=== PATIENT | male | born 1945 | race Caucasian/White ===

== ENCOUNTER → 2016-09-16 | Outpatient (CLI) | payer BC, MEDICARE ==
[2016-09-16 10:37] LABS: Blood Urea Nitrogen 29 mg/dL (9-20); Non-African American GFR(MDRD) >60 (>60 ml/min/1.73 sqM)
--- NOTE | 2016-09-16 11:47 | CT ---
EXAMINATION TYPE: CT abdomen pelvis w con DATE OF EXAM: 09/16/2016 11:22 AM COMPARISON: 03/19/2016 HISTORY: Patient complains of right flank pain bruising and pain. Patient also complains of right gr oin numbness x3 years. CT DLP: 402.7 mGycm CONTRAST: CT scan of the abdomen and pelvis is performed with Oral Contrast and with IV Contrast, patient injec suleiman with 100 mL of Omnipaque 300. FINDINGS: LUNG BASES-: No visible nodule. No infiltrate. LIVER/GB: No calcified gallstones. No space occupying hepatic lesion. Biliary tree is of normal ca liber. PANCREAS: No inflammation. No distinct mass. SPLEEN: No splenic enlargement. No lesion seen. ADRENALS: No nodule. No thickening. KIDNEYS/BLADDER: No hydronephrosis. 5.5 mm nonobstructing left renal calculus mid pole. No additiona l calculi seen. No disctinct renal mass. Urinary bladder grossly unremarkable. BOWEL: Normal appendix. Normal bowel caliber. No inflammation. Small moderate fixed hiatal hernia. GENITAL ORGANS: No gross abnormality. LYMPH NODES: No greater than 1cm abdominal or pelvic lymph nodes are appreciated. AORTA: No significant abnormality. OSSEOUS STRUCTURES: Degenerative changes lumbar spine. Compression fractures have been described prev iously. OTHER: Fat-containing bilateral inguinal hernias. IMPRESSION: 1. Fixed hiatal hernia. 2. Nonobstructing left renal calculus. 3. Fat-containing bilateral inguinal hernias.
== END | disposition home or self-care (01) ==
LOC: RADCTMAIN 10:02
PROVIDERS: ATTEND Surgery
DX: K44.9 Diaphragmatic hernia without obstruction or gangrene (principal); K40.90 Unilateral inguinal hernia, without obstruction or gangrene, not specified as recurrent; N20.0 Calculus of kidney
CPT/HCPCS: 82565; 84520; 74177; 36415; Q9967

== ENCOUNTER 2016-09-30 08:29 | Day surgery (SDC) | payer BC, MEDICARE ==
[2016-09-27 10:32] VITALS: BMI 22.9
[~2016-09-30 08:29] MED LIST: LACTATED RINGERS 1,000 ML IV SCH
[2016-09-30 08:54] VITALS: TEMP 97.9
[2016-09-30] MEDS ORDERED: LIDOCAINE 1% 20 ML VIAL (10MG/ML) FOR IV START INTRADERMA ONE (08:59)
[2016-09-30] MEDS ORDERED: LIDOCAINE 1% INJ 10MG/ML (20 ML MDV) ONE (09:15)
[2016-09-30] MEDS ORDERED: PROPOFOL 10 MG/ML 20 ML VIAL IV ONE (09:15)
[2016-09-30] MEDS ORDERED: GLYCOPYRROLATE 0.2 MG/ML 2 ML VIAL ONE (09:15)
--- NOTE | 2016-09-30 09:26 | P.GSHP ---
History of Present Illness H&P Date: 09/30/16 Chief Complaint: GERD This is a 71-year-old male referred from Dr. britt. Patient's complaints of GERD. He presents today for EGD. - Constitutional Constitutional: Reports as per HPI Past Medical History Past Medical History: Asthma, Cancer, GERD/Reflux, GI Bleed, Hearing Disorder / Deafness, Pneumonia Additional Past Medical History / Comment(s): ARRYTHMIA, MVP, MURMUR. HAS "BLEEDING ULCER," HAS F/U EGD IN FEW WKS. HX ORAL CA. PNEUMONIA, H1N1 IN 06/2013 ; HX KIDNEY STONE. History of Any Multi-Drug Resistant Organisms: None Reported Past Surgical History: Orthopedic Surgery Additional Past Surgical History / Comment(s): ORAL SURG FOR CA. EGD. SHOULDER SX Past Anesthesia/Blood Transfusion Reactions: No Reported Reaction Past Psychological History: No Psychological Hx Reported Smoking Status: Never smoker Past Alcohol Use History: None Reported Past Drug Use History: None Reported Medications and Allergies Home Medications Medication Instructions Recorded Confirmed Type No Known Home Medications [No 09/27/16 09/30/16 History Known Home Medications] Allergies Allergy/AdvReac Type Severity Reaction Status Date / Time No Known Allergies Allergy Verified 09/30/16 08:43 Surgical - Exam Vital Signs Temp Pulse Resp BP Pulse Ox 97.9 F 47 L 16 100/51 95 09/30/16 08:48 09/30/16 08:48 09/30/16 08:48 09/30/16 08:48 09/30/16 08:48 - General well developed, no distress - Eyes PERRL - ENT normal pinna - Neck no masses - Respiratory normal expansion - Cardiovascular Rhythm: regular - Abdomen Abdomen: soft, non tender Assessment and Plan Plan: GERD. We'll perform EGD.
--- NOTE | 2016-09-30 09:36 | P.OP ---
Date of Procedure: 09/30/16 Preoperative Diagnosis: GERD Postoperative Diagnosis: Antral gastritis Moderate size hiatal hernia Esophagitis with ulceration Procedure(s) Performed: EGD Anesthesia: MAC Surgeon: Du Schultz Pathology: other Condition: stable Disposition: PACU Description of Procedure: Patient was placed in the endoscopy table lateral position. He received IV sedation. The gastroscope placed oropharynx passed into the esophagus and into the stomach. The scope was then placed through the pylorus. The first and second portion of the duodenum appeared normal. Scope was then brought back the antrum and this appeared mildly inflamed. A biopsies was performed. Scope was then retroflexed and then the moderate size hiatal hernia was visualized. The GE junction was at 38 7 is. The distal esophagus was acutely inflamed with evidence of linear ulceration due to reflux. This area is biopsied. The proximal esophagus appeared normal. Scope was withdrawn for patient.
[2016-09-30 09:42] VITALS: PULSE 59
[2016-09-30 10:13] VITALS: BP 141/94; RESP 18
== END 2016-09-30 10:25 | disposition home or self-care (01) ==
LOC: ORWHC2ENDO 08:29
PROVIDERS: ATTEND Surgery
DX: K21.0 Gastro-esophageal reflux disease with esophagitis (principal); K29.50 Unspecified chronic gastritis without bleeding; K44.9 Diaphragmatic hernia without obstruction or gangrene; K22.10 Ulcer of esophagus without bleeding; I49.9 Cardiac arrhythmia, unspecified; J45.909 Unspecified asthma, uncomplicated; Z85.819 Personal history of malignant neoplasm of unspecified site of lip, oral cavity, and pharynx
CPT/HCPCS: 88305; 88312; 88342; 43239; J2001; J2704

== ENCOUNTER → 2016-10-25 | Outpatient (CLI) | payer BC, MEDICARE ==
[2016-10-25 17:36] LABS: EKG EKG PERFORMED
[2016-10-25 17:45] LABS: Basophils # (A) 0.1 k/uL (0-0.2); Basophils % (A) 1 %; CH 33.7; CHCM 33.8; Eosinophils # (A) 0.1 k/uL (0-0.7); Eosinophils % (A) 2 %; HCT 42.3 % (39.0-53.0); Luc # (Auto) 0.23; Luc % (Auto) 4; Lymphocytes # (A) 1.2 k/uL (1.0-4.8); Lymphocytes % (A) 23 %; MCH 33.1 pg (25.0-35.0); MCV 100.2 fL (80.0-100.0); Mean Platelet Volume 6.7; Monocytes # (A) 0.4 k/uL (0-1.0); Monocytes % (A) 8 %; Neutrophils # (A) 3.3 k/uL (1.3-7.7); Neutrophils % (A) 62 %; RBC 4.22 m/uL (4.30-5.90); RDW 13.2 % (11.5-15.5); WBC 5.4 k/uL (3.8-10.6); WBC (Perox) 5.71
[2016-10-25 17:54] LABS: Anion Gap 9 mmol/L; Carbon Dioxide 29 mmol/L (22-30); Chloride 104 mmol/L (98-107); Potassium 4.8 mmol/L (3.5-5.1); Sodium 142 mmol/L (137-145)
== END | disposition home or self-care (01) ==
LOC: LABPAT 17:14
PROVIDERS: ATTEND Anesthesiology
DX: Z01.810 Encounter for preprocedural cardiovascular examination (principal); Z01.812 Encounter for preprocedural laboratory examination
CPT/HCPCS: 80051; 85025; 93005

== ENCOUNTER 2016-10-29 06:22 | Observation (INO) | payer BC, MEDICARE ==
[2016-10-25 16:02] VITALS: BMI 25.2
[~2016-10-29 06:22] MED LIST changes: +DEXAMETHASONE SOD PHOSPHATE 10 MG/ML 1 ML VIAL IV ONE; +HEPARIN SODIUM,PORCINE 5,000 UNIT/ML 1 ML VIAL SQ ONE; +HYDROmorphone 1 MG/ML 1 ML SYRINGE IVP PRN; -LACTATED RINGERS 1,000 ML IV SCH; +MIDAZOLAM 2 MG/2 ML VIAL IV PRN; +ONDANSETRON 4 MG/2 ML VIAL IVP ONE; +ceFAZolin 2 GM in SODIUM CHLORIDE 0.9% 100 ML IVPB ONE
[2016-10-29] MEDS: LACTATED RINGERS 1,000 ML IV SCH (07:04)
--- NOTE | 2016-10-29 08:17 | P.GSHP ---
History of Present Illness H&P Date: 10/29/16 Chief Complaint: GERD This a 71-year-old male referred from Dr. Rizvi. NThe patient has had long-standing problems with reflux esophagitis. The patient underwent recent EGD is found have evidence of esophagitis. Patient has been well informed on the procedure of laparoscopic Abiodun fundoplication. The patient is aware the risk of the conversion to the open procedure, risk of injury to the stomach, liver and spleen. The patient is also a risk of recurrent GERD and dysphagia symptoms. The patient understands there is a postoperative diet of full liquids for 2 weeks after surgery. - Constitutional Constitutional: Reports as per HPI Past Medical History Past Medical History: Asthma, Cancer, GERD/Reflux, GI Bleed, Hearing Disorder / Deafness, Pneumonia Additional Past Medical History / Comment(s): ARRYTHMIA, MVP WITH HEART MURMUR. , STATES BLEEDING ULCER, HX ORAL CA. PNEUMONIA, H1N1 IN 2013; ,KIDNEY STONE., STATES ASTHMA BUT TOOK HIMSELF OFF OF INHALERS. , FX VERTEBRAE, FREQUENT STOOLS ., STATES HE WALKS HUNCHED OVER., STATES HE IS A [employer] AND HAS A SLOW RESTING HEART RATE -SOMETIMES AROUND 30. , H.O. H. History of Any Multi-Drug Resistant Organisms: None Reported Past Surgical History: Orthopedic Surgery Additional Past Surgical History / Comment(s): ORAL SURG FOR CA. , EGD., SHOULDER SX., LITHOTRIPSY. Past Anesthesia/Blood Transfusion Reactions: No Reported Reaction Past Psychological History: No Psychological Hx Reported Smoking Status: Never smoker Past Alcohol Use History: None Reported Past Drug Use History: None Reported - Past Family History Mother Family Medical History: No Reported History Medications and Allergies Home Medications Medication Instructions Recorded Confirmed Type Allergy Shots 1 dose PO Q14D 10/25/16 10/29/16 History Multivitamins, Thera [Multivitamin 1 tab PO DAILY 10/25/16 10/29/16 History (formulary)] Allergies Allergy/AdvReac Type Severity Reaction Status Date / Time No Known Allergies Allergy Verified 10/29/16 06:46 Surgical - Exam Vital Signs Temp Pulse Resp BP Pulse Ox 97.2 F L 56 L 16 143/82 99 10/29/16 06:43 10/29/16 06:43 10/29/16 06:43 10/29/16 06:43 10/29/16 06:43 - General well developed, no distress - Eyes PERRL - ENT normal pinna - Neck no masses - Respiratory normal expansion - Cardiovascular Rhythm: regular - Abdomen Abdomen: soft, non tender Assessment and Plan Plan: GERD. We'll perform laparoscopic Abiodun fundal plication.
[2016-10-29] MEDS ORDERED: SUCCINYLCHOLINE CHLORIDE 100 MG/5 ML SYR IV ONE (08:22)
[2016-10-29] MEDS ORDERED: MIDAZOLAM 2 MG/2 ML VIAL ONE (08:22)
[2016-10-29] MEDS ORDERED: LIDOCAINE 1% INJ 10MG/ML (20 ML MDV) ONE (08:22)
[2016-10-29] MEDS ORDERED: ROCURONIUM BROMIDE 10 MG/ML 10 ML VIAL IV ONE (08:22)
[2016-10-29] MEDS ORDERED: fentaNYL (PF) 50 MCG/ML 2 ML AMP ONE (08:22)
[2016-10-29] MEDS ORDERED: PROPOFOL 10 MG/ML 20 ML VIAL IV ONE (08:22)
[2016-10-29] MEDS ORDERED: BUPIVACAIN-EPI 0.25%-1:200,000 30 ML VIAL SQ ONE (08:52)
[2016-10-29] MEDS ORDERED: LACTATED RINGERS 1,000 ML IV ONE (09:05)
[2016-10-29] MEDS: METHYLENE BLUE 15 MG in DEXTROSE 5% IN WATER 500 ML IRRIGATION ONE ×4 (09:13→11:45)
[2016-10-29] MEDS ORDERED: HYDROmorphone 1 MG/ML 1 ML SYRINGE IVP PRN (09:20)
[2016-10-29] MEDS ORDERED: ONDANSETRON 4 MG/2 ML VIAL IVP PRN (09:20)
--- NOTE | 2016-10-29 09:20 | P.OP ---
Date of Procedure: 10/29/16 Preoperative Diagnosis: GERD Postoperative Diagnosis: GERD Procedure(s) Performed: Laparoscopic Abiodun fundoplication Anesthesia: SOL Surgeon: Du Schultz Estimated Blood Loss (ml): 5 Pathology: none sent Condition: stable Disposition: PACU Description of Procedure: The patient was placed on the operating table in the supine position. The patient received general anesthesia. And was placed in dorsal lithotomy position. The patient was prepped and draped in the usual sterile fashion. The skin incision sites were anesthetized with 1% local Xylocaine. The skin was incised in the left periumbilical area and then using a blade less 5 mm trocar under direct visualization panel cavity was entered. After adequate insufflation the laparoscope was then placed into the peritoneal cavity. Next a 5 mm trochars placed in the right epigastric position. Another 5 millimeter trocar the right lateral position. Another 5 millimeter trocar in the left lateral position a 5 mm trocar is placed in the left epigastric position. And then the initial 5 mm trocar was exchanged for a 10 mm trocar. The left lateral lobe liver was retracted. The hernia was seen. The crural defect was then dissected using the Harmonic scissors device. A 360 crural dissection was performed the esophagus stomach was reduced back into the peritoneal Cavity. The crural defect was then closed using 2-0 Ethibond suture. Next the fundus of the stomach was mobilized using the Eckerman scissors device. and then a 58-Czech bougie dilator was placed oropharynx passed into the esophagus and stomach the fundal plication wrap was then performed by grasping the fundus posteriorly and bringing it around the esophagus and stomach fundoplication was then performed using 2-0 Ethibond suture. Care was taken that the fundal location rested over top of the intra-abdominal esophagus. There was no injury seen to the stomach or esophagus. The dilator was then withdrawn. The abdomen was irrigated there is no bleeding seen. The trochars were then withdrawn and then skin incision sites were closed using 3-0 Monocryl suture Steri-Strips are applied. Patient thought procedure well and sent to recovery room in stable condition.
[2016-10-29] MEDS: D5-0.45% NACL WITH KCL 20MEQ/L 1,000 ML IV SCH ×2 (12:25→21:12)
[2016-10-29] MEDS: METOCLOPRAMIDE 5 MG/ML 2 ML VIAL IVP SCH ×3 (12:25→23:41)
--- NOTE | 2016-10-29 14:19 | FL ---
EXAMINATION TYPE: FL esophagus cervic/pharynx DATE OF EXAM ORDERED: 10/29/2016 2:07 PM HISTORY: Status post Arabella fundoplication. COMPARISON: None. FINDINGS: The patient swallowed contrast with ease. There was mild holdup of egress of barium from e sophagus into the stomach at the level of the gastroesophageal junction. There is no evidence of extr avasation. There is moderate free air. IMPRESSION: STATUS POST ARABELLA FUNDOPLICATION.
[2016-10-29] MEDS: FAMOTIDINE 20 MG/2 ML VIAL IV SCH (21:12)
[2016-10-30] MEDS: D5-0.45% NACL WITH KCL 20MEQ/L 1,000 ML IV SCH ×3 (00:08→17:40)
[2016-10-30] MEDS: METOCLOPRAMIDE 5 MG/ML 2 ML VIAL IVP SCH ×3 (05:56→17:32)
[2016-10-30] MEDS: LACTATED RINGERS 1,000 ML IV SCH (06:07)
[2016-10-30] MEDS: ENOXAPARIN 40 MG/0.4 ML SYRINGE SQ SCH (08:34)
[2016-10-30] MEDS: FAMOTIDINE 20 MG/2 ML VIAL IV SCH ×2 (08:34→20:34)
--- NOTE | 2016-10-30 11:38 | P.PN ---
Progress Note - Text Patient underwent Abiodun fundoplication by Dr. Schultz yesterday. Postop swallow study was unremarkable. Patient however the feels quite bloated gas. Was not able to tolerate liquids today. Some nausea. On examination he is awake alert in no acute distress. Temperature is normal. Vitals are stable. Abdomen is soft not particularly distended. Trocar sites are fine. No guarding or rebound or evidence of any significant intra- abdominal complication. Impression course. Some nausea. Recommendation we'll continue to monitor him especially his oral intake and discharge of hopefully in the day or 2 ago when he feels better.
[2016-10-30 14:36] VITALS: RESP 16
[2016-10-31] MEDS ORDERED: METOCLOPRAMIDE 5 MG/ML 2 ML VIAL ONE (00:51)
[2016-10-31] MEDS: METOCLOPRAMIDE 5 MG/ML 2 ML VIAL IVP SCH ×3 (02:19→11:11)
[2016-10-31] MEDS: D5-0.45% NACL WITH KCL 20MEQ/L 1,000 ML IV SCH ×2 (05:41→11:17)
[2016-10-31] MEDS: LACTATED RINGERS 1,000 ML IV SCH (05:59)
[2016-10-31] MEDS: FAMOTIDINE 20 MG/2 ML VIAL IV SCH (08:34)
[2016-10-31] MEDS: ENOXAPARIN 40 MG/0.4 ML SYRINGE SQ SCH (08:34)
[2016-10-31 09:13] VITALS: BP 168/86; PULSE 45; TEMP 98.3
--- NOTE | 2016-10-31 11:02 | P.DS ---
Providers Date of admission: 10/30/16 07:47 Attending physician: Du Schultz Consults: 10/29/16 09:20 Consult Physician Routine Consulting Provider: Ron Rizvi Consult Reason/Comments: Management Do you want consulting provider notified?: Yes Primary care physician: Ron Rizvi Plan - Discharge Summary New Discharge Prescriptions: Docusate [Colace] 100 mg PO BID #20 capsule HYDROcodone/APAP 7.5-325MG [Esopus 7.5] 1 each PO Q4H PRN #60 tab PRN Reason: Pain Discharge Medication List Allergy Shots 1 dose SQ Q14D 10/25/16 [History] Multivitamins, Thera [Multivitamin (formulary)] 1 tab PO DAILY 10/25/16 [History ] Docusate [Colace] 100 mg PO BID #20 capsule 10/29/16 [Rx] HYDROcodone/APAP 7.5-325MG [Esopus 7.5] 1 each PO Q4H PRN #60 tab 10/29/16 [Rx] Follow up Appointment(s)/Referral(s): Du Schultz MD [STAFF PHYSICIAN] - 2 Weeks (Office closed. Patient to call and schedule follow up appointment.) Discharge Disposition: HOME SELF-CARE
--- NOTE | 2016-10-31 11:04 | P.PN ---
Progress Note - Text The patient is doing better today. He was able to tolerate some liquids this morning. Eyes any nausea or vomiting. Did have 2 bowel movements. Minimal abdominal discomfort. He is day 2 post lap Abiodun fundoplication. On examination he is afebrile in no distress vitals are good abdomen is soft with mild tenderness to trocar sites are healing nicely with no evidence of complication. Her graft pressure satisfactory postoperative course. Recommendation patient can be discharged today routine Abiodun fundoplication postop orders and follow-up with Dr. Coates in 2 weeks. No heavy lifting for a week.
--- NOTE | 2016-10-31 12:29 | CONS ---
DATE OF CONSULTATION: CHIEF COMPLAINT: GERD. HISTORY OF PRESENT ILLNESS: This gentleman is in for an elective Abiodun fundoplasty. He has been doing fairly well. He has other problems including arthritis affecting particularly his LS-spine, hypertension and other aches and pains largely due to arthritis. He has had some intermittent problems with elevation of his blood pressure, but is generally good and he takes no treatment. REVIEW OF SYSTEMS: He has had no neurologic problems, change in vision or hearing, headache, chest pain, shortness of breath, cough, hemoptysis, murmurs, rheumatic fever, heart disease, palpitations, orthopnea, PND, abdominal pain, melena, hematochezia, jaundice, hepatitis, cirrhosis, hematuria, frequency, urgency, arthralgias, diabetes, etc. Past medical history, family history and personal and social history are unremarkable and noncontributory otherwise and can be found in his admitting summary. He is currently not allergic to any medicine nor taking any. PHYSICAL EXAMINATION: VITAL SIGNS: Blood pressure 124/84 with pulse 64, respirations of 16, and temperature 96.3. GENERAL: Appeared to be well-developed, well-nourished and in no acute distress. Skin color is normal. Skin is warm and dry. Lymph nodes are not enlarged. Head, ears, eyes, nose, mouth, and throat were normal. Neck veins are not distended. Thyroid is not enlarged. Chest is clear. Cardiac exam is normal. Abdomen is soft and nontender. Incisions are dry. Extremities are normal. Neurologically, he is intact. IMPRESSION: 1. Gastroesophageal reflux disease. 2. Lumbosacral spine arthritis. RECOMMENDATIONS: None.
--- NOTE | 2016-10-31 12:57 | PN ---
DATE OF SERVICE: 10/30/2016 CHIEF COMPLAINT: Status post Abiodun fundoplasty. HISTORY OF PRESENT ILLNESS: The gentleman is doing well, but he has no trouble with dysphagia and but he otherwise has had no problems. He has had no pain, fever, chills, cough, etc. PHYSICAL EXAMINATION: Chest is clear. The cardiac exam is normal. Incisions are dry. IMPRESSION: Status post Abiodun fundoplasty. RECOMMENDATION: No change in program. He is doing well.
== END 2016-10-31 12:30 | disposition home or self-care (01) ==
LOC: ORWHC2ENDO 06:22 → EDSTATUS 07:45 → 3SUR 09:33 → ORWHC2ENDO 10-30 07:46 → 3SUR 10-30 07:47
PROVIDERS: ADMIT Surgery; ATTEND Surgery
DX: K21.0 Gastro-esophageal reflux disease with esophagitis (principal); M46.97 Unspecified inflammatory spondylopathy, lumbosacral region; H91.90 Unspecified hearing loss, unspecified ear; Z85.819 Personal history of malignant neoplasm of unspecified site of lip, oral cavity, and pharynx; I34.1 Nonrheumatic mitral (valve) prolapse; K44.9 Diaphragmatic hernia without obstruction or gangrene
CPT/HCPCS: 43280; 96372 ×2; 74210; G0378 ×2; J2250; J1644; J1100; J2765 ×3; Q9967; J0690; J2405; J2001; J1650 ×2; J3010; J1170; J0330; J2704

== ENCOUNTER → 2016-12-02 | Outpatient (CLI) | payer BC ==
--- NOTE | 2016-12-02 09:08 | NM ---
EXAMINATION TYPE: NM hepatobiliary w EF DATE OF EXAM: 12/02/2016 COMPARISON: CT abdomen and pelvis November 17, 2016. HISTORY: Chronic cholecystitis per order. Epigastric pain with diminished appetite nausea vomiting he artburn and reflux-like symptoms per patient. TECHNIQUE: After the intravenous administration of 5.5 mCi Tc 99m Mebrofenin hepatobiliary scintigrap hy is performed. Immediate images post injection. FINDINGS: There is satisfactory initial accumulation of tracer by the liver. The gallbladder is visualized wit hin 10 minutes. The small bowel activity is noted within 30 minutes. At one hour 8 ounces of oral e nsure plus is given to mimic CCK and gallbladder ejection fraction is calculated at 58 %, in the norm al range. Therefore there is no scintigraphic evidence of cystic or common bile duct obstruction to suggest acute cholecystitis or gallbladder dyskinesia. IMPRESSION: Exam is within normal limits.
== END | disposition home or self-care (01) ==
LOC: RADNMMAIN 06:31
PROVIDERS: ATTEND Surgery
DX: K81.1 Chronic cholecystitis (principal)
CPT/HCPCS: 78226; A9537

== ENCOUNTER → 2016-12-24 | Outpatient (CLI) | payer BC ==
[2016-12-24 13:52] LABS: Non-African American GFR(MDRD) >60 (>60 ml/min/1.73 sqM)
== END | disposition home or self-care (01) ==
LOC: LABWHC1 13:20
PROVIDERS: ATTEND Surgery
DX: S22.089A Unspecified fracture of T11-T12 vertebra, initial encounter for closed fracture (principal)
CPT/HCPCS: 36415; 82565

== ENCOUNTER → 2016-12-27 | Outpatient (CLI) | payer BC, MEDICARE ==
--- NOTE | 2016-12-27 09:28 | MR ---
EXAMINATION TYPE: MR marty/stoney wo/w con DATE OF EXAM: 12/27/2016 COMPARISON: CT abdomen pelvis 09/16/2016 HISTORY: T12 fracture, Back pain TECHNIQUE: Multiplanar, multisequence images of the lumbar spine and thoracic spine is performed without and wit h IV contrast, utilizing 12 mL intravenous MultiHance FINDINGS: Compression deformity again noted at T12, minimal retropulsion of the superior endplate is again seen. No significant spinal stenosis. Thoracic cord signal is maintained. At T3-4 there is a le ft paracentral posterior disc herniation contacting the anterior resident cord. There is a scoliosis present. Thoracic vertebral bodies show multilevel spondylosis. Disc spaces are maintained. Minimal endplate d iscogenic marrow signal changes are present. Loss of disc height and signal is greatest at the intervertebral levels in the lumbar spine, there is endplate discogenic marrow signal change, multilevel spondylosis. Minimal superior endplate depressi on also present at L2 centrally. Scoliosis contributes to cause some foraminal encroachment at L4-5, L5-S1, L3-4, L2-3 and L1-2 with circumferential extension of endplate disc complex. L5-S1: Facet arthropathy changes are present. Circumferential posterior disc bulge causes minimal ant erior mass effect on the thecal sac. L4-5: Small posterior disc bulge causes minimal anterior mass effect on the thecal sac. Facet arthrop athy encroaches on the lateral recesses. No significant central stenosis. L3-4: Hypertrophic change of the ligamentum flavum encroaches on the lateral recesses, there is a lillie foil appearance of the thecal sac, only mild central stenosis. L2-3: Small posterior disc bulge causes slight anterior mass effect on the thecal sac. There is some facet arthropathy. L1-2: Small posterior disc bulge causes minimal anterior mass effect on the thecal sac. There is some mild facet arthropathy. T12-L1: Within normal limits. Common iliac artery on the right appears ectatic measuring 2.2 cm. Abdominal aorta are also ectatic a t the level of the aortic hiatus. Prominent extrarenal pelvis on the left. Proximal descending aorta measures approximately 3.2 cm. No abnormal enhancement following contrast a dministration. IMPRESSION: Compression fractures a stable finding at T12. Aortic ectasia, common iliac artery ectasi a. Scoliosis. Multilevel foraminal encroachment. She
== END | disposition home or self-care (01) ==
LOC: RADMRIMAIN 06:33
PROVIDERS: ATTEND Surgery
DX: S22.089A Unspecified fracture of T11-T12 vertebra, initial encounter for closed fracture (principal); M41.9 Scoliosis, unspecified; M54.5 Low back pain
CPT/HCPCS: 72157; 72158; A9577

== ENCOUNTER 2017-01-18 06:11 | Day surgery (SDC) | payer BC ==
[2017-01-11 08:22] VITALS: BMI 19.8
[~2017-01-18 06:11] MED LIST changes: -HYDROmorphone 1 MG/ML 1 ML SYRINGE IVP PRN
[2017-01-18] MEDS: LACTATED RINGERS 1,000 ML IV SCH ×2 (06:47→06:48)
[2017-01-18] MEDS ORDERED: LIDOCAINE 1% 20 ML VIAL (10MG/ML) FOR IV START INTRADERMA ONE ×2 (06:48→06:49)
--- NOTE | 2017-01-18 07:50 | P.GSHP ---
History of Present Illness H&P Date: 01/18/17 Chief Complaint: Right lower quadrant pain, bilateral hernias This is a 71-year-old male presents today for laparoscopic robotic system repair of bilateral inguinal hernias. Patient also had chronic right lower quadrant pain. He will undergo incidental appendectomy. Past Medical History Past Medical History: Asthma, Cancer, GI Bleed, Hearing Disorder / Deafness, Pneumonia Additional Past Medical History / Comment(s): ARRYTHMIA, MVP WITH HEART MURMUR. , HX ORAL CA. H1N1 IN 2014; ,KIDNEY STONE., STATES ASTHMA BUT TOOK HIMSELF OFF OF INHALERS. ,STATES HE WALKS HUNCHED OVER., STATES HE IS A [employer] AND HAS A SLOW RESTING HEART RATE -SOMETIMES AROUND 30. History of Any Multi-Drug Resistant Organisms: None Reported Past Surgical History: Orthopedic Surgery Additional Past Surgical History / Comment(s): ORAL SURG FOR CA. , EGD., RT SHOULDER SX., LITHOTRIPSY. asha fundolipation Past Anesthesia/Blood Transfusion Reactions: No Reported Reaction Smoking Status: Never smoker - Past Family History Mother Family Medical History: No Reported History Medications and Allergies Home Medications Medication Instructions Recorded Confirmed Type Multivitamins, Thera [Multivitamin 1 tab PO DAILY 10/25/16 01/11/17 History (formulary)] Allergies Allergy/AdvReac Type Severity Reaction Status Date / Time No Known Allergies Allergy Verified 01/11/17 08:14 Surgical - Exam Vital Signs Temp Pulse Resp BP Pulse Ox 96.8 F L 69 16 130/77 98 01/18/17 06:33 01/18/17 06:33 01/18/17 06:33 01/18/17 06:33 01/18/17 06:33 - General well developed, no distress - Eyes PERRL - ENT normal pinna - Neck no masses - Respiratory normal expansion - Cardiovascular Rhythm: regular - Abdomen Right lower quadrant pain Abdomen: soft Hernia: inguinal (Bilateral reducible inguinal hernias) Assessment and Plan Plan: Right lower quadrant pain. We'll perform laparoscopic appendectomy. Bilateral inguinal hernias. We'll perform robotic-assisted repair of bilateral inguinal hernias.
[2017-01-18] MEDS ORDERED: LIDOCAINE 1% INJ 10MG/ML (20 ML MDV) ONE (07:54)
[2017-01-18] MEDS ORDERED: ROCURONIUM BROMIDE 10 MG/ML 10 ML VIAL IV ONE (07:54)
[2017-01-18] MEDS ORDERED: MIDAZOLAM 2 MG/2 ML VIAL ONE (07:54)
[2017-01-18] MEDS ORDERED: GLYCOPYRROLATE 0.2 MG/ML 2 ML VIAL ONE (07:54)
[2017-01-18] MEDS ORDERED: SUCCINYLCHOLINE CHLORIDE 100 MG/5 ML SYR IV ONE (07:54)
[2017-01-18] MEDS ORDERED: PROPOFOL 10 MG/ML 20 ML VIAL IV ONE (07:54)
[2017-01-18] MEDS ORDERED: NEOSTIGMINE 1 MG/ML 10 ML VIAL ONE (07:54)
[2017-01-18] MEDS ORDERED: fentaNYL (PF) 50 MCG/ML 2 ML AMP ONE (07:54)
[2017-01-18] MEDS ORDERED: BUPIVACAINE (PF) 0.25% 30 ML VIAL SQ ONE (08:24)
[2017-01-18] MEDS ORDERED: LIDOCAINE 2%-EPI 1:100,000 20 ML VIAL SQ ONE (08:24)
--- NOTE | 2017-01-18 09:33 | P.OP ---
Date of Procedure: 01/18/17 Preoperative Diagnosis: Bilateral inguinal hernia Chronic appendicitis Postoperative Diagnosis: Bilateral inguinal hernia Chronic appendicitis Procedure(s) Performed: Laparoscopic robotic--assisted repair of bilateral inguinal hernia Laparoscopic appendectomy Implants: Anesthesia: SOL Surgeon: Du Schultz Estimated Blood Loss (ml): 5 Pathology: other (Appendix) Condition: stable Disposition: PACU Indications for Procedure: Operative Findings: Description of Procedure: he patient's placed on the operating table in the supine position. The patient received general anesthesia. The patient's abdomen was prepped and draped in usual sterile fashion. The skin was anesthetized 1% local Xylocaine at the incision sites. Using an 11 blade a skin incision was made at the umbilicus. The fascia was grasped with a Hooper and then the peritoneal cavity was entered with the Veress needle. Position of the Veress needle was confirmed with a positive drop test. After adequate insufflation a 5 mm trocar was placed into the peritoneal cavity. The Laparoscope was placed the peritoneal cavity. And a robotic 8 mm trocar was placed in the right lateral position and then another 8 mm robotic trochars placed in the left lateral position. The original 5 mm trocar was exchanged for a 12 mm trocar. The patient was placed in reverse Trendelenburg and then the patient was docked to the robot. Next the peritoneum over top of the hernia was incised and then using blunt and sharp dissection and electrocautery the hernia sac was dissected free from the floor of the inguinal canal. The hernia sac was completely reduced into the peritoneal cavity. And then using the [employer] operations specialist mesh the hernia was repaired. The peritoneum was then sutured with 20V lock suture. Next, the left inguinal hernia was repaired medical fashion. The patient was then undocked the robot. The needle was withdrawn from the peritoneal cavity. The appendix was then visualized. Using the Harmonic scissors the mesoappendix was divided. And then a Endoloop PDS was placed around the base the appendix is secured. The appendix was then divided using Harmonic scissors. The pelvis and brought up through the 12 mm trocar site. Trochars were withdrawn. The umbilical trocar site was closed with 0 Ethibond suture. The skin was closed interrupted 3-0 Monocryl suture. Dermabond dressing was applied. Patient was sent to recovery in stable condition.
[2017-01-18 09:46] VITALS: TEMP 97.4
[2017-01-18] MEDS: HYDROmorphone 1 MG/ML 1 ML SYRINGE IVP PRN ×2 (10:00→10:12)
[2017-01-18 10:44] VITALS: RESP 18
[2017-01-18 12:48] VITALS: BP 115/71; PULSE 61
== END 2017-01-18 18:01 | disposition home or self-care (01) ==
LOC: OR 06:11
PROVIDERS: ATTEND Surgery
DX: K40.20 Bilateral inguinal hernia, without obstruction or gangrene, not specified as recurrent (principal); K36 Other appendicitis; J45.909 Unspecified asthma, uncomplicated
CPT/HCPCS: 49650; S2900; 88304

== ENCOUNTER → 2018-06-26 | Outpatient (CLI) | payer MEDICARE, BC ==
--- NOTE | 2018-06-26 15:19 | FL ---
EXAMINATION TYPE: FL UGI air w small bowel DATE OF EXAM: 06/26/2018 COMPARISON: NONE HISTORY: CT of the abdomen and pelvis dated 03/19/2016. The patient notes changes and caliber of stool and focal pain of the cecum during the examination. History of hiatal hernia repair and gastroesopha geal reflux. TECHNIQUE: A single contrast UGI study is performed with small bowel follow through. FINDINGS: Government Relations Manager image of the abdomen shows no gross abnormality. The esophagus shows normal motility and emptying into the stomach during the upright portion of the e xamination with delayed emptying into tertiary contractions on the gravity independent portion of the exam. There is a recurrent hiatal hernia with evidence of Abiodun fundoplication. There is also a sma ll pleural effusion diverticulum of the left lateral gastric fundus. There is suspicion for a small g astric fundal ulcer. Gastric rugal folds are very slightly thickened. No evidence of hiatal hernia or stricture noted. The stomach shows normal distensibility, peristalsis, and mucosal folds. Moderate intraesophageal and mild gastroesophageal reflux was seen during real time performance of this study. The duodenal bulb and sweep are unremarkable. The small bowel study shows normal transit to the colon in less than 3 hours and 40 minutes. There i s normal mucosal fold pattern throughout the small bowel. There is no evidence of any stricture or f illing defect noted. The terminal ileum is unremarkable. There are moderate to severe degenerative changes of the lumbar spine with a levoscoliotic curvature and compression deformities of T12 and L2 noted to be chronic. IMPRESSION: 1. Small recurrent hiatal hernia resulting in moderate degree intraesophageal and mild gastroesophage al reflux to the midthoracic esophagus. 2. Findings suspicious for a small gastric fundal ulcer. 3. Minimally thickened gastric rugal folds most commonly related to underlying gastritis. 4. The patient notes tenderness focally at the cecum with no pathology was noted on the cecum on toda y's exam although the patient is scheduled for a barium enema later this month. If no etiology is fou nd on that examination colonoscopy could be considered.
== END | disposition home or self-care (01) ==
LOC: RADFLMAIN 07:49
PROVIDERS: ATTEND Family Medicine
DX: K44.9 Diaphragmatic hernia without obstruction or gangrene (principal); K21.9 Gastro-esophageal reflux disease without esophagitis
CPT/HCPCS: 74249

== ENCOUNTER → 2018-07-10 | Outpatient (CLI) | payer BC | END | disposition home or self-care (01) | LOC: RADFLMAIN 09:44 | PROVIDERS: ATTEND Family Medicine | DX: Z53.9 Procedure and treatment not carried out, unspecified reason (principal) ==

== ENCOUNTER → 2018-07-18 | Outpatient (CLI) | payer BC ==
--- NOTE | 2018-07-19 12:28 | ECHOS ---
STRESS ECHOCARDIOGRAM INDICATIONS: Shortness of breath. MEDICATIONS: None. BASELINE HEART RATE: 57 BASELINE BLOOD PRESSURE: 122/65 MAXIMUM HEART RATE: 137 MAXIMUM BLOOD PRESSURE: 143/71 85% MPHR: 127 100% MPHR: 144 METS: 10.1 MAXIMUM STAGE REACHED: III TOTAL EXERCISE TIME: 10:59 CLINICAL INFORMATION: Baseline heart rate 57 beats per minute. Baseline blood pressure 122/65 mmHg. Baseline 12-lead ECG shows sinus rhythm with PACs, normal ST segments. Patient exercised on a Frederic protocol for 10 minutes 59 seconds achieving a peak heart rate of 137 beats per minute. There was a [address] depression at peak exercise. Very frequent PVCs were noted with exercise. Occasional ventricular couplets. He also had a short nonsustained run of SVT during exercise. The baseline 2D echo images showed normal LV size and systolic function without any segmental wall motion abnormalities. At peak exercise, there was overall excellent augmentation of overall LV contractility, although the extent of wall thickening in the mid to basal septum was diminished as compared to the baseline images as well as recovery images. At recovery, regional global LV systolic function remained normal. IMPRESSION: 1. Abnormal ECG with an ischemic response. 2. Possible mild hypokinesis in the basal septum in the four-chamber view on peak images. 3. Very frequent premature ventricular contractions. 4. One short run of nonsustained supraventricular tachycardia. MMODL / IJN: [id number] /
== END | disposition home or self-care (01) ==
LOC: RADNMMAIN 08:32
PROVIDERS: ATTEND Family Medicine
DX: I49.3 Ventricular premature depolarization (principal); I47.1 Supraventricular tachycardia
CPT/HCPCS: 93351

== ENCOUNTER → 2018-08-04 | Outpatient (CLI) | payer BC ==
[2018-08-04 12:30] LABS: HCT 44.9 % (39.0-53.0); HGB 14.6 gm/dL (13.0-17.5); MCHC 32.6 g/dL (31.0-37.0); MCV 98.3 fL (80.0-100.0); Mean Platelet Volume 6.2; Platelet Count 216 k/uL (150-450); RBC 4.57 m/uL (4.30-5.90); RDW 13.2 % (11.5-15.5); WBC 5.5 k/uL (3.8-10.6)
[2018-08-04 12:48] LABS: Anion Gap 9 mmol/L; Blood Urea Nitrogen 31 mg/dL (9-20); Carbon Dioxide 25 mmol/L (22-30); Chloride 107 mmol/L (98-107); Potassium 4.9 mmol/L (3.5-5.1); Sodium 141 mmol/L (137-145)
== END | disposition home or self-care (01) ==
LOC: LABPAT 11:51
PROVIDERS: ATTEND Internal Medicine Cardiovascular Disease
DX: Z01.812 Encounter for preprocedural laboratory examination (principal); I25.10 Atherosclerotic heart disease of native coronary artery without angina pectoris; I47.1 Supraventricular tachycardia; R07.9 Chest pain, unspecified
CPT/HCPCS: 36415; 80051; 82565; 84520; 85027

== ENCOUNTER 2018-08-07 09:43 | Day surgery (SDC) | payer BC ==
[2018-08-02 15:33] VITALS: BMI 21.4
[~2018-08-07 09:43] MED LIST changes: -DEXAMETHASONE SOD PHOSPHATE 10 MG/ML 1 ML VIAL IV ONE; -HEPARIN SODIUM,PORCINE 5,000 UNIT/ML 1 ML VIAL SQ ONE; +LACTATED RINGERS 1,000 ML IV SCH; +LIDOCAINE 1% 20 ML VIAL (10MG/ML) FOR IV START INTRADERMA PRN; +MIDAZOLAM (PF) 2 MG/2 ML VIAL IV PRN; -MIDAZOLAM 2 MG/2 ML VIAL IV PRN; -ONDANSETRON 4 MG/2 ML VIAL IVP ONE; -ceFAZolin 2 GM in SODIUM CHLORIDE 0.9% 100 ML IVPB ONE
[2018-08-07 10:02] VITALS: TEMP 97.9
[2018-08-07] MEDS ORDERED: GLYCOPYRROLATE 0.2 MG/ML 2 ML VIAL ONE (10:22)
[2018-08-07] MEDS ORDERED: PROPOFOL 10 MG/ML 20 ML VIAL IV ONE (10:22)
[2018-08-07] MEDS ORDERED: LIDOCAINE 1% INJ 10MG/ML (20 ML MDV) ONE (10:22)
--- NOTE | 2018-08-07 10:51 | P.PCN ---
Date of Procedure: 08/07/18 Procedure(s) Performed: Procedure: Esophagogastroduodenoscopy and biopsy. Preoperative diagnosis: Right-sided abdominal pain. Postoperative diagnosis: 1. Sliding hiatal hernia with no obvious esophagitis or complaints reflux disease. 2. Mild antral gastritis. 3. Prior Abiodun fundoplication with apparent loosening of the wrap. 4. Multiple biopsies obtained from the duodenum, antrum and esophagus. Preparation sedation: Was provided by anesthesia. Brief clinical history: The patient is a 73-year-old male who I have evaluated in the office last month regarding the right-sided abdominal pain and acid reflux that has not been responding to therapy with omeprazole. The patient had prior Abiodun fundoplication for hiatal hernia and he said that he had an EGD in September 2016 that showed recurrent ulcer and gastritis. His right-sided abdominal pain is not new and apparently he had it for 6 years but is getting more troublesome lately. His last colonoscopy was around 2-3 years ago with removal of polyps. Procedure: With the patient on his left lateral decubitus position and after informed consent and adequate sedation, I passed the Olympus-GIF 01/18/1990 video upper endoscope through the cricopharyngeus down the esophagus. GE junction was around 38 cm from the incisors and there was a sliding hiatal hernia the endoscope was then passed into the stomach which was insufflated with air and inspected in detail including the retroflex view in the cardia. There was some mottling and erythema in the antrum consistent with mild antral gastritis but no ulcers or erosions. The previous Abioudn fundoplication showed that loosening of the wrap. Pyloric channel did not show any ulcers. Duodenal bulb, post bulbar area and descending duodenum appeared within normal limits. I obtained biopsies from the duodenum, antrum and esophagus then the endoscope was withdrawn. The patient tolerated the procedure well. Plan: The patient was reassured. Will await biopsy results and make further recommendations based on his course and biopsy results. I will keep you updated on his progress.
[2018-08-07 11:07] VITALS: PULSE 59
[2018-08-07 11:28] VITALS: BP 115/71; RESP 18
== END 2018-08-07 11:35 | disposition home or self-care (01) ==
LOC: ORWHC2ENDO 09:43
DX: K29.50 Unspecified chronic gastritis without bleeding (principal); K44.9 Diaphragmatic hernia without obstruction or gangrene; K21.9 Gastro-esophageal reflux disease without esophagitis; J45.909 Unspecified asthma, uncomplicated; H91.90 Unspecified hearing loss, unspecified ear; I47.1 Supraventricular tachycardia; I49.3 Ventricular premature depolarization; Z79.899 Other long term (current) drug therapy
CPT/HCPCS: 88305; 43239; J2001; J2704

== ENCOUNTER 2018-08-10 08:41 | Day surgery (SDC) | payer BC ==
[2018-08-07 15:19] VITALS: BMI 22.1
[~2018-08-10 08:41] MED LIST changes: +ALPRAZolam 0.25 MG TAB PO PRN; +ALPRAZolam 0.5 MG TAB PO PRN; +ASPIRIN 325 MG TAB PO ONE; +ATORVASTATIN 80 MG TAB PO ONE; -LACTATED RINGERS 1,000 ML IV SCH; -LIDOCAINE 1% 20 ML VIAL (10MG/ML) FOR IV START INTRADERMA PRN; -MIDAZOLAM (PF) 2 MG/2 ML VIAL IV PRN; +NITROGLYCERIN SL TABS 0.4 MG TAB SUBLINGUAL PRN; +SODIUM CHLORIDE 0.9% 1,000 ML in EMPTY BAG 1 BAG IV ONE
[2018-08-10 09:18] VITALS: RESP 16; TEMP 97.9
[2018-08-10] MEDS ORDERED: LIDOCAINE 1% INJ 10MG/ML (20 ML MDV) ONE (10:32)
[2018-08-10] MEDS ORDERED: fentaNYL (PF) 50 MCG/ML 2 ML AMP ONE (10:33)
[2018-08-10] MEDS ORDERED: fentaNYL (PF) 50 MCG/ML 2 ML AMP IVP ONE (10:43)
[2018-08-10] MEDS ORDERED: MIDAZOLAM 2 MG/2 ML VIAL IVP ONE (10:44)
[2018-08-10] MEDS ORDERED: LIDOCAINE 1% INJ 10MG/ML (20 ML MDV) SQ ONE (10:47)
[2018-08-10] MEDS ORDERED: IOPAMIDOL-370 150ML BTL INJ ONE (11:13)
[2018-08-10] MEDS ORDERED: RX INFO: IV CONTRAST WAS GIVEN 1 EACH MISC MISCELLANE PRN (11:26)
[2018-08-10] MEDS ORDERED: SODIUM CHLORIDE 0.9% 1,000 ML IV SCH (11:30)
--- NOTE | 2018-08-10 11:38 | P.CARDCATH ---
Date of Procedure: 08/10/18 Preoperative Diagnosis: Atypical chest pain and questionable positive stress test Postoperative Diagnosis: Coronary artery disease with noncritical lesion involving the ostium of the right. Tortuous aorta Procedure(s) Performed: Left heart catheterization without left ventriculography, aortic root injection Description of Procedure: HISTORY: This is a 73-year-old gentleman with a strong family history of ischemic heart disease and vague exertional chest pain and shortness of breath was evaluated by stress echocardiogram recently. Patient walked about 10 minutes on the treadmill and developed mild nonspecific ST-T abnormalities and was stable hypokinesis of the septum on the echocardiogram. Patient is advised to have a cardiac catheterization for definite diagnosis CONSENT:I have discussed the risks, benefits and alternative therapies for the above-mentioned procedure and for both sedation/analgesia as well as necessary blood product administration, if indicated, as they pertain to this patient. The patient has indicated understanding and acceptance of the risks and procedures discussed. PROCEDURE: Patient was brought to the lab in a fasting state. Patient was given some IV sedation. The right groin is infiltrated with lidocaine and right femoral artery was entered using Seldinger technique. Patient was found to have extremely tortuous aorta and iliac arteries. The introducer sheath was then exchanged to a long sheath. A 6-Jordanian catheter was left in place and selective coronary arteriography and aortic root injection was performed. Patient tolerated the procedure well. Femoral angiogram was performed and Angio -Seal was applied for hemostasis. No immediate complications were noted and patient was transferred to [facility] in a stable condition Conscious Sedation: Versed 1mg Fentanyl 25 g Duration 29minutes HEMODYNAMICS: The aortic pressure is about 120/70. Left ankle end-diastolic pressure is about 8-10. There was no gradient across the aortic valve SELECTIVE CORONARY ARTERIOGRAPHY: LEFT MAIN: Normal length and patent. There is mild calcification of the left main and proximal left coronary system THE LEFT ANTERIOR DESCENDING CORONARY ARTERY: This is a fair caliber vessel giving rise to good-sized diagonal branch. The LAD and branches are free of occlusive disease THE LEFT CIRCUMFLEX AND IS CORONARY ARTERY:. This is a moderate caliber vessel and free of any occlusive disease THE RIGHT CORONARY ARTERY:. This is a dominant vessel with a diffuse plaque in the proximal and ostial lesion. There appears to be about 40-50% lesion of the ostium LEFT VENTRICULOGRAPHY: Not performed. AORTIC ROOT INJECTION: This was performed in the 30 left anterior oblique projection. This revealed very tortuous aorta and also iliac arteries FINAL IMPRESSION:. Noncritical lesion involving the RCA with about 40-50% ostial stenosis. Mild diffuse disease in the proximal RCA and calcification. Calcination also noted in the left main and left coronary system. There doesn' t seem to be any critical stenosis. At this time PLAN:. maximum medical therapy and this factor modification PROGNOSIS: Fair
[2018-08-10 16:23] VITALS: BP 136/57; PULSE 52
== END 2018-08-10 17:00 | disposition home or self-care (01) ==
LOC: CATHCVL 08:41
PROVIDERS: ATTEND Internal Medicine Cardiovascular Disease
DX: I25.10 Atherosclerotic heart disease of native coronary artery without angina pectoris (principal); Q25.46 Tortuous aortic arch; I77.89 Other specified disorders of arteries and arterioles; R94.39 Abnormal result of other cardiovascular function study; I73.9 Peripheral vascular disease, unspecified; Z82.49 Family history of ischemic heart disease and other diseases of the circulatory system; Z79.899 Other long term (current) drug therapy
CPT/HCPCS: 93458; C1760; C1769 ×4; C1894 ×2; J2250; J2001; J3010; Q9967

== ENCOUNTER → 2018-09-07 | Outpatient (CLI) | payer BC ==
[2018-09-07 17:39] LABS: HCT 44.7 % (39.0-53.0); HGB 14.5 gm/dL (13.0-17.5); MCH 31.9 pg (25.0-35.0); MCHC 32.4 g/dL (31.0-37.0); MCV 98.4 fL (80.0-100.0); Mean Platelet Volume 6.2; Platelet Count 198 k/uL (150-450); RBC 4.54 m/uL (4.30-5.90); RDW 13.7 % (11.5-15.5); WBC 5.1 k/uL (3.8-10.6)
[2018-09-07 17:50] LABS: Anion Gap 7 mmol/L; Blood Urea Nitrogen 22 mg/dL (9-20); Carbon Dioxide 29 mmol/L (22-30); Chloride 104 mmol/L (98-107); Sodium 140 mmol/L (137-145)
== END | disposition home or self-care (01) ==
LOC: LABPAT 17:14
PROVIDERS: ATTEND Internal Medicine Cardiovascular Disease
DX: Z01.812 Encounter for preprocedural laboratory examination (principal); I34.1 Nonrheumatic mitral (valve) prolapse; I25.10 Atherosclerotic heart disease of native coronary artery without angina pectoris
CPT/HCPCS: 36415; 80051; 82565; 84520; 85027

== ENCOUNTER 2018-09-15 10:12 | Day surgery (SDC) | payer BC ==
[2018-09-11 10:17] VITALS: BMI 22.9
[~2018-09-15 10:12] MED LIST changes: -ALPRAZolam 0.25 MG TAB PO PRN; -ALPRAZolam 0.5 MG TAB PO PRN; -ASPIRIN 325 MG TAB PO ONE; -ATORVASTATIN 80 MG TAB PO ONE; -NITROGLYCERIN SL TABS 0.4 MG TAB SUBLINGUAL PRN; +SODIUM CHLORIDE 0.9% 1,000 ML IV SCH; -SODIUM CHLORIDE 0.9% 1,000 ML in EMPTY BAG 1 BAG IV ONE; +ceFAZolin 1,000 MG in SODIUM CHLORIDE 0.9% IRRIGATIO 250 ML IRRIGATION ONE; +ceFAZolin IN SWFI 2 GM/20 ML SYRINGE IVP ONE
[2018-09-15] MEDS ORDERED: IOPAMIDOL-250 50ML BTL IV ONE (12:29)
[2018-09-15] MEDS ORDERED: LIDOCAINE 1% INJ 10MG/ML (20 ML MDV) ONE (12:37)
[2018-09-15] MEDS ORDERED: fentaNYL (PF) 50 MCG/ML 2 ML AMP ONE (12:39)
[2018-09-15] MEDS ORDERED: MIDAZOLAM 2 MG/2 ML VIAL IV ONE (12:48)
[2018-09-15] MEDS ORDERED: fentaNYL (PF) 50 MCG/ML 2 ML AMP IV ONE (12:48)
[2018-09-15] MEDS ORDERED: IV FLUID CONTINUATION 700 ML IV ONE (12:49)
[2018-09-15] MEDS ORDERED: SODIUM CHLORIDE 0.9% 1,000 ML IV ONE (12:49)
[2018-09-15] MEDS ORDERED: LIDOCAINE 1% INJ 10MG/ML (20 ML MDV) SQ ONE (12:53)
[2018-09-15] MEDS ORDERED: HYDROcodone/APAP 5-325MG 1 EACH TAB PO PRN (14:05)
[2018-09-15] MEDS ORDERED: NITROGLYCERIN SL TABS 0.4 MG TAB SUBLINGUAL PRN (14:06)
--- NOTE | 2018-09-15 14:12 | P.PCN ---
Date of Procedure: 09/15/18 Preoperative Diagnosis: Sick sinus syndrome with a severe bradycardia and pauses. 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 Postoperative Diagnosis: The same Procedure(s) Performed: Dual-chamber permanent pacemaker implantation Description of Procedure: HISTORY: This is a 73-year-old gentleman with history of dizziness and episodes of bradycardia with pauses up to 3 seconds. 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 Patient is advised to have permanent pacemaker implantation. CONSENT:I have discussed the risks, benefits and alternative therapies for the above-mentioned procedure and for both sedation/analgesia as well as necessary blood product administration, if indicated, as they pertain to this patient. The patient has indicated understanding and acceptance of the risks and procedures discussed. PROCEDURE: Patient was brought to the lab in a fasting state. Patient was prepped and draped in the usual fashion. Patient was given IV sedation with fentanyl and Versed. The skin below the left clavicle was infiltrated with lidocaine. An incision was made parallel to deltopectoral groove was deepened until the pectoral fascia was exposed. A pocket was created by blunt dissection and cautery. Axillary venography was performed to delineate the course of the axillary vein. 2 sticks were performed into subclavian vein and 2 sheaths were advanced over the guidewires and left in subclavian vein. Conscious Sedation: Versed 1mg Fentanyl 50 g Duration 61minutes LEADS: ATRIAL: This is manufactured by a [employer]. Model number is 5076-52. Serial number is [id number]. VENTRICULAR: This is manufactured by [employer]. Model number is 5076-58. The serial number is [id number] The ventricular lead is maneuvered l with help of a straight and curved stylets into the left ventricle apical region. Satisfactory position was obtained and threshold measurements were made. The atrial lead was then maneuvered into the right atrial appendage. And thresholds were obtained. THRESHOLDS: ATRIUM: The minimal patient threshold is 0.6 at a pulse width of 0.5 with impedance of 6 and 70 ohms. P-wave: 4.2 VENTRICLE:. The minimal patient threshold is 1 at pulse width of 0.5 with impedance of 926. R-wave: In 14.6 The leads and pulse generator remained in the pocket after it was washed with antibiotics. Pocket was closed in the usual fashion. The fascia was closed with 2-0 Prolene ,the subcutaneous tissue was closed with 3-0 Prolene and the skin was closed with 4-0 Prolene. PROGRAMMING: MODE: AAIR with mode switch to DDDR. RATE: 60-130 OUTPUT: Atrium : 3.5 Ventricle: 3.5 V FINAL IMPRESSION: #1 axillary venography #2. Insertion of a dual-chamber permanent pacemaker COMPLICATIONS:. None PLAN:. Continue prophylactic antibiotics. Monitored on the telemetry unit. If these aren't position and thresholds are stable without any complications, patient will be discharged home tomorrow.
[2018-09-15] MEDS: SODIUM CHLORIDE 0.9% 1,000 ML IV SCH (15:07)
[2018-09-15] MEDS: ACETAMINOPHEN TAB 325 MG TAB PO PRN (16:45)
[2018-09-15] MEDS: ceFAZolin IN SWFI 2 GM/20 ML SYRINGE IVP SCH (20:02)
[2018-09-15] MEDS: METOPROLOL TARTRATE 25 MG TAB PO SCH (20:32)
[2018-09-16] MEDS: ceFAZolin IN SWFI 2 GM/20 ML SYRINGE IVP SCH ×3 (01:01→11:46)
[2018-09-16] MEDS: SODIUM CHLORIDE 0.9% 1,000 ML IV SCH (01:27)
[2018-09-16] MEDS: ACETAMINOPHEN TAB 325 MG TAB PO PRN (02:29)
[2018-09-16 08:06] VITALS: BP 137/83; PULSE 62; RESP 16; TEMP 98
[2018-09-16] MEDS: METOPROLOL TARTRATE 25 MG TAB PO SCH (08:24)
--- NOTE | 2018-09-16 08:47 | P.PN ---
Subjective Progress Note Date: 09/16/18 IMPRESSION / ASSESSMENT: Sick sinus syndrome with severe bradycardia and pauses status post permanent pac emaker Hyperlipidemia Gastroesophageal reflux disease Short run of atrial fibrillation, paroxysmal, most likely secondary to procedure. To be evaluate as an outpatient PLAN: Chest x-ray to evaluate for postoperative complications Discharge home today Continue Lipitor 10 mg daily, metoprolol tartrate 25 mg twice daily Follow up with Dr. Argueta in one week HPI This is a 73-year-old male patient of Dr. Argueta with past medical history of ischemic heart disease and exertional chest pain shortness of breath. He underwent a stress echocardiogram recently. He walked 10 minutes on the treadmill and developed mild nonspecific ST-T abnormalities and was stable hypokinesis of the septum on the echocardiogram. Patient was advised to undergo heart catheterization at that time of which was done 08/10/2018 finding noncritical lesion involving the RCA with 40-50% ostial stenosis. Mild diffuse disease in the proximal RCA and calcification. Renetta also noted in the left main and left coronary system and recommendations were for maximum medical therapy. Most recently, patient was having symptoms of dizziness and found to have episodes of bradycardia with pauses up to 3 seconds and he came in yesterday underwent permanent pacemaker implantation. Pacemaker has been functioning through the night with atrial pacing. Interrogation is completed this morning. Patient denies any new symptoms and no dizziness. Patient did have episode of atrial fibrillation which was a short run found on interrogation during pacemaker implantation. ROS: No fever chills or rigors, no cough, phlegm or expectoration, no nausea, vomiting or diarrhea, no hematuria, dysuria, no musculoskeletal complaints, no strokes or seizures, no skin lesions. EXAMINATION: Gen: This is a thin 73-year-old male. He is resting in bed appears to be comfortable and in no acute distress. No respiratory distress noted. HEENT: Head is atraumatic, normocephalic. Pupils equal, round. Sclerae is anicteric. NECK: Supple. No JVD. No lymphadenopathy. No thyromegaly. LUNGS: Clear to auscultation. No wheezes or rhonchi. No intercostal retractions. HEART: Regular rate and rhythm. Systolic ejection murmur. ABDOMEN: Soft. Bowel sounds are present. No masses. No tenderness. EXTREMITIES: No pedal edema. No calf tenderness. NEUROLOGICAL: Patient is awake, alert and oriented x3. Cranial nerves 2 through 12 are grossly intact. REVIEW OF LABS, ECG & MEDICAL DATA Chest x-ray: No post procedure complications Nurse practitioner note has been reviewed, I agree with documented findings and plan of care. Patient was seen and examined. Objective - Vital Signs Vital signs: Vital Signs Temp 98.0 F 09/16/18 08:00 Pulse 62 09/16/18 08:00 Resp 16 09/16/18 08:00 BP 137/83 09/16/18 08:00 Pulse Ox 97 09/16/18 08:00 Intake & Output 09/15/18 09/16/18 09/16/18 18:59 06:59 18:59 Intake Total 940 Output Total 300 Balance 640 Intake: IV 100 Oral 240 Other 600 Output: Urine 300 Other: Voiding Method Urinal Toilet # Voids 2
[2018-09-16] MEDS ORDERED: ATORVASTATIN 10 MG TAB PO SCH (09:00)
--- NOTE | 2018-09-16 09:12 | XR ---
EXAMINATION TYPE: XR chest 2V DATE OF EXAM: 09/16/2018 HISTORY: post pacemaker. REFERENCE: Previous study dated 06/23/2013. FINDINGS: There is a bipolar pacemaker in place via a left subclavian approach. Approximately overlie s the right atrium and distally overlies the right ventricle.. Lung volumes are prominent. The heart is not enlarged. Lungs are clear. There is a moderate dextrosco liosis present. IMPRESSION: 1. COPD. 2. STATUS POST BIPOLAR PACEMAKER INSERTION.
--- NOTE | 2018-09-16 13:18 | PN ---
PROGRESS NOTE DATE OF SERVICE: 09/16/2018 CHIEF COMPLAINT: Status post pacemaker implantation. HISTORY OF PRESENT ILLNESS: This gentleman is doing well. Little discomfort during the night, but no other problems. He is going home this morning. PHYSICAL EXAM: Vital signs normal. Color is good. Chest is clear. Cardiac exam demonstrates bradycardia. Abdomen is soft, nontender. IMPRESSION: Sick sinus syndrome with tachy-stan syndrome. PLAN: Probably home today. MMODL / IJN: [id number] /
--- NOTE | 2018-09-16 13:39 | CONS ---
CONSULTATION CHIEF COMPLAINT: Tachy-stan syndrome. HISTORY OF PRESENT ILLNESS: This is another admission for this 73-year-old white male who has a strong family history of heart disease and recently was referred for further workup. He underwent a cardiac cath which did reveal some generalize moderate atherosclerosis without any critical stenoses. He was found to have episodes of bradycardia and underwent evaluation and it was determined that he would benefit from a pacemaker and he is brought in for an elective implantation. REVIEW OF SYSTEMS: He has had no syncope, focal neurologic deficits, CVAs, TIAs, change in vision or hearing, amaurosis fugax, cough, hemoptysis, lung disease, chest pain, hypertension, murmurs, fever, orthopnea, PND, etc. He is having no abdominal pain, nausea, vomiting, hematemesis, melena, hematochezia, jaundice, hepatitis, cirrhosis, etc. He does have some problems with gastritis and GERD. He has had no renal failure, dysuria, frequency, urgency, nocturia, etc. PAST MEDICAL HISTORY: Past medical history, family history, personal and social history are all otherwise unremarkable and noncontributory. He has had some minor surgeries in the past. He has never smoked. He does not drink. 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 PHYSICAL EXAMINATION: Blood pressure 130/72 with a pulse of 60 and regular, respirations 14. He is afebrile. GENERAL: He appeared to be well developed, well nourished, and well preserved and fit for his age. Skin color is normal. Skin is warm, dry. Lymph nodes not enlarged. Head, ears, eyes, nose, mouth, and throat were normal. Neck veins are not distended. Carotids normal. Chest is clear. Cardiac exam demonstrated what sounded like sinus rhythm and bradycardia. He had no murmurs or extra sounds. Abdomen is soft and nontender without visceromegaly or masses. Bowel sounds present. Extremities are normal. Neurological intact. IMPRESSION: 1. Sick sinus syndrome with tachy-stan syndrome. 2. Osteoarthritis of the lumbosacral spine. RECOMMENDATIONS: None. Thank you for the consultation. MMODL / SABINEN: [id number] /
[2018-09-16] MEDS ORDERED: PANTOPRAZOLE 40 MG TABLET PO SCH (17:30)
== END 2018-09-16 12:20 | disposition home or self-care (01) ==
LOC: CATHEP 10:12 → 1SOBS 13:56 → CATHEP 09-16 12:20
PROVIDERS: ATTEND Internal Medicine Cardiovascular Disease
DX: I49.5 Sick sinus syndrome (principal); R94.39 Abnormal result of other cardiovascular function study; I34.1 Nonrheumatic mitral (valve) prolapse; Z82.49 Family history of ischemic heart disease and other diseases of the circulatory system; I73.9 Peripheral vascular disease, unspecified; Z79.83 Long term (current) use of bisphosphonates; Z79.899 Other long term (current) drug therapy; K21.9 Gastro-esophageal reflux disease without esophagitis; E78.5 Hyperlipidemia, unspecified; M47.817 Spondylosis without myelopathy or radiculopathy, lumbosacral region
CPT/HCPCS: 33208; 71046; C1769 ×2; C1892; C1898; C1785; J2250; J2001; J3010; J0690 ×2; Q9966

== ENCOUNTER → 2018-11-30 | Outpatient (CLI) | payer BC, MEDICARE ==
--- NOTE | 2018-11-30 14:10 | NM ---
EXAMINATION TYPE: NM hepatobiliary w EF DATE OF EXAM: 11/30/2018 COMPARISON: HIDA scan December 02, 2016. HISTORY: Persistent right upper quadrant pain and epigastric pain with heartburn and reflux-like symp toms per patient. TECHNIQUE: After the intravenous administration of 5.11 mCi Tc 99m Mebrofenin hepatobiliary scintigra phy is performed. Immediate images post injection. FINDINGS: There is satisfactory initial accumulation of tracer by the liver. The gallbladder is visualized wit hin 10 minutes. The small bowel activity is noted within 40 minutes. At one hour 8 ounces of oral e nsure plus is given to mimic CCK and gallbladder ejection fraction is calculated at 74 %, in the norm al range. Therefore there is no scintigraphic evidence of cystic or common bile duct obstruction to suggest acute cholecystitis or gallbladder dyskinesia. IMPRESSION: Exam is within normal limits.
== END | disposition home or self-care (01) ==
LOC: RADNMMAIN 11:42
PROVIDERS: ATTEND Family Medicine
DX: R10.11 Right upper quadrant pain (principal)
CPT/HCPCS: 78226; A9537

== ENCOUNTER 2019-02-19 17:33 | Emergency (ER) | payer MEDICARE, BC ==
[2019-02-19 17:42] VITALS: TEMP 98.4
[2019-02-19 18:58] VITALS: RESP 16
--- NOTE | 2019-02-19 20:12 | CT ---
EXAMINATION TYPE: CT brain mell ford DATE OF EXAM: 02/19/2019 COMPARISON: None HISTORY: Patient ran into tree branch when driving out of [place] on his tractor. Bruising and lacerati on to left orbital region. CT DLP: 970.8 (total between br, fb, csp) mGycm Automated exposure control for dose reduction was used. TECHNIQUE: CT scan of the head and cervical spine are performed without contrast. FINDINGS: Ventricles and sulci appear normal. There is no mass effect nor midline shift. There is n o sign of intracranial hemorrhage. Calvarium is intact. Cervical vertebra have normal alignment. There is mild narrowing of disc spaces from C3 to C6. Rabbit Breeder ior elements are intact. The skull base appears intact. I see no focal bone destruction. IMPRESSION: Negative CT scan of the brain. Spondylotic changes in the cervical spine. No fracture seen.
--- NOTE | 2019-02-19 20:22 | CT ---
EXAMINATION TYPE: CT facial bones wo con DATE OF EXAM: 02/19/2019 COMPARISON: None HISTORY: Patient ran into tree branch when driving [place] of [place] on his tractor. Bruising and lacerati on to left orbital region. CT DLP: 970.8 (total of br, csp, fb) mGycm Automated exposure control for dose reduction was used. TECHNIQUE: Multiple axial sections were obtained from the bottom of the mandible to the top of the fr ontal sinuses without contrast.. FINDINGS: The mandibular ring is intact. Temporomandibular joints are intact. Zygomatic arches appear normal. Nasal bone appears deviated slightly to the left side. I see no definite acute nasal bone fr acture. The orbital margins are intact. There is no evidence of blowout fracture. The maxilla is intact. Ther e is no evidence of orbital mass. Temporal bones appear intact. IMPRESSION: Negative CT scan of the facial bones. No evidence of acute traumatic injury. Mild nasal b one deviation probably due to old trauma.
--- NOTE | 2019-02-19 20:30 | ED ---
General Adult HPI - General Chief complaint: Wound/Laceration Stated complaint: lt eye injury Time Seen by Provider: 02/19/19 17:50 Source: patient Mode of arrival: wheelchair Limitations: no limitations - History of Present Illness Initial comments: Patient is 73-year-old male presenting to emergency Department with chief complaint of cut on his face. Patient reports he got hit in the face on the lateral aspect of the left orbit. Patient reports a small laceration at the site of injury patient denies loss of consciousness. Patient reports incident occurred approximately 3 hours ago. Patient also reports he was bitten by bees multiple times. Patient denies any lightheadedness or dizziness. Patient denies any blurry vision or pain with extraocular movements. Patient only reports localized pain at the site of injury. Patient is not on blood thinners. Patient denies taking medication Yosvany symptoms. Patient denies any alleviating or aggravating factors. - Related Data Home Medications Medication Instructions Recorded Confirmed Omeprazole [PriLOSEC] 20 mg PO AC-BID 08/02/18 09/11/18 Previous Rx's Medication Instructions Recorded Atorvastatin Calcium [Lipitor] 10 mg PO DAILY #30 tab 08/10/18 Metoprolol Tartrate 25 mg PO BID #60 tab 08/10/18 Nitroglycerin 0.4 mg SL DIRECTED PRN #25 08/10/18 tab.subl Allergies Allergy/AdvReac Type Severity Reaction Status Date / Time No Known Allergies Allergy Verified 02/19/19 17:41 Review of Systems ROS Statement: Those systems with pertinent positive or pertinent negative responses have been documented in the HPI. ROS Other: All systems not noted in ROS Statement are negative. Past Medical History Past Medical History: Asthma, Cancer, GI Bleed, Hearing Disorder / Deafness Additional Past Medical History / Comment(s): ARRYTHMIA, MVP WITH HEART MURMUR. , HX ORAL CA. H1N1 IN 2014; ,KIDNEY STONE., STATES ASTHMA BUT TOOK HIMSELF OFF OF INHALERS. ,STATES HE WALKS HUNCHED OVER., STATES HE IS A [employer] AND HAS A SLOW RESTING HEART RATE -SOMETIMES AROUND 30. History of Any Multi-Drug Resistant Organisms: None Reported Past Surgical History: Appendectomy, Cholecystectomy, Hernia Repair, Orthopedic Surgery Additional Past Surgical History / Comment(s): ORAL SURG FOR CA. , EGD., RT SHOULDER SX., LITHOTRIPSY. asha fundolipation. HEART CATH 08/10/18, EGD Past Anesthesia/Blood Transfusion Reactions: No Reported Reaction Past Psychological History: No Psychological Hx Reported Smoking Status: Never smoker Past Alcohol Use History: None Reported Past Drug Use History: None Reported - Past Family History Mother Family Medical History: No Reported History General Exam Limitations: no limitations General appearance: alert, in no apparent distress Head exam: Present: atraumatic, normocephalic, normal inspection. Absent: other (Negative raccoon eyes, negative Bean sign, negative hemotympanum.) Eye exam: Present: normal appearance, PERRL, EOMI, other (Tenderness and edema on the lateral aspect of the left eye. 1 cm laceration in the region.). Absent: conjunctival injection Pupils: Present: normal accommodation. Absent: other (No pain with extraocular movements. No entrapment.) ENT exam: Present: normal exam, normal oropharynx, mucous membranes moist, TM's normal bilaterally, normal external ear exam Neck exam: Present: normal inspection, full ROM Respiratory exam: Present: normal lung sounds bilaterally Cardiovascular Exam: Present: regular rate, normal rhythm, normal heart sounds Extremities exam: Present: normal inspection, full ROM Back exam: Present: normal inspection, full ROM Neurological exam: Present: alert, oriented X3 Psychiatric exam: Present: normal affect, normal mood Skin exam: Present: warm, intact, normal color Course Vital Signs 02/19/19 02/19/19 02/19/19 17:39 18:57 20:39 Temperature 98.4 F Pulse Rate 68 69 Respiratory 18 16 16 Rate Blood Pressure 134/77 143/85 O2 Sat by Pulse 98 97 Oximetry Procedures - Laceration Laceration #1 Consent Obtained: verbal consent Indication: laceration Site: face Size (cm): 1 Depth: simple, single layer Sedation/Analgesia: none Amount (mls): 1 (Tissue adhesive) Pre-repair: irrigated extensively Type of Sutures: other (Tissue adhesive) Size of Sutures: other (Tissue adhesive) Technique: other (Tissue adhesive) Patient Tolerated Procedure: well Medical Decision Making - Medical Decision Making Patient is 73-year-old male presenting to emergency Department with a chief complaint of a branch hitting the face. Patient appears to have a laceration on his face after he was hit with the treatment branch. Patient also reports he was stung by multiple bees but I could not detect any areas of edema. Patient does not have any pain with extraocular movements or any signs of physical injury to the eye. There is small amount of edema on the lateral aspect of the left orbit underlying the laceration. Patient denies any blurry vision from the left eye. Laceration site was repaired with tissue adhesive. Patient tolerated the procedure well. CT of the brain and C-spine is unremarkable. Patient states that he feels good and is ready to go home. Strict return parameters were thoroughly discussed the patient was understanding and agreeable. Case discussed physician. Disposition Clinical Impression: Laceration, Blunt trauma of face Disposition: HOME SELF-CARE Condition: Stable Instructions (If sedation given, give patient instructions): Laceration (DC), Skin Adhesive Care (ED) Additional Instructions: His follow proper wound care instructions. Please return to emergency department if symptoms worsen. Is patient prescribed a controlled substance at d/c from ED?: No Referrals: Ron Rizvi MD [Primary Care Provider] - 1-2 days Time of Disposition: 20:38
[2019-02-19] MEDS ORDERED: TOPICAL SKIN ADHESIVE 1 EACH AMP TOPICAL STA (20:36)
[2019-02-19 20:42] VITALS: BP 143/85; PULSE 69
== END 2019-02-19 20:50 | disposition home or self-care (01) ==
LOC: EC 17:33
DX: S01.81XA Laceration without foreign body of other part of head, initial encounter (principal); T63.441A Toxic effect of venom of bees, accidental (unintentional), initial encounter; Z79.899 Other long term (current) drug therapy; Z85.818 Personal history of malignant neoplasm of other sites of lip, oral cavity, and pharynx; W22.8XXA Striking against or struck by other objects, initial encounter
CPT/HCPCS: 12011; 70450; 70486; 72125; 99283

== ENCOUNTER 2019-03-20 12:47 | Inpatient (IN) | payer MEDICARE, BC ==
[2019-03-20] MEDS ORDERED: KETOROLAC 60 MG/2 ML VIAL IVP STA (13:12)
[2019-03-20] MEDS ORDERED: HYDROmorphone 1 MG/ML 1 ML SYRINGE IVP STA (13:13)
[2019-03-20] MEDS ORDERED: ONDANSETRON 4 MG/2 ML VIAL IVP STA (13:13)
--- NOTE | 2019-03-20 13:22 | ED ---
General Adult HPI - General Chief complaint: Back Pain/Injury Stated complaint: Back injury Time Seen by Provider: 03/20/19 12:50 Source: patient, RN notes reviewed Mode of arrival: wheelchair Limitations: physical limitation - History of Present Illness Initial comments: This is a 73-year-old male who presents emergency Department complaining of mid severe back pain. Patient states she was in the reed cutting down trees when a tree that he cut down and fell hit another tree broke off a branch that was about 4 inches and it fell about 50 feet and hit him in the right shoulder and caused excruciating back pain. Patient states she was unable to stand up and get out of the reed. Crawl out of the was and come to the emergency department. Patient denies any decreased movement of any of his extremities per patient denies any any headache patient denies being hit the head per patient denies any neck pain. Patient denies any numbness. Patient states his right shoulder is hurting him quite a bit and his mid back as well as really brought him to the emergency department. Patient denies any other injuries. Patient denies any chest or thoracic pain. Patient denies any abdominal pain. - Related Data Home Medications Medication Instructions Recorded Confirmed Omeprazole [PriLOSEC] 20 mg PO AC-BID 08/02/18 03/20/19 Rivaroxaban [Xarelto] 20 mg PO HS 03/20/19 03/20/19 Allergies Allergy/AdvReac Type Severity Reaction Status Date / Time No Known Allergies Allergy Verified 03/20/19 13:15 Review of Systems ROS Statement: Those systems with pertinent positive or pertinent negative responses have been documented in the HPI. ROS Other: All systems not noted in ROS Statement are negative. Past Medical History Past Medical History: Asthma, Cancer, GI Bleed, Hearing Disorder / Deafness Additional Past Medical History / Comment(s): ARRYTHMIA, MVP WITH HEART MURMUR. , HX ORAL CA. H1N1 IN 2014; ,KIDNEY STONE., STATES ASTHMA BUT TOOK HIMSELF OFF OF INHALERS. ,STATES HE WALKS HUNCHED OVER., STATES HE IS A [employer] AND HAS A SLOW RESTING HEART RATE -SOMETIMES AROUND 30. History of Any Multi-Drug Resistant Organisms: None Reported Past Surgical History: Appendectomy, Cholecystectomy, Hernia Repair, Orthopedic Surgery Additional Past Surgical History / Comment(s): ORAL SURG FOR CA. , EGD., RT SHOULDER SX., LITHOTRIPSY. asha fundolipation. HEART CATH 08/10/18, EGD Past Anesthesia/Blood Transfusion Reactions: No Reported Reaction Past Psychological History: No Psychological Hx Reported Smoking Status: Never smoker Past Alcohol Use History: None Reported Past Drug Use History: None Reported - Past Family History Mother Family Medical History: No Reported History General Exam - General Exam Comments Initial Comments: GENERAL: Patient is well-developed and well-nourished. Patient is nontoxic and well- hydrated and is in moderate distress. ENT: Neck is soft and supple. Neck has full range of motion without eliciting any pain. EYES: The sclera were anicteric and conjunctiva were pink and moist. Extraocular movements were intact and pupils were equal round and reactive to light. Eyelids were unremarkable. PULMONARY: Unlabored respirations. Good breath sounds bilaterally. No audible rales rhonchi or wheezing was noted. CARDIOVASCULAR: There is a regular rate and rhythm without any murmurs gallops or rubs. ABDOMEN: Soft and nontender with normal bowel sounds. SKIN: Skin is clear with no lesions or rashes and otherwise unremarkable. NEUROLOGIC: Patient is alert and oriented x3. Cranial nerves II through XII are grossly intact. Motor and sensory are also intact. Normal speech, volume and content. Symmetrical smile. MUSCULOSKELETAL: Normal extremities with adequate strength and full range of motion. No lower extremity swelling or edema. No calf tenderness. Patient has paraspinal tenderness in the mid thoracic region of the back. Patient also has tenderness in the area of the right trapezius muscle which looks a little ecchymotic and swollen. PSYCHIATRIC: Normal psychiatric evaluation. Limitations: physical limitation Course Vital Signs 03/20/19 03/20/19 03/20/19 12:52 14:49 16:02 Temperature 97.7 F Pulse Rate 109 H 60 61 Respiratory 18 18 18 Rate Blood Pressure 134/72 99/59 143/87 O2 Sat by Pulse 100 99 99 Oximetry Medical Decision Making - Medical Decision Making X-ray of the thoracic spine showed a T8 and T12 fracture. X-ray of the lumbar spine showed a probable old lumbar compression fracture Computed tomography scan of the chest and lumbar spine showed that T8 and T12 were acute fractures of the lumbar spine compression fracture was old and there was no retropulsion of these fractures. Patient was unable to get out of bed so I spoke with Dr. Dodge and he agreed to admit the patient I admitted the patient I consult orthopedics. Disposition Clinical Impression: Compression fx, thoracic spine Disposition: ADMITTED IP TO THIS [facility] Referrals: Ron Rizvi MD [Primary Care Provider] - 1-2 days Time of Disposition: 16:23
--- NOTE | 2019-03-20 14:04 | XR ---
EXAMINATION TYPE: XR lumbar spine 2 or 3V DATE OF EXAM: 03/20/2019 CLINICAL HISTORY: pain TECHNIQUE: Three views of the lumbar spine are submitted. COMPARISON: None. FINDINGS: Loss of vertebral body height involving T12 of uncertain age and/or etiology. Mild loss of height sup erior endplate of L2 also of uncertain age and/or etiology likely related to thoracic curvature. Danna re degenerative disc disease and spondylosis. Severe facet joint arthropathy. Curvature noted convex to the left. IMPRESSION: Loss of vertebral body height involving T12 and L2 of uncertain age and/or etiology.
--- NOTE | 2019-03-20 14:06 | XR ---
EXAMINATION TYPE: XR thoracic spine complete DATE OF EXAM: 03/20/2019 CLINICAL HISTORY: pain TECHNIQUE: Frontal, lateral, and swimmer's view of thoracic spine are obtained. COMPARISON: None. FINDINGS: Scattered degenerative changes noted. Loss of vertebral body height involving T12 of uncert ain age and/or etiology. Remaining thoracic segments are of normal height. IMPRESSION: Loss of height involving T12 of uncertain age and/or etiology.
[2019-03-20] MEDS ORDERED: DIAZEPAM 5 MG/ML 2 ML INJ IVP STA (14:35)
--- NOTE | 2019-03-20 15:41 | CT ---
EXAMINATION TYPE: CT chest wo con DATE OF EXAM: 03/20/2019 COMPARISON: 06/24/2013 HISTORY: Severe mid to low back pain CT DLP: [address] of the chest was performed with lung and mediastinal window settings submitted. The la ck of contrast limits evaluation of the vascular, mediastinal and parenchymal structures including th e upper abdomen. LUNGS: No evidence for pneumothorax or pulmonary contusion. Small right-sided pleural effusion. Right upper lobe pleural thickening with associated calcification may reflect chronic inflammatory change. MEDIASTINUM/REJI: Thoracic aorta is of normal caliber with limited evaluation given lack of contrast . The heart is not enlarged. No evidence for mediastinal mass. No lymph nodes greater than 1cm. UPPER ABDOMEN: Moderate fixed hiatal hernia. OTHER: Mild compression fracture involving T8 with small paraspinal hematoma. No evidence for bony re tropulsion or involvement of the posterior column. Superior endplate compression fracture of T12 with loss of height at 50%. No significant bony retropulsion or involvement of the posterior column. Loss of height of T12 appears to be chronic in nature. IMPRESSION: 1. Acute compression fractures of T8 and T12 as discussed above without bony retropulsion or evidenc e for instability at this time. 2. Right-sided pleural effusion. No evidence for pneumothorax or pulmonary contusion.
--- NOTE | 2019-03-20 15:44 | CT ---
EXAMINATION TYPE: CT lumbar spine wo con DATE OF EXAM: 03/20/2019 COMPARISON: None HISTORY: Severe mid to low back pain CT DLP: 725.[address] of the lumbar spine was performed. Bone and soft tissue window settings are submitted as well as coronal and sagittal reconstructions. L1-L2: Severe Degenerative disc disease. Mild loss of height superior endplate of L2 appears chronic in nature. Spondylosis. Posterior disc bulge without evidence for central stenosis or herniation. L2-L3: Severe Degenerative disc disease. Mild loss of height superior endplate of L2 appears chronic in nature. Spondylosis. Posterior disc bulge without evidence for central stenosis or herniation. L3-L4: Severe Degenerative disc disease. No compression fractures seen. Posterior disc bulge with mil d central stenosis and foraminal encroachment. L4-L5: Severe Degenerative disc disease. No compression fractures seen. Posterior disc bulge with mi ld central stenosis and foraminal encroachment. L5-S1: Degenerative disc disease. Mild loss of height superior endplate of L2 appears chronic in natu re. Spondylosis. Posterior disc bulge without evidence for central stenosis or herniation. No paraspinal masses are identified. IMPRESSION: 1. Nonacute compression deformity of L2 without bony retropulsion. No acute lumbar spine fracture see n. Degenerative changes and central stenosis as discussed
[2019-03-20] MEDS ORDERED: SODIUM CHLORIDE 0.9% 1,000 ML IV ONE (16:24)
[2019-03-20] MEDS: KETOROLAC 30 MG/ML 1 ML VIAL IVP SCH (18:17)
[2019-03-20] MEDS: DIAZEPAM 5 MG/ML 2 ML INJ IVP PRN (22:25)
[2019-03-21] MEDS: KETOROLAC 30 MG/ML 1 ML VIAL IVP SCH ×5 (00:56→23:29)
--- NOTE | 2019-03-21 17:44 | HP ---
HISTORY AND PHYSICAL CHIEF COMPLAINT: Back injury. HISTORY OF PRESENT ILLNESS: This is another admission for this 73-year-old white male who is otherwise very fit. He was apparently chopping down a tree when a large limb fell from high above and struck him in the back. It knocked him down. He had severe back pain and had to crawl out of the reed. He did not have any lower extremity dysesthesias, hyperesthesias, numbness or weakness. He came to the emergency room, where he was found to have compression fractures of T8 and T12 without any neurologic deficit. He is having some difficulty breathing due to pain, but he is not short of breath. REVIEW OF SYSTEMS: He has had no other neurologic problems, headaches, difficulty with vision or hearing, cough, hemoptysis, chest pain, heart disease, abdominal pain, vomiting, hematemesis, diarrhea, melena, renal failure, dysuria, hematuria, etc. Past medical history, family history, and personal and social histories reveal that he is NOT ALLERGIC TO ANY MEDICATION. He is only on Xarelto 10 mg once a day and omeprazole. He has never smoked or drunk alcohol. PHYSICAL EXAMINATION: Blood pressure 124/76, pulse of 80 and regular, respirations of 16. He is afebrile. In general he appears to be well developed, well nourished, in no acute distress. Skin color is normal. Skin is warm and dry. Lymph nodes are not enlarged. Head, ears, eyes, nose, mouth and throat are normal. Neck veins are not distended. Thyroid is not enlarged. Chest is clear and breath sounds are heard on both sides. Cardiac exam is normal sinus rhythm. The abdomen is soft, nontender. Extremities are normal except that his right shoulder is irritable and he is tender on the posterior aspect of the shoulder. Neurologically he is intact. IMPRESSION: 1. Compression fractures of T8 and T12. 2. Right shoulder contusion. 3. Gastroesophageal reflux disease. PLAN: 1. Bed rest. 2. Analgesics. 3. Orthopedic consult regarding compression fractures in the dorsal spine and right shoulder injury. MMODL / IJN: [id number] /
--- NOTE | 2019-03-21 18:29 | P.GSCN ---
History of Present Illness Consult date: 03/21/19 Reason for Consult: Trauma History of present illness: This is a 73-year-old male who was admitted through the emergency room last night. The patient was admitted with severe mid back pain. The patient was cutting down a tree when a limb fell on him. He states the limb hit his right shoulder and back. His CAT scan shows evidence of acute compression fractures of T8 and T12. There is a right pleural effusion there is no evidence of any pneumothorax or pulmonary contusion. Past Medical History Past Medical History: Asthma, Cancer, GI Bleed, Hearing Disorder / Deafness Additional Past Medical History / Comment(s): ARRYTHMIA, MVP WITH HEART MURMUR. , HX ORAL CA. H1N1 IN 2014; ,KIDNEY STONE., STATES ASTHMA BUT TOOK HIMSELF OFF OF INHALERS. ,STATES HE WALKS HUNCHED OVER., STATES HE IS A [employer] AND HAS A SLOW RESTING HEART RATE -SOMETIMES AROUND 30. History of Any Multi-Drug Resistant Organisms: None Reported Past Surgical History: Appendectomy, Cholecystectomy, Hernia Repair, Orthopedic Surgery Additional Past Surgical History / Comment(s): ORAL SURG FOR CA. , EGD., RT SHOULDER SX., LITHOTRIPSY. asha fundolipation. HEART CATH 08/10/18, EGD Past Anesthesia/Blood Transfusion Reactions: No Reported Reaction Past Psychological History: No Psychological Hx Reported Smoking Status: Never smoker Past Alcohol Use History: None Reported Past Drug Use History: None Reported - Past Family History Mother Family Medical History: No Reported History Medications and Allergies Home Medications Medication Instructions Recorded Confirmed Type Omeprazole [PriLOSEC] 20 mg PO AC-BID 08/02/18 03/20/19 History Metoprolol Succinate [Toprol XL] 12.5 mg PO BID 03/20/19 03/20/19 History Rivaroxaban [Xarelto] 20 mg PO HS 03/20/19 03/20/19 History Allergies Allergy/AdvReac Type Severity Reaction Status Date / Time No Known Allergies Allergy Verified 03/20/19 13:15 Surgical - Exam Vital Signs Temp Pulse Resp BP Pulse Ox 97.7 F 109 H 18 134/72 100 03/20/19 12:52 03/20/19 12:52 03/20/19 12:52 03/20/19 12:52 03/20/19 12:52 - General well developed, no distress, moderate pain - Eyes PERRL - ENT normal pinna - Neck no masses - Respiratory normal expansion - Cardiovascular Rhythm: regular - Abdomen Abdomen: soft, non tender - Neurologic normal coordination, normal sensation - Musculoskeletal Pain along her spine. Assessment and Plan Assessment: Acute T8, T12 compression fracture. Patient will be evaluated or orthopedic surgery. Patient received analgesia and supportive care.
--- NOTE | 2019-03-21 18:45 | PN ---
PROGRESS NOTE CHIEF COMPLAINT: Compression fractures of the dorsal spine and sprain or contusion of the right shoulder. HISTORY OF PRESENT ILLNESS: This gentleman is stable in terms of vital signs and neurologic status. He is not having any chest pain. Shoulder is aggravated with movement. He has had no abdominal pain or nausea. He has had no neurologic complaints in the lower extremities. PHYSICAL EXAMINATION: Chest is clear. Cardiac exam is normal. Posterior scapular area is tender. Extremities are normal. Neurologically he is intact. IMPRESSION: 1. Compression fractures of T8 and T12. 2. Contusion or sprain in the right shoulder. PLAN: Continue bedrest and await orthopedic evaluation. MMODL / IJN: [id number] /
[2019-03-21] MEDS: METOPROLOL SUCCINATE (ER) 25 MG TAB.ER.24H PO SCH (21:42)
[2019-03-21] MEDS: DIAZEPAM 5 MG/ML 2 ML INJ IVP PRN (22:25)
[2019-03-22] MEDS ORDERED: ONDANSETRON 4 MG/2 ML VIAL IVP PRN (01:36)
[2019-03-22] MEDS: HYDROmorphone 0.5 MG/0.5 ML SYRINGE IVP PRN (01:38)
[2019-03-22] MEDS: KETOROLAC 30 MG/ML 1 ML VIAL IVP SCH ×4 (06:23→23:48)
[2019-03-22] MEDS: METOPROLOL SUCCINATE (ER) 25 MG TAB.ER.24H PO SCH ×2 (08:05→22:41)
[2019-03-22] MEDS: PANTOPRAZOLE 40 MG TABLET PO SCH (08:06)
[2019-03-22] MEDS: DIAZEPAM 5 MG/ML 2 ML INJ IVP PRN ×2 (11:03→23:53)
--- NOTE | 2019-03-22 12:06 | P.CNOR ---
History of Present Illness - HPI Consult date: 03/22/19 Consult reason: back pain History of present illness: Patient's pleasant 73-year-old male who is known to our service. He had an acute injury 2 days ago when he was cutting wood. A limbal fell off of a tree he says Shana 60 feet came down and landed on his shoulder and had a glancing blow to his back. It knocked him over to get across out of the reed and drive to the hospital. He's been having severe pain at his back since that time. He denies loss of consciousness. He denies new changes in his lower extremities. Denies any weakness or numbness tingling in his lower extremity is. He says he has pain over his right shoulder. He is still able to move his shoulder but is limited. He says he has pain over his mid lower back spasms up severely whenever he tries to move. He says he is unable to walk around due to his pain. He also complains of pain in his right upper quadrant abdominal area which has been worked up in the past with Dr. goodwin. Review of Systems As stated per HPI. Denies any changes in bowel bladder function. Denies intravenous his lower extremity is. He denies specific pain in his upper extremities but is hard to move his right arm due to pain shoulder. Denies any neck pain. Denies any changes in vision. He says he is unable to ambulate due to the pain and spasms in his back. Past Medical History Past Medical History: Asthma, Cancer, GI Bleed, Hearing Disorder / Deafness Additional Past Medical History / Comment(s): ARRYTHMIA, MVP WITH HEART MURMUR. , HX ORAL CA. H1N1 IN 2013; ,KIDNEY STONE., STATES ASTHMA BUT TOOK HIMSELF OFF OF INHALERS. ,STATES HE WALKS HUNCHED OVER., STATES HE IS A [employer] AND HAS A SLOW RESTING HEART RATE -SOMETIMES AROUND 30. History of Any Multi-Drug Resistant Organisms: None Reported Past Surgical History: Appendectomy, Cholecystectomy, Hernia Repair, Orthopedic Surgery Additional Past Surgical History / Comment(s): ORAL SURG FOR CA. , EGD., RT SHOULDER SX., LITHOTRIPSY. asha fundolipation. HEART CATH 08/10/18, EGD Past Anesthesia/Blood Transfusion Reactions: No Reported Reaction Past Psychological History: No Psychological Hx Reported Smoking Status: Never smoker Past Alcohol Use History: None Reported Past Drug Use History: None Reported - Past Family History Mother Family Medical History: No Reported History Medications and Allergies Home Medications Medication Instructions Recorded Confirmed Type Omeprazole [PriLOSEC] 20 mg PO AC-BID 08/02/18 03/20/19 History Metoprolol Succinate [Toprol XL] 12.5 mg PO BID 03/20/19 03/20/19 History Rivaroxaban [Xarelto] 20 mg PO HS 03/20/19 03/20/19 History Allergies Allergy/AdvReac Type Severity Reaction Status Date / Time No Known Allergies Allergy Verified 03/20/19 13:15 Physical Examination Osteopathic Statement: *. No significant issues noted on an osteopathic structural exam other than those noted in the History and Physical/Consult. - Shoulder right Appearance: ecchymosis (His right shoulder he is able to lift his arm up but he has pain over shoulder level. He has good strength his biceps triceps wrist hand and fingers. There is some oozing over the top of her shoulder. There is no crepitus.) - L Spine: dermatomal strength & reflexes bilateral Strength: hip flexion: 5/5 (At his back he is nontender to palpation of the midline. There is no open wounds lacerations or abrasions. There is no ecchymosis. No crepitus. There is no point tenderness. His significant paravertebral spasm and his thoracic and lumbar spine. His lower extremity 5 out of 5 muscle strength. His upper extremity 5-5 muscle strength other than pain in the shoulder.) Results - Diagnostic results CT Scan - lumbar: report reviewed, image reviewed (There is CT scans of his thoracic and lumbar spine. I compared this to an old MRI of his thoracic spine from 2017 as well. There is compression deformity at T12 with about 50% height loss on the new computed tomography scan this was also present on the MRI scan from 2017. There is compression deformity at L2 which appears to be chronic. There is some bony change at T8 with some potential height loss approximately 10% at T8. He is to call to further determine the nature of the bone and think further imaging is necessary. There is no bony retropulsion.) Assessment and Plan Assessment: Acute blunt trauma pain at shoulder and thoracic and lumbar spine Inability to ambulate due to pain Paravertebral spasm thoracic and lumbar spine Shoulder pain due to trauma Right upper quadrant pain chronic Plan: Acute blunt trauma pain at shoulder and thoracic and lumbar spine Inability to ambulate due to pain Paravertebral spasm thoracic and lumbar spine Shoulder pain due to trauma Right upper quadrant pain chronic The patient has significant pain due to his blunt trauma. He is unable to get an MRI with his pacemaker and I think in bone scan would be helpful to determine if there is new fracture at his thoracic spine given his old fracture T12 and L2 and possible new fracture at T8. This would also tell us if he is having any injuries at his ribs as he does seem to have pain over his ribs well. His right shoulder is having pain though he does have good strength at the right shoulder. I think we should obtain an x-ray of his right shoulder for better evaluation. He may have some benefit with TLSO bracing when he is out of bed and we will order a brace for him. He may have some benefit muscle relaxers and neck L thumbs well. I think it is okay for him to try to mobilize with physical therapy and we will order therapy as well. We'll continue to follow him along with you. His right upper quadrant pain is chronic for him and Dr. Schultz is following.
[2019-03-22] MEDS: CYCLOBENZAPRINE 10 MG TAB PO PRN ×2 (12:55→22:41)
--- NOTE | 2019-03-22 15:42 | XR ---
EXAMINATION TYPE: XR shoulder complete RT DATE OF EXAM: 03/22/2019 COMPARISON: 05/14/2014 HISTORY: 73 year-old male right shoulder pain after traumatic injury TECHNIQUE: 3 views FINDINGS: Moderate degenerative spurring at the AC joint. Some bony sclerosis at the greater tuberosity. Subtle nondisplaced fracture of the distal clavicular shaft. No tendinous or bursal calcifications. IMPRESSION: 1. Nondisplaced fracture distal right clavicle. 2. Underlying moderate degenerative spurring at the glenohumeral joint. 3. Some sclerosis at the greater tuberosity can be seen with chronic rotator cuff tendinopathy. If garnett spicion for underlying rotator cuff tear, MRI can be performed.
[2019-03-23] MEDS: KETOROLAC 30 MG/ML 1 ML VIAL IVP SCH ×4 (06:04→23:08)
[2019-03-23] MEDS: METOPROLOL SUCCINATE (ER) 25 MG TAB.ER.24H PO SCH ×2 (07:56→20:42)
[2019-03-23] MEDS: PANTOPRAZOLE 40 MG TABLET PO SCH (07:56)
[2019-03-23] MEDS: CYCLOBENZAPRINE 10 MG TAB PO PRN (08:02)
[2019-03-23 10:51] LABS: Basophils # (A) 0.1 k/uL (0-0.2); Basophils % (A) 1 %; Eosinophils # (A) 0.1 k/uL (0-0.7); Eosinophils % (A) 2 %; HCT 40.3 % (39.0-53.0); HGB 13.6 gm/dL (13.0-17.5); Lymphocytes % (A) 12 %; MCH 33.8 pg (25.0-35.0); MCHC 33.7 g/dL (31.0-37.0); MCV 100.4 fL (80.0-100.0); Monocytes # (A) 0.7 k/uL (0-1.0); Monocytes % (A) 10 %; Neutrophils # (A) 5.6 k/uL (1.3-7.7); Neutrophils % (A) 72 %; Platelet Count 167 k/uL (150-450); RBC 4.02 m/uL (4.30-5.90); RDW 12.8 % (11.5-15.5); WBC 7.8 k/uL (3.8-10.6)
[2019-03-23 11:05] LABS: ALT 32 U/L (21-72); AST 47 U/L (17-59); African American GFR (CKD) >90 (>60 ml/min/1.73 sqM); Albumin 3.4 g/dL (3.5-5.0); Alkaline Phosphatase 55 U/L (38-126); Anion Gap 11 mmol/L; Blood Urea Nitrogen 23 mg/dL (9-20); Calcium 8.8 mg/dL (8.4-10.2); Carbon Dioxide 22 mmol/L (22-30); Chloride 103 mmol/L (98-107); Glucose 103 mg/dL (74-99); Sodium 136 mmol/L (137-145); Total Bilirubin 2.2 mg/dL (0.2-1.3); Total Protein 6.2 g/dL (6.3-8.2)
[2019-03-23 11:10] LABS: Potassium 4.5 mmol/L (3.5-5.1)
--- NOTE | 2019-03-23 13:12 | P.PN ---
Progress Note - Text Progress Note Date: 03/23/19 Patient is a pleasant 73-year-old male well known to our service was he examined the bedside for follow-up evaluation in regards to his right shoulder and thoracic spine. He has been experiencing acute traumatic pain after a tree limb fell on his right shoulder and spine from approximately 60 feet. Since being seen and examined yesterday he continues to have pain in his thoracic spine and right shoulder. X-rays of the right shoulder did show evidence of a distal clavicle fracture. Patient is currently scheduled to undergo a nuclear medicine bone scan following reviewing of CT imaging yesterday which showed possibility of acute T8 compression fracture deformity. He does have chronic compression fracture deformities at T12 and L2. He denies any lower extremity weakness bilaterally. Today he continues to complain of some right upper quadrant pain which has been chronic over the past 7 years. He states he presented with surgical intervention with Dr. Schultz approximately 4-5 years ago. His symptoms have not been improving. He is been examined by Dr. Schultz during this presentation to the hospital as well. He would like to be further evaluated by different general surgery surgeon. He states his right upper quadrant pain is exacerbated with any ambulation. Physical exam: Patient is awake, alert, and oriented 3 Vital signs stable Good chest excursion with deep inspiration and expiration Abdomen soft; some pain with palpation of the right upper quadrant Examination of the thoracic and spine reveals skin is intact with no abrasions, lacerations, or bruises; no erythema, purulence or signs of infection Pain with palpation along the mid to lower thoracic spine Dorsiflexion, plantarflexion, and extensor hallucis longus positive sustained bilaterally Lower extremity strength 5/5 bilaterally No signs or symptoms of DVT; no calf pain No pain with internal and external rotation of the hips bilaterally Neurovascularly intact Evidence of significant bruising over the right shoulder, clavicle, and right trapezius Pain with palpation over the right distal clavicle Pertinent studies: X-rays of the right shoulder taken on 03/22/2019: Evidence of subtle nondisplaced fracture at the distal right clavicle; underlying moderate degenerative spurring at the glenohumeral joint; some sclerosis at the greater tuberosity Assessment: Right shoulder pain due to trauma Right distal clavicle fracture Acute blunt trauma pain to the right shoulder, thoracic spine, lumbar spine Inability and radiated pain Compression fracture deformities at T12 and L2 which appear chronic Possible acute T8 compression fracture deformity Thoracic back pain Chronic right upper quadrant pain Plan: 1. Reviewing the imaging does show evidence of a subtle nondisplaced right d istal clavicle fracture. A prescription is written, signed, and provided to case management for a right upper extremity sling. Patient should use a sling at all times during ambulation and activities for support of his right shoulder. He does not have to sleep or bathe with this sling intact. He is encouraged to remove the elbow from the sling to work on range of motion of the right elbow. He should avoid any heavy lifting or significant active range of motion of the right shoulder. In regards to his known compression fracture deformity at T12 and L2 and possibly acute at T8, we are currently waiting for his nuclear medicine bone scan to be completed. We will determine an appropriate plan of care following the completion and reviewing of this imaging. We did discuss patient may need discharge to a rehabilitation facility at the time of discharge as he does live alone and is unsure he would currently be safe to return home with his current symptoms and diagnoses. 2. Consultation will be placed with Dr. Roth in general surgery for further evaluation to discuss possible treatment in regards to his chronic right upper quadrant pain slightly. 3. Patient will continue to be seen and examined by medicine for his other medical diagnoses
[2019-03-23] MEDS: HYDROmorphone 0.5 MG/0.5 ML SYRINGE IVP PRN (13:47)
--- NOTE | 2019-03-23 15:09 | US ---
EXAMINATION TYPE: US gallbladder DATE OF EXAM: 03/23/2019 COMPARISON: CT 2017 CLINICAL HISTORY: Right upper quadrant pain. RUQ pain and nausea, exam done portable. EXAM MEASUREMENTS: Liver Length: 13.1 cm Gallbladder Wall: 0.2 cm CBD: 0.4 cm Right Kidney: 10.4 x 5.4 x 4.4 cm Pancreas: obscured by overlying midline bowel gas Liver: wnl Gallbladder: borderline hydropic, low level echoes seen within dependant portion Evidence for sonographic Leonard's sign: yes CBD: visualized portions wnl, limited by overlying Right Kidney: wnl IMPRESSION: 1. Normal right upper quadrant ultrasound. 2. Some mild degree within the gallbladder is not entirely excluded
--- NOTE | 2019-03-23 16:23 | PN ---
PROGRESS NOTE CHIEF COMPLAINT: Compression fractures of the spine. HISTORY OF PRESENT ILLNESS: This gentleman is still having quite a bit of difficulty with pain both in his dorsal spine as well as shoulder. He is being seen by Orthopedics. He is otherwise doing well. He has had no difficulty with managing sphincter control, but it is thought that a brace is going to be fitted. PHYSICAL EXAMINATION: Chest is clear. Cardiac exam is normal. Abdomen is soft, nontender. IMPRESSION: 1. Compression fractures of the spine. 2. Contusion of the right shoulder with possible rotator cuff tear. PLAN: 1. Physical therapy. 2. Wait for Orthopedics to outline further treatment management before he is discharged. MMODL / IJN: [id number] /
--- NOTE | 2019-03-23 16:43 | NM ---
EXAMINATION TYPE: NM bone scan whole body DATE OF EXAM: 03/23/2019 COMPARISON: NONE HISTORY: Thoracic and shoulder pain post injury Delayed whole-body scanning was performed following the injection of 22.8 mCi Tc 99m MDP. Images wer e acquired 3 hours post injection. FINDINGS: There is some increased uptake in the region of T12. This is identified on spot images through the ab domen region. This is only faintly visualized on whole body imaging. Radiotracer distribution is otherwise unremarkable. IMPRESSION: 1. There is some mild uptake which may be in the pedicles at T12. 2. Radiotracer distribution otherwise appears unremarkable.
--- NOTE | 2019-03-23 18:52 | P.GSCN ---
History of Present Illness Consult date: 03/23/19 History of present illness: CHIEF COMPLAINT: Right upper quadrant abdominal pain HISTORY OF PRESENT ILLNESS: The patient is a 73 year old male who was admitted to the hospital 3 days ago on 03/20/2019 after falling over 50 feet from a tree. He came in with lower back pain including right shoulder pain. He is currently being evaluated by orthopedic providers for compression fracture T12. Separately gives a history of prior surgery within the last 3-5 years including Asha fundoplasty and inguinal hernia repairs. He reports over the past 7 years having chronic right upper quadrant abdominal pain moderate to severe that radiates to the right flank and right back. No left-sided abdominal pain. His right upper quadrant abdominal pain has been evaluated by other providers who states "it's normal.". He states the pain is excruciating. Reports chronic diarrhea 10 times daily liquid consistency. He barely sleeps 2-3 hours a day. Secondary to the severity of his right upper quadrant abdominal pain, Gen. surgery is consulted for further assessment. PAST MEDICAL HISTORY: See list. PAST SURGICAL HISTORY: CORRECTION: Previous surgical history included cholecystectomy. Gallbladder still present. Record now corrected. MEDICATIONS: See list. ALLERGIES: See list. SOCIAL HISTORY: See list. FAMILY HISTORY: See list. REVIEW OF ORGAN SYSTEMS: CONSTITUTIONAL: No fevers or chills. No recent weight loss. EYES: Denies any trouble with vision. No glasses. HEENT: No difficulties with hearing. No nosebleeds. Has difficulty swallowing. RESPIRATORY: Denies pneumonia. Denies any troubles with breathing or dyspnea on exertion. CARDIOVASCULAR: History of bradycardia arrhythmia. Has pacemaker in place for August 2018. GASTROINTESTINAL: Has fatty food intolerance. Has change in bowel habits with chronic diarrhea. As gallbladder. GENITOURINARY: Denies any blood in urine or increased urinary frequency. NEUROLOGICAL: Denies any numbness or tingling along the distal extremities. No seizure disorders or headaches. MUSCULOSKELETAL: Has back pain, stiffness or joint arthritis. SKIN: No current skin cancer. No rash. PSYCHIATRIC: Denies current depression or suicidal thoughts. ENDOCRINE: Denies current thyroid disorders. Denies any blood sugar glucose intolerance. HEME/LYMPHATIC: Denies any lumps and bumps around the neck. On blood thinners. ALLERGY/IMMUNOLOGY: No immunoglobulin therapy. No immune deficiencies. BREAST: Denies current breast lumps, pain or nipple discharge. PHYSICAL EXAM: VITALS: Reviewed CONSTITUTIONAL: Well developed and in no acute distress lying in bed on left side. EYES: Conjuctivae without sclera icterus. Pupils are equally round and reactive to light. Extraocular movements grossly intact. HEAD, EARS, NOSE, THROAT: Moist buccal mucosa. Head is atraumatic, normocephalic . Hears conversational speech. No nasal drainage. NECK: Supple. No JV distention. No thyroidomegaly. RESPIRATORY: Non-labored respirations and equal bilateral excursions. No gross wheezes. CARDIOVASCULAR: Regular rate and rhythm. Extremities without moderate edema. Palpable 2+ radial pulses. ABDOMEN: Soft. Tender lower right upper quadrant. No peritonitis. LYMPH: No neck lymphadenopathy. No axillary lymphadenopathy. MUSCULOSKELETAL: Nail and fingers with good capillary refill. SKIN: Warm and well perfused with good skin turgor. NEUROLOGIC: Cranial nerves I through XII grossly intact. Sensation upper and extremities intact. No focal or lateralizing signs. PSYCH: Appropriate affect. Alert and oriented to person, place and time. Displays appropriate insight. CLINCAL LABS: Reviewed. White blood cell count normal. LFTs normal RADIOLOGY: Report reviewed. CT chest and lumbar spine demonstrates T12 compression 50%. Right-sided pleural effusion evident. Ultrasound report confi marcelo positive Leonard signs. Right shoulder film confirms nondisplaced clavicular fracture, right side Bone scan confirms chronic T12 compression fracture. IMAGING: Independently reviewed. CT chest independently reviewed with gallbladder present. Recurrent diaphragmatic hiatal hernia identified i ntrathoracic component. Ultrasound of gallbladder independently reviewed demonstrating possible sludge within the gallbladder. Gallbladder wall at 15 mm thickness RECORDS: previous old records reviewed CT scans in 2017 confirmed fixed hiatal hernia including bilateral inguinal hernias and appendix at that time have been unremarkable. Nuclear scan from November 2018 of gallbladder with ejection fraction of over 70%. Recent dual lumen pacemaker August 2018 operative report reviewed. EGD from July 2018 confirms recurrent hiatal hernia status post prior fundoplasty including gastritis with biopsies unremarkable for H. pylori. Appendix removed from January 2017. ASSESSMENT: 1. Chronic right upper quadrant abdominal pain 2. Status post fall over 50 feet 3. Thoracic compression fracture 4. Chronic anticoagulant use 5. 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 Gastroesophageal reflux disease PLAN: 1. He is currently off blood thinners and would recommend cardiac risk assessment with baseline history of pacemaker placed since August 2018 for any future surgical intervention 2. Otherwise, outpatient workup of right upper quadrant abdominal pain also offered for likely chronic cholecystitis. Patient desires to have inpatient cholecystectomy scheduled for Tuesday, March 26, 2019. 3. Will need to be off blood thinners at least 2-3 days prior to cholecys tectomy 4. Low-fat diet in the interim Thank you for this kind consultation. Past Medical History Past Medical History: Asthma, Cancer, GI Bleed, Hearing Disorder / Deafness Additional Past Medical History / Comment(s): ARRYTHMIA, MVP WITH HEART MURMUR. , HX ORAL CA. H1N1 IN 2013; ,KIDNEY STONE., STATES ASTHMA BUT TOOK HIMSELF OFF OF INHALERS. ,STATES HE WALKS HUNCHED OVER., STATES HE IS A [employer] AND HAS A SLOW RESTING HEART RATE -SOMETIMES AROUND 30. History of Any Multi-Drug Resistant Organisms: None Reported Past Surgical History: Appendectomy, Hernia Repair, Orthopedic Surgery Additional Past Surgical History / Comment(s): ORAL SURG FOR CA. , EGD., RT SHOULDER SX., LITHOTRIPSY. asha fundolipation. HEART CATH 08/10/18, EGD Past Anesthesia/Blood Transfusion Reactions: No Reported Reaction Past Psychological History: No Psychological Hx Reported Smoking Status: Never smoker Past Alcohol Use History: None Reported Past Drug Use History: None Reported - Past Family History Mother Family Medical History: No Reported History Medications and Allergies Home Medications Medication Instructions Recorded Confirmed Type Omeprazole [PriLOSEC] 20 mg PO AC-BID 08/02/18 03/20/19 History Metoprolol Succinate [Toprol XL] 12.5 mg PO BID 03/20/19 03/20/19 History Rivaroxaban [Xarelto] 20 mg PO HS 03/20/19 03/20/19 History Allergies Allergy/AdvReac Type Severity Reaction Status Date / Time No Known Allergies Allergy Verified 03/20/19 13:15 Surgical - Exam Vital Signs Temp Pulse Resp BP Pulse Ox 97.7 F 109 H 18 134/72 100 03/20/19 12:52 03/20/19 12:52 03/20/19 12:52 03/20/19 12:52 03/20/19 12:52 Results - Labs 03/23/19 10:32 03/23/19 10:32 Abnormal Lab Results - Last 24 Hours (Table) 03/23/19 03/23/19 Range/Units 10:32 10:32 RBC 4.02 L (4.30-5.90) m/uL MCV 100.4 H (80.0-100.0) fL Sodium 136 L (137-145) mmol/L BUN 23 H (9-20) mg/dL Glucose 103 H (74-99) mg/dL Total Bilirubin 2.2 H (0.2-1.3) mg/dL Total Protein 6.2 L (6.3-8.2) g/dL Albumin 3.4 L (3.5-5.0) g/dL Diabetes panel 03/23/19 Range/Units 10:32 Sodium 136 L (137-145) mmol/L Potassium 4.5 (3.5-5.1) mmol/L Chloride 103 (98-107) mmol/L Carbon Dioxide 22 (22-30) mmol/L BUN 23 H (9-20) mg/dL Creatinine 0.76 (0.66-1.25) mg/dL Glucose 103 H (74-99) mg/dL Calcium 8.8 (8.4-10.2) mg/dL AST 47 (17-59) U/L ALT 32 (21-72) U/L Alkaline Phosphatase 55 (38-126) U/L Total Protein 6.2 L (6.3-8.2) g/dL Albumin 3.4 L (3.5-5.0) g/dL Calcium panel 03/23/19 Range/Units 10:32 Calcium 8.8 (8.4-10.2) mg/dL Albumin 3.4 L (3.5-5.0) g/dL Pituitary panel 03/23/19 Range/Units 10:32 Sodium 136 L (137-145) mmol/L Potassium 4.5 (3.5-5.1) mmol/L Chloride 103 (98-107) mmol/L Carbon Dioxide 22 (22-30) mmol/L BUN 23 H (9-20) mg/dL Creatinine 0.76 (0.66-1.25) mg/dL Glucose 103 H (74-99) mg/dL Calcium 8.8 (8.4-10.2) mg/dL Adrenal panel 03/23/19 Range/Units 10:32 Sodium 136 L (137-145) mmol/L Potassium 4.5 (3.5-5.1) mmol/L Chloride 103 (98-107) mmol/L Carbon Dioxide 22 (22-30) mmol/L BUN 23 H (9-20) mg/dL Creatinine 0.76 (0.66-1.25) mg/dL Glucose 103 H (74-99) mg/dL Calcium 8.8 (8.4-10.2) mg/dL Total Bilirubin 2.2 H (0.2-1.3) mg/dL AST 47 (17-59) U/L ALT 32 (21-72) U/L Alkaline Phosphatase 55 (38-126) U/L Total Protein 6.2 L (6.3-8.2) g/dL Albumin 3.4 L (3.5-5.0) g/dL Assessment and Plan (1) Fall from tree Current Visit: Yes Status: Acute Code(s): W14.XXXA - FALL FROM TREE, INITIAL ENCOUNTER SNOMED Code(s): 52585528 (2) Right upper quadrant abdominal pain Current Visit: Yes Status: Acute Code(s): R10.11 - RIGHT UPPER QUADRANT PAIN SNOMED Code(s): 824523642 (3) Chronic cholecystitis Current Visit: Yes Status: Acute Code(s): K81.1 - CHRONIC CHOLECYSTITIS SNOMED Code(s): 83933631 (4) Sick sinus syndrome Current Visit: Yes Status: Acute Code(s): I49.5 - SICK SINUS SYNDROME SNOMED Code(s): 11723901 (5) Pacemaker Current Visit: Yes Status: Acute Code(s): Z95.0 - PRESENCE OF CARDIAC PACEMAKER SNOMED Code(s): 434475397 (6) Chronic anticoagulation Current Visit: Yes Status: Acute Code(s): Z79.01 - SITE ACQUISITION SPECIALIST (CURRENT) USE OF ANTICOAGULANTS SNOMED Code(s): 928297472 (7) T12 compression fracture Current Visit: Yes Status: Acute Code(s): S22.080A - WEDGE COMPRESSION FRACTURE OF T11-T12 VERTEBRA, INIT SNOMED Code(s): 587693104 (8) Closed right clavicular fracture Current Visit: Yes Status: Acute Code(s): S42.001A - FRACTURE OF UNSP PART OF RIGHT CLAVICLE, INIT FOR CLOS FX SNOMED Code(s): 74347872 (9) Hiatal hernia with gastroesophageal reflux Current Visit: Yes Status: Acute Code(s): K21.9 - GASTRO-ESOPHAGEAL REFLUX DISEASE WITHOUT ESOPHAGITIS; K44.9 - DIAPHRAGMATIC HERNIA WITHOUT OBSTRUCTION OR GANGRENE SNOMED Code(s): 485515038 (10) Compression fx, thoracic spine Current Visit: Yes Status: Acute Code(s): S22.000A - WEDGE COMPRESSION FRACTURE OF UNSP THORACIC VERTEBRA, INIT SNOMED Code(s): 642101412 (11) Chronic diarrhea Current Visit: Yes Status: Acute Code(s): K52.9 - NONINFECTIVE GASTROENTERITIS AND COLITIS, UNSPECIFIED SNOMED Code(s): 054247988
--- NOTE | 2019-03-23 19:50 | PN ---
PROGRESS NOTE CHIEF COMPLAINT: One or two spinal vertebral body fractures and contusion and possible sprain or rotator cuff injury to the right shoulder. HISTORY OF PRESENT ILLNESS: This gentleman is having quite a bit of discomfort. Back brace has been delivered, but he says it makes him uncomfortable. He has had no shortness of breath, cough, etc. His shoulder is still bothering him quite a bit. He lives alone and he feels it will be difficult for him to go home in this condition. PHYSICAL EXAMINATION: His chest is clear. Cardiac exam is normal. The shoulder is stable, but irritable. IMPRESSION: 1. Compression fractures of the spine. 2. Contusion or rotator cuff injury to the right shoulder. PLAN: Await further recommendations from Physical Therapy, Orthopedics, Discharge Planning, etc. MMODL / IJN: [id number] /
[2019-03-24] MEDS: HYDROmorphone 0.5 MG/0.5 ML SYRINGE IVP PRN ×4 (00:48→22:26)
[2019-03-24] MEDS: KETOROLAC 30 MG/ML 1 ML VIAL IVP SCH ×2 (05:15→12:39)
[2019-03-24] MEDS: PANTOPRAZOLE 40 MG TABLET PO SCH (07:55)
[2019-03-24] MEDS: METOPROLOL SUCCINATE (ER) 25 MG TAB.ER.24H PO SCH ×2 (07:55→20:46)
[2019-03-24 08:33] LABS: Appearance,Urine Clear (Clear); Bilirubin,Urine Negative (Negative); Blood,Urine Negative (Negative); Color,Urine Yellow; Glucose,Urine (UA) Negative (Negative); Ketones,Urine Trace (Negative); Leukocyte Esterase,Urine Negative (Negative); Nitrite,Urine Negative (Negative); PH, Urine 5.5 (5.0-8.0); Protein,Urine Trace (Negative); Specific Gravity,Urine 1.031 (1.001-1.035); Urobilinogen,Urine <2.0 mg/dL (<2.0)
--- NOTE | 2019-03-24 10:52 | P.PN ---
Progress Note - Text Progress Note Date: 03/24/19 Patient is seen and examined at bedside. He was able stand up the brace company to fit for his TLSO brace. While he is in that he does not wear his brace or his right upper extremity sling. He says he still having significant spasms that they may have decreased subtly. He says pain with lifting his right shoulder up but his neurologic status is intact. He continues to have pain at his right upper quadrant he requested to see a different general surgeons and has been evaluated by Dr. Rahman who is planning for possible cholecystectomy on Tuesday. Afebrile stable vital signs And his right upper extremity he has good motion in his wrist and an elbow. He has soreness with elevating his shoulder beyond shoulder level. He has tenderness over the distal clavicle. There is no open wounds. He is paravertebral spasm in his lower back. His lower extremities have sustained dorsal flexion plantarflexion and EHL intact. There is no point tenderness at his thoracic or lumbar spine. The bone scan is reviewed. There is some subtle uptake at T12. He had a prior compression fracture T12 with approximately 50% height loss on an MRI from May 2017. There is no evidence of new fracture at his mid or upper thoracic spine. Assessment and plan Acute right clavicle fracture due to an injury from branch falling on him Thoracic lumbar strain due to acute blunt injury Bony contusion at T12 with chronic impression fracture, acute on chronic fracture T12 Right upper quadrant pain In terms of the patient's fractures it is okay for him to mobilize with his TLSO brace intact. He is not having neurologic deficit and we do not plan any surgical intervention at this point. We will have therapy see him to try to help immobilize. He should try to use his right upper extremity sling when he is up and about as well to protect his right clavicle fracture. His clavicle should heal with expectant management and we do not have surgical plans for his clavicle. He will likely need some physical therapy for his shoulder in approximately 2-3 weeks to start mobilization to prevent over stiffening at his right shoulder with his injury. We would like therapy to work with him for his mobilization and ambulation here in Hospital. From a orthopedic standpoint it is okay for the patient to continue to mobilize and to be discharged when he is stable from medicine and surgery service as long as he is safe with his mobilization and ambulation. He is being followed closely with general surgery had is obtaining clearance for possible surgery for cholecystectomy on Tuesday.
--- NOTE | 2019-03-24 12:19 | P.CRDCN ---
History of Present Illness History of present illness: This is a pleasant 73-year-old male past medical history significant for paroxysmal atrial fibrillation/flutter on long-term anticoagulation, sick sinus syndrome status post permanent pacemaker implantation and moderate nonobstructive coronary artery disease. He follows in the office with Dr. Argueta. We have been asked to see him in consultation for preoperative evaluation. The patient is scheduled to undergo cholecystectomy on Tuesday with Dr. Rahman. He is seen and examined resting comfortably in bed in no acute distress. He denies symptoms of chest discomfort, shortness of breath, dizziness or palpitations. Current cardiac medications include Toprol 12.5 mg twice a day and Xarelto 20 mg daily. EKG reveals sinus mechanism with left anterior fascicular block. Laboratory data reviewed, WBC 7.8, hemoglobin 13.6, platelets 167, sodium 136, potassium 4.5, creatinine 0.76. Most recent echocardiogram obtained in the office July 2018 reveals preserved LV systolic function with ejection fraction 50-55%, normal diastolic function, mild mitral regurgitation, mildly calcified aortic valve with no regurgitation. Most recent stress was performed in the office November 2018 revealed good exercise tolerance, no symptoms of angina, PVCs noted with short bursts of paroxysmal A. fib towards the peak exercise with normal EKG response to exercise with no evidence of stress-induced ischemia. Most recent cardiac catheterization performed July 2018 reveals a no ncritical lesion involving the RCA, 40-50% at the ostium, mild diffuse disease in the proximal RCA and calcification noted in the left main and the left coronary system with no critical stenosis. At the time of my exam: CONSTITUTIONAL: Denies fever. Denies chills. EYES: Denies blurred vision. Denies vision changes. Denies eye pain. EARS, NOSE, MOUTH & THROAT: Denies headache. Denies sore throat. Denies ear pain. CARDIOVASCULAR: Denies chest pain. Denies shortness of breath. Denies orthopnea. Denies PND. Denies palpitations. RESPIRATORY: Denies cough. GASTROINTESTINAL: Complains of abdominal pain. Denies diarrhea. Denies constipation. Denies nausea. Denies vomiting. MUSCULOSKELETAL: Denies myalgias. INTEGUMENTARY: Denies pruitis. Denies rash. NEUROLOGIC: Denies numbness. Denies tingling. Denies weakness. PSYCHIATRIC: Denies anxiety. Denies depression. ENDOCRINE: Denies fatigue. Denies weight change. Denies polydipsia. Denies polyurina. GENITOURINARY: Denies burning, hematuria or urgency with micturation. HEMATOLOGIC: Denies history of anemia. Denies bleeding. Blood pressure 149/85 heart rate 68 afebrile maintaining oxygen saturation on room air GENERAL: This is a 73-year-old male in no apparent distress at the time of my examination. HEENT: Head is atraumatic, normocephalic. Pupils are equal, round. Sclerae anicteric. Conjunctivae are clear. Mucous membranes of the mouth are moist. Neck is supple. There is no jugular venous distention. No carotid bruit is heard. LUNGS: Clear to auscultation no wheezes, rales or rhonchi. No chest wall tenderness is noted on palpation or with deep breathing. HEART: Regular rate and rhythm without murmurs, rubs or gallops. S1 and S2 heard. ABDOMEN: Soft, nontender. Bowel sounds are heard. No organomegaly noted. EXTREMITIES: No evidence of peripheral edema and no calf tenderness noted. VASCULAR: Radial and dorsalis pedis pulses palpated, no evidence of clubbing. NEUROLOGIC: Patient is awake, alert and oriented x3. ASSESSMENT Preoperative evaluation Acute cholecystitis Compression fracture History of nonobstructive coronary artery disease Paroxysmal atrial fibrillation on long-term anticoagulation currently maintaini ng sinus mechanism History of sick sinus syndrome status post permanent pacemaker implantation PLAN The patient is a moderate risk for surgical intervention secondary to underlying coronary artery disease. There is no absolute contraindications. He has no symptoms suggestive of angina and is clinically euvolemic. Recommend holding Xarelto. Resume Xarelto as soon as possible postoperatively. Continue beta blockers perioperatively and recommend cautious fluid administration. Thank you kindly for this consultation. Nurse Practitioner note has been reviewed, I agree with a documented findings and plan of care. Patient was seen and examined. Past Medical History Past Medical History: Asthma, Cancer, GI Bleed, Hearing Disorder / Deafness Additional Past Medical History / Comment(s): ARRYTHMIA, MVP WITH HEART MURMUR. , HX ORAL CA. H1N1 IN 2014; ,KIDNEY STONE., STATES ASTHMA BUT TOOK HIMSELF OFF OF INHALERS. ,STATES HE WALKS HUNCHED OVER., STATES HE IS A [employer] AND HAS A SLOW RESTING HEART RATE -SOMETIMES AROUND 30. History of Any Multi-Drug Resistant Organisms: None Reported Past Surgical History: Appendectomy, Hernia Repair, Orthopedic Surgery Additional Past Surgical History / Comment(s): ORAL SURG FOR CA. , EGD., RT SHOULDER SX., LITHOTRIPSY. asha fundolipation. HEART CATH 08/10/18, EGD Past Anesthesia/Blood Transfusion Reactions: No Reported Reaction Past Psychological History: No Psychological Hx Reported Smoking Status: Never smoker Past Alcohol Use History: None Reported Past Drug Use History: None Reported - Past Family History Mother Family Medical History: No Reported History Medications and Allergies Home Medications Medication Instructions Recorded Confirmed Type Omeprazole [PriLOSEC] 20 mg PO AC-BID 08/02/18 03/20/19 History Metoprolol Succinate [Toprol XL] 12.5 mg PO BID 03/20/19 03/20/19 History Rivaroxaban [Xarelto] 20 mg PO HS 03/20/19 03/20/19 History Allergies Allergy/AdvReac Type Severity Reaction Status Date / Time No Known Allergies Allergy Verified 03/20/19 13:15 Physical Exam Vitals: Vital Signs Temp Pulse Resp BP Pulse Ox 03/24/19 08:13 18 03/24/19 05:00 97.4 F L 60 18 149/85 93 L 03/23/19 21:00 97.4 F L 61 18 122/66 93 L 03/23/19 14:40 98.5 F 67 16 127/69 93 L Intake and Output 03/23/19 03/24/19 03/24/19 22:59 06:59 14:59 Intake Total 840 200 300 Balance 840 200 300 Intake: Oral 840 200 300 Other: Voiding Method Urinal Urinal # Voids 2 1 Results 03/23/19 10:32 03/23/19 10:32 Current Medications Generic Name Dose Route Start Last Admin Trade Name Freq PRN Reason Stop Dose Admin Cyclobenzaprine HCl 10 mg 03/22/19 12:06 03/23/19 08:02 Flexeril PO 10 mg TID PRN Administration Muscle Spasm Diazepam 5 mg 03/20/19 16:26 03/22/19 23:53 Valium IVP 5 mg Q12H PRN Administration Muscle Spasm Hydromorphone HCl 0.5 mg 03/20/19 16:26 03/24/19 04:08 Dilaudid IVP 0.5 mg Q4HR PRN Administration Pain Cefazolin Sodium 2 gm/ Sodium 50 mls @ 100 mls/hr 03/26/19 14:00 Chloride IVPB 03/26/19 14:29 ONCE ONE Ketorolac Tromethamine 15 mg 03/20/19 18:00 03/24/19 05:15 Toradol IVP 03/24/19 16:26 15 mg Q6HR AVELINA Administration Metoprolol Succinate 12.5 mg 03/21/19 21:30 03/24/19 07:55 Toprol Xl PO 12.5 mg BID AVELINA Administration Ondansetron HCl 4 mg 03/22/19 01:36 03/22/19 01:49 Zofran IVP 4 mg Q6HR PRN Administration Nausea And Vomiting Pantoprazole Sodium 40 mg 03/22/19 07:30 03/24/19 07:55 Protonix PO 40 mg AC-BRKFST AVELINA Administration Intake and Output 03/23/19 03/24/19 03/24/19 22:59 06:59 14:59 Intake Total 840 200 300 Balance 840 200 300 Intake: Oral 840 200 300 Other: Voiding Method Urinal Urinal # Voids 2 1 03/23/19 10:32 03/23/19 10:32
--- NOTE | 2019-03-24 15:21 | PN ---
PROGRESS NOTE DATE OF SERVICE: 03/24/2019 CHIEF COMPLAINT: Spinal fracture. HISTORY OF PRESENT ILLNESS: This gentleman is still having a lot of difficulty with pain and cannot ambulate. He has also been found to have gallbladder disease when his gallbladder had been taken out by his own history. He is going for surgery Tuesday. PHYSICAL EXAMINATION: Chest is clear. Cardiac exam is normal. Abdomen is soft, nontender. IMPRESSIONS: 1. Spinal fracture. 2. Contusion or sprain to the right shoulder. 3. Gallbladder disease?.. PLAN: Cholecystectomy on Tuesday. In the meantime continue with physical therapy. He may have to go to rehab. MMODL / IJN: [id number] /
[2019-03-24] MEDS ORDERED: KETOROLAC 30 MG/ML 1 ML VIAL IVP PRN (16:34)
--- NOTE | 2019-03-24 17:53 | ECHOF ---
Referral Reason:pre op MEASUREMENTS -------- HEIGHT: 180.3 cm WEIGHT: 72.6 kg BP: RVIDd: 2.8 cm (< 3.3) IVSd: 1.2 cm (0.6 - 1.1) LVIDd: 4.1 cm (3.9 - 5.3) LVPWd: 1.2 cm (0.6 - 1.1) IVSs: 2.0 cm LVIDs: 2.1 cm LVPWs: 1.8 cm LAESV Index (A-L): 37.22 ml/m Ao Diam: 2.8 cm (2.0 - 3.7) AV Cusp: 1.7 cm (1.5 - 2.6) LA Diam: 3.3 cm (2.7 - 3.8) MV EXCURSION: 16.312 mm (> 18.000) MV EF SLOPE: 28 mm/s (70 - 150) EPSS: 0.7 cm MV E Jaxon: 0.62 m/s MV DecT: 282 ms MV A Jaxon: 1.00 m/s MV E/A Ratio: 0.63 RAP: 5.00 mmHg RVSP: 31.53 mmHg FINDINGS -------- Pacerwire seen in RV and RA. This was a technically adequate study. The left ventricular size is normal. There is mild concentric left ventricular hypertrophy. Overa ll left ventricular systolic function is normal with, an EF between 55 - 60 %. The right ventricle is normal in size. LA is moderately dilated 34-39 ml/m2 The right atrial size is normal. Aortic valve is trileaflet and is mildly thickened. The mitral valve is normal. Mild mitral regurgitation is present. There is mild mitral valve prol apse. The tricuspid valve appears structurally normal. Mild tricuspid regurgitation present. Right vent ricular systolic pressure is normal at < 35 mmHg. There is no pulmonic regurgitation present. The aortic root size is normal. Normal inferior vena cava with normal inspiratory collapse consistent with estimated right atrial pre ssure of 5 mmHg. There is no pericardial effusion. CONCLUSIONS -------- 1. Pacerwire seen in RV and RA. 2. This was a technically adequate study. 3. The left ventricular size is normal. 4. There is mild concentric left ventricular hypertrophy. 5. Overall left ventricular systolic function is normal with, an EF between 55 - 60 %. 6. The right ventricle is normal in size. 7. LA is moderately dilated 34-39 ml/m2 8. The right atrial size is normal. 9. Aortic valve is trileaflet and is mildly thickened. 10. The mitral valve is normal. 11. Mild mitral regurgitation is present. 12. There is mild mitral valve prolapse. 13. The tricuspid valve appears structurally normal. 14. Mild tricuspid regurgitation present. 15. Right ventricular systolic pressure is normal at < 35 mmHg. 16. There is no pulmonic regurgitation present. 17. The aortic root size is normal. 18. Normal inferior vena cava with normal inspiratory collapse consistent with estimated right atrial pressure of 5 mmHg. 19. There is no pericardial effusion. SENIOR INFORMATICA DEVELOPER: Abbie Winter RDCS
[2019-03-25] MEDS: CYCLOBENZAPRINE 10 MG TAB PO PRN (07:41)
[2019-03-25] MEDS: PANTOPRAZOLE 40 MG TABLET PO SCH (07:41)
[2019-03-25] MEDS: METOPROLOL SUCCINATE (ER) 25 MG TAB.ER.24H PO SCH ×2 (07:41→20:47)
[2019-03-25] MEDS: DIAZEPAM 5 MG/ML 2 ML INJ IVP PRN ×2 (08:15→22:25)
[2019-03-25] MEDS ORDERED: DOCUSATE 100 MG CAP PO PRN (13:16)
[2019-03-25] MEDS: HYDROmorphone 0.5 MG/0.5 ML SYRINGE IVP PRN (13:44)
--- NOTE | 2019-03-25 19:34 | PN ---
PROGRESS NOTE CHIEF COMPLAINT: Spinal fractures. HISTORY OF PRESENT ILLNESS: This gentleman is doing fairly well, although he is still quite uncomfortable. He is going for cholecystectomy tomorrow. PHYSICAL EXAMINATION: He is slightly tender over the right rib margin. Chest is clear. Cardiac exam is normal. Abdomen is soft, nontender. IMPRESSION: 1. Compression fractures of the spine. 2. Possible gallbladder disease. PLAN: 1. Continue with analgesics and physical therapy. 2. Apparently he is going for cholecystectomy tomorrow. MMODL / IJN: [id number] /
[2019-03-26] MEDS: HYDROmorphone 0.5 MG/0.5 ML SYRINGE IVP PRN ×2 (00:44→07:54)
[2019-03-26] MEDS: DOCUSATE 100 MG CAP PO SCH ×2 (07:53→20:26)
[2019-03-26] MEDS: PANTOPRAZOLE 40 MG TABLET PO SCH (07:53)
[2019-03-26] MEDS: METOPROLOL SUCCINATE (ER) 25 MG TAB.ER.24H PO SCH ×2 (07:54→20:26)
[2019-03-26] MEDS: DIAZEPAM 5 MG/ML 2 ML INJ IVP PRN (07:54)
[2019-03-26] MEDS ORDERED: INDOCYANINE GREEN 25 MG VIAL IV STA (12:41)
[2019-03-26 13:27] LABS: ALT 26 U/L (21-72); AST 26 U/L (17-59); African American GFR (CKD) >90 (>60 ml/min/1.73 sqM); Albumin 3.2 g/dL (3.5-5.0); Alkaline Phosphatase 66 U/L (38-126); Anion Gap 6 mmol/L; Blood Urea Nitrogen 19 mg/dL (9-20); Calcium 8.6 mg/dL (8.4-10.2); Carbon Dioxide 28 mmol/L (22-30); Chloride 103 mmol/L (98-107); Glucose 95 mg/dL (74-99); Potassium 4.5 mmol/L (3.5-5.1); Sodium 137 mmol/L (137-145); Total Bilirubin 1.9 mg/dL (0.2-1.3); Total Protein 5.8 g/dL (6.3-8.2)
[2019-03-26 13:53] LABS: Basophils % (A) 1 %; Eosinophils # (A) 0.2 k/uL (0-0.7); Eosinophils % (A) 3 %; HCT 37.7 % (39.0-53.0); HGB 12.7 gm/dL (13.0-17.5); Lymphocytes # (A) 1.1 k/uL (1.0-4.8); Lymphocytes % (A) 19 %; MCH 33.5 pg (25.0-35.0); MCHC 33.7 g/dL (31.0-37.0); MCV 99.3 fL (80.0-100.0); Mean Platelet Volume 5.7; Monocytes # (A) 0.6 k/uL (0-1.0); Monocytes % (A) 10 %; Neutrophils # (A) 3.7 k/uL (1.3-7.7); Neutrophils % (A) 64 %; Platelet Count 188 k/uL (150-450); RDW 12.9 % (11.5-15.5); WBC 5.8 k/uL (3.8-10.6)
[2019-03-26] MEDS ORDERED: LACTATED RINGERS 1,000 ML IV ONE (16:58)
[2019-03-26] MEDS ORDERED: ONDANSETRON 4 MG/2 ML VIAL IVP ONE (16:59)
[2019-03-26] MEDS ORDERED: HEPARIN SODIUM,PORCINE 5,000 UNIT/ML 1 ML VIAL SQ ONE (17:03)
--- NOTE | 2019-03-26 17:17 | P.HPADDEND ---
H&P Addendum H&P Addendum Date: 03/26/19 Patient's labs reviewed. Still elevated total bilirubin. Patient reports bilateral upper abdominal pain right greater than left. Robotic cholecystectomy described. Patient wished to proceed with procedure.
[2019-03-26] MEDS ORDERED: PROPOFOL 10 MG/ML 20 ML VIAL IV ONE (17:39)
[2019-03-26] MEDS ORDERED: LIDOCAINE 1% INJ 10MG/ML (20 ML MDV) ONE (17:39)
[2019-03-26] MEDS ORDERED: NEOSTIGMINE 1 MG/ML 10 ML VIAL ONE (17:39)
[2019-03-26] MEDS ORDERED: fentaNYL (PF) 50 MCG/ML 2 ML AMP ONE (17:39)
[2019-03-26] MEDS ORDERED: PHENYLEPHRINE-0.9% NACL SYG 1 MG/10 ML SYRINGE ONE (17:39)
[2019-03-26] MEDS ORDERED: MIDAZOLAM 2 MG/2 ML VIAL ONE (17:39)
[2019-03-26] MEDS ORDERED: ROCURONIUM BROMIDE 10 MG/ML 10 ML VIAL IV ONE (17:39)
[2019-03-26] MEDS ORDERED: SUCCINYLCHOLINE CHLORIDE 100 MG/5 ML SYR IV ONE (17:39)
[2019-03-26] MEDS ORDERED: GLYCOPYRROLATE 0.2 MG/ML 2 ML VIAL ONE (17:39)
[2019-03-26] MEDS ORDERED: INDOCYANINE GREEN 25 MG VIAL IV ONE (17:39)
[2019-03-26] MEDS ORDERED: LIDOCAINE 1%-EPI 1:100,000 30 ML VIAL SQ ONE (18:10)
[2019-03-26] MEDS ORDERED: NALOXONE 0.4 MG/ML 1 ML VIAL IV PRN (18:39)
--- NOTE | 2019-03-26 18:39 | P.OP ---
Date of Procedure: 03/26/19 Description of Procedure: SURGEON: JIN NUNN MD PREOPERATIVE DIAGNOSES: 1. Right upper quadrant abdominal pain 2. Hyperbilirubinemia 3. Acute on chronic cholecystitis 4. Sick sinus syndrome status post pacemaker placement 5. T12 compression fracture 6. Right clavicular fracture 7. Chronic anticoagulant use 8. History of atrial fibrillation 9. Gastroesophageal reflux disease POSTOPERATIVE DIAGNOSES: 1. Right upper quadrant abdominal pain 2. Hyperbilirubinemia 3. Acute on chronic cholecystitis 4. Sick sinus syndrome status post pacemaker placement 5. T12 compression fracture 6. Right clavicular fracture 7. Chronic anticoagulant use 8. History of atrial fibrillation 9. Gastroesophageal reflux disease OPERATION: Robotic-assisted da Elizabeth Xi laparoscopic cholecystectomy, multiport with FIREFLY ESTIMATED BLOOD LOSS: 5 mL. SPECIMENS REMOVED: Gallbladder. COMPLICATIONS: None. OPERATIVE FINDINGS: 1. Moderate adhesions of the gallbladder infundibulum and body consistent with cholecystitis 2. Console time 9 minutes INDICATIONS: The patient is a 73-year-old male who presents with acute on chronic cholelcystitis. Surgical intervention with a laparoscopic cholecystectomy was described at length including injury to the biliary tree, bleeding, infection, need for further surgery. Informed consent was obtained. Robotic assisted laparoscopic approach was described. Benefits and risks of the procedure including but not limited to bleeding, infection, injury to the biliary tree was described. Informed consent was obtained. DESCRIPTION OF PROCEDURE: Patient was brought to the operating room, placed in supine position. After general induction, the abdomen had been prepped and draped in standard sterile fashion. The robotic da Elizabeth XI system was primed. After a timeout protocol was performed, the patient had been prepped and draped in standard sterile fashion. The patient was injected with indocyanine green. A 5 mm 0 degrees laparoscopic trocar entry was performed along the left upper quadrant. The abdomen insufflated to 15 mmHg pressure which was tolerated well. Diagnostic laparoscopy demonstrated no injury to bowel viscera or mesentery. The liver surface was unremarkable. Next, two 8 mm robotic ports were placed al tristian the right upper abdomen. The camera 8-mm port was maintained along the epigastrium. Another 8 mm port was placed along the left upper abdominal wall after exchanging the 5 mm port. Please note that the ports were placed at least 10 to 15 cm away from the target anatomy of the gallbladder. The robot was docked along the left lateral abdomen. The patient was repositioned in reverse Trendelenburg position. Using a grasper for arm 3, a grasper for arm 4, including hook cautery for arm 1, the robotic system was docked and primed as described. Instruments were interchanged by the certified teacher assistant including hook cautery, Bovie cautery and clip appliers. I had sat at the console. The gallbladder fundus was retracted over the dome of the liver. Initial attention was brought to the infundibulum which was gently retracted in the inferior lateral approach. Using a grasper, the cystic duct including the cystic artery was carefully skeletonized. FIREFLY was used to identify the cystic artery and cystic structures. A critical view of safety was obtained. Large PLASTIC clips were used throughout the entire case. Using a clip supervisor acoustical tile carpenters 2 clips were placed proximally, and 1 clip was placed between the infundibulum and cystic duct and divided using cautery. Next, the cystic artery was similarly clipped and cauterized. Electro-Bovie cautery was used to remove the gallbladder from the hepatic fossa. Hemostasis was checked and found to be adequate. The robot was undocked. I re-scrubbed into the case. Using a 10 mm Endo Catch bag via the left upper quadrant incision, the specimen was removed from the abdominal cavity. All pneumoperitoneum instruments were evacuated from the abdominal cavity. The incisions were reapproximated using 4-0 Monocryl in an interrupted subcuticular fashion. Fascial defects were less than 8 mm in size. Please note along the trocar sites, local anesthetic was placed as a field block prior to insertion of all instruments. Liquid glue was applied to the skin. At the end of the procedure needle, sponge, and instrument count had been verified correct by the molding technician. The patient was transferred to postanesthesia care unit in stable condition. Intraoperative films were shared with the patient's family who were very pleased with the level of care.
--- NOTE | 2019-03-26 19:46 | PN ---
PROGRESS NOTE CHIEF COMPLAINT: Fractures of the spine. HISTORY OF PRESENT ILLNESS: This gentleman's pain is slowly receding. He is going today for cholecystectomy. He is still complaining of a lot of discomfort in the right shoulder. He is worried about his discharge plan. PHYSICAL EXAMINATION: His chest is clear. Cardiac exam is normal. Abdomen is soft and nontender. Extremities are normal. IMPRESSION: 1. Contusion of the right shoulder and probable rotator cuff tear. 2. Compression fractures of the spine. 3. Gallbladder disease. PLAN: Surgery today and then start to work on his discharge plan. MMODL / IJN: [id number] /
[2019-03-26] MEDS: MAGNESIUM HYDROXIDE 2,400 MG/10 ML CUP PO SCH (20:26)
[2019-03-27 06:13] VITALS: BP 132/77; PULSE 68; RESP 20; TEMP 98
[2019-03-27] MEDS: METOPROLOL SUCCINATE (ER) 25 MG TAB.ER.24H PO SCH (08:05)
[2019-03-27] MEDS: PANTOPRAZOLE 40 MG TABLET PO SCH (08:05)
[2019-03-27] MEDS: HYDROcodone/APAP 5-325MG 1 EACH TAB PO PRN ×2 (08:06→13:53)
[2019-03-27] MEDS: DOCUSATE 100 MG CAP PO SCH (08:06)
[2019-03-27] MEDS: MAGNESIUM HYDROXIDE 2,400 MG/10 ML CUP PO SCH (08:06)
[2019-03-27] MEDS: CYCLOBENZAPRINE 10 MG TAB PO PRN ×2 (08:06→16:44)
[2019-03-27] MEDS ORDERED: ENOXAPARIN 30 MG/0.3 ML SYRINGE SQ SCH (09:00)
[2019-03-27] MEDS ORDERED: POLYETHYLENE GLYCOL 3350 17 GM POWD.PACK PO SCH (09:00)
[2019-03-27 09:44] LABS: ALT 34 U/L (21-72); AST 36 U/L (17-59); African American GFR (CKD) >90 (>60 ml/min/1.73 sqM); Albumin 3.4 g/dL (3.5-5.0); Alkaline Phosphatase 76 U/L (38-126); Anion Gap 7 mmol/L; Blood Urea Nitrogen 19 mg/dL (9-20); Calcium 8.7 mg/dL (8.4-10.2); Carbon Dioxide 29 mmol/L (22-30); Chloride 100 mmol/L (98-107); Glucose 99 mg/dL (74-99); Potassium 4.5 mmol/L (3.5-5.1); Sodium 136 mmol/L (137-145); Total Bilirubin 2.1 mg/dL (0.2-1.3); Total Protein 6.1 g/dL (6.3-8.2)
[2019-03-27] MEDS ORDERED: ACETAMINOPHEN TAB 325 MG TAB PO PRN (12:49)
--- NOTE | 2019-03-27 12:52 | P.PN ---
Subjective Progress Note Date: 03/27/19 CHIEF COMPLAINT: Abdominal pain HISTORY OF PRESENT ILLNESS: Patient is status post robotic-assisted laparoscopic cholecystectomy with Dr. Roth. POD #1. Patient examined at the bedside. He reports his pain is tolerable this morning. Tolerating diet. Denies nausea or vomiting. Bilirubin 2.1. AST 36. ALT 34. Vital signs stable. Afebrile. PHYSICAL EXAM: VITAL SIGNS: Reviewed GENERAL: Well-developed in no acute distress. HEENT: No sclera icterus. Extraocular movements grossly intact. Moist buccal mucosa. Head is atraumatic, normocephalic. Hears conversational speech. No nasal drainage. NECK: Supple without lymphadenopathy. CHEST: Non-labored respirations and equal bilateral excursions. CARDIOVASCULAR: Regular rate with regular rhythm. Palpable 2+ radial pulses. ABDOMEN: Soft. Nondistended. Appropriate surgical tenderness. Surgical sites clean dry intact. Positive bowel sounds. MUSCULOSKELETAL: No clubbing, cyanosis or edema. NEUROLOGIC: No focal or lateralizing signs. Cranial nerves II through XII grossly intact. PSYCH: Appropriate affect. Alert and oriented to person, place and time. SKIN: Well perfused. Good skin turgor. ASSESSMENT: 1. Right upper quadrant abdominal pain 2. Hyperbilirubinemia 3. Acute on chronic cholecystitis 4. Sick sinus syndrome status post pacemaker placement 5. T12 compression fracture 6. Right clavicular fracture 7. Chronic anticoagulant use 8. History of atrial fibrillation 9. Gastroesophageal reflux disease PLAN: 1. Diet as tolerated 2. Tylenol PRN for pain 3. Activity as tolerated 4. Incentive spirometer 5. May resume Xarelto on 6. Stable for discharge from a surgical standpoint when cleared by admitting physician Nurse practitioner note has been reviewed by physician. Signing provider agrees with the documented findings, assessment, and plan of care. Objective - Vital Signs Vital signs: Vital Signs Temp 98.0 F 03/27/19 05:00 Pulse 68 03/27/19 05:00 Resp 20 03/27/19 08:00 BP 132/77 03/27/19 05:00 Pulse Ox 94 L 03/27/19 05:00 Intake & Output 03/26/19 03/27/19 03/27/19 18:59 06:59 18:59 Intake Total 850 175 Output Total 405 400 Balance 445 175 -400 Intake: IV 850 175 Output: Urine 400 400 Estimated Blood Loss 5 Other: Voiding Method Urinal Urinal Urinal # Voids 2 4 1 - Labs CBC & Chem 7: 03/26/19 13:01 03/27/19 08:25 Labs: Abnormal Lab Results - Last 24 Hours (Table) 03/26/19 03/26/19 03/27/19 Range/Units 13:01 13:01 08:25 RBC 3.80 L (4.30-5.90) m/uL Hgb 12.7 L (13.0-17.5) gm/dL Hct 37.7 L (39.0-53.0) % Sodium 136 L (137-145) mmol/L Total Bilirubin 1.9 H 2.1 H (0.2-1.3) mg/dL Total Protein 5.8 L 6.1 L (6.3-8.2) g/dL Albumin 3.2 L 3.4 L (3.5-5.0) g/dL Assessment and Plan (1) Chronic anticoagulation Current Visit: Yes Status: Acute Code(s): Z79.01 - REFRIGERATION INSTALLER (CURRENT) USE OF ANTICOAGULANTS SNOMED Code(s): 625845879 (2) Chronic cholecystitis Current Visit: Yes Status: Acute Code(s): K81.1 - CHRONIC CHOLECYSTITIS SNOMED Code(s): 27841592 (3) Closed right clavicular fracture Current Visit: Yes Status: Acute Code(s): S42.001A - FRACTURE OF UNSP PART OF RIGHT CLAVICLE, INIT FOR CLOS FX SNOMED Code(s): 32748816 (4) Compression fx, thoracic spine Current Visit: Yes Status: Acute Code(s): S22.000A - WEDGE COMPRESSION FRACTURE OF UNSP THORACIC VERTEBRA, INIT SNOMED Code(s): 078963073 (5) Fall from tree Current Visit: Yes Status: Acute Code(s): W14.XXXA - FALL FROM TREE, INITIAL ENCOUNTER SNOMED Code(s): 30066916
--- NOTE | 2019-03-27 13:54 | DS ---
DISCHARGE SUMMARY CHIEF COMPLAINT: Back pain after fall. HISTORY OF PRESENT ILLNESS AND PHYSICAL EXAM: Details of this man's history and physical can be found in the initial workup. LABORATORY STUDIES: While he was in the hospital he had laboratory studies, details of which can be found in the laboratory section of his chart. COURSE IN HOSPITAL: After admission was placed on bedrest, started on intravenous fluids and was seen by Orthopedics for 2 compression fractures of the spine. While he was in the hospital, he was fitted with a back brace, but had significant pain and was unable to ambulate unsupported. He lives alone. He was also found to have gallbladder disease and seen by Surgery and he had a cholecystectomy. He was doing well. It was felt that he could go to rehab on the and he will go to [facility] on the . FINAL DIAGNOSES: 1. Compression fractures of the spine. 2. Chronic cholecystitis. OPERATIONS: Cholecystectomy. CONSULTATIONS: General Surgery and Orthopedics. He is improved. MMODL / IJN: [id number] /
[2019-03-29] MEDS ORDERED: RIVAROXABAN 20 MG TAB PO SCH (17:30)
== END 2019-03-27 17:12 | DRG 988 ==
LOC: EC 12:47 → 4MS4W 16:24 → OBSVTOIN 03-22 12:53
PROVIDERS: ADMIT Family Medicine; ATTEND Family Medicine
PROC: 8E0W4CZ Robotic Assisted Procedure of Trunk Region, Percutaneous Endoscopic Approach (ICD-10-PCS; principal; 2019-03-26 07:30)
PROC: 0FT44ZZ Resection of Gallbladder, Percutaneous Endoscopic Approach (ICD-10-PCS; principal; 2019-03-26 07:30)
DX: S42.034A Nondisplaced fracture of lateral end of right clavicle, initial encounter for closed fracture (principal); S22.069A Unspecified fracture of T7-T8 vertebra, initial encounter for closed fracture; S22.089A Unspecified fracture of T11-T12 vertebra, initial encounter for closed fracture; K81.1 Chronic cholecystitis; W20.8XXA Other cause of strike by thrown, projected or falling object, initial encounter; G89.29 Other chronic pain; H91.90 Unspecified hearing loss, unspecified ear; I25.10 Atherosclerotic heart disease of native coronary artery without angina pectoris; I35.8 Other nonrheumatic aortic valve disorders; I44.4 Left anterior fascicular block; I48.0 Paroxysmal atrial fibrillation; K21.9 Gastro-esophageal reflux disease without esophagitis; K44.9 Diaphragmatic hernia without obstruction or gangrene; R19.7 Diarrhea, unspecified; S46.011A Strain of muscle(s) and tendon(s) of the rotator cuff of right shoulder, initial encounter; S40.011A Contusion of right shoulder, initial encounter; Z85.819 Personal history of malignant neoplasm of unspecified site of lip, oral cavity, and pharynx; Z87.442 Personal history of urinary calculi; Z95.0 Presence of cardiac pacemaker; Z60.2 Problems related to living alone; Z79.01 Long term (current) use of anticoagulants; Z79.899 Other long term (current) drug therapy
CPT/HCPCS: 71250; 72072; 72100; 72131; 76705; 78306; 80053; 81003; 85025; 88304; 93005; 93306; 96374; 96375; 99284

== ENCOUNTER 2019-05-10 10:25 | Day surgery (SDC) | payer MEDICARE, BC ==
[2019-05-08 15:37] VITALS: BMI 21.8
[~2019-05-10 10:25] MED LIST changes: +DEXAMETHASONE SOD PHOSPHATE 10 MG/ML 1 ML VIAL IV ONE; +LACTATED RINGERS 1,000 ML IV SCH; +LIDOCAINE 1% 20 ML VIAL (10MG/ML) FOR IV START INTRADERMA PRN; -SODIUM CHLORIDE 0.9% 1,000 ML IV SCH; -ceFAZolin 1,000 MG in SODIUM CHLORIDE 0.9% IRRIGATIO 250 ML IRRIGATION ONE; -ceFAZolin IN SWFI 2 GM/20 ML SYRINGE IVP ONE
[2019-05-10 10:50] VITALS: RESP 18; TEMP 97.8
[2019-05-10] MEDS ORDERED: LACTATED RINGERS 1,000 ML IV ONE (10:51)
[2019-05-10] MEDS ORDERED: LIDOCAINE 1% 20 ML VIAL (10MG/ML) FOR IV START INTRADERMA ONE (11:00)
[2019-05-10] MEDS ORDERED: LIDOCAINE 1% INJ 10MG/ML (20 ML MDV) ONE (12:02)
[2019-05-10] MEDS ORDERED: PROPOFOL 10 MG/ML 20 ML VIAL IV ONE (12:02)
--- NOTE | 2019-05-10 12:04 | P.GSHP ---
History of Present Illness H&P Date: 05/10/19 CHIEF COMPLAINT: GERD HISTORY OF PRESENT ILLNESS: The patient is a 73-year-old male who presents reports gastroesophageal reflux disease. Upper endoscopy was offered for further evaluation and management. PAST MEDICAL HISTORY: Please see list. PAST SURGICAL HISTORY: Please see list. MEDICATIONS: Please see list. ALLERGIES: Please see list. SOCIAL HISTORY: No illicit drug use FAMILY HISTORY: No reports of Crohn disease or ulcerative colitis. REVIEW OF ORGAN SYSTEMS: CONSTITUTIONAL: No reports of fevers or chills. GI: Denies any blood in stools or constipation. PHYSICAL EXAM: VITAL SIGNS: Stable GENERAL: Well-developed and pleasant in no acute distress. HEENT: No scleral icterus. Extraocular movements grossly intact. Moist buccal mucosa. NECK: Supple without lymphadenopathy. CHEST: Unlabored respirations. Equal bilateral excursions. CARDIOVASCULAR: Regular rate and rhythm. Distal 2+ pulses. ABDOMEN: Soft, nondistended. MUSCULOSKELETAL: No clubbing, cyanosis, or edema. ASSESSMENT: 1. Gastroesophageal reflux disease PLAN: 1. Recommend proceeding with an upper endoscopy Past Medical History Past Medical History: Asthma, Cancer, GERD/Reflux, GI Bleed, Hearing Disorder / Deafness, Mitral Valve Prolapse (MVP) Additional Past Medical History / Comment(s): ARRYTHMIA, MVP WITH HEART MURMUR. , HX ORAL CA. H1N1 IN 2013; ,KIDNEY STONE., STATES ASTHMA BUT TOOK HIMSELF OFF OF INHALERS. ,STATES HE WALKS HUNCHED OVER.hx broken back and rt shoulder 04/07 History of Any Multi-Drug Resistant Organisms: None Reported Past Surgical History: Appendectomy, Cholecystectomy, Heart Catheterization, Hernia Repair, Orthopedic Surgery, Pacemaker Additional Past Surgical History / Comment(s): ORAL SURG FOR CA. , EGD., RT SHOULDER SX., LITHOTRIPSY. asha fundoplication. HEART CATH 08/10/18, EGD Past Anesthesia/Blood Transfusion Reactions: No Reported Reaction Type of Cardiac Device: Permanent Pacemaker Device Placement Date:: 2017 Smoking Status: Never smoker - Past Family History Mother Family Medical History: No Reported History Medications and Allergies Home Medications Medication Instructions Recorded Confirmed Type Metoprolol Succinate [Toprol XL] 12.5 mg PO BID 03/20/19 05/08/19 History Rivaroxaban [Xarelto] 20 mg PO HS 03/20/19 05/08/19 History Allergies Allergy/AdvReac Type Severity Reaction Status Date / Time No Known Allergies Allergy Verified 03/20/19 13:15 Surgical - Exam Vital Signs Temp Pulse Resp BP Pulse Ox 97.8 F 78 18 127/78 99 05/10/19 10:49 05/10/19 10:49 05/10/19 10:49 05/10/19 10:49 05/10/19 10:49
--- NOTE | 2019-05-10 12:24 | P.PCN ---
Date of Procedure: 05/10/19 Description of Procedure: PREOPERATIVE DIAGNOSIS: Gastroesophageal reflux disease. Epigastric abdominal pain History of Abiodun fundoplasty POSTOPERATIVE DIAGNOSIS: Gastroesophageal reflux disease. Epigastric abdominal pain History of Abiodun fundoplasty Recurrent diaphragmatic hiatal hernia OPERATION: Esophagogastroduodenoscopy with biopsies along antrum. SURGEON: Rebeca Roth MD ANESTHESIA: MAC. INDICATIONS: The patient is a 73-year-old male who presents with a history of reflux disease. Benefits and risks of the procedure were described. Informed consent was obtained. DESCRIPTION: The patient was brought into the endoscopy suite and laid in the left lateral decubitus position. An Olympus gastroscope was passed along the posterior oropharynx down to the distal esophagus where the squamocolumnar junction was encountered at 34 cm from the incisors. The stomach was entered and no bile reflux was found. Additional findings are listed below. Biopsies with cold forceps were obtained of the antrum. The first through third portion of the duodenum was examined and unremarkable. Retroflexion of the scope confirmed Hill grade 3 lower esophageal valve. The squamocolumnar junction demonstrated no LA grade A erosive esophagitis. The stomach was desufflated. The patient tolerated the procedure well. FINDINGS: Squamocolumnar junction 34 cm from the incisors. Diaphragmatic hiatus at 40 cm. Hiatal hernia, 6 cm, recurrent with slipped Abiodun fundoplasty Hill grade 3 lower esophageal valve. No LA grade A erosive esophagitis. No active duodenitis. Chronic gastritis RECOMMENDATIONS: 1. Recommend repair of recurrent diaphragmatic hiatal hernia secondary to chronic epigastric abdominal pain Plan - Discharge Summary Discharge Rx Participant: No New Discharge Prescriptions: No Action Rivaroxaban [Xarelto] 20 mg PO HS Metoprolol Succinate [Toprol XL] 12.5 mg PO BID Discharge Medication List Metoprolol Succinate [Toprol XL] 12.5 mg PO BID 03/20/19 [History] Rivaroxaban [Xarelto] 20 mg PO HS 03/20/19 [History] Follow up Appointment(s)/Referral(s): Rebeca Roth MD [STAFF PHYSICIAN] - 05/22/19 Patient Instructions/Handouts: Hiatal Hernia (DC), Gastroesophageal Reflux Disease (DC) Discharge Disposition: HOME SELF-CARE
[2019-05-10 12:47] VITALS: BP 137/87; PULSE 66
== END 2019-05-10 13:25 | disposition home or self-care (01) ==
LOC: ORWHC2ENDO 10:25
PROVIDERS: ATTEND Surgery Plastic and Reconstructive Surgery
DX: T85.528A Displacement of other gastrointestinal prosthetic devices, implants and grafts, initial encounter (principal); K29.50 Unspecified chronic gastritis without bleeding; K44.9 Diaphragmatic hernia without obstruction or gangrene; J45.909 Unspecified asthma, uncomplicated; K21.9 Gastro-esophageal reflux disease without esophagitis; I10 Essential (primary) hypertension; H91.90 Unspecified hearing loss, unspecified ear; I34.1 Nonrheumatic mitral (valve) prolapse; Z85.819 Personal history of malignant neoplasm of unspecified site of lip, oral cavity, and pharynx; Z87.442 Personal history of urinary calculi; I49.9 Cardiac arrhythmia, unspecified; Z87.19 Personal history of other diseases of the digestive system; Z95.0 Presence of cardiac pacemaker; Z79.01 Long term (current) use of anticoagulants; Z79.899 Other long term (current) drug therapy
CPT/HCPCS: 88305; 43239; J2001; J2704

== ENCOUNTER → 2019-06-15 | Outpatient (CLI) | payer MEDICARE, BC ==
--- NOTE | 2019-06-15 11:56 | FL ---
EXAMINATION TYPE: FL barium swallow DATE OF EXAM: 06/15/2019 LIMITED UGI-ESOPHAGRAM: CLINICAL HISTORY: History of Mariano fundoplication surgery 2017 with persistent epigastric pain refl ux-like symptoms despite continuing medication. TECHNIQUE: Limited esophagram is performed utilizing 20 oz of thin liquid barium. A total of 31 seco nds of fluoroscopic time was utilized during procedure. 82 spot images are saved to PACS. FINDINGS: The patient swallowed contrast without difficulty or delay. Esophageal peristalsis and mo tility are satisfactory. Tortuous course to the proximal to mid esophagus is noted. There is recurren t moderate-size hiatal hernia with then some delayed flow at level of diaphragmatic hiatus into the s tomach below the diaphragm. Patient shows no increased symptoms overlying pacemaker is present. Calci fied nodular granuloma right upper lobe noted during real-time scanning. Underlying scoliosis is also seen. IMPRESSION: Recurrent moderate-sized hiatal hernia with some mild to moderate obstruction at the leve l of diaphragmatic hiatus below hernia.
== END | disposition home or self-care (01) ==
LOC: RADUSWWP 10:28
PROVIDERS: ATTEND Surgery Plastic and Reconstructive Surgery
DX: K44.0 Diaphragmatic hernia with obstruction, without gangrene (principal); R10.13 Epigastric pain; K21.9 Gastro-esophageal reflux disease without esophagitis
CPT/HCPCS: 74220

== ENCOUNTER 2019-07-09 10:07 | Inpatient (IN) | payer MEDICARE, BC ==
--- NOTE | 2019-07-08 21:04 | P.GSHP ---
History of Present Illness H&P Date: 07/09/19 CHIEF COMPLAINT: Paraesophageal hiatal hernia with gastroesophageal reflux disease. HISTORY OF PRESENT ILLNESS: The patient is a 74-year-old male who presents with paraesophageal hiatal hernia. He has completed an esophageal manometry including upper endoscopy workup. Now he presents for surgical intervention. PAST MEDICAL HISTORY: Please see list. PAST SURGICAL HISTORY: Please see list. MEDICATIONS: Please see list. ALLERGIES: Please see list. SOCIAL HISTORY: No illicit drug use FAMILY HISTORY: No reports of Crohn disease or ulcerative colitis. REVIEW OF ORGAN SYSTEMS: CONSTITUTIONAL: No reports of fevers or chills. GI: Denies any blood in stools or constipation. PHYSICAL EXAM: VITAL SIGNS: Stable GENERAL: Well-developed pleasant and in no acute distress. HEENT: No scleral icterus. Extraocular movements grossly intact. Moist buccal mucosa. NECK: Supple without lymphadenopathy. CHEST: Unlabored respirations. Equal bilateral excursions. CARDIOVASCULAR: Regular rate and rhythm. Distal 2+ pulses. ABDOMEN: Soft, nondistended. No peritoneal signs. MUSCULOSKELETAL: No clubbing, cyanosis, or edema. SKIN: Well-perfused. Good skin turgor. ASSESSMENT: 1. Diaphragmatic paraesophageal hiatal hernia with severe gastroesophageal reflux disease. PLAN: 1. Recommend proceeding with a robotic paraesophageal hiatal hernia with possible mesh. 2. Benefits and risks of surgical intervention was discussed including possibility of open technique. 3. Inpatient hospitalization recommended of 2 nights 4. DVT prophylaxis. 5. Antibiotic prophylaxis. Past Medical History Past Medical History: Atrial Fibrillation, Cancer, GERD/Reflux, Hearing Disorder / Deafness, Hypertension, Mitral Valve Prolapse (MVP) Additional Past Medical History / Comment(s): PACEMAKER., MVP WITH HEART MURMUR. , HX ORAL CA. H1N1 IN 2013; ,KIDNEY STONE. ,hx broken back and rt clavicle . History of Any Multi-Drug Resistant Organisms: None Reported Past Surgical History: Appendectomy, Cholecystectomy, Heart Catheterization, Hernia Repair, Orthopedic Surgery, Pacemaker Additional Past Surgical History / Comment(s): ORAL SURG FOR CA. , EGD., RT SHOULDER SX., LITHOTRIPSY. asha fundoplication. HEART CATH 08/10/18,. PACEMAKER [employer] 2017 Past Anesthesia/Blood Transfusion Reactions: No Reported Reaction Type of Cardiac Device: Permanent Pacemaker Device Placement Date:: 2017 Past Psychological History: No Psychological Hx Reported Smoking Status: Never smoker Past Alcohol Use History: None Reported Past Drug Use History: None Reported - Past Family History Mother Family Medical History: No Reported History Medications and Allergies Home Medications Medication Instructions Recorded Confirmed Type Metoprolol Succinate [Toprol XL] 12.5 mg PO BID 03/20/19 07/05/19 History Rivaroxaban [Xarelto] 20 mg PO HS 03/20/19 07/05/19 History Multivitamins, Thera [Multivitamin 1 tab PO DAILY 07/05/19 07/05/19 History (formulary)] Omeprazole [PriLOSEC] 20 mg PO AC-BID 07/05/19 07/05/19 History Allergies Allergy/AdvReac Type Severity Reaction Status Date / Time No Known Allergies Allergy Verified 07/05/19 11:28
[~2019-07-09 10:07] MED LIST changes: +ACETAMINOPHEN TAB 500 MG TAB PO STA; +GABAPENTIN 300 MG CAP PO STA; +HEPARIN SODIUM,PORCINE 5,000 UNIT/ML 1 ML VIAL SQ ONE; +HYDROmorphone 0.5 MG/0.5 ML SYRINGE IVP PRN; -LACTATED RINGERS 1,000 ML IV SCH; +ONDANSETRON 4 MG/2 ML VIAL IVP ONE; +TAMSULOSIN 0.4 MG CAP.ER.24H PO STA
[2019-07-09 11:27] LABS: Basophils % (A) 1 %; Eosinophils # (A) 0.1 k/uL (0-0.7); Eosinophils % (A) 1 %; HCT 40.9 % (39.0-53.0); HGB 13.8 gm/dL (13.0-17.5); Lymphocytes # (A) 0.8 k/uL (1.0-4.8); Lymphocytes % (A) 19 %; MCH 31.9 pg (25.0-35.0); MCHC 33.7 g/dL (31.0-37.0); MCV 94.8 fL (80.0-100.0); Mean Platelet Volume 7.1; Monocytes # (A) 0.5 k/uL (0-1.0); Monocytes % (A) 10 %; Neutrophils # (A) 2.9 k/uL (1.3-7.7); Neutrophils % (A) 66 %; Platelet Count 175 k/uL (150-450); RBC 4.31 m/uL (4.30-5.90); RDW 12.9 % (11.5-15.5); WBC 4.4 k/uL (3.8-10.6)
[2019-07-09] MEDS: PANTOPRAZOLE 40 MG/10 ML VIAL IVP SCH (11:30)
[2019-07-09 11:36] LABS: ALT 53 U/L (4-49); AST 85 U/L (17-59); African American GFR (CKD) >90 (>60 ml/min/1.73 sqM); Albumin 4.1 g/dL (3.5-5.0); Alkaline Phosphatase 90 U/L (38-126); Anion Gap 10 mmol/L; Blood Urea Nitrogen 31 mg/dL (9-20); Calcium 9.2 mg/dL (8.4-10.2); Carbon Dioxide 22 mmol/L (22-30); Chloride 105 mmol/L (98-107); Glucose 83 mg/dL (74-99); Non-African American GFR(CKD) 86 (>60 ml/min/1.73 sqM); Potassium 4.2 mmol/L (3.5-5.1); Sodium 137 mmol/L (137-145); Total Bilirubin 1.6 mg/dL (0.2-1.3); Total Protein 6.7 g/dL (6.3-8.2)
[2019-07-09] MEDS: LACTATED RINGERS 1,000 ML IV SCH (11:41)
[2019-07-09] MEDS ORDERED: MIDAZOLAM 2 MG/2 ML VIAL ONE (13:50)
[2019-07-09] MEDS ORDERED: HYDROmorphone (PF) 1 MG/ML ONE (13:50)
[2019-07-09] MEDS ORDERED: SUCCINYLCHOLINE CHLORIDE 100 MG/5 ML SYR IV ONE (13:50)
[2019-07-09] MEDS ORDERED: METOPROLOL TARTRATE 5 MG/5 ML VIAL IVP ONE (13:50)
[2019-07-09] MEDS ORDERED: PROPOFOL 10 MG/ML 20 ML VIAL IV ONE (13:50)
[2019-07-09] MEDS ORDERED: NEOSTIGMINE 1 MG/ML 10 ML VIAL ONE (13:50)
[2019-07-09] MEDS ORDERED: ePHEDrine SULFATE/0.9% NACL/PF 50 MG/5 ML SYRINGE IV ONE (13:50)
[2019-07-09] MEDS ORDERED: LIDOCAINE 1% INJ 10MG/ML (20 ML MDV) ONE (13:50)
[2019-07-09] MEDS ORDERED: GLYCOPYRROLATE 0.2 MG/ML 2 ML VIAL ONE (13:50)
[2019-07-09] MEDS ORDERED: ROCURONIUM BROMIDE 10 MG/ML 10 ML VIAL IV ONE (13:50)
[2019-07-09] MEDS ORDERED: PHENYLEPHRINE-0.9% NACL SYG 1 MG/10 ML SYRINGE ONE (13:50)
[2019-07-09] MEDS ORDERED: fentaNYL (PF) 50 MCG/ML 2 ML AMP ONE (13:50)
[2019-07-09] MEDS ORDERED: LIDOCAINE 1%-EPI 1:100,000 20 ML VIAL SQ ONE (14:25)
--- NOTE | 2019-07-09 16:46 | P.OP ---
Date of Procedure: 07/09/19 Description of Procedure: SURGEON: JIN NUNN MD PREOPERATIVE DIAGNOSES: 1. Paraesophageal hiatal hernia, midline, recurrent 2. Gastroesophageal reflux disease. 3. History of previous Abiodun fundoplasty 4. Epigastric abdominal pain 5. Sick sinus syndrome status post pacemaker placement 6. T12 compression fracture 7. History of right clavicular fracture 8. Chronic anticoagulant use 9. History of atrial fibrillation 10. Dysphagia 11. Ineffective esophageal motility POSTOPERATIVE DIAGNOSES: 1. Paraesophageal hiatal hernia, midline, recurrent, incarcerated 5 x 7 cm with obstruction 2. Gastroesophageal reflux disease. 3. History of previous Abiodun fundoplasty 4. Epigastric abdominal pain 5. Sick sinus syndrome status post pacemaker placement 6. T12 compression fracture 7. History of right clavicular fracture 8. Chronic anticoagulant use 9. History of atrial fibrillation 10. Dysphagia 11. Ineffective esophageal motility OPERATION: 1. Robotic-assisted da Elizabeth Xi laparoscopic takedown of Abiodun fundoplasty 2. Robotic-assisted da Elizabeth Xi laparoscopic extensive lysis of adhesions over 1 hour for perigastric adhesions 3. Robotic-assisted da Elizabeth Xi laparoscopic reduction and repair of recurrent incarcerated paraesophageal hiatal hernia, 5 x 6 cm, with [place] Biopatch A 8 x 8 cm. 4. Intraoperative esophagogastroduodenoscopy 5. Placement of 56-Indian bougie for pre-existing esophageal dysmotility Implants: [place] Biopatch A 8 x 8 cm Anesthesia: GETA, local Estimated Blood Loss (ml): 5 Pathology: none sent Condition: stable Disposition: floor Operative Findings: 1. Recurrent incarcerated paraesophageal hiatal hernia, 5 x 6 cm 2. Severe peritoneal adhesions perigastric with incarcerated hiatal hernia with obstruction with previous Abiodun fundoplasty requiring over 1 hours 3. Intrathoracic hernia sac causing incarceration of stomach 4. Division and take down of fundoplasty using vessel sealer 5. More than 30% of stomach incarcerated into chest reduced into abdominal cavity 6. Placement of 56 Fr bougie to address pre-existing esophageal dysmotility with esophageal stricture 7. Hill grade 1 lower esophageal sphincter 8. Esophageal length intra-abdominal for 2 cm 9. Diaphragmatic hiatus at 40 cm INDICATIONS: The patient is a 74-year-old male who presents with Hutchinson's esophagus, gastroesophageal reflux and a symptomatic diaphragmatic hiatal hernia. Preoperative workup including upper endoscopy demonstrated recurrent hiatal hernia and slipped Abiodun fundoplasty. Given the severity of his symptoms, particularly of his symptomatic diaphragmatic hiatal hernia, surgical intervention was offered. Benefits and risks including bleeding, infection, recurrence, dysphagia, injury to the esophagus, and stomach injury to the lung, need for further surgery was described at length. Informed consent was obtained. DESCRIPTION: The patient was brought into the operating room and placed in supine position. Preoperatively he had received heparin subcutaneously for DVT prophylaxis. After general induction, the abdomen was prepped and draped in standard sterile fashion. Stewart catheter was placed. Ioban draping was placed along the abdomen. A timeout protocol was confirmed with the surgical team, for which the patient's name, procedure to be performed including DVT prophylaxis with bilateral SCDs, and preoperative antibiotics were also confirmed. Robotic [place] Xi system was prepped and primed. At 12 cm from the xiphoid to just below the umbilicus, proposed port sites were marked with indelible marker along the left axillary line, left mid-clavicular line with each ports were marked 10 cm from each other. A 5 mm 0 degrees laparoscopic trocar entry was performed along the left upper quadrant. The abdomen was insufflated to 15 mmHg pressure he tolerated well. Diagnostic laparoscopy demonstrated no injury to bowel, viscera, or mesentery. No injury had occurred to the small bowel or viscera. Along the hiatus, moderate perigastric adhesions were found from the previous fundoplasty. Next, one 8 mm robotic port was placed along the right upper abdomen. An 8-mm port was were placed along the left lateral abdominal wall. The camera 8-mm port was maintained along the epigastrium. A 12 mm port was placed along the left upper abdominal wall after exchanging the 5 mm port. Please note that the ports were placed at least 20 cm away from the target anatomy. Care was taken to check that each robotic arm were safely away from collision with the bed or the patient. At the epigastrium, a medium sized Marc liver retractor was placed under direct visualization with the Iron Quality Reviewer placed under the right shoulder of the patient. The additional third robotic arm was used. The patient was repositioned in reverse Trendelenburg position at 21-degrees after lowering the bed. The robot was docked above the left side of the patient. Using a grasper for arm 3, a grasper for arm 1, including vessel sealer for arm 4, the robotic system was docked and primed as described. Instruments were interchanged by the dyer assistant. I had sat at the console. The phrenoesophageal ligament had moderate scarring where the distal esophagus was mobilized circumferentially. Care was taken to avoid any injury to the stomach and esophagus. The hiatal hernia sac was incarcerated into the mediastinum and divided to allow complete mobilization and freeing of the distal esophagus into the abdominal cavity. Care was taken to avoid any gastrotomy to the incarcerated upper pole of the stomach including takedown of the Abiodun fundoplasty. Extensive lysis of adhesions went more than 1 hour was used for extended dissection of the adherent stomach high into the mediastinum. The hernia sac was divided to release mobility of the esophagus. Dissection went to the mid esophagus. The measured defect was consistent with 6 cm axial length and 5 cm in width. To prevent any injury to the stomach or esophagus, intraoperative EGD was used to monitor the slipped Abiodun. Once the hiatus and crura was dissected, nonabsorbable2-0 VLOC suture was placed as a running suture to re-approximate the diaphragmatic hiatus posteriorly. To buttress the repair, a [place] Biopatch A was prepared along the back table and cut to reinforce the repair as an underlay. The mesh was placed along the crural repair posteriorly then cut in half and tagged using horizontal mattress sutures using 2-0 VLOC. I went to the head of the bed to perform intraoperative esophagogastroduodenoscopy. An Olympus gastroscope was passed through posterior oropharynx, where the GE junction was found just proximal to the diaphragmatic hiatus. Complete takedown of the Abiodun was confirmed as a tortuous winding stomach was unraveled. The stomach was entered. Chronic gastritis was found. Retroflexion of the scope confirmed Hill grade 1 lower esophageal sphincter. Repeat upper endoscopy confirmed easy movement of the scope. Hill grade 1 lower esophageal sphincter was confirmed. A 56-Indian bougie was placed to address pre-existing esophageal dysmotility including hypertensive upper esophageal sphincter for 1 minute. The stomach had been desufflated. This concluded the endoscopic portion of the case. The robot was undocked from the patient. I re-scrubbed into the case. All instruments and pneumoperitoneum were evacuated from the abdominal cavity. Incisions were reapproximated using 4-0 Monocryl in an interrupted subcuticular fashion. All incisions were cleaned using dilute hydrogen peroxide. Fascial incisions were less than 8 mm in size. Liquid glue was applied to the skin. Local anesthetic was infiltrated in all wounds for postop analgesia. Multiple intra-abdominal films were obtained. At the end of the procedure, needle, sponge, and instrument count was verified correct by the surgical rn. The patient had tolerated the procedure well and was taken to the postanesthesia unit in stable condition. Console time 78 minutes COMPLEXITY: Increased complexity of the case includes recurrent obstructing paraesophageal midline diaphragmatic hiatal hernia with extensive lysis of adhesions performed as well as moderate dissection into the chest requiring over 1 hours to release peritoneal adhesions
[2019-07-09] MEDS ORDERED: HYDROmorphone 1 MG/ML 1 ML SYRINGE IVP PRN (17:15)
[2019-07-09 17:23] VITALS: RESP 16
[2019-07-09] MEDS: ONDANSETRON 4 MG/2 ML VIAL IVP SCH ×2 (17:54→23:44)
[2019-07-09] MEDS: D5-0.45% NACL WITH KCL 20MEQ/L 1,000 ML IV SCH (18:22)
[2019-07-09 19:13] LABS: Basophils % (A) 0 %; Eosinophils # (A) 0.1 k/uL (0-0.7); Eosinophils % (A) 1 %; HCT 37.3 % (39.0-53.0); HGB 12.7 gm/dL (13.0-17.5); Lymphocytes # (A) 0.3 k/uL (1.0-4.8); Lymphocytes % (A) 5 %; MCH 32.7 pg (25.0-35.0); MCHC 34.1 g/dL (31.0-37.0); Mean Platelet Volume 6.9; Monocytes # (A) 0.2 k/uL (0-1.0); Monocytes % (A) 2 %; Neutrophils # (A) 6.1 k/uL (1.3-7.7); Neutrophils % (A) 91 %; Platelet Count 159 k/uL (150-450); RBC 3.88 m/uL (4.30-5.90); RDW 12.9 % (11.5-15.5); WBC 6.7 k/uL (3.8-10.6)
[2019-07-09 19:33] LABS: African American GFR (CKD) >90 (>60 ml/min/1.73 sqM); Anion Gap 11 mmol/L; Blood Urea Nitrogen 29 mg/dL (9-20); Calcium 8.4 mg/dL (8.4-10.2); Carbon Dioxide 21 mmol/L (22-30); Chloride 104 mmol/L (98-107); Glucose 131 mg/dL (74-99); Non-African American GFR(CKD) 86 (>60 ml/min/1.73 sqM); Potassium 4.5 mmol/L (3.5-5.1); Sodium 136 mmol/L (137-145)
[2019-07-09] MEDS ORDERED: TAMSULOSIN 0.4 MG CAP.ER.24H PO ONE (20:00)
[2019-07-09] MEDS: METOPROLOL SUCCINATE (ER) 25 MG TAB.ER.24H PO SCH (20:26)
[2019-07-09] MEDS: SIMETHICONE 40 MG/0.6 ML DROPS 2,000 MG/30 ML BOTTLE PO SCH ×2 (20:28→20:31)
[2019-07-09] MEDS: HYOSCYAMINE ORAL DROPS 1.875 MG/15 ML BOTTLE PO SCH ×2 (20:28→23:44)
[2019-07-10] MEDS: D5-0.45% NACL WITH KCL 20MEQ/L 1,000 ML IV SCH ×2 (02:55→14:30)
[2019-07-10] MEDS: HYOSCYAMINE ORAL DROPS 1.875 MG/15 ML BOTTLE PO SCH ×3 (04:59→15:10)
[2019-07-10] MEDS: LACTATED RINGERS 1,000 ML IV SCH (05:01)
[2019-07-10] MEDS: ONDANSETRON 4 MG/2 ML VIAL IVP SCH ×2 (05:01→15:10)
[2019-07-10] MEDS ORDERED: TAMSULOSIN 0.4 MG CAP.ER.24H PO SCH (08:30)
[2019-07-10] MEDS ORDERED: ENOXAPARIN 40 MG/0.4 ML SYRINGE SQ SCH (09:00)
[2019-07-10 09:13] VITALS: BP 97/58; PULSE 71; TEMP 97.8
[2019-07-10] MEDS: SIMETHICONE 40 MG/0.6 ML DROPS 2,000 MG/30 ML BOTTLE PO SCH ×2 (09:20→15:10)
[2019-07-10] MEDS: METOPROLOL SUCCINATE (ER) 25 MG TAB.ER.24H PO SCH (09:21)
[2019-07-10] MEDS: PANTOPRAZOLE 40 MG/10 ML VIAL IVP SCH (09:21)
--- NOTE | 2019-07-10 10:34 | FL ---
EXAMINATION TYPE: FL esophagus cervic/pharynx DATE OF EXAM: 07/10/2019 LIMITED UGI-ESOPHAGRAM: CLINICAL HISTORY: History of persistent pain after prior Mariano fundoplication surgery with recurren t hernia and repeat surgery yesterday. TECHNIQUE: Limited esophagram is performed utilizing 20 oz of Isovue-370. A total of 85 seconds of f luoroscopic time was utilized during procedure. 40 spot images are saved to PACS. Comparison: Prior esophagram June 15, 2019 FINDINGS: The patient swallowed contrast without difficulty or delay. Motility is satisfactory with tortuous course redemonstrated due to prominent aortic knob similar to prior. There is moderate delay in flow of contrast along the diaphragmatic hiatus into the stomach, there is no evidence of contras t extravasation to suggest leak. No persistent hiatal hernia is seen after surgery yesterday. Patient remains asymptomatic. Overlying dual-lead pacemaker redemonstrated. IMPRESSION: No evidence of leak status post Mariano fundoplication surgery yesterday. Moderate obstruc tion at diaphragmatic hiatus but patient remains asymptomatic and says symptoms significantly improve d after surgery.
[2019-07-10] MEDS ORDERED: SODIUM CHLORIDE 0.9% 2,000 ML IV ONE (10:55)
--- NOTE | 2019-07-10 13:16 | P.DS ---
Providers Date of admission: 07/09/19 16:35 Expected date of discharge: 07/10/19 Attending physician: Rebeca Roth Primary care physician: Ron Rizvi - Discharge Diagnosis(es) (1) Paraesophageal hernia with obstruction but no gangrene Current Visit: Yes Status: Acute (2) Chronic anticoagulation Current Visit: No Status: Acute (3) Hiatal hernia with gastroesophageal reflux Current Visit: No Status: Acute (4) Pacemaker Current Visit: No Status: Acute (5) Sick sinus syndrome Current Visit: No Status: Acute Hospital Course: POSTOPERATIVE DIAGNOSES: 1. Paraesophageal hiatal hernia, midline, recurrent, incarcerated 5 x 7 cm with obstruction 2. Gastroesophageal reflux disease. 3. History of previous Abiodun fundoplasty 4. Epigastric abdominal pain 5. Sick sinus syndrome status post pacemaker placement 6. T12 compression fracture 7. History of right clavicular fracture 8. Chronic anticoagulant use 9. History of atrial fibrillation 10. Dysphagia 11. Ineffective esophageal motility COURSE: The patient is a 74-year-old male who presents with Hutchinson's esophagus, gastroesophageal reflux and a symptomatic recurrent diaphragmatic hiatal hernia with obstruction from slipped Abiodun fundoplasty. He had a hiatal hernia repair. His prior dysphagia had resolved following surgery and repair of his hiatal hernia with takedown of Abiodun fundoplasty. Esophagram showed no leak He was tolerating diet without symptoms of dysphagia. Discharge instructions were reviewed. He was stable for discharge. Procedures: OPERATION: 1. Robotic-assisted da Elizabeth Xi laparoscopic takedown of Abiodun fundoplasty 2. Robotic-assisted da Elizabeth Xi laparoscopic extensive lysis of adhesions over 1 hour for perigastric adhesions 3. Robotic-assisted da Elizabeth Xi laparoscopic reduction and repair of recurrent incarcerated paraesophageal hiatal hernia, 5 x 6 cm, with [place] Biopatch A 8 x 8 cm. 4. Intraoperative esophagogastroduodenoscopy 5. Placement of 56-Sami bougie for pre-existing esophageal dysmotility Implants: [place] Biopatch A 8 x 8 cm Anesthesia: GETA, local Estimated Blood Loss (ml): 5 Pathology: none sent Condition: stable Disposition: floor Operative Findings: 1. Recurrent incarcerated paraesophageal hiatal hernia, 5 x 6 cm 2. Severe peritoneal adhesions perigastric with incarcerated hiatal hernia with obstruction with previous Abiodun fundoplasty requiring over 1 hours 3. Intrathoracic hernia sac causing incarceration of stomach 4. Division and take down of fundoplasty using vessel sealer 5. More than 30% of stomach incarcerated into chest reduced into abdominal cavity 6. Placement of 56 Fr bougie to address pre-existing esophageal dysmotility with esophageal stricture 7. Hill grade 1 lower esophageal sphincter 8. Esophageal length intra-abdominal for 2 cm 9. Diaphragmatic hiatus at 40 cm Patient Condition at Discharge: Stable Plan - Discharge Summary Discharge Rx Participant: Yes New Discharge Prescriptions: New Bisacodyl [Dulcolax] 5 mg PO DAILY PRN #10 tablet. PRN Reason: Constipation Simethicone 40 mg/0.6 ml Drops [Mylicon Drops] 40 mg PO PCHS PRN #30 ml PRN Reason: Gas Omeprazole 40 mg PO DAILY #30 capsule. Ondansetron Odt [Zofran Odt] 4 mg PO Q8HR PRN #9 tab PRN Reason: Nausea Continue Metoprolol Succinate [Toprol XL] 12.5 mg PO BID Discontinued Omeprazole [PriLOSEC] 20 mg PO AC-BID Multivitamins, Thera [Multivitamin (formulary)] 1 tab PO DAILY No Action Rivaroxaban [Xarelto] 20 mg PO HS Discharge Medication List Metoprolol Succinate [Toprol XL] 12.5 mg PO BID 03/20/19 [History] Rivaroxaban [Xarelto] 20 mg PO HS 03/20/19 [History] Bisacodyl [Dulcolax] 5 mg PO DAILY PRN #10 tablet. 07/10/19 [Rx] Omeprazole 40 mg PO DAILY #30 capsule. 07/10/19 [Rx] Ondansetron Odt [Zofran Odt] 4 mg PO Q8HR PRN #9 tab 07/10/19 [Rx] Simethicone 40 mg/0.6 ml Drops [Mylicon Drops] 40 mg PO PCHS PRN #30 ml 07/10/19 [Rx] Follow up Appointment(s)/Referral(s): Rebeca Roth MD [STAFF PHYSICIAN] - 07/17/19 Patient Instructions/Handouts: Laparoscopic Hiatal Hernia Repair (DC) Activity/Diet/Wound Care/Special Instructions: START XARELTO TuesdayJUL 16 No lifting over 4 pounds for 4 weeks until Aug 09. October shower. NO bathtub soaks for 2 weeks until Jul 23. NO CARBONATED BEVERAGES OR STRAWS. Full liquid diet as per discussed with your surgeon Discharge Disposition: HOME SELF-CARE
[2019-07-10 14:50] VITALS: BMI 21.4
--- NOTE | 2019-07-10 22:53 | PN ---
PROGRESS NOTE CHIEF COMPLAINT: Status post procedure for hiatal hernia. HISTORY OF PRESENT ILLNESS: This gentleman is comfortable and he has had no fever, chills, chest pain, abdominal pain, etc. PHYSICAL EXAMINATION: Vital signs are normal. His chest is clear. Cardiac exam is unremarkable. Extremities are normal. IMPRESSION: Status post fundoplasty for hiatal hernia. PLAN: Probably home today. MMODL / IJN: [id number] /
--- NOTE | 2019-07-11 05:22 | CONS ---
CONSULTATION CHIEF COMPLAINT: Hiatal hernia, GERD. HISTORY OF PRESENT ILLNESS: This is another admission for this 74-year-old white male who is brought in for an elective procedure for hiatal hernia and reflux. He is doing well. He is having no problems. REVIEW OF SYSTEMS: He has had no headaches, chest pain, shortness of breath, hematemesis, melena, hematochezia, jaundice, etc. Past medical history, family history and personal and social histories can all be found in his admitting summary in prior records. He does have atrial fibrillation. PHYSICAL EXAMINATION: Blood pressure 141/82 with a pulse of 78 and irregularly, irregular, respirations were 30. He is afebrile. In general, he appeared to be well developed, well nourished, in no acute distress. Skin color is normal. Skin is warm, dry. Lymph nodes are not enlarged. Head, ears, eyes, nose, mouth and throat were normal. Chest is clear to auscultation and percussion. Cardiac exam demonstrates atrial fibrillation. Abdomen is soft, nontender without any masses or visceromegaly. Bowel sounds are present. Extremities were normal. Neurologically, he is intact. IMPRESSION: 1. Hiatal hernia with reflux and esophagitis. 2. Recent cholecystectomy. 3. Atrial fibrillation. 4. History of coronary artery disease. RECOMMENDATION: None. He is doing well and I will monitor for any medical issues should they arise. MMODL / IJN: [id number] /
== END 2019-07-10 15:13 | disposition home or self-care (01) | DRG 327 ==
LOC: OR 10:07 → 4SSUR 16:35
PROVIDERS: ADMIT Surgery Plastic and Reconstructive Surgery; ATTEND Surgery Plastic and Reconstructive Surgery
PROC: 0BUT4JZ Supplement Diaphragm with Synthetic Substitute, Percutaneous Endoscopic Approach (ICD-10-PCS; principal; 2019-07-09 11:55)
PROC: 0DJ08ZZ Inspection of Upper Intestinal Tract, Via Natural or Artificial Opening Endoscopic (ICD-10-PCS; principal; 2019-07-09 11:55)
PROC: 0DQ44ZZ Repair Esophagogastric Junction, Percutaneous Endoscopic Approach (ICD-10-PCS; principal; 2019-07-09 11:55)
PROC: 0DN64ZZ Release Stomach, Percutaneous Endoscopic Approach (ICD-10-PCS; principal; 2019-07-09 11:55)
PROC: 8E0W4CZ Robotic Assisted Procedure of Trunk Region, Percutaneous Endoscopic Approach (ICD-10-PCS; principal; 2019-07-09 11:55)
DX: K91.89 Other postprocedural complications and disorders of digestive system (principal); K44.0 Diaphragmatic hernia with obstruction, without gangrene; I48.92 Unspecified atrial flutter; I49.5 Sick sinus syndrome; K21.0 Gastro-esophageal reflux disease with esophagitis; K22.2 Esophageal obstruction; K66.0 Peritoneal adhesions (postprocedural) (postinfection); I48.0 Paroxysmal atrial fibrillation; I34.1 Nonrheumatic mitral (valve) prolapse; I25.10 Atherosclerotic heart disease of native coronary artery without angina pectoris; E78.5 Hyperlipidemia, unspecified; I10 Essential (primary) hypertension; H91.90 Unspecified hearing loss, unspecified ear; K22.4 Dyskinesia of esophagus; K22.70 Barrett's esophagus without dysplasia; K29.50 Unspecified chronic gastritis without bleeding; M48.54XD Collapsed vertebra, not elsewhere classified, thoracic region, subsequent encounter for fracture with routine healing; I73.9 Peripheral vascular disease, unspecified; Z79.01 Long term (current) use of anticoagulants; Z79.899 Other long term (current) drug therapy; Z95.0 Presence of cardiac pacemaker; Z87.442 Personal history of urinary calculi; Z85.819 Personal history of malignant neoplasm of unspecified site of lip, oral cavity, and pharynx; Z87.81 Personal history of (healed) traumatic fracture; Z90.49 Acquired absence of other specified parts of digestive tract; Z82.49 Family history of ischemic heart disease and other diseases of the circulatory system; Y83.8 Other surgical procedures as the cause of abnormal reaction of the patient, or of later complication, without mention of misadventure at the time of the procedure
CPT/HCPCS: 74210; 80048; 80053; 85025

== ENCOUNTER → 2019-08-28 | Outpatient (CLI) | payer MEDICARE, BC ==
--- NOTE | 2019-08-28 14:27 | US ---
EXAMINATION TYPE: US venous doppler duplex LE BI DATE OF EXAM: 08/28/2019 2:01 PM COMPARISON: Prior bilateral venous ultrasound of 05/09/2016 CLINICAL HISTORY: Swelling rt left lower R22.42 R22.41. SIDE PERFORMED: Bilateral TECHNIQUE: The lower extremity deep venous system is examined utilizing real time linear array sonog errol with graded compression, doppler sonography and color-flow sonography. VESSELS IMAGED: Common Femoral Vein Deep Femoral Vein Greater Saphenous Vein * Femoral Vein Popliteal Vein Small Saphenous Vein * Proximal Calf Veins (* superficial vessels) Right Leg: Negative for DVT Left Leg: Negative for DVT Bilateral ankle edema channels are seen. Grayscale, color doppler, spectral doppler imaging performed of the deep veins of the bilateral lower extremities. There is normal flow, compressibility, vascular waveforms. IMPRESSION: No ultrasound evidence for acute DVT in either lower extremity. Moderate symmetric bilat eral subcutaneous edema noted distally near level of proximal ankle joints.
[2019-08-28 15:02] LABS: African American GFR (CKD) >90 (>60 ml/min/1.73 sqM); Anion Gap 5 mmol/L; Blood Urea Nitrogen 29 mg/dL (9-20); Calcium 9.1 mg/dL (8.4-10.2); Carbon Dioxide 29 mmol/L (22-30); Chloride 104 mmol/L (98-107); Glucose 90 mg/dL (74-99); Non-African American GFR(CKD) 80 (>60 ml/min/1.73 sqM); Potassium 4.1 mmol/L (3.5-5.1); Sodium 138 mmol/L (137-145)
== END | disposition home or self-care (01) ==
LOC: RADUSWWP 13:21
PROVIDERS: ATTEND Surgery Plastic and Reconstructive Surgery
DX: R60.0 Localized edema (principal)
CPT/HCPCS: 80048; 93970

== ENCOUNTER 2019-12-06 06:08 | Day surgery (SDC) | payer MEDICARE, BC ==
[2019-12-05 08:52] VITALS: BMI 21.5
[~2019-12-06 06:08] MED LIST changes: -ACETAMINOPHEN TAB 500 MG TAB PO STA; -GABAPENTIN 300 MG CAP PO STA; -HEPARIN SODIUM,PORCINE 5,000 UNIT/ML 1 ML VIAL SQ ONE; +LACTATED RINGERS 1,000 ML IV SCH; +LIDOCAINE 1% (10MG/ML) FOR IV START INTRADERMA PRN; -LIDOCAINE 1% 20 ML VIAL (10MG/ML) FOR IV START INTRADERMA PRN; +Pre Op ABX Message 1 EACH MISC MISCELLANE ONE; -TAMSULOSIN 0.4 MG CAP.ER.24H PO STA
--- NOTE | 2019-12-06 06:09 | P.GSHP ---
History of Present Illness H&P Date: 12/06/19 CHIEF COMPLAINT: Painful chronic lesions along left lower leg HISTORY OF PRESENT ILLNESS: The patient is a 74 year-old male with history of chronic recurring lesions along the left anterior leg over one year duration with ulceration and bleeding and non-healing. He presents today for surgical excision. He reports unilateral swelling along the left lower extremity. PAST MEDICAL HISTORY: Please see list. PAST SURGICAL HISTORY: Please see list. MEDICATIONS: Please see list. ALLERGIES: Please see list. SOCIAL HISTORY: No illicit drug use FAMILY HISTORY: No reports of Crohn disease or ulcerative colitis. REVIEW OF ORGAN SYSTEMS: CONSTITUTIONAL: No reports of fevers or chills. GI: Denies any blood in stools or constipation. PHYSICAL EXAM: VITAL SIGNS: Stable Musculoskeletal: No clubbing cyanosis. Intermittent swelling along the left lower leg. SKIN: Lesion identified along left lower leg, anterior 3 cm non-healing ulcer GENERAL: Well developed and in no acute distress. Pleasant. HEENT: No sclera icterus. Extraocular movements grossly intact. Moist buccal mucosa. Head is atraumatic, normocephalic. Hears conversational speech. No nasal drainage. NECK: Supple without lymphadenopathy. No JV distention. CHEST: Non-labored respirations and equal bilateral excursions. CARDIOVASCULAR: Irregular rate regular rhythm. Palpable 2+ radial pulses. ABDOMEN: Soft. Non-tender. Nondistended. NEUROLOGIC: No focal or lateralizing signs. PSYCH: Appropriate affect. Alert and oriented to person, place and time. ASSESSMENT: 1. Nonhealing left lower leg ulceration PLAN: 1. Will proceed of excision of left lower leg lesion with application of wound VAC 2. DVT prophylaxis. 3. Antibiotic prophylaxis. 4. Will need CBC, basic metabolic panel, PT/INR for history of anticoagulant and hypertension Past Medical History Past Medical History: Atrial Fibrillation, Cancer, GERD/Reflux, Hearing Disorder / Deafness, Hypertension, Mitral Valve Prolapse (MVP) Additional Past Medical History / Comment(s): PACEMAKER., MVP WITH HEART MURMUR. , HX ORAL CA. H1N1 IN 2013; ,KIDNEY STONE. ,hx broken back and rt clavicle . History of Any Multi-Drug Resistant Organisms: None Reported Past Surgical History: Appendectomy, Cholecystectomy, Heart Catheterization, Hernia Repair, Orthopedic Surgery, Pacemaker Additional Past Surgical History / Comment(s): ORAL SURG FOR CA. , EGD., RT SHOULDER SX., LITHOTRIPSY. asha fundoplication. HEART CATH 08/10/18,. PACEMAKER [facility] 2017 Past Anesthesia/Blood Transfusion Reactions: No Reported Reaction Type of Cardiac Device: Permanent Pacemaker Device Placement Date:: 2017 Smoking Status: Never smoker - Past Family History Mother Family Medical History: No Reported History Medications and Allergies Home Medications Medication Instructions Recorded Confirmed Type Metoprolol Succinate [Toprol XL] 12.5 mg PO HS 03/20/19 12/05/19 History Rivaroxaban [Xarelto] 20 mg PO HS 03/20/19 12/05/19 History Atorvastatin [Lipitor] 10 mg PO HS 12/05/19 12/05/19 History Multivitamins, Thera [Multivitamin 1 tab PO DAILY 12/05/19 12/05/19 History (formulary)] Allergies Allergy/AdvReac Type Severity Reaction Status Date / Time No Known Allergies Allergy Verified 12/05/19 08:45
[2019-12-06 06:41] VITALS: TEMP 97.1
[2019-12-06 06:45] LABS: Basophils % (A) 0 %; Eosinophils # (A) 0.2 k/uL (0-0.7); Eosinophils % (A) 3 %; HCT 40.6 % (39.0-53.0); HGB 13.9 gm/dL (13.0-17.5); Lymphocytes # (A) 1.3 k/uL (1.0-4.8); Lymphocytes % (A) 18 %; MCH 33.6 pg (25.0-35.0); MCHC 34.2 g/dL (31.0-37.0); MCV 98.2 fL (80.0-100.0); Mean Platelet Volume 7.6; Monocytes # (A) 0.6 k/uL (0-1.0); Monocytes % (A) 8 %; Neutrophils # (A) 4.7 k/uL (1.3-7.7); Neutrophils % (A) 67 %; Platelet Count 201 k/uL (150-450); RBC 4.14 m/uL (4.30-5.90); RDW 12.9 % (11.5-15.5)
[2019-12-06 06:52] LABS: African American GFR (CKD) >90 (>60 ml/min/1.73 sqM); Anion Gap 7 mmol/L; Blood Urea Nitrogen 30 mg/dL (9-20); Calcium 9.2 mg/dL (8.4-10.2); Carbon Dioxide 25 mmol/L (22-30); Chloride 105 mmol/L (98-107); Glucose 98 mg/dL (74-99); Non-African American GFR(CKD) 86 (>60 ml/min/1.73 sqM); Potassium 4.2 mmol/L (3.5-5.1); Prothrombin Time 10.6 sec (9.0-12.0); Sodium 137 mmol/L (137-145)
[2019-12-06] MEDS ORDERED: PROPOFOL 10 MG/ML 20 ML VIAL IV ONE (07:00)
[2019-12-06] MEDS ORDERED: MIDAZOLAM 2 MG/2 ML VIAL ONE (07:00)
[2019-12-06] MEDS ORDERED: METOPROLOL TARTRATE 5 MG/5 ML VIAL IVP ONE (07:00)
[2019-12-06] MEDS ORDERED: fentaNYL (PF) 50 MCG/ML 2 ML AMP ONE (07:00)
[2019-12-06] MEDS ORDERED: BUPIVACAIN-EPI 0.25%-1:200,000 30 ML VIAL SQ ONE (07:32)
--- NOTE | 2019-12-06 08:20 | P.OP ---
Date of Procedure: 12/06/19 Description of Procedure: SURGEON: REBECA ROTH MD THIRD RAIL INSTALLER: NONE. PREOPERATIVE DIAGNOSES: 1. Chronic non-healing left lower leg wound 2. Personal history of skin cancer 3. 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 Sick sinus syndrome status post pacemaker placement 6. T12 compression fracture POSTOPERATIVE DIAGNOSES: 1. Left lower leg skin cancer 2. Personal history of skin cancer 3. 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 Sick sinus syndrome status post pacemaker placement 6. T12 compression fracture OPERATION: Procedure(s) Performed: 1. Excision of skin cancer, anterior left lower leg 8 cm x 5.5 cm to fascia 2. Application of PREVENA wound vac 13-cm ANESTHESIA: MAC with local ESTIMATED BLOOD LOSS: 30 mL. Pathology: other (left lower leg skin cancer--medial short suture, long suture superior) Condition: stable Disposition: same day COMPLICATIONS: None. Operative Findings: 1. Lesion with borders 0.5 cm excision 8 x 5.5 cm with central ulceration 2. Scab unroofed with features of malignancy 3. Excision to the fascia at central lesion 4. Wound vac placed, 13-cm PREVENA INDICATIONS: The patient is a 74-year-old male who presents with chronic left lower leg nonhealing wound over one year duration. Has history of multiple skin cancers. Surgical options, including excision was discussed. Benefits and risks were described including bleeding but not limited to recurrence, need for further surgery, extensive resection, nonhealing, cosmetic deformity. Informed consent was obtained. DESCRIPTION OF PROCEDURE: Patient was brought into the operating room, laid in supine position. After adequate IV sedation, the left lower leg was prepped and draped in standard sterile fashion using ChloraPrep. A timeout protocol was confirmed with the surgical team regarding patient's name including procedures to be performed. Preoperative medications was administered. Next, a local field block was administered. The left lower leg wound was measured using a ruler with borders marked with indelible marker. An elliptical incision of 8 x 5.5 cm was cut into the dermis followed by circumferential dissection using electro-Bovie cautery into the fascia tissue. The nonhealing ulcer revealed features of malignancy as the patient has history of multiple skin cancers with recurrence. Hemostasis was checked with electrocautery cautery. With the size of the wound including previous infection, the wound was left open to heal by secondary intention. The wound was cleansed with dilute hydrogen peroxide and normal saline. A portable wound VAC system PREVENA 13-cm was placed over the left lower extremity excision and placed to negative suction without leaks. Coban dressing 4 inches was placed around the left lower leg incision to minimize redundancy of tubing. At the end of the procedure, needle, sponge, and instrument count had been verified correct by the surgical technology instructor. The patient was taken to the postanesthesia care unit in stable condition. Plan - Discharge Summary Discharge Rx Participant: No New Discharge Prescriptions: New Acetaminophen Tab [Tylenol Tab] 500 mg PO Q6H PRN #30 tablet PRN Reason: Pain Continue Rivaroxaban [Xarelto] 20 mg PO HS Metoprolol Succinate [Toprol XL] 12.5 mg PO HS Atorvastatin [Lipitor] 10 mg PO HS Multivitamins, Thera [Multivitamin (formulary)] 1 tab PO DAILY Discharge Medication List Metoprolol Succinate [Toprol XL] 12.5 mg PO HS 03/20/19 [History] Rivaroxaban [Xarelto] 20 mg PO HS 03/20/19 [History] Atorvastatin [Lipitor] 10 mg PO HS 12/05/19 [History] Multivitamins, Thera [Multivitamin (formulary)] 1 tab PO DAILY 12/05/19 [History] Acetaminophen Tab [Tylenol Tab] 500 mg PO Q6H PRN #30 tablet 12/06/19 [Rx] Follow up Appointment(s)/Referral(s): Rebeca Roth MD [STAFF PHYSICIAN] - 12/11/19 5:15 pm Patient Instructions/Handouts: *Surgery [facility] - (Anesthesia) Discharge Instructions Outpatient Surgery, Negative Pressure Wound Therapy (DC), Skin Cancer Prevention (DC) Activity/Diet/Wound Care/Special Instructions: START XARELTO 12/10/19. DO NOT REMOVE DRESSING! Will be changed in the office. BRING ALL DRESSINGS FROM THE HOSPITAL WITH YOU FOR YOUR DR APPT....DO NOT LEAVE IT AT HOME!!! Keep left leg elevated at all times. Keep dressing dry including wound vac. Discharge Disposition: HOME SELF-CARE
[2019-12-06 09:28] VITALS: BP 133/74; PULSE 60; RESP 18
--- NOTE | 2019-12-10 09:39 | CDI ---
Date: 12.10.19 CDS/Job Lithographer Name: Leydi Betancourt Phone: If any questions, call Gabby Levy Loom Fixer Helper at [phone] Patient Name: Roland Martino Admit Date: 12.06.19 Discharge Date: 12.06.19 ATTENTION: The [facility] Coding Staff appreciate your assistance in clarifying documentation. Please respond to the clarification below the line at the bottom and electronically sign. The [facility] Coding staff will review the response and follow-up if needed. Please note: Queries are made part of the Legal Health Record. If you have any questions, please contact the Loom Fixer Helper. Dear Dr. Roth The description of the procedure has not been documented, please document. Thank you for your kind consideration. Please see complete documentation for operative report KM 12/13/19 @ 0553 MTDD
== END 2019-12-06 09:47 | disposition home or self-care (01) ==
LOC: OR 06:08
PROVIDERS: ATTEND Surgery Plastic and Reconstructive Surgery
DX: L97.929 Non-pressure chronic ulcer of unspecified part of left lower leg with unspecified severity (principal); L08.9 Local infection of the skin and subcutaneous tissue, unspecified; L57.8 Other skin changes due to chronic exposure to nonionizing radiation; C44.709 Unspecified malignant neoplasm of skin of left lower limb, including hip; R22.42 Localized swelling, mass and lump, left lower limb; Z85.819 Personal history of malignant neoplasm of unspecified site of lip, oral cavity, and pharynx; I48.0 Paroxysmal atrial fibrillation; I49.5 Sick sinus syndrome; K21.9 Gastro-esophageal reflux disease without esophagitis; H91.90 Unspecified hearing loss, unspecified ear; I10 Essential (primary) hypertension; I34.1 Nonrheumatic mitral (valve) prolapse; E78.5 Hyperlipidemia, unspecified; E11.9 Type 2 diabetes mellitus without complications; M48.54XA Collapsed vertebra, not elsewhere classified, thoracic region, initial encounter for fracture; Z95.0 Presence of cardiac pacemaker; Z86.19 Personal history of other infectious and parasitic diseases; Z87.442 Personal history of urinary calculi; Z87.81 Personal history of (healed) traumatic fracture; Z90.49 Acquired absence of other specified parts of digestive tract; Z98.890 Other specified postprocedural states; Z79.899 Other long term (current) drug therapy; Z79.01 Long term (current) use of anticoagulants
CPT/HCPCS: 11406; 97605; 88305; 80048; 85025; 85610; J2250; J1100; J0690; J2405; J3010; J2704

== ENCOUNTER 2019-12-08 00:02 | Emergency (ER) | payer MEDICARE, BC ==
[2019-12-08 00:13] VITALS: BP 154/90; PULSE 64; RESP 20; TEMP 98.1
--- NOTE | 2019-12-08 00:48 | ED ---
Recheck HPI - General Chief Complaint: Recheck/Abnormal Lab/Rx Stated Complaint: Recheck drain Time Seen by Provider: 12/08/19 00:21 Source: patient Mode of arrival: ambulatory Limitations: no limitations - History of Present Illness Initial Comments: This patient is 74-year-old man who presents to have evaluation because his wound VAC is giving an alarm. The patient states that he had a left leg skin lesion removed on the by Dr. Roth. There was a wound VAC placed the patient states that within the past couple of hours it has started alarming that the reservoir is full. The patient is not having any fever or chills or any other symptoms and is feeling well. MD Complaint: wound re-check Onset/Timin -: days(s) Initial Visit For: other Returns Today for: wound recheck Symptoms Since Prior Visit: no new symptoms Associated Symptoms: none - Related Data Home Medications Medication Instructions Recorded Confirmed Metoprolol Succinate [Toprol XL] 12.5 mg PO HS 03/20/19 12/05/19 Rivaroxaban [Xarelto] 20 mg PO HS 03/20/19 12/05/19 Atorvastatin [Lipitor] 10 mg PO HS 12/05/19 12/05/19 Multivitamins, Thera [Multivitamin 1 tab PO DAILY 12/05/19 12/05/19 (formulary)] Previous Rx's Medication Instructions Recorded Acetaminophen Tab [Tylenol Tab] 500 mg PO Q6H PRN #30 tablet 12/06/19 Allergies Allergy/AdvReac Type Severity Reaction Status Date / Time No Known Allergies Allergy Verified 12/08/19 00:12 Review of Systems ROS Statement: Those systems with pertinent positive or pertinent negative responses have been documented in the HPI. ROS Other: All systems not noted in ROS Statement are negative. Constitutional: Denies: fever, chills Respiratory: Denies: dyspnea Cardiovascular: Denies: chest pain Skin: Reports: as per HPI, lesions. Denies: change in color Past Medical History Past Medical History: Atrial Fibrillation, Cancer, GERD/Reflux, Hearing Disorder / Deafness, Hypertension, Mitral Valve Prolapse (MVP) Additional Past Medical History / Comment(s): PACEMAKER., MVP WITH HEART MURMUR. , HX ORAL CA. 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 ,hx broken back and rt clavicle . History of Any Multi-Drug Resistant Organisms: None Reported Past Surgical History: Appendectomy, Cholecystectomy, Heart Catheterization, Hernia Repair, Orthopedic Surgery, Pacemaker Additional Past Surgical History / Comment(s): ORAL SURG FOR CA. , EGD., RT SHOULDER SX., LITHOTRIPSY. asha fundoplication. HEART CATH 08/10/18,. PACEMAKER [facility] 2017 Past Anesthesia/Blood Transfusion Reactions: No Reported Reaction Type of Cardiac Device: Permanent Pacemaker Device Placement Date:: 2017 Past Psychological History: No Psychological Hx Reported Smoking Status: Never smoker Past Alcohol Use History: None Reported Past Drug Use History: None Reported - Past Family History Mother Family Medical History: No Reported History General Exam Limitations: no limitations Extremities exam: Present: normal inspection, normal capillary refill, other (Patient has a wound VAC in place to the left pretibial area. There is no palpable warmth. There does not appear to be any evidence of infection. Drainage appears to be mainly serous with a tinge of blood.). Absent: tenderness Course Vital Signs 12/08/19 00:09 Temperature 98.1 F Pulse Rate 64 Respiratory 20 Rate Blood Pressure 154/90 O2 Sat by Pulse 99 Oximetry Medical Decision Making - Medical Decision Making The issue is discussed with boarding house manager and they are not able to locate any replacement reservoir for this pump patient will follow in the clinic calling Dr. Roth for earliest appointment Disposition Clinical Impression: Breakage of medical territory manager Disposition: HOME SELF-CARE Condition: Good Instructions (If sedation given, give patient instructions): Excision of Skin Lesion (DC) Is patient prescribed a controlled substance at d/c from ED?: No Referrals: Ron Rizvi MD [Primary Care Provider] - 1-2 days Rebeca Roth MD [STAFF PHYSICIAN] - 1-2 days
== END 2019-12-08 01:43 | disposition home or self-care (01) ==
LOC: EC 00:02
DX: T85.698A Other mechanical complication of other specified internal prosthetic devices, implants and grafts, initial encounter (principal); I48.91 Unspecified atrial fibrillation; I10 Essential (primary) hypertension; Z79.01 Long term (current) use of anticoagulants; Z79.899 Other long term (current) drug therapy; Z95.0 Presence of cardiac pacemaker
CPT/HCPCS: 99282

== ENCOUNTER → 2020-03-25 | Outpatient (CLI) | payer MEDICARE, BC ==
--- NOTE | 2020-03-25 11:19 | CT ---
EXAMINATION TYPE: CT thoracic spine wo con DATE OF EXAM: 03/25/2020 COMPARISON: 03/20/2019 HISTORY: Compression fracture of body of thoracic vertebrae CT DLP: 482.4 mGycm Automated exposure control for dose reduction was used. TECHNIQUE: Axial images 2 mm thick sections. Reconstructed images in the coronal and sagittal plane. FINDINGS: There is a severe compression deformity in the region of T8. Superior endplate compression deformity at T12 is present with approximately 40% loss of anterior vertebral body height. Degenerative loss of disc height is present throughout the thoracic spine. Scoliosis is present with convexity to the rig ht. No suspicious focal disc herniations are evident. Note is made of a dense calcified posterior right u pper pleural margin. Series 13 image 38. The ascending thoracic aorta at the level of main pulmonary artery is 3.8 cm. The main pulmonary artery the bifurcation is 2.2 cm. Enlarged mediastinal adenopath y is not evident. A few small shotty lymph nodes are present. T8: There is a severe compression deformity with some mild posterior wall displacement estimated 0.3 cm is present greater along the inferior aspect. No AP spinal canal stenosis is present. Cord contact is not identified. This has collapsed from the prior exam of 2019. Some posterior wall displacement of the superior T12 level may be present. No cord contact is evident . This appears greater in the axial plane than on the sagittal plane due to plane of section. This ap pears stable from the exam of 2019. Vacuum disc phenomenon is present T12-L1 and L1-2. IMPRESSION: 1. NEW COMPRESSION DEFORMITY AT T8 WITH POSTERIOR WALL DISPLACEMENT. SPINAL CANAL STENOSIS OR CORD CO NTACT IS NOT IDENTIFIED. 2. COMPRESSION DEFORMITY SUPERIOR ENDPLATE T12 REGION WITH MILDER POSTERIOR WALL DISPLACEMENT.
== END | disposition home or self-care (01) ==
LOC: RADCTMAIN 08:41
DX: M43.8X4 Other specified deforming dorsopathies, thoracic region (principal)
CPT/HCPCS: 72128

== ENCOUNTER 2020-08-07 08:53 | Emergency (ER) | payer MEDICARE, BC ==
[2020-08-07] MEDS ORDERED: LIDOCAINE 1% INJ 10MG/ML (20 ML MDV) SQ ONE (09:39)
--- NOTE | 2020-08-07 10:00 | CT ---
EXAMINATION TYPE: CT brain mell mccann con DATE OF EXAM: 08/07/2020 COMPARISON: 02/19/2019 HISTORY: Fall CT DLP: 1492.[address] of the brain was performed. The ventricles, basal cisterns and sulci overlying the cerebral convexities demonstrate mild enlargem ent. There is no evidence for intracranial hemorrhage or sulcal effacement. There is decreased attenuatio n about the periventricular white matter and deep white matter of both cerebral hemispheres, compatib le with chronic small vessel ischemia. No mass effects are seen. If symptoms persist consider MRI. Osseous calvarium is intact. IMPRESSION: 1. Age related atrophic and chronic small vessel ischemic change without acute intracranial process seen at this time. CT Cervical Spine: Unenhanced CT of the cervical spine was performed with bone and soft tissue window settings submitted . Coronal and sagittal reconstruction is obtained. There is normal alignment and prevertebral soft tissues. No evidence for acute cervical fracture . Scattered degenerative disc disease and spondylosis. Biapical scarring. IMPRESSION: 1. No evidence for acute fracture or subluxation of the cervical spine.
--- NOTE | 2020-08-07 10:15 | ED ---
General Adult HPI - General Chief complaint: Fall Stated complaint: Fall, head & arm injury, on blood thinners Time Seen by Provider: 08/07/20 09:04 Source: patient Mode of arrival: wheelchair Limitations: no limitations - History of Present Illness Initial comments: 75-year-old male with a past medical history of GERD, hyperlipidemia, hypertension, atrial fibrillation on Xarelto presented to the emergency room for a chief complaint of fall. Patient reports that he fell while walking up the stairs forward and hit his head on a wooden stair. Patient did not fall down any stairs. Patient states he has a laceration to his forehead. No loss of consciousness. Patient is up-to-date on tetanus.Patient has no other complaints at this time including shortness of breath, chest pain, abdominal pain, nausea or vomiting, headache, or visual changes. - Related Data Home Medications Medication Instructions Recorded Confirmed Rivaroxaban [Xarelto] 20 mg PO HS 03/20/19 08/07/20 Atorvastatin [Lipitor] 10 mg PO HS 12/05/19 08/07/20 Multivitamins, Thera [Multivitamin 1 tab PO DAILY 12/05/19 08/07/20 (formulary)] Econazole 1% Cream [Spectazole] 1 applic TOPICAL BID 08/07/20 08/07/20 Levothyroxine Sodium [Synthroid] 25 mcg PO DAILY 08/07/20 08/07/20 Metoprolol Tartrate [Lopressor] 25 mg PO DAILY 08/07/20 08/07/20 Triamcinolone 0.1% Ointment 1 applic TOPICAL BID PRN 08/07/20 08/07/20 [Kenalog] Previous Rx's Medication Instructions Recorded Acetaminophen Tab [Tylenol Tab] 500 mg PO Q6H PRN #30 tablet 12/06/19 Allergies Allergy/AdvReac Type Severity Reaction Status Date / Time No Known Allergies Allergy Verified 08/07/20 10:28 Review of Systems ROS Statement: Those systems with pertinent positive or pertinent negative responses have been documented in the HPI. ROS Other: All systems not noted in ROS Statement are negative. Past Medical History Past Medical History: Atrial Fibrillation, Cancer, GERD/Reflux, Hearing Disorder / Deafness, Hypertension, Mitral Valve Prolapse (MVP) Additional Past Medical History / Comment(s): PACEMAKER., MVP WITH HEART MURMUR. , HX ORAL CA. H1N1 IN 2013; ,KIDNEY STONE. ,hx broken back and rt clavicle . History of Any Multi-Drug Resistant Organisms: None Reported Past Surgical History: Appendectomy, Cholecystectomy, Heart Catheterization, Hernia Repair, Orthopedic Surgery, Pacemaker Additional Past Surgical History / Comment(s): ORAL SURG FOR CA. , EGD., RT SHOULDER SX., LITHOTRIPSY. asha fundoplication. HEART CATH 08/10/18,. PACEMAKER [facility] 2017 Past Anesthesia/Blood Transfusion Reactions: No Reported Reaction Type of Cardiac Device: Permanent Pacemaker Device Placement Date:: 2017 Past Psychological History: No Psychological Hx Reported Smoking Status: Never smoker Past Alcohol Use History: None Reported Past Drug Use History: None Reported - Past Family History Mother Family Medical History: No Reported History General Exam - General Exam Comments Initial Comments: Full range of motion without tenderness of bilateral upper extremities. Patient does have an abrasion noted between the dorsal first and second MCP joints. No laceration. Limitations: no limitations General appearance: alert, in no apparent distress Head exam: Present: other (Patient has a 3 cm laceration noted to the left eyebrow.) Eye exam: Present: normal appearance, PERRL, EOMI. Absent: scleral icterus, conjunctival injection ENT exam: Present: normal exam, normal oropharynx, mucous membranes moist Neck exam: Present: other (C-collar in place). Absent: tenderness Respiratory exam: Present: normal lung sounds bilaterally. Absent: respiratory distress, wheezes Cardiovascular Exam: Present: regular rate, normal rhythm, normal heart sounds GI/Abdominal exam: Present: soft, normal bowel sounds. Absent: distended, tenderness, other (No ecchymosis of the chest or abdomen.) Back exam: Absent: CVA tenderness (R), CVA tenderness (L), vertebral tenderness (No thoracic or lumbar spine tenderness) Course Vital Signs 08/07/20 08:58 Temperature 97.9 F Pulse Rate 69 Respiratory 16 Rate Blood Pressure 153/89 O2 Sat by Pulse 100 Oximetry Procedures - Laceration Laceration #1 Consent Obtained: verbal consent Indication: laceration Site: face Size (cm): 3 Description: linear Depth: simple, single layer Anesthetic Used: lidocaine 1%, with epi Anesthesia Technique: local infiltration Amount (mls): 5 Pre-repair: wound explored, irrigated extensively Type of Sutures: nylon Size of Sutures: 5-0 Number of Sutures: 8 Technique: simple, interrupted Patient Tolerated Procedure: well, no complications Medical Decision Making - Medical Decision Making 75-year-old male presents for fall. HPI and physical exam as documented. He does have a laceration to the left eyebrow. CT brain shows age-related atrophic and chronic small vessel ischemic changes without acute intercranial process seen. C-Spine shows no evidence for acute fracture. c-collar was cleared. No neck pain. Laceration was repaired with sutures. Patient will follow-up with his doctor. He'll return for any worsening symptoms. Disposition Clinical Impression: Head injury, Laceration Disposition: HOME SELF-CARE Condition: Good Instructions (If sedation given, give patient instructions): Laceration (ED), Care For Your Stitches (ED) Additional Instructions: Please keep area clean. Monitor for signs of infection such as spreading or streaking redness, drainage, or fever and return if these occur. Otherwise return in 5-7 days for suture removal. Is patient prescribed a controlled substance at d/c from ED?: No Referrals: Ron Rizvi MD [Primary Care Provider] - 1-2 days Time of Disposition: 11:10
[2020-08-07] MEDS ORDERED: LIDOCAINE 1%-EPI 1:100,000 20 ML VIAL SQ STA (10:42)
[2020-08-07 11:50] VITALS: BP 136/86; PULSE 65; RESP 18; TEMP 97.7
== END 2020-08-07 11:50 | disposition home or self-care (01) ==
LOC: EC 08:53
DX: S01.112A Laceration without foreign body of left eyelid and periocular area, initial encounter (principal); G31.1 Senile degeneration of brain, not elsewhere classified; I48.91 Unspecified atrial fibrillation; I10 Essential (primary) hypertension; H91.90 Unspecified hearing loss, unspecified ear; Z79.01 Long term (current) use of anticoagulants; Z79.899 Other long term (current) drug therapy; Z79.890 Hormone replacement therapy; Z85.819 Personal history of malignant neoplasm of unspecified site of lip, oral cavity, and pharynx; W10.9XXA Fall (on) (from) unspecified stairs and steps, initial encounter; Y93.01 Activity, walking, marching and hiking; Y92.89 Other specified places as the place of occurrence of the external cause
CPT/HCPCS: 72125; 70450; 99283; 12013; J2001

== ENCOUNTER 2021-08-06 04:37 | Inpatient (IN) | payer MEDICARE, BC ==
--- NOTE | 2021-08-06 05:01 | ED ---
Psych HPI - General Stated Complaint: Mental health Time Seen by Provider: 08/06/21 04:47 Source: EMS Mode of arrival: EMS Limitations: altered mental status - History of Present Illness Initial Comments: This patient is a 76-year-old man brought to have evaluation for suspected delusional thought content. Patient had reportedly called law enforcement agency [employer] and described seeing a number of people. When they responded they found the patient who tried to display pictures pictures apparently not identifying anyone. MD Complaint: other -: unknown Associated Psychiatric Symptoms: delusions Quality: constant Improves With: none Worsens With: none - Related Data Home Medications Medication Instructions Recorded Confirmed Rivaroxaban [Xarelto] 20 mg PO HS 03/20/19 08/07/20 Atorvastatin [Lipitor] 10 mg PO HS 12/05/19 08/07/20 Multivitamins, Thera [Multivitamin 1 tab PO DAILY 12/05/19 08/07/20 (formulary)] Econazole 1% Cream [Spectazole] 1 applic TOPICAL BID 08/07/20 08/07/20 Levothyroxine Sodium [Synthroid] 25 mcg PO DAILY 08/07/20 08/07/20 Metoprolol Tartrate [Lopressor] 25 mg PO DAILY 08/07/20 08/07/20 Triamcinolone 0.1% Ointment 1 applic TOPICAL BID PRN 08/07/20 08/07/20 [Kenalog 0.1% Ointment] Previous Rx's Medication Instructions Recorded Acetaminophen Tab [Tylenol Tab] 500 mg PO Q6H PRN #30 tablet 12/06/19 Allergies Allergy/AdvReac Type Severity Reaction Status Date / Time No Known Allergies Allergy Verified 08/06/21 04:40 Review of Systems ROS Statement: Those systems with pertinent positive or pertinent negative responses have been documented in the HPI. ROS Other: All systems not noted in ROS Statement are negative. Limitations: ROS unobtainable due to patients medical condition Respiratory: Denies: dyspnea Cardiovascular: Denies: chest pain Gastrointestinal: Denies: abdominal pain, vomiting Musculoskeletal: Denies: back pain Neurological: Denies: headache Psychiatric: Reports: as per HPI, auditory hallucinations, visual hallucinations Past Medical History Past Medical History: Atrial Fibrillation, Cancer, GERD/Reflux, Hearing Disorder / Deafness, Hypertension, Mitral Valve Prolapse (MVP) Additional Past Medical History / Comment(s): PACEMAKER., MVP WITH HEART MURMUR. , HX ORAL CA. 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 ,hx broken back and rt clavicle . History of Any Multi-Drug Resistant Organisms: None Reported Past Surgical History: Appendectomy, Cholecystectomy, Heart Catheterization, Hernia Repair, Orthopedic Surgery, Pacemaker Additional Past Surgical History / Comment(s): ORAL SURG FOR CA. , EGD., RT SHOULDER SX., LITHOTRIPSY. asha fundoplication. HEART CATH 08/10/18,. PACEMAKER [facility] 2017 Past Anesthesia/Blood Transfusion Reactions: No Reported Reaction Type of Cardiac Device: Permanent Pacemaker Device Placement Date:: 2017 Past Psychological History: No Psychological Hx Reported Smoking Status: Never smoker Past Alcohol Use History: None Reported Past Drug Use History: None Reported - Past Family History Mother Family Medical History: No Reported History General Exam Limitations: no limitations General appearance: alert, in no apparent distress Head exam: Present: atraumatic, normocephalic Eye exam: Present: normal appearance. Absent: scleral icterus, conjunctival injection ENT exam: Present: mucous membranes dry Neck exam: Present: normal inspection, full ROM. Absent: meningismus Respiratory exam: Present: normal lung sounds bilaterally. Absent: respiratory distress, wheezes, rales, rhonchi, stridor, chest wall tenderness Cardiovascular Exam: Present: regular rate, normal rhythm, systolic murmur. Absent: diastolic murmur, rubs, gallop GI/Abdominal exam: Present: soft. Absent: distended, tenderness, guarding, rebound, rigid, mass Extremities exam: Present: normal inspection, normal capillary refill. Absent: pedal edema, calf tenderness Back exam: Present: normal inspection Neurological exam: Present: alert, CN II-XII intact. Absent: oriented X3, motor sensory deficit Psychiatric exam: Present: manic, other (Patient presented delusional thought content). Absent: agitated, anxious, homicidal ideation, suicidal ideation Skin exam: Present: warm, dry, intact, normal color, other (Anterior abdominal contusions. Pretibial erythema and warmth, suspected wound infection.) Course Vital Signs 08/06/21 08/06/21 04:40 06:25 Temperature 97.4 F L Pulse Rate 69 63 Respiratory 16 16 Rate Blood Pressure 138/83 111/60 O2 Sat by Pulse 100 99 Oximetry Medical Decision Making - Medical Decision Making This patient is a 76-year-old man brought to have psychiatric evaluation after he had phoned law enforcement and was felt to be delusional. The patient does have some moderate cellulitis and is started on antibiotics here, will receive some hydration, and will be admitted under medicine with psychiatric consultation. - Lab Data Result diagrams: 08/06/21 05:23 08/06/21 05:23 Lab Results 08/06/21 08/06/21 08/06/21 Range/Units 05:15 05:21 05:23 WBC 6.0 (3.8-10.6) k/uL RBC 3.38 L (4.30-5.90) m/uL Hgb 11.4 L (13.0-17.5) gm/dL Hct 34.4 L (39.0-53.0) % MCV 101.7 H (80.0-100.0) fL MCH 33.6 (25.0-35.0) pg MCHC 33.1 (31.0-37.0) g/dL RDW 14.0 (11.5-15.5) % Plt Count 263 (150-450) k/uL MPV 7.0 Neutrophils % 78 % Lymphocytes % 10 % Monocytes % 8 % Eosinophils % 2 % Basophils % 0 % Neutrophils # 4.6 (1.3-7.7) k/uL Lymphocytes # 0.6 L (1.0-4.8) k/uL Monocytes # 0.5 (0-1.0) k/uL Eosinophils # 0.1 (0-0.7) k/uL Basophils # 0.0 (0-0.2) k/uL Macrocytosis Slight Carbon Monoxide, Quant 1.5 (<10.0) % Sodium (137-145) mmol/L Potassium (3.5-5.1) mmol/L Chloride (98-107) mmol/L Carbon Dioxide (22-30) mmol/L Anion Gap mmol/L BUN (9-20) mg/dL Creatinine (0.66-1.25) mg/dL Est GFR (CKD-EPI)AfAm (>60 ml/min/1.73 sqM) Est GFR (CKD-EPI)NonAf (>60 ml/min/1.73 sqM) Glucose (74-99) mg/dL POC Glucose (mg/dL) 112 H (75-99) mg/dL POC Glu Steno [employer] Supervisor Yuriy De Leon Calcium (8.4-10.2) mg/dL Total Bilirubin (0.2-1.3) mg/dL AST (17-59) U/L ALT (4-49) U/L Alkaline Phosphatase (38-126) U/L Ammonia (<30) umol/L Troponin I (0.000-0.034) ng/mL Total Protein (6.3-8.2) g/dL Albumin (3.5-5.0) g/dL Serum Alcohol mg/dL 08/06/21 08/06/21 08/06/21 Range/Units 05:23 05:23 05:23 WBC (3.8-10.6) k/uL RBC (4.30-5.90) m/uL Hgb (13.0-17.5) gm/dL Hct (39.0-53.0) % MCV (80.0-100.0) fL MCH (25.0-35.0) pg MCHC (31.0-37.0) g/dL RDW (11.5-15.5) % Plt Count (150-450) k/uL MPV Neutrophils % % Lymphocytes % % Monocytes % % Eosinophils % % Basophils % % Neutrophils # (1.3-7.7) k/uL Lymphocytes # (1.0-4.8) k/uL Monocytes # (0-1.0) k/uL Eosinophils # (0-0.7) k/uL Basophils # (0-0.2) k/uL Macrocytosis Carbon Monoxide, Quant (<10.0) % Sodium 137 (137-145) mmol/L Potassium 3.9 (3.5-5.1) mmol/L Chloride 104 (98-107) mmol/L Carbon Dioxide 27 (22-30) mmol/L Anion Gap 6 mmol/L BUN 38 H (9-20) mg/dL Creatinine 0.82 (0.66-1.25) mg/dL Est GFR (CKD-EPI)AfAm >90 (>60 ml/min/1.73 sqM) Est GFR (CKD-EPI)NonAf 87 (>60 ml/min/1.73 sqM) Glucose 110 H (74-99) mg/dL POC Glucose (mg/dL) (75-99) mg/dL POC Glu Steno Pool Supervisor ID Calcium 9.0 (8.4-10.2) mg/dL Total Bilirubin 0.9 (0.2-1.3) mg/dL AST 131 H (17-59) U/L ALT 104 H (4-49) U/L Alkaline Phosphatase 107 (38-126) U/L Ammonia <9 (<30) umol/L Troponin I 0.013 (0.000-0.034) ng/mL Total Protein 6.0 L (6.3-8.2) g/dL Albumin 3.4 L (3.5-5.0) g/dL Serum Alcohol <10 mg/dL - EKG Data -: EKG Interpreted by Ak EKG shows normal: axis (Borderline for left axis deviation), intervals (Normal), ST-T waves (Normal) Interpretation: other (There is atrial pacemaker. Rate 71 bpm.) Disposition Clinical Impression: Altered mental status, Cellulitis Disposition: ADMITTED IP TO THIS HOSP Condition: Fair Is patient prescribed a controlled substance at d/c from ED?: No Referrals: Ron Rizvi MD [Primary Care Provider] - 1-2 days
[2021-08-06 05:18] LABS: Glucose,Whole Blood 112 mg/dL (75-99)
[2021-08-06 05:32] LABS: Basophils % (A) 0 %; Eosinophils # (A) 0.1 k/uL (0-0.7); Eosinophils % (A) 2 %; HCT 34.4 % (39.0-53.0); HGB 11.4 gm/dL (13.0-17.5); Lymphocytes # (A) 0.6 k/uL (1.0-4.8); Lymphocytes % (A) 10 %; MCH 33.6 pg (25.0-35.0); MCHC 33.1 g/dL (31.0-37.0); MCV 101.7 fL (80.0-100.0); Macrocytosis Slight; Monocytes # (A) 0.5 k/uL (0-1.0); Monocytes % (A) 8 %; Neutrophils # (A) 4.6 k/uL (1.3-7.7); Neutrophils % (A) 78 %; Platelet Count 263 k/uL (150-450); RBC 3.38 m/uL (4.30-5.90)
[2021-08-06 05:48] LABS: ALT 104 U/L (4-49); AST 131 U/L (17-59); African American GFR (CKD) >90 (>60 ml/min/1.73 sqM); Albumin 3.4 g/dL (3.5-5.0); Alcohol <10 mg/dL; Alkaline Phosphatase 107 U/L (38-126); Anion Gap 6 mmol/L; Blood Urea Nitrogen 38 mg/dL (9-20); Carbon Dioxide 27 mmol/L (22-30); Chloride 104 mmol/L (98-107); Glucose 110 mg/dL (74-99); Non-African American GFR(CKD) 87 (>60 ml/min/1.73 sqM); Potassium 3.9 mmol/L (3.5-5.1); Sodium 137 mmol/L (137-145); Total Bilirubin 0.9 mg/dL (0.2-1.3)
--- NOTE | 2021-08-06 06:05 | CT ---
EXAMINATION TYPE: CT brain wo con DATE OF EXAM: 08/06/2021 COMPARISON: 08/07/2020 HISTORY: 1135.4 CT DLP: AMS mGycm Automated exposure control for dose reduction was used. Images of the brain obtained without contrast. There is cerebral cortical atrophy. There is no mass effect or midline shift. There is no evidence of intracranial hemorrhage. The calvarium is intact. Skull base is intact. IMPRESSION: Mild cerebral atrophy. No acute intracranial abnormality. No change.
[2021-08-06] MEDS ORDERED: SODIUM CHLORIDE 0.9% 500 ML 500 ML IV STA (07:03)
[2021-08-06] MEDS ORDERED: NAFCILLIN 2 GM in DEXTROSE 5% IN WATER 100 ML IVPB STA ×2 (07:48)
[2021-08-06] MEDS ORDERED: ACETAMINOPHEN TAB 325 MG TAB PO PRN (07:49)
[2021-08-06] MEDS ORDERED: NALOXONE 0.4 MG/ML 1 ML VIAL IV PRN (07:49)
[2021-08-06 07:57] LABS: Glucose,Whole Blood 116 mg/dL (75-99)
[2021-08-06 08:23] LABS: Amorphous Sediment,Urine Occasional /hpf; Appearance,Urine Cloudy (Clear); Bilirubin,Urine Negative (Negative); Blood,Urine Large (Negative); Color,Urine Yellow; Glucose,Urine (UA) Negative (Negative); Ketones,Urine Negative (Negative); Leukocyte Esterase,Urine Negative (Negative); Mucus,Urine Rare /hpf; Nitrite,Urine Negative (Negative); PH, Urine 6.5 (5.0-8.0); Protein,Urine Trace (Negative); RBC,Urine >182 /hpf (0-5); Urobilinogen,Urine <2.0 mg/dL (<2.0); WBC,Urine 4 /hpf (0-5)
[2021-08-06] MEDS: HEPARIN SODIUM,PORCINE/PF 5,000 UNIT/0.5 ML SYRINGE SQ SCH ×2 (08:23→21:13)
[2021-08-06 08:26] LABS: Amphetamine Screen,Urine Not Detected (NotDetected); Barbiturate Screen,Urine Not Detected (NotDetected); Benzodiazepines Screen,Urine Not Detected (NotDetected); Cocaine Screen,Urine Not Detected (NotDetected); Methadone Screen, Urine Not Detected (NotDetected); Opiate Screen,Urine Not Detected (NotDetected); Oxycodone Screen, Urine Not Detected (NotDetected); Phencyclidine Screen,Urine Not Detected (NotDetected); Tricyclic Antidepressant,Urine Not Detected (NotDetected); Urn Cannabinoid Scrn Not Detected (NotDetected)
--- NOTE | 2021-08-06 17:06 | P.CN ---
Psychiatric Consult - . Consult date: 08/06/21 Consult:: 08/06/21 16:46 Psychiatric consultation He was referrred through [facility] to the psychiatrc consultation and was later transfered to the medical unit for detailed medical asessement and evaluation for work up of his episode of "hallucinations and Delusions". I reviewed all the medical notes and visited the unit to have updated progress of the patient's medical condition [facility] I assessed the patient in his room in person and later obtained collateral information by phoning his daughter in [place] Jacy Lund [phone] to validate the clinical contextual issues. When I assessed the patient, he was almost asleep with his lunch tray half- finished unassisted. He had an iv but did not rely on IV for any fluid replacement. early , he was noted to have a high BUN but with no signs of worsening renal function. The nursing staff did not identify any immediate medical condition or life threatening risks. He was communicative in a cohrent fashion with the RN in charge of his case: with no fluctuating sensorium. He provided his daughter address and replicated the Chief complaint CHief Complaint: Fearful of visual images and calling police HPI> WIth no previous psychiatric history, he endorsed multiple medical problems. 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 He apparently had a cutaneous cancer ; update remains to be explored. His pain shooting episodic was under numerous investigations with minimal positive findings as to the exact ideology. He at times complained of slight gait instability but no typical Parkinsonian symptoms of akinesia or prolonged instability. He has a CT scan and further tests for work up I have been unable to have further data: he was arousable but became drowsy and would not want to complete partial assessment. His daughter confiremd he has been fully independent living in [place] while his daughter chose to live in [place]. With no precipitant, he was expeirenced of what appeared to be visual images of certain people spying on him. he was highly fearful for his life and called the police who arrived to bring him to the [facility]. I have yet to confirm the full list of Rx he has been on and whether he misused any of his Rx. Past medical history documented in ad. 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 No memory deficits were identifed. Whether he is a loner remained to be seen. mental status Exam. When he is awake, I will administer COG state : MOCA and MME to identify any deficits. Currently his delirium is resolving full MSE has to await after he is awoken from his sleep. However, he did not seem to be harboring any hallucinations or delusions No risk of self harm or harm to others Diagnosis Delirium resolved superimposed on PSYCHOSIS : new onset. differential : related to Rx : If all medical investigations are non-contributory, I will further interview to make the final neuro-psychiatric diagnosis: late onset of psychosis , which may be the prodromal of Dementia (CV or ALzheimer dementia). however, Late life DEPRESSION cannot be ruled out Management 1. defer starting him on psychotropic Rx 2 Review all medical investigators. an dupdate 3. ADL and Cog to be completed. 4. Communciate with family to explore his loneliness 5. safety risk and fall risk will be entered to his treatment plan
[2021-08-07] MEDS: HEPARIN SODIUM,PORCINE/PF 5,000 UNIT/0.5 ML SYRINGE SQ SCH (09:41)
--- NOTE | 2021-08-07 18:07 | P.PN ---
Subjective Progress Note Date: 08/07/21 Progress note He was seen today in his room for Reassessment. His delirium has largely resolved and has been comfortably resting in his bed. He provided a very detailed chronological sequence of events leading to his [facility] admission. His history would have to be corroborated by his daughter (EDDIE) who kindly provided phone call. He has been a relative loner after he his more than 20 years ago. 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 He recognized his need to have a electric furnace . He complained that his sleep was highly disrupted with his fragmented sleep duration : with less than 2-3 hrs of sleep He did not compensate by daytime sleepiness nad rest rumininating over the sun coming out. He acknowledged his diet was sub-optimal: he was aware of nutrients balanced diet with avoidance of sugar paying attention to Greens brown rice. He described vivid visual images of an old lady dressed in special costumes with no sexual overtones which later on, he "saw" three people behidn the [employer]. He had to draw the pistol licensed at them and contacted the vision impaired teacher who arrived with a 8-men unit . He told them to stay still otherwise he would pull the trigger at the : phantom group of people whom he believed to be REAL. He did not elaborate on flasbback truama but talked about TV coverage of [place] te rrorist attacks . He had a severe dispute with his young daughter who found his description of "infants heads hanging by the Terrorists" be propaganda. He had goog relationship with his Eddie daughter. No close female or male friends except through his [employer]. For de nanette visual hallucinations. I udnerstand medical workup must be completed. Sleep deprivation may have led to his Parasomnia disorder when he was in an REM sleep phase with severe disrupted sleep wakefulness cycle. Full sleep EEG and consultation with Sleep medicine specialist may clarify the diagnosis. Visual hallucination has bene described for Parkinson psychosis even though he did have typical PD except for vague gait instability and falls. He complained of right uppper abdominal pain related to what he considred to be related to aerobic exercise : no diagnosis was reached despite numerous investigations Mental status Exam. fully alert, coherent, with no confusion. Affect slightly anxious over the visual images and gun but otherwise unremarkable for his thought and perceptual disturbances. No suicidal or homicidal ideaiton. Cogniton : oriented . some insight into his conditon Diagnosis: Psychosis NOS. rule out Parasomnia disorder. and prodromal parkinson psychosis. Recommendation: suggest Melatonin low dosage 1-2 mg full CIRCLE workup. NB patient did not like lable of MENTAL Health Disorder preferred diet , supplements homeopathic medicine. He accepted my interview Will collaborate with his PCP and lead MD in charge of his medical admission. Objective - Vital Signs Vital signs: Vital Signs Temp 97.6 F 08/07/21 11:19 Pulse 82 08/07/21 11:19 Resp 18 08/07/21 11:19 BP 105/62 08/07/21 11:19 Pulse Ox 95 08/07/21 11:19 Intake & Output 08/06/21 08/07/21 08/07/21 18:59 06:59 18:59 Weight 69.853 kg Other: Voiding Method Toilet Toilet Toilet # Voids 1 2 1 # Bowel Movements 2 1 - Labs CBC & Chem 7: 08/06/21 05:23 08/06/21 05:23 Labs: Abnormal Lab Results - Last 24 Hours (Table) 08/06/21 Range/Units 05:23 TSH 7.650 H (0.350-5.500) uIU/mL
[2021-08-07] MEDS: RIVAROXABAN 20 MG TAB PO SCH (22:08)
[2021-08-07] MEDS: ATORVASTATIN 10 MG TAB PO SCH (22:08)
[2021-08-07] MEDS: MELATONIN 1 MG TAB PO SCH (22:08)
[2021-08-08] MEDS ORDERED: DEXTROSE 5%-0.45% NACL 500 ML IV STA (06:03)
[2021-08-08] MEDS: LEVOTHYROXINE 25 MCG TAB PO SCH (06:23)
[2021-08-08] MEDS: SODIUM CHLORIDE 0.9% 1,000 ML IV SCH ×2 (06:24→15:35)
[2021-08-08] MEDS: METOPROLOL TARTRATE 25 MG TAB PO SCH (09:48)
[2021-08-08] MEDS ORDERED: MINERAL OIL-WHITE PETROLATUM 120 GM JAR TOPICAL PRN (13:25)
--- NOTE | 2021-08-08 14:16 | CT ---
EXAMINATION TYPE: CT kidney stone wo con DATE OF EXAM: 08/08/2021 COMPARISON: 09/16/2016 CT of the abdomen and pelvis. 03/20/2019 CT of the chest. HISTORY: hematuria TECHNIQUE: CT scan of the abdomen and pelvis performed without contrast renal stone protocol CT DLP: 783.9 mGycm Automated exposure control for dose reduction was used. FINDINGS: Small bilateral pleural effusions are noted. 5 mm nodules are partially seen in the right lower lobe (image 1 on series 4). Heart size is mildly enlarged. Partially visualized leads of cardiac device. No pericardial effusion seen. Study is significantly limited by streak artifact from patient's arms. Liver, spleen, adrenal glands and pancreas are grossly within normal limit the significantly limited by artifact. There is an 8 mm calculus in the left renal pelvis. There is no obvious renal collecting system dilat ation. Urinary bladder is partially distended, unremarkable as seen. Prostate gland is prominent in s ize. Calcified fragments are again seen in the right scrotal region. There is a small gastroesophageal hiatal hernia. There are densities at the gastroesophageal junction which could be related to prior procedure, correlation with history recommended. There is no intesti nal obstruction. Evaluation of the bowel significantly limited by lack of oral contrast and suboptima l distention of the bowel. Atherosclerotic calcifications are seen in the nonaneurysmal aorta. Inferior thoracic aorta is tortuo us. No gross pneumoperitoneum or ascites. No enlarged retroperitoneal lymph nodes appreciated. There is diffuse generalized osteopenia. There is mild scoliosis of the spine. There is diffuse facet joint arthropathy changes. There is severe narrowing at L5-S1. Compression fracture deformity is aga in seen in T12,There is also loss of superior endplate vertebral body height of L2 seen on prior stud y. No significant change since prior CT. There is mild diffuse anasarca. There is generalized muscular atrophy but no focal soft tissue swelli ng. IMPRESSION: 1. Significantly degraded Limited study by streak artifact from patient's arms. 2. There is a 0.8 cm left renal calculus without obvious renal collecting system dilatation, the size of the stone has slightly enlarged compared to prior. 3. New small bilateral pleural effusions and partially visualized 4 to 5 mm nodules right lower lobe which may be infectious, inflammatory or malignant. 4. See body of report for additional incidentals.
--- NOTE | 2021-08-08 14:51 | XR ---
EXAMINATION TYPE: XR chest 2V DATE OF EXAM: 08/08/2021 COMPARISON: 09/16/2018 HISTORY: Chest pain TECHNIQUE: FINDINGS: There is some blunting of the costophrenic angles. There is no heart failure. There is left axillary pacemaker. There is 70% anterior wedging of T7 vertebra. There is mild thoracic kyphosis. T here is osteopenia. There is some pleural and pulmonary scarring at the right lung apex with calcific ation IMPRESSION: Pleural effusions could relate to mild heart failure. There is a new compression fracture of T7 compared to old exam.
--- NOTE | 2021-08-08 14:56 | XR ---
EXAMINATION TYPE: XR abdomen 2V DATE OF EXAM: 08/08/2021 COMPARISON: 10/14/2015 HISTORY: Right-sided abdominal pain TECHNIQUE: 2 views upright FINDINGS: There is no sign of intestinal obstruction or pneumoperitoneum. There is mild levoscoliosis . There is some blunting of the costophrenic angles. There are some small calcifications over the lef t upper quadrant. IMPRESSION: Left renal calculi. Nonacute abdomen. Small bilateral pleural effusions and basilar atele ctasis.
--- NOTE | 2021-08-08 15:20 | PN ---
PROGRESS NOTE DATE OF SERVICE: 08/08/2021. CHIEF COMPLAINT: Dehydration, delirium, xerodermatitis with secondary ulcerations and cellulitis of the anterior lower legs. HISTORY OF PRESENT ILLNESS: This gentleman is doing fairly well. Psychiatry feels that his delirium has improved. It is noted that he has significant hematuria. This will be investigated. PHYSICAL EXAMINATION: His chest is clear. Cardiac exam is normal. The abdomen is soft, nontender. IMPRESSION: 1. Dehydration, improved. 2. Hypotension, improved. 3. Delirium. 4. Psychosis. 5. Cellulitis of the lower extremities. 6. Xerodermatitis with multiple abrasions. 7. Hematuria. PLAN: 1. CT of the kidneys. 2. Start moisturizing creams to his skin. 3. Start Unasyn IV. MMODL / IJN: [id number] /
--- NOTE | 2021-08-08 15:26 | PN ---
PROGRESS NOTE DATE OF SERVICE: 08/07/2021 CHIEF COMPLAINT: Dehydration, confusion, mental status changes, cellulitis of the lower legs. HISTORY OF PRESENT ILLNESS: This gentleman . He has no neurologic complaints, but he does confabulate and indicate that he has been having hallucinations. He is being followed by Psychiatry. PHYSICAL EXAM: He has extremely dry skin over all of his body, and particularly on the hands, feet and lower legs. Chest clear. Cardiac exam is normal. The abdomen is soft and non-tender. He is awake and alert and neurologically seems intact. IMPRESSION: 1. Dehydration. 2. Mental status changes. 3. Hallucinations. 4. . PLAN: 1. Continue with psychiatric evaluation. 2. Rehydration. 3. Continue to manage cellulitis of the lower extremities. MMODL / IJN: [id number] /
--- NOTE | 2021-08-08 15:32 | HP ---
HISTORY AND PHYSICAL DATE OF SERVICE: CHIEF COMPLAINT: Dehydration, hallucinations, mental status changes and cellulitis of the lower legs. HISTORY OF PRESENT ILLNESS: This is another admission for this 76-year-old white male. He apparently began having hallucinations and called the police. He was wielding a gun at the time and followed police instructions by putting the gun down and walking into police custody. He is insistent that he was seeing people in his home. He has exhibited some unusual behavior in the past, although he has never been diagnosed with mental illness. He also has extremely dry skin and has had cellulitis of the lower extremities, particularly on the left leg this has exacerbated as well. REVIEW OF SYSTEMS: He denies any headaches, neurologic problems, head injuries, difficulty with vision or hearing, chest pain, shortness of breath, cough, hemoptysis, abdominal pain, nausea, vomiting, diarrhea, melena, hematochezia, frequency, urgency, dysuria, incontinence, nocturia, etc. Past medical history, family history, and personal and social histories are all otherwise unremarkable and non-contributory. He has had a problem in the past with coronary artery disease . He has a cardiac pacemaker as well and he has a history of hyperlipidemia. 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 He has complained of right upper quadrant pain for years before and after his gallbladder was removed. smoke or drink. PHYSICAL EXAMINATION: Blood pressure is 105/70 with a pulse of 93, respirations of 36, and his temperature is 99. In general he appeared to be dehydrated. Skin was very dry, which was generalized and normal for him. Head, ears, eyes, nose, mouth and throat were normal. Neck veins were not distended. Carotids were normal. Neck was supple. The chest was clear. Cardiac exam was normal and the abdomen was soft and not tender. There were no masses. Extremities demonstrated dry skin on the hands, arms, legs, feet, and particularly on the shins. He had cellulitis on the left anterior cardenas. Neurologically he seemed to be intact. He seemed to be oriented and alert and appropriate. He is admitted to the hospital with the diagnoses: 1. Mental status changes. 2. Hallucinations. 3. Dehydration. 4. Xerodermatitis. 5. Cellulitis of the left cardenas. PLAN: 1. Bedrest. 2. IV fluids. 3. Psychiatric consult. 4. Rehydrate. MMRICCO / SABINEN: [id number] /
[2021-08-08] MEDS: AMPICILLIN-SULBACTAM 1.5 GM in SODIUM CHLORIDE 0.9% 50 ML IVPB SCH (15:35)
--- NOTE | 2021-08-08 15:35 | PN ---
PROGRESS NOTE DATE OF SERVICE: 08/07/2021 CHIEF COMPLAINT: Confusion, hallucinations, dehydration and cellulitis of the left leg. HISTORY OF PRESENT ILLNESS: This gentleman is doing well. He is still talking about the visual hallucinations that he had. He has been seen by Psychiatry. PHYSICAL EXAMINATION: Chest is clear. Cardiac exam is normal. Abdomen is soft, nontender. IMPRESSION: 1. Acute psychosis with delirium. 2. History of personality disorder. 3. Dehydration. 4. Xerodermatitis. 5. Cellulitis of the lower legs. PLAN: Continue with neurologic and psychiatric evaluations as well as rehydration and treatment of his cellulitis. MMODL / IJN: [id number] /
[2021-08-08 16:32] LABS: Basophils % (A) 0 %; Eosinophils # (A) 0.1 k/uL (0-0.7); Eosinophils % (A) 2 %; HCT 33.2 % (39.0-53.0); HGB 10.6 gm/dL (13.0-17.5); Hypochromasia Moderate; Lymphocytes # (A) 0.7 k/uL (1.0-4.8); Lymphocytes % (A) 11 %; MCH 33.5 pg (25.0-35.0); MCHC 31.8 g/dL (31.0-37.0); MCV 105.2 fL (80.0-100.0); Macrocytosis Slight; Mean Platelet Volume 7.2; Monocytes # (A) 0.6 k/uL (0-1.0); Monocytes % (A) 9 %; Neutrophils # (A) 4.8 k/uL (1.3-7.7); Neutrophils % (A) 74 %; Platelet Count 199 k/uL (150-450); RBC 3.15 m/uL (4.30-5.90); RDW 13.1 % (11.5-15.5); WBC 6.5 k/uL (3.8-10.6)
[2021-08-08] MEDS: ATORVASTATIN 10 MG TAB PO SCH (22:06)
[2021-08-08] MEDS: MELATONIN 1 MG TAB PO SCH (22:06)
[2021-08-08] MEDS: RIVAROXABAN 20 MG TAB PO SCH (22:22)
[2021-08-09] MEDS: AMPICILLIN-SULBACTAM 1.5 GM in SODIUM CHLORIDE 0.9% 50 ML IVPB SCH ×4 (00:06→23:58)
[2021-08-09] MEDS: SODIUM CHLORIDE 0.9% 1,000 ML IV SCH ×5 (01:58→20:51)
[2021-08-09] MEDS: LEVOTHYROXINE 25 MCG TAB PO SCH (06:21)
[2021-08-09] MEDS: METOPROLOL TARTRATE 25 MG TAB PO SCH (09:46)
[2021-08-09 11:34] LABS: Basophils % (A) 0 %; Eosinophils # (A) 0.1 k/uL (0-0.7); Eosinophils % (A) 2 %; HCT 33.9 % (39.0-53.0); HGB 10.9 gm/dL (13.0-17.5); Hypochromasia Slight; Lymphocytes # (A) 0.5 k/uL (1.0-4.8); Lymphocytes % (A) 7 %; MCH 33.1 pg (25.0-35.0); MCHC 32.2 g/dL (31.0-37.0); MCV 102.8 fL (80.0-100.0); Macrocytosis Slight; Mean Platelet Volume 7.1; Monocytes # (A) 0.7 k/uL (0-1.0); Monocytes % (A) 10 %; Neutrophils # (A) 5.4 k/uL (1.3-7.7); Neutrophils % (A) 78 %; Platelet Count 239 k/uL (150-450); RDW 13.6 % (11.5-15.5); WBC 6.9 k/uL (3.8-10.6)
[2021-08-09 11:38] LABS: African American GFR (CKD) >90 (>60 ml/min/1.73 sqM); Anion Gap 5 mmol/L; Blood Urea Nitrogen 25 mg/dL (9-20); Calcium 7.7 mg/dL (8.4-10.2); Carbon Dioxide 23 mmol/L (22-30); Chloride 105 mmol/L (98-107); Glucose 98 mg/dL (74-99); Non-African American GFR(CKD) >90 (>60 ml/min/1.73 sqM); Sodium 133 mmol/L (137-145)
--- NOTE | 2021-08-09 13:53 | PN ---
PROGRESS NOTE DATE OF SERVICE: 07/09/2021 CHIEF COMPLAINT: Chest pain, shortness of breath. HISTORY OF PRESENT ILLNESS: This gentleman is still complaining of some anterior sternal and costal margin pain where he fell. He now has an ecchymosis. He is not complaining of back pain where it shows that he may have a compression fracture of T7. He is a little bit short of breath. He has small bilateral effusions. CT demonstrates a stone in the kidney, but no ureteral calculus. Hydration is improving. Mental status seems to be normal. PHYSICAL EXAMINATION: His chest demonstrates decreased breath sounds with scattered rales and rhonchi. Cardiac exam sounds normal. The abdomen is soft. He has ecchymosis across the lower anterior chest. Flanks are nontender. IMPRESSION: 1. Dehydration. 2. Mental status changes. 3. Shortness of breath. 4. Elevated D-dimer. 5. Small bilateral pleural effusions. 6. Compression fracture of T7. 7. Cellulitis of the left leg. PLAN: 1. Echocardiogram. 2. Repeat chest x-ray. 3. CTA of the chest. MMODL / IJN: [id number] /
--- NOTE | 2021-08-09 17:08 | XR ---
EXAMINATION TYPE: XR chest 2V DATE OF EXAM: 08/09/2021 COMPARISON: Yesterday HISTORY: Pleural effusions. Short of breath TECHNIQUE: FINDINGS: There is blunting of the costophrenic angles. There is no heart failure. There is left axil kyra pacemaker. Heart size is normal. There is mild thoracic kyphosis and anterior wedging of T8 vert ebra 75%. There is also wedging of T12 vertebra 25%. IMPRESSION: Bilateral pleural effusions unchanged. No obvious heart failure.
--- NOTE | 2021-08-09 17:14 | CT ---
EXAMINATION TYPE: CT angio chest DATE OF EXAM: 08/09/2021 COMPARISON: None HISTORY: Chest pain, elevated d dimer CT DLP: 476.6 mGycm Automated exposure control for dose reduction was used. CONTRAST: Performed with IV Contrast, patient injected with 100 mL of Isovue 370. There are 3-D postprocess images. Images obtained from the thoracic inlet to the diaphragm with IV co ntrast. There are bilateral moderate pleural effusions. There is infiltrate and atelectasis at the posterior lung bases. There is some interstitial infiltrate in the lateral aspect of the right upper lobe. Ther e is no mediastinal adenopathy. There are no hilar masses. There is thoracic kyphotic deformity with anterior wedging of T8 vertebra 75% and T12 vertebra 25%. Thoracic aorta is intact. There is no dissection. There is no evidence of filling defect in the pulm onary arteries. Heart size is fairly normal. IMPRESSION: Bilateral pleural effusions. Pulmonary infiltrates as above. No evidence of pulmonary embolism. There are compression fractures in the thoracic spine without fletcher ge compared to 03/25/2020 exam.
[2021-08-09] MEDS: RIVAROXABAN 20 MG TAB PO SCH (20:51)
[2021-08-09] MEDS: MELATONIN 1 MG TAB PO SCH (20:51)
[2021-08-09] MEDS: ATORVASTATIN 10 MG TAB PO SCH (20:51)
[2021-08-10] MEDS: SODIUM CHLORIDE 0.9% 1,000 ML IV SCH ×3 (05:45→20:08)
[2021-08-10] MEDS: LEVOTHYROXINE 25 MCG TAB PO SCH (05:45)
[2021-08-10] MEDS ORDERED: IPRATROPIUM-ALBUTEROL 3 ML NEB INHALATION PRN (09:12)
[2021-08-10] MEDS: AMPICILLIN-SULBACTAM 1.5 GM in SODIUM CHLORIDE 0.9% 50 ML IVPB SCH ×3 (09:22→23:28)
[2021-08-10] MEDS: METOPROLOL TARTRATE 25 MG TAB PO SCH (09:23)
[2021-08-10] MEDS: IPRATROPIUM-ALBUTEROL 3 ML NEB INHALATION SCH ×3 (12:17→19:37)
--- NOTE | 2021-08-10 19:07 | PN ---
PROGRESS NOTE DATE OF SERVICE: 08/10/2021 CHIEF COMPLAINT: Altered mental status, dehydration, cellulitis of the shins. HISTORY OF PRESENT ILLNESS: This gentleman is doing fairly well, but he is still quite short of breath. He does have bilateral pleural effusions. D-dimer is slightly elevated, but there is no evidence of any pulmonary emboli. PHYSICAL EXAMINATION: He has decreased breath sounds throughout, and particularly at the bases there are rales. Cardiac exam seems normal. The abdomen is soft and nontender. Cellulitis of the shins is improving. IMPRESSION: 1. Mental status changes. 2. Congestive heart failure. 3. Bilateral pleural effusions. 4. Dry skin with cellulitis of the shins. PLAN: Continue current effort and explore and treat his congestive heart failure. MMODL / IJN: [id number] /
[2021-08-10] MEDS: MELATONIN 1 MG TAB PO SCH (20:07)
[2021-08-10] MEDS: ATORVASTATIN 10 MG TAB PO SCH (20:07)
[2021-08-10] MEDS: RIVAROXABAN 20 MG TAB PO SCH (20:08)
[2021-08-11] MEDS: SODIUM CHLORIDE 0.9% 1,000 ML IV SCH ×4 (00:19→20:49)
[2021-08-11] MEDS: LEVOTHYROXINE 25 MCG TAB PO SCH (06:00)
[2021-08-11] MEDS: IPRATROPIUM-ALBUTEROL 3 ML NEB INHALATION SCH ×4 (07:54→20:08)
[2021-08-11] MEDS: AMPICILLIN-SULBACTAM 1.5 GM in SODIUM CHLORIDE 0.9% 50 ML IVPB SCH ×3 (08:02→23:49)
[2021-08-11] MEDS: METOPROLOL TARTRATE 25 MG TAB PO SCH (08:02)
--- NOTE | 2021-08-11 09:32 | ECHOF ---
Referral Reason:SOB, effusions, hx HD MEASUREMENTS -------- HEIGHT: 177.8 cm WEIGHT: 69.9 kg BP: 117/61 RVIDd: 2.9 cm (< 3.3) IVSd: 1.3 cm (0.6 - 1.1) LVIDd: 3.9 cm (3.9 - 5.3) LVPWd: 1.3 cm (0.6 - 1.1) IVSs: 1.6 cm LVIDs: 2.6 cm LVPWs: 1.7 cm LA Diam: 4.1 cm (2.7 - 3.8) LAESV Index (A-L): 36.04 ml/m Ao Diam: 2.9 cm (2.0 - 3.7) AV Cusp: 1.4 cm (1.5 - 2.6) MV EXCURSION: 20.499 mm (> 18.000) MV EF SLOPE: 94 mm/s (70 - 150) EPSS: 0.5 cm MV E Jaxon: 0.94 m/s MV DecT: 260 ms MV A Jaxon: 1.05 m/s MV E/A Ratio: 0.90 AV maxP.80 mmHg AV meanP.59 mmHg RAP: 5.00 mmHg RVSP: 35.64 mmHg FINDINGS -------- Sinus rhythm. This was a technically adequate study. The left ventricular size is normal. There is mild concentric left ventricular hypertrophy. Overa ll left ventricular systolic function is normal with, an EF between 55 - 60 %. The right ventricle is normal in size. LA is moderately dilated 34-39 ml/m2 The right atrium is normal in size. Interatrial and interventricular septum intact. There is mild aortic valve sclerosis. There is mild aortic stenosis present. Peak/mean gradient a cross the Aortic Valve is 18.80mmHg / 9.59mmHg. Mild mitral annular calcification present. Mild mitral regurgitation is present. The tricuspid valve appears structurally normal. Mild tricuspid regurgitation present. There is m ild pulmonary hypertension. The right ventricular systolic pressure, as measured by Doppler, is 35. 64mmHg. Trace/mild (physiologic) pulmonic regurgitation. The aortic root size is normal. Normal inferior vena cava with normal inspiratory collapse consistent with estimated right atrial pre ssure of 5 mmHg. There is no pericardial effusion. CONCLUSIONS -------- 1. The left ventricular size is normal. 2. There is mild concentric left ventricular hypertrophy. 3. Overall left ventricular systolic function is normal with, an EF between 55 - 60 %. 4. LA is moderately dilated 34-39 ml/m2 5. There is mild aortic valve sclerosis. 6. There is mild aortic stenosis present. 7. Mild mitral regurgitation is present. 8. Mild tricuspid regurgitation present. 9. There is mild pulmonary hypertension. 10. There is no pericardial effusion. TO[employer]ER [employer]LEMENT REPAIRER: Kirsten Crews RDCS
--- NOTE | 2021-08-11 11:30 | PN ---
PROGRESS NOTE DATE OF SERVICE: 08/11/2021 CHIEF COMPLAINT: Dehydration, mental status changes and cellulitis of the legs. HISTORY OF PRESENT ILLNESS: This gentleman is doing fairly well, but he is still very short of breath. Echocardiogram was just done. PHYSICAL EXAMINATION: He still has extensive rales and rhonchi throughout. Cardiac exam is sinus. Abdomen is soft, nontender. IMPRESSION: 1. Mental status changes. 2. Congestive heart failure. 3. Pleural effusions. 4. History of coronary artery disease. 5. Cellulitis of the lower extremities. PLAN: 1. Await results of echocardiogram. 2. Repeat labs and chest x-ray. 3. Consider increasing management for his heart failure. MMODL / IJN: [id number] /
[2021-08-11 12:06] LABS: Basophils % (A) 0 %; Eosinophils # (A) 0.1 k/uL (0-0.7); Eosinophils % (A) 3 %; HCT 33.6 % (39.0-53.0); Hypochromasia Slight; Lymphocytes # (A) 0.6 k/uL (1.0-4.8); Lymphocytes % (A) 11 %; MCH 33.7 pg (25.0-35.0); MCHC 32.7 g/dL (31.0-37.0); MCV 103.3 fL (80.0-100.0); Macrocytosis Slight; Mean Platelet Volume 7.5; Monocytes # (A) 0.5 k/uL (0-1.0); Monocytes % (A) 10 %; Neutrophils # (A) 3.6 k/uL (1.3-7.7); Neutrophils % (A) 72 %; Platelet Count 250 k/uL (150-450); RBC 3.26 m/uL (4.30-5.90); RDW 13.2 % (11.5-15.5)
[2021-08-11 12:24] LABS: ALT 69 U/L (4-49); AST 56 U/L (17-59); African American GFR (CKD) >90 (>60 ml/min/1.73 sqM); Albumin 2.7 g/dL (3.5-5.0); Alkaline Phosphatase 97 U/L (38-126); Anion Gap 0 mmol/L; Blood Urea Nitrogen 22 mg/dL (9-20); Calcium 8.1 mg/dL (8.4-10.2); Carbon Dioxide 28 mmol/L (22-30); Chloride 106 mmol/L (98-107); Globulin 2.7 g/dL; Glucose 103 mg/dL (74-99); Non-African American GFR(CKD) >90 (>60 ml/min/1.73 sqM); Potassium 4.7 mmol/L (3.5-5.1); Sodium 134 mmol/L (137-145); Total Bilirubin 0.7 mg/dL (0.2-1.3); Total Protein 5.4 g/dL (6.3-8.2)
--- NOTE | 2021-08-11 16:11 | XR ---
EXAMINATION TYPE: XR chest 1V portable DATE OF EXAM: 08/11/2021 COMPARISON: Chest x-ray and CT 08/09/2021 HISTORY: Congestive heart failure TECHNIQUE: Single frontal view of the chest is obtained. FINDINGS: Bibasilar increased attenuation persists, the costophrenic angles are blunted. There is un derlying COPD, emphysema. The heart is enlarged. There is a generator in left pectoral region, leads are present in the right atrium and ventricle. No evident pneumothorax. Patient is rotated. Calcified apical plaque present on the right. Prominence of pulmonary artery may be indicative of underlying p ulmonary artery hypertension. Interstitium may be improved. IMPRESSION: There may be some improvement in patient's volume status. Bibasilar effusions and associ ated atelectasis, pneumonia not excluded. Correlate for pulmonary artery hypertension.
[2021-08-11] MEDS: MELATONIN 1 MG TAB PO SCH (20:45)
[2021-08-11] MEDS: RIVAROXABAN 20 MG TAB PO SCH (20:45)
[2021-08-11] MEDS: ATORVASTATIN 10 MG TAB PO SCH (20:45)
[2021-08-12] MEDS: LEVOTHYROXINE 25 MCG TAB PO SCH (05:08)
[2021-08-12] MEDS: SODIUM CHLORIDE 0.9% 1,000 ML IV SCH ×3 (05:09→17:55)
[2021-08-12] MEDS: IPRATROPIUM-ALBUTEROL 3 ML NEB INHALATION SCH ×4 (07:36→20:27)
[2021-08-12] MEDS: AMPICILLIN-SULBACTAM 1.5 GM in SODIUM CHLORIDE 0.9% 50 ML IVPB SCH ×2 (08:09→15:30)
[2021-08-12] MEDS: METOPROLOL TARTRATE 25 MG TAB PO SCH (08:09)
--- NOTE | 2021-08-12 15:39 | CDI ---
Documentation Clarification Form Date: 08/13/2021 03:25:31 PM From: Amarilys Crowell CCS, CCDS Admit Date: 08/08/2021 11:48:00 AM Patient Name: Roland Martino Visit Number: [id number] Discharge Date: ATTENTION: The Clinical Documentation Specialists (CDI) and [facility] Coding Staff appreciate your assistance in clarifying documentation. Please respond to the clarification below the line at the bottom and electronically sign. The CDI & [facility] Coding staff will review the response and follow-up if needed. Please note: Queries are made part of the Legal Health Record. If you have any questions, please contact the author of this message via ITS. Dr. Ron Rizvi: Per the 08/10 Attending Progress Note: Congestive Heart Failure. Plan: Continue current effort & explore & treat his congestive heart failure. Additional information regarding the Acuity & Type of CHF is requested. History/Risk Factors per 08/08 H/P: CAD, Atrial Fibrillation, Pacemaker, Hyperlipidemia, Carcinoma of the right lower cardenas, Cholecystectomy. Clinical Indicators: Presented to the ED on 08/06 with Altered Mental Status, Delusions. Admit with Altered Mental Status & Cellulitis 08/06 VS: T 97.4, P 69, R 16, BP 138/83, PO 100 RA, BMI: 22.1 08/06 LAB: Hgb 11.4, Hct 34.4, Lymph 0.6; BUN 38, Glucose 110, AST 131, ALT 104, T Prot 6.0, Alb 3.4, TSH 7.650 08/06 UA: Cloudy, Trace Protein, Large Blood, RBC >182 08/08 BNP 272 08/06 Toxicology: negative, Alcohol <10. 08/08 CXR: Pleural effusion could relate to mild heart failure. 08/09 CXR: Bilateral pleural effusions unchanged. No obvious heart failure. 08/11 ECHO: Mild LVH, Left ventricular systolic function is normal w/EF 55-60%, Mild aortic valve sclerosis, Mild aortic stenosis, Mild MR, Mild TR, Mild pulmonary hypertension. Treatment 08/06: Blood glucose monitoring, Blood cultures, O2 2Lnc, IV Na Cl 500 mls @ 1000 mls/hr q30M, IV Nafcillin 100 mls @ 50 mls/hr x1. 08/08: IV Dextrose/Na Cl 500 mls @ 999 mls/hr q31M, IV Na Cl 1,000 mls @ 150 mls/hr q6H, IV Ampicillin 50 mls @ 100 mls/hr q8H 08/10: INH Duoneb q2H/prn, INH Duoneb QID. In your professional opinion, can you please clarify the Acuity & Type of CHF if known? [ ] Acute Diastolic Heart Failure [ ] Chronic Diastolic Heart Failure [ ] Acute on Chronic Diastolic Heart Failure [ ] Heart Failure ruled out [ ] Other, please specify [ ] Unable to determine (Template Last Revised: July 2020) MTDD
[2021-08-12] MEDS: ATORVASTATIN 10 MG TAB PO SCH (21:48)
[2021-08-12] MEDS: MELATONIN 1 MG TAB PO SCH (21:48)
[2021-08-12] MEDS: RIVAROXABAN 20 MG TAB PO SCH (21:48)
[2021-08-13] MEDS: AMPICILLIN-SULBACTAM 1.5 GM in SODIUM CHLORIDE 0.9% 50 ML IVPB SCH ×4 (00:25→23:29)
[2021-08-13] MEDS: LEVOTHYROXINE 25 MCG TAB PO SCH (06:04)
[2021-08-13] MEDS: SODIUM CHLORIDE 0.9% 1,000 ML IV SCH ×3 (06:05→20:22)
[2021-08-13] MEDS: IPRATROPIUM-ALBUTEROL 3 ML NEB INHALATION SCH ×4 (07:12→19:08)
[2021-08-13] MEDS: METOPROLOL TARTRATE 25 MG TAB PO SCH (08:52)
[2021-08-13] MEDS ORDERED: CALCIUM CARBONATE 500 MG CHEWABLE PO PRN (10:07)
[2021-08-13] MEDS: FUROSEMIDE 20 MG TAB PO SCH (13:36)
[2021-08-13] MEDS: SACUBITRIL/VALSARTAN 24 MG-26 MG TABLET PO SCH ×2 (13:36→20:20)
[2021-08-13] MEDS: CALCIUM ACETATE 667 MG TAB PO SCH ×2 (13:36→18:06)
--- NOTE | 2021-08-13 18:47 | PN ---
PROGRESS NOTE DATE OF SERVICE: 08/13/2021 CHIEF COMPLAINT: Congestive heart failure. HISTORY OF PRESENT ILLNESS: This gentleman is doing much better. His breathing is improving. He is fairly close to being able to be discharged. He is trying to ambulate more. PHYSICAL EXAMINATION: Breath sounds still are poor with scattered rales, particularly at the bases. The cardiac exam is normal. The abdomen is soft and nontender. Extremities are improving, with less edema. The cellulitis of the left cardenas is now responding well. IMPRESSION: 1. Congestive heart failure. 2. Mental status changes. 3. Cellulitis of the left leg. 4. Pleural effusions. PLAN: Will add Entresto and Lasix to the program, and he can probably go home tomorrow. MMODL / IJN: [id number] /
--- NOTE | 2021-08-13 18:54 | PN ---
PROGRESS NOTE DATE OF SERVICE: 08/12/2021. CHIEF COMPLAINT: Mental status changes, congestive heart failure, dehydration. HISTORY OF PRESENT ILLNESS: This gentleman is improving a little bit more each day. He is increasing his activity. His breathing has improved. PHYSICAL EXAM: Cardiac exam is normal. He still has decreased breath sounds at the bases. Abdomen is soft and nontender. Extremities are improving. IMPRESSION: 1. Mental status changes. 2. Lower extremity edema with cellulitis of both lower legs. 3. History of hypertension. 4. History of coronary artery disease. 5. Congestive heart failure. PLAN: Progress activity and continue to manage as a heart failure issue. Probably home in the next day or two. MMODL / IJN: [id number] /
[2021-08-13] MEDS: RIVAROXABAN 20 MG TAB PO SCH (20:20)
[2021-08-13] MEDS: MELATONIN 1 MG TAB PO SCH (20:21)
[2021-08-13] MEDS: ATORVASTATIN 10 MG TAB PO SCH (20:21)
[2021-08-14] MEDS: LEVOTHYROXINE 25 MCG TAB PO SCH (05:39)
[2021-08-14] MEDS: IPRATROPIUM-ALBUTEROL 3 ML NEB INHALATION SCH ×4 (07:28→20:15)
[2021-08-14] MEDS: AMPICILLIN-SULBACTAM 1.5 GM in SODIUM CHLORIDE 0.9% 50 ML IVPB SCH ×2 (08:09→17:33)
[2021-08-14] MEDS: SACUBITRIL/VALSARTAN 24 MG-26 MG TABLET PO SCH ×2 (08:14→20:58)
[2021-08-14] MEDS: METOPROLOL TARTRATE 25 MG TAB PO SCH (08:14)
[2021-08-14] MEDS: FUROSEMIDE 20 MG TAB PO SCH (08:14)
[2021-08-14] MEDS: CALCIUM ACETATE 667 MG TAB PO SCH ×3 (08:14→17:33)
[2021-08-14] MEDS: SODIUM CHLORIDE 0.9% 1,000 ML IV SCH ×4 (09:34→20:58)
--- NOTE | 2021-08-14 14:58 | MISC ---
MISCELLANOUS REPORT Chronic diastolic . MMODL / IJN: [id number] /
[2021-08-14 15:05] LABS: Basophils # (A) 0.1 k/uL (0-0.2); Basophils % (A) 1 %; Eosinophils # (A) 0.2 k/uL (0-0.7); Eosinophils % (A) 4 %; HCT 40.8 % (39.0-53.0); HGB 13.2 gm/dL (13.0-17.5); Hypochromasia Slight; Lymphocytes % (A) 17 %; MCH 33.4 pg (25.0-35.0); MCHC 32.4 g/dL (31.0-37.0); MCV 102.8 fL (80.0-100.0); Macrocytosis Slight; Mean Platelet Volume 7.2; Monocytes # (A) 0.5 k/uL (0-1.0); Monocytes % (A) 9 %; Neutrophils # (A) 4.1 k/uL (1.3-7.7); Neutrophils % (A) 67 %; Platelet Count 299 k/uL (150-450); RBC 3.97 m/uL (4.30-5.90); WBC 6.1 k/uL (3.8-10.6)
[2021-08-14 15:06] VITALS: BMI 22.1
--- NOTE | 2021-08-14 17:18 | XR ---
EXAMINATION TYPE: XR chest 2V DATE OF EXAM: 08/14/2021 COMPARISON: X-ray dated 08/11/2021 HISTORY: CHF TECHNIQUE: Frontal and lateral views of the chest are obtained. FINDINGS: Interval improvement of the previously seen signs of pulmonary edema with better lung expansion, smal ler pleural effusions and less pulmonary vascular congestion. Irregular calcification in the right karma ng apex, appreciated previously. No gross cardiomegaly. Unchanged position of the left upper chest wall dual-lead pacemaker. Degenerat elba changes of the thoracic spine with persistent anterior wedging of T12 vertebral body. IMPRESSION: Interval improvement as described above.
--- NOTE | 2021-08-14 18:27 | PN ---
PROGRESS NOTE CHIEF COMPLAINT: Dehydration, mental status changes and CHF. HISTORY OF PRESENT ILLNESS: This gentleman is doing well. Diuretic has been added along with Entresto, and he seems to be tolerating it well. Blood pressure is good. PHYSICAL EXAMINATION: Chest is improving. There are a few rales at the bases. Cardiac exam is normal and the abdomen is soft and nontender. IMPRESSION: 1. Delirium. 2. Dehydration. 3. Congestive heart failure. 4. Coronary artery disease. PLAN: Increase activity and probably home in the next day or two. MMODL / IJN: [id number] /
[2021-08-14 18:56] LABS: African American GFR (CKD) 107.7 (60.0-200.0); Albumin 3.8 g/dL (3.8-4.9); Albumin/Globulin Ratio 1.41 (1.60-3.17); Anion Gap 11.6 mmol/L (10.00-18.00); BUN/Creat Ratio 36.29 Ratio (12.00-20.00); Blood Urea Nitrogen 25.4 mg/dL (9.0-27.0); Calcium 9.4 mg/dL (8.7-10.3); Carbon Dioxide 26.4 mmol/L (20.0-27.5); Globulin 2.7 g/dL (1.6-3.3); Potassium 5.1 mmol/L (3.5-5.5); Total Bilirubin 0.5 mg/dL (0.30-1.20); Total Protein 6.5 g/dL (6.2-8.2)
[2021-08-14] MEDS: RIVAROXABAN 20 MG TAB PO SCH (20:58)
[2021-08-14] MEDS: ATORVASTATIN 10 MG TAB PO SCH (20:58)
[2021-08-14] MEDS: MELATONIN 1 MG TAB PO SCH (20:58)
[2021-08-15] MEDS: AMPICILLIN-SULBACTAM 1.5 GM in SODIUM CHLORIDE 0.9% 50 ML IVPB SCH ×3 (01:23→16:57)
[2021-08-15] MEDS: SODIUM CHLORIDE 0.9% 1,000 ML IV SCH ×3 (05:55→21:18)
[2021-08-15] MEDS: LEVOTHYROXINE 25 MCG TAB PO SCH (05:55)
[2021-08-15] MEDS: IPRATROPIUM-ALBUTEROL 3 ML NEB INHALATION SCH ×4 (07:39→20:12)
[2021-08-15] MEDS: FUROSEMIDE 20 MG TAB PO SCH (09:45)
[2021-08-15] MEDS: METOPROLOL TARTRATE 25 MG TAB PO SCH (09:46)
[2021-08-15] MEDS: CALCIUM ACETATE 667 MG TAB PO SCH ×3 (09:46→16:57)
[2021-08-15] MEDS: SACUBITRIL/VALSARTAN 24 MG-26 MG TABLET PO SCH ×2 (09:46→21:18)
--- NOTE | 2021-08-15 17:16 | MISC ---
MISCELLANOUS REPORT QUERY: Chronic diastolic congestive heart failure. MMODL / IJN: [id number] /
--- NOTE | 2021-08-15 17:46 | PN ---
PROGRESS NOTE DATE OF SERVICE: 08/15/2021 CHIEF COMPLAINT: Weakness, delirium and congestive heart failure. HISTORY OF PRESENT ILLNESS: This gentleman is doing better. Breathing is better and chest is clearing. He gave me a long discussion with a lot of information about what happened when he came in. He definitely was delirious. He reports that he only sleeps about one hour a day at night. This certainly could have explained his hallucinations. PHYSICAL EXAMINATION: His chest is almost clear now. Cardiac exam is normal. Abdomen is soft, nontender. Skin is still very dry. IMPRESSION: 1. Delirium due to sleep deprivation. 2. Coronary artery disease. 3. Congestive heart failure. PLAN: Progress activity, and he will probably be able to go home in a day or two. MMODL / IJN: [id number] /
[2021-08-15] MEDS: MELATONIN 1 MG TAB PO SCH (21:17)
[2021-08-15] MEDS: ATORVASTATIN 10 MG TAB PO SCH (21:18)
[2021-08-15] MEDS: RIVAROXABAN 20 MG TAB PO SCH (21:18)
[2021-08-16] MEDS: SODIUM CHLORIDE 0.9% 1,000 ML IV SCH ×5 (04:22→21:17)
[2021-08-16] MEDS: LEVOTHYROXINE 25 MCG TAB PO SCH (05:59)
[2021-08-16] MEDS: IPRATROPIUM-ALBUTEROL 3 ML NEB INHALATION SCH ×4 (08:03→19:57)
[2021-08-16] MEDS: METOPROLOL TARTRATE 25 MG TAB PO SCH (08:14)
[2021-08-16] MEDS: CALCIUM ACETATE 667 MG TAB PO SCH ×3 (08:14→17:27)
[2021-08-16] MEDS: SACUBITRIL/VALSARTAN 24 MG-26 MG TABLET PO SCH ×2 (08:14→21:16)
[2021-08-16] MEDS: FUROSEMIDE 20 MG TAB PO SCH (08:14)
--- NOTE | 2021-08-16 14:30 | PN ---
PROGRESS NOTE DATE OF SERVICE: 08/06/2021 CHIEF COMPLAINT: Delirium and shortness of breath with dehydration. HISTORY OF PRESENT ILLNESS: This gentleman continues to do well. His liver enzymes were up slightly, and this will be investigated. Otherwise, he can probably go home in the next day or two. PHYSICAL EXAM: His vital signs are normal. The chest is clear. Cardiac exam is normal. Abdomen is soft, nontender. IMPRESSION: 1. Delirium. 2. Sleep deprivation. 3. Congestive heart failure. 4. Cardiomegaly. 5. Dehydration. 6. Elevated liver function studies. PLAN: 1. Viral hepatitis antibody profile. 2. Echo of the liver. 3. Probably home tomorrow or the next day. MMODL / IJN: [id number] /
[2021-08-16] MEDS: RIVAROXABAN 20 MG TAB PO SCH (21:16)
[2021-08-16] MEDS: ATORVASTATIN 10 MG TAB PO SCH (21:16)
[2021-08-16] MEDS: MELATONIN 1 MG TAB PO SCH (21:16)
[2021-08-17] MEDS: LEVOTHYROXINE 25 MCG TAB PO SCH (05:59)
[2021-08-17] MEDS: FUROSEMIDE 20 MG TAB PO SCH (08:18)
[2021-08-17] MEDS: METOPROLOL TARTRATE 25 MG TAB PO SCH (08:18)
[2021-08-17] MEDS: CALCIUM ACETATE 667 MG TAB PO SCH ×2 (08:18→12:02)
[2021-08-17] MEDS: SACUBITRIL/VALSARTAN 24 MG-26 MG TABLET PO SCH (08:19)
[2021-08-17] MEDS: IPRATROPIUM-ALBUTEROL 3 ML NEB INHALATION SCH ×3 (08:39→15:57)
--- NOTE | 2021-08-17 08:39 | US ---
EXAMINATION TYPE: US liver DATE OF EXAM: 08/17/2021 COMPARISON: NONE CLINICAL HISTORY: elev.LFTs. RUQ pain x 3 years, cholecystectomy EXAM MEASUREMENTS: Liver Length: 16.6 cm Gallbladder Wall: Surgically absent CBD: 0.7 cm Right Kidney: 8.5 x 4.7 x 4.8 cm Pancreas: not seen due to bowel gas Liver: wnl Gallbladder: Surgically absent Evidence for sonographic Leonard's sign: yes CBD: wnl Right Kidney: small in size IMPRESSION: 1. Mild hepatomegaly.
[2021-08-17 11:35] VITALS: BP 92/57; RESP 20; TEMP 98
[2021-08-17] MEDS: SODIUM CHLORIDE 0.9% 1,000 ML IV SCH (12:00)
[2021-08-17 15:59] VITALS: PULSE 72
[2021-08-17 17:45] LABS: Hepatitis B Surface Antibody Reactive (Nonreactive)
[2021-08-17 20:33] LABS: Hepatitis A Ab, Total Reactive (Nonreactive); Hepatitis C IgG Antibody Nonreactive (Nonreactive)
--- NOTE | 2021-08-17 20:45 | DS ---
DISCHARGE SUMMARY CHIEF COMPLAINT: Dehydration and delirium. HISTORY OF PRESENT ILLNESS AND PHYSICAL EXAMINATION: Details of this man's history and physical can be found in the initial workup. LABORATORY STUDIES: While he was in the hospital he had laboratory studies, details of which can be found in the laboratory section of his chart. COURSE IN THE HOSPITAL: After admission he was placed on bedrest, started on intravenous fluids. He was rehydrated. He was seen by Psychiatry and his delirium cleared. After further discussions with him, this may have been due to sleep deprivation. He stated that he had only been sleeping about one hour a day for several months. While he was in the hospital he continued to complain of shortness of breath, and his workup suggested that he had an element of congestive heart failure. This was treated. He was steadily improving. The cellulitis in the shins also was improving. It was felt that he was doing well enough to be able to go home on August 17, and we will follow him in several days in the office. FINAL DIAGNOSIS: 1. Delirium. 2. Sleep deprivation. 3. Dehydration. 4. Cellulitis of the lower legs. 5. Congestive heart failure. OPERATIONS: None. CONSULTATION: Psychiatry. He is improved. MMODL / IJN: [id number] /
== END 2021-08-17 16:46 | disposition home or self-care (01) | DRG 603 ==
LOC: EC 04:37 → 5NMEDONC 07:53 → OBSVTOIN 08-08 11:48 → 5NMEDONC 08-14 23:48
PROVIDERS: ADMIT Family Medicine; ATTEND Family Medicine
DX: L03.115 Cellulitis of right lower limb (principal); F23 Brief psychotic disorder; I50.32 Chronic diastolic (congestive) heart failure; M48.54XA Collapsed vertebra, not elsewhere classified, thoracic region, initial encounter for fracture; L03.116 Cellulitis of left lower limb; Z20.822 Contact with and (suspected) exposure to COVID-19; E78.5 Hyperlipidemia, unspecified; E86.0 Dehydration; F60.9 Personality disorder, unspecified; H91.90 Unspecified hearing loss, unspecified ear; G47.50 Parasomnia, unspecified; I25.10 Atherosclerotic heart disease of native coronary artery without angina pectoris; N20.0 Calculus of kidney; I27.20 Pulmonary hypertension, unspecified; I34.1 Nonrheumatic mitral (valve) prolapse; I48.91 Unspecified atrial fibrillation; Z95.0 Presence of cardiac pacemaker; Z87.442 Personal history of urinary calculi; Z85.819 Personal history of malignant neoplasm of unspecified site of lip, oral cavity, and pharynx; Z72.820 Sleep deprivation; Z79.01 Long term (current) use of anticoagulants; Z79.890 Hormone replacement therapy; Z79.899 Other long term (current) drug therapy; Z90.49 Acquired absence of other specified parts of digestive tract; Z98.890 Other specified postprocedural states
CPT/HCPCS: 36415; 70450; 71045; 71046; 71275; 74019; 74176; 76705; 80048; 80053; 80306; 80320; 81001; 82140; 82375; 83605; 83880; 84439; 84443; 84484; 85025; 85379; 86706; 86708; 86803; 87040; 87635; 93005; 93306; 94640; 94760; 99285

== ENCOUNTER 2021-09-04 18:35 | Emergency (ER) | payer MEDICARE, BC ==
[2021-09-04 19:13] VITALS: BP 157/87; PULSE 70; RESP 18; TEMP 98.1
[2021-09-04] MEDS ORDERED: CEPHALEXIN 500 MG CAP PO STA (23:08)
[2021-09-04] MEDS ORDERED: CEPHALEXIN 500MG STARTER PACK 4 CAP BTL PO STA (23:08)
[2021-09-04] MEDS ORDERED: FUROSEMIDE 20 MG TAB PO STA (23:09)
--- NOTE | 2021-09-04 23:12 | ED ---
Extremity Problem HPI - General Chief complaint: Extremity Problem,Nontraumatic Stated complaint: infection in legs Time Seen by Provider: 09/04/21 22:26 Source: patient, RN notes reviewed, old records reviewed Mode of arrival: ambulatory Limitations: no limitations - History of Present Illness Initial comments: This is a 76-year-old male to the emergency department for evaluation. Patient has significant left lower extremities pain swelling and redness. States she's had this persistent problem before recently admitted to the hospital where is here for a week. She does not feel like he wants to be admitted to the hospital again. He has no other complaints no fevers. No pain in the leg is redness and drainage. No history of diabetes MD Complaint: extremity pain, extremity swelling, other (Left lower extremity swelling and redness) -: days(s) Location: left, lower extremity History of Same: Yes -: Yes myalgia Radiation: proximal Severity scale (1-10): 4 Quality: aching Consistency: intermittent Improves with: nothing Worsens with: nothing Associated Symptoms: denies other symptoms - Related Data Home Medications Medication Instructions Recorded Confirmed Rivaroxaban [Xarelto] 20 mg PO HS 03/20/19 08/06/21 Atorvastatin [Lipitor] 10 mg PO HS 12/05/19 08/06/21 Levothyroxine Sodium [Synthroid] 25 mcg PO DAILY 08/07/20 08/06/21 Metoprolol Tartrate [Lopressor] 25 mg PO DAILY 08/07/20 08/06/21 Previous Rx's Medication Instructions Recorded Calcium Acetate [PhosLo] 667 mg PO TID-W/MEALS #100 tab 08/17/21 Furosemide [Lasix] 20 mg PO DAILY #30 tab 08/17/21 Sacubitril/Valsartan [Entresto 24 1 each PO BID #20 tablet 08/17/21 mg-26 mg Tablet] Cephalexin [Keflex] 500 mg PO Q6HR #40 cap 09/04/21 Allergies Allergy/AdvReac Type Severity Reaction Status Date / Time No Known Allergies Allergy Verified 08/06/21 09:13 Review of Systems ROS Statement: Those systems with pertinent positive or pertinent negative responses have been documented in the HPI. ROS Other: All systems not noted in ROS Statement are negative. Past Medical History Past Medical History: Atrial Fibrillation, Cancer, GERD/Reflux, Hearing Disorder / Deafness, Hypertension, Mitral Valve Prolapse (MVP) Additional Past Medical History / Comment(s): PACEMAKER 2018., MVP WITH HEART MURMUR. , HX ORAL CA. 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 ,hx broken back and rt clavicle, "Thyroid condition". History of Any Multi-Drug Resistant Organisms: None Reported Past Surgical History: Appendectomy, Cholecystectomy, Heart Catheterization, Hernia Repair, Orthopedic Surgery, Pacemaker Additional Past Surgical History / Comment(s): ORAL SURG FOR CA. , EGD., RT SHOULDER SX., LITHOTRIPSY. asha fundoplication. HEART CATH 08/10/18,. PACEMAKER [employer] 2017 Past Anesthesia/Blood Transfusion Reactions: No Reported Reaction Additional Past Anesthesia/Blood Transfusion Reaction / Comment(s): Patient denies having had blood transfusions in the past. Type of Cardiac Device: Permanent Pacemaker Device Placement Date:: 2017 Past Psychological History: No Psychological Hx Reported Smoking Status: Never smoker Past Alcohol Use History: None Reported Past Drug Use History: None Reported - Past Family History Mother History Unknown: Yes Family Medical History: No Reported History Additional Family Medical History / Comment(s): Patient denies knowing medical history of family General Exam Limitations: no limitations General appearance: alert, in no apparent distress Head exam: Present: atraumatic, normocephalic, normal inspection Eye exam: Present: normal appearance, PERRL, EOMI. Absent: scleral icterus, conjunctival injection, periorbital swelling ENT exam: Present: normal exam, mucous membranes moist Neck exam: Present: normal inspection. Absent: tenderness, meningismus, lymphadenopathy Respiratory exam: Present: normal lung sounds bilaterally. Absent: respiratory distress, wheezes, rales, rhonchi, stridor Cardiovascular Exam: Present: regular rate, normal rhythm, normal heart sounds. Absent: systolic murmur, diastolic murmur, rubs, gallop, clicks GI/Abdominal exam: Present: soft, normal bowel sounds. Absent: distended, tenderness, guarding, rebound, rigid Extremities exam: Present: other (Left lower extremity swelling redness, drainage). Absent: tenderness, pedal edema, joint swelling, calf tenderness Back exam: Present: normal inspection Neurological exam: Present: alert, oriented X3, CN II-XII intact Psychiatric exam: Present: normal affect, normal mood Skin exam: Present: warm, dry, intact, normal color. Absent: rash Course Vital Signs 09/04/21 19:09 Temperature 98.1 F Pulse Rate 70 Respiratory 18 Rate Blood Pressure 157/87 O2 Sat by Pulse 100 Oximetry - Reevaluation(s) Reevaluation #1: 09/04/21 Medical records reviewed Reevaluation #2: 09/04/21 Patient informed results questions answered Medical Decision Making - Medical Decision Making 76 male to the emergency department with lower extremity, left cellulitis, patient given topical cream and treatment, will care findings as well as antibiotics and can be discharged home Disposition Clinical Impression: Left leg cellulitis Disposition: HOME SELF-CARE Condition: Good Instructions (If sedation given, give patient instructions): Cellulitis (ED) Prescriptions: Cephalexin [Keflex] 500 mg PO Q6HR #40 cap Is patient prescribed a controlled substance at d/c from ED?: No Referrals: Ron Rizvi MD [Primary Care Provider] - 1-2 days
[2021-09-04] MEDS ORDERED: MUPIROCIN 2% OINT 22 GM TUBE TOPICAL ONE (23:30)
== END 2021-09-04 23:29 | disposition home or self-care (01) ==
LOC: EC 18:35
DX: L03.116 Cellulitis of left lower limb (principal); K21.9 Gastro-esophageal reflux disease without esophagitis; I10 Essential (primary) hypertension; I48.91 Unspecified atrial fibrillation; Z79.899 Other long term (current) drug therapy; Z79.02 Long term (current) use of antithrombotics/antiplatelets
CPT/HCPCS: 99283

== ENCOUNTER 2021-09-11 10:40 | Emergency (ER) | payer MEDICARE, BC ==
--- NOTE | 2021-09-11 11:35 | CT ---
EXAMINATION TYPE: CT brain cspine wo con DATE OF EXAM: 09/11/2021 COMPARISON: CT brain August 06, 2021. CT cervical spine August 07, 2020 HISTORY: Head injury and on blood thinners and neck pain. CT DLP: 1413.7 mGycm. Automated Exposure Control for Dose Reduction was Utilized. TECHNIQUE: CT scan of the head and cervical spine are performed without contrast. FINDINGS: There is no acute intracranial hemorrhage or midline shift identified. Mild ventricular a nd sulcal prominence. The globes are intact and the visualized sinuses are clear. New small to moder ate-sized acute left frontal scalp hematoma coronal image 10. Nasal septum deviated to right of midli ne. Cervical spine is visualized in its entirety from C1 through upper thoracic levels and redemonstrate exaggerated cervical curvature without evidence of acute fracture or dislocation. Slight grade 1 retr olisthesis C3 on C4 and C5 on C6 is redemonstrated. Osseous structures are demineralized. Prevertebra l soft tissue appears within normal limits. The C1-C2 articulation is within normal limits on the co prema images. Vertebral body heights are maintained. Posterior disc herniation C3-C4 level effaces a nterior thecal sac similar disc herniation seen at the C5 level. Axial images show multilevel degener ative changes. Lung apices show posterior calcification. No pneumothorax is seen. IMPRESSION: 1. There is no acute fracture or dislocation evident in the cervical spine. 2. No acute intracranial hemorrhage or midline shift is seen. New small to moderate size acute left f rontal scalp hematoma.
--- NOTE | 2021-09-11 11:42 | ED ---
Head Injury HPI - General Chief complaint: Head Injury Stated complaint: Forehead Laceration Time Seen by Provider: 09/11/21 10:55 Source: patient Mode of arrival: ambulatory Limitations: no limitations - History of Present Illness Initial comments: Patient is a 76-year-old male presenting with chief complaint of head injury. About an hour prior to presentation he was hit by a tree branch in the face when trying to pull it off of a tree. This resulted in 1 laceration to the forehead after his glasses were pushed into the face. Patient states that he is on blood thinners. There was no loss of consciousness, he is not experiencing any nausea, vomiting, dizziness, headache, weakness, ataxia or aphasia, weakness on one side of the body. - Related Data Home Medications Medication Instructions Recorded Confirmed Rivaroxaban [Xarelto] 20 mg PO HS 03/20/19 09/11/21 Atorvastatin [Lipitor] 10 mg PO HS 12/05/19 09/11/21 Levothyroxine Sodium [Synthroid] 25 mcg PO DAILY 08/07/20 09/11/21 Metoprolol Tartrate [Lopressor] 25 mg PO DAILY 08/07/20 09/11/21 Calcium Acetate [PhosLo] 667 mg PO BID-W/MEALS 09/11/21 09/11/21 Cephalexin [Keflex] 500 mg PO Q6H 09/11/21 09/11/21 Mometasone Furoate [Elocon 0.1% 1 applic TOPICAL DAILY 09/11/21 09/11/21 Top Soln] Mupirocin 2% Oint [Bactroban 2% 1 applic TOPICAL DAILY 09/11/21 09/11/21 Oint] Sacubitril/Valsartan [Entresto 24 1 tab PO BID 09/11/21 09/11/21 mg-26 mg Tablet] Previous Rx's Medication Instructions Recorded Furosemide [Lasix] 20 mg PO DAILY #30 tab 08/17/21 Allergies/Adverse reactions: Allergies Allergy/AdvReac Type Severity Reaction Status Date / Time No Known Allergies Allergy Verified 09/11/21 12:08 Review of Systems ROS Statement: Those systems with pertinent positive or pertinent negative responses have been documented in the HPI. ROS Other: All systems not noted in ROS Statement are negative. Past Medical History Past Medical History: Atrial Fibrillation, Cancer, GERD/Reflux, Hearing Disorder / Deafness, Hypertension, Mitral Valve Prolapse (MVP) Additional Past Medical History / Comment(s): PACEMAKER 2018., MVP WITH HEART MURMUR. , HX ORAL CA. 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 ,hx broken back and rt clavicle, "Thyroid condition". History of Any Multi-Drug Resistant Organisms: None Reported Past Surgical History: Appendectomy, Cholecystectomy, Heart Catheterization, Hernia Repair, Orthopedic Surgery, Pacemaker Additional Past Surgical History / Comment(s): ORAL SURG FOR CA. , EGD., RT SHOULDER SX., LITHOTRIPSY. asha fundoplication. HEART CATH 08/10/18,. PACEMAKER [employer] 2017 Past Anesthesia/Blood Transfusion Reactions: No Reported Reaction Additional Past Anesthesia/Blood Transfusion Reaction / Comment(s): Patient denies having had blood transfusions in the past. Type of Cardiac Device: Permanent Pacemaker Device Placement Date:: 2017 Past Psychological History: No Psychological Hx Reported Smoking Status: Never smoker Past Alcohol Use History: None Reported Past Drug Use History: None Reported - Past Family History Mother History Unknown: Yes Family Medical History: No Reported History Additional Family Medical History / Comment(s): Patient denies knowing medical history of family General Exam Limitations: no limitations General appearance: alert, in no apparent distress Head exam: Present: other (There is a 3 cm curved laceration above the left eyebrow, no gross abnormality of the skull) Eye exam: Present: normal appearance, PERRL, EOMI. Absent: scleral icterus, conjunctival injection, periorbital swelling Pupils: Absent: normal accommodation ENT exam: Present: normal exam Neck exam: Present: normal inspection, full ROM Respiratory exam: Present: normal lung sounds bilaterally. Absent: respiratory distress, wheezes, rales, rhonchi, stridor Cardiovascular Exam: Present: regular rate, normal rhythm, normal heart sounds. Absent: systolic murmur, diastolic murmur, rubs, gallop, clicks Neurological exam: Present: alert, oriented X3, CN II-XII intact Psychiatric exam: Present: normal affect, normal mood Skin exam: Present: warm, dry, intact, normal color. Absent: rash Course Vital Signs 09/11/21 09/11/21 10:45 13:21 Temperature 98.4 F 98.2 F Pulse Rate 79 70 Respiratory 20 18 Rate Blood Pressure 160/83 157/80 O2 Sat by Pulse 98 99 Oximetry Procedures - Laceration Laceration #1 Consent Obtained: verbal consent Indication: laceration Site: face Description: irregular Depth: simple, single layer Sedation/Analgesia: none Pre-repair: wound explored, irrigated extensively, deep structures intact Patient Tolerated Procedure: well Additional Comments: Wound was closed with Dermabond. Medical Decision Making - Medical Decision Making Patient is a 76-year-old male presenting with chief complaint of head injury. He has had the head by a tree branch when trying to get it down. This resulted in a 3 cm laceration above the left eyebrow. Patient is currently on blood thinners. He denies loss of consciousness, nausea, vomiting, chest pain, shortness of breath, weakness, dizziness, syncope. On exam there are no focal neuro deficits, no weakness. CT of brain and cervical spine without contrast shows There is no acute fracture or dislocation evident cervical spine. No acute intracranial hemorrhage or midline shift is seen. New small to moderate sized left frontal scalp hematoma. The wound was cleaned, irrigated with normal saline. The wound was deep enough to be closed with Dermabond. I placed the Dermabond and covered the wound with gauze. Educated on wound care. Patient states his last tetanus was less than 5 years ago. Report back to ER with any worsening symptoms or new onset alarm symptoms. Educated the patient on return parameters on alarms symptoms. May take Motrin and Tylenol as needed for pain control. Follow-up with PCP in one to 2 days. My attending is Dr. David. - Radiology Data Radiology results: report reviewed CT of brain and cervical spine without contrast shows There is no acute fracture or dislocation evident cervical spine. No acute intracranial hemorrhage or midline shift is seen. New small to moderate sized left frontal scalp hematoma. Disposition Clinical Impression: Laceration of face Disposition: HOME SELF-CARE Condition: Good Instructions (If sedation given, give patient instructions): Laceration (DC), Head Injury (DC), Skin Adhesive Care (ED) Additional Instructions: May use Tylenol for pain control. Follow-up with PCP in one to 2 days. Report back to ER if any worsening symptoms or new onset alarming symptoms, including but not limited to dizziness, vomiting, loss of consciousness, seizure, chest p ain, shortness of breath. Is patient prescribed a controlled substance at d/c from ED?: No Referrals: Ron Rizvi MD [Primary Care Provider] - 1-2 days Time of Disposition: 13:00
[2021-09-11] MEDS ORDERED: LIDOCAINE 1% INJ 10MG/ML (20 ML MDV) SQ ONE (12:02)
[2021-09-11] MEDS ORDERED: TOPICAL SKIN ADHESIVE 1 EACH AMP TOPICAL ONE (12:23)
[2021-09-11 13:21] VITALS: BP 157/80; PULSE 70; RESP 18; TEMP 98.2
== END 2021-09-11 13:21 | disposition home or self-care (01) ==
LOC: EC 10:40
DX: S01.81XA Laceration without foreign body of other part of head, initial encounter (principal); I10 Essential (primary) hypertension; I48.91 Unspecified atrial fibrillation; K21.9 Gastro-esophageal reflux disease without esophagitis; Z79.01 Long term (current) use of anticoagulants; Z79.890 Hormone replacement therapy; Z79.899 Other long term (current) drug therapy; W22.8XXA Striking against or struck by other objects, initial encounter; W25.XXXA Contact with sharp glass, initial encounter
CPT/HCPCS: 72125; 70450; 12013; 99283; J2001

== ENCOUNTER → 2021-12-01 | Outpatient (CLI) | payer MEDICARE, BC ==
--- NOTE | 2021-12-01 18:46 | US ---
EXAMINATION TYPE: US kidneys/renal and bladder DATE OF EXAM: 12/01/2021 COMPARISON: None CLINICAL HISTORY: 76-year-old male R35.1 NOCTURIA R35.0 FREQUENCY OF MICTURITION. Nocturia, frequency of micturition. Hx kidney stones, lithotripsy. EXAM MEASUREMENTS: Right Kidney: 10.6 x 4.8 x 4.5 cm Left Kidney: 10.8 x 5.4 x 5.6 cm Post Void Residual Volume: 63.60 mL Client Services Administrator notes: Limited due to gas. Right Kidney: Limited lower pole due to gas. No hydronephrosis seen. Left Kidney: No hydronephrosis. Hyperechoic focus with posterior shadowing seen laterally at mid pole : 0.7 x 0.8 x 0.5 cm. Bladder: Appears anechoic. Bilateral Jets seen: Yes Normal Post Void Residual: No Prostate appears prominent impressing on the base of the bladder and measuring 4.1 x 4.6 x 4.1 cm. IMPRESSION: 1. No hydronephrosis. 2. A nonobstructive 8 mm left renal calculus. 3. Prostatomegaly of 4.6 cm. 4. Sonographic findings of urinary retention. Postvoid bladder volume of 64 mL.
== END | disposition home or self-care (01) ==
LOC: RADUSWWP 13:16
PROVIDERS: ATTEND Family Medicine
DX: N20.0 Calculus of kidney (principal); N40.1 Benign prostatic hyperplasia with lower urinary tract symptoms; R33.8 Other retention of urine
CPT/HCPCS: 76770

== ENCOUNTER → 2022-05-25 | Outpatient (CLI) | payer MEDICARE, BC ==
--- NOTE | 2022-05-26 07:20 | US ---
EXAMINATION TYPE: US kidneys/renal and bladder DATE OF EXAM: 05/25/2022 COMPARISON: 08/08/2021 CT CLINICAL HISTORY: R10.9 UNSPECIFIED ABDOMINAL PAIN,Z87.422 PERSONAL HISTORY OF. Right flank pain EXAM MEASUREMENTS: Right Kidney: 9.8 x 5.0 x 4.8 cm Left Kidney: 12.5 x 5.0 x 4.4 cm Right Kidney: no evidence of hydronephrosis Left Kidney: stone upper/mid pole = 0.8cm Bladder: wnl Bilateral Jets seen: no There is no evidence for hydronephrosis at this point in time. No masses are identified. The urinary bladder is anechoic. IMPRESSION: 1. No evidence of obstructive uropathy. 2. Left nonobstructing renal calculus.
== END | disposition home or self-care (01) ==
LOC: RADUSWWP 15:58
PROVIDERS: ATTEND Family Medicine
DX: N20.0 Calculus of kidney (principal)
CPT/HCPCS: 76770

== ENCOUNTER → 2022-06-04 | Outpatient (CLI) | payer MEDICARE, BC ==
--- NOTE | 2022-06-04 12:32 | CT ---
EXAMINATION: CT SCAN OF THE ABDOMEN AND PELVIS WITH INTRAVENOUS CONTRAST DATE OF EXAM: 06/04/2022 9:32 AM HISTORY: Left flank pain. COMPARISON: None. TECHNIQUE: CT examination of the abdomen and pelvis was performed following the intravenous administr ation of iodinated contrast. CT dose lowering techniques were used, to include: automated exposure co ntrol, adjustment for patient size, and/or use of iterative reconstruction. FINDINGS: ABDOMEN/PELVIS: Lower Chest: Normal. Liver: Normal. Gallbladder/Biliary: Appears absent. Pancreas: Normal. Spleen: Normal. Adrenal Glands: Normal. Kidneys: The nonobstructing 6.6 mm stone in the lower pole of the left kidney. The kidneys and ureter s otherwise appear unremarkable. GI Tract: No dilated loops of bowel or free intraperitoneal air. Mesentery/Peritoneum: There is no mesenteric or retroperitoneal lymphadenopathy. Vasculature: There is mild vascular calcification seen throughout the abdominal aorta without evidenc e of aneurysmal dilation. IVC is normal in caliber. Lymph Nodes: Normal. Abdominal Wall: Normal. Bladder: Normal. Reproductive: Normal. Musculoskeletal: Multilevel degenerative disc and facet changes seen throughout the spine. No aggress elba osseous lesions are identified. IMPRESSION: 1. Nonobstructing left renal stone. 2. No acute process otherwise seen within the abdomen or pelvis.
== END | disposition home or self-care (01) ==
LOC: RADCTMAIN 08:18
PROVIDERS: ATTEND Family Medicine
DX: N20.0 Calculus of kidney (principal)
CPT/HCPCS: 74176

== ENCOUNTER 2022-07-27 17:26 | Inpatient (IN) | payer MEDICARE, BC ==
[2022-07-27 18:20] LABS: Basophils % (A) 0 %; Eosinophils % (A) 1 %; HCT 32.1 % (39.0-53.0); HGB 10.9 gm/dL (13.0-17.5); Lymphocytes # (A) 0.5 k/uL (1.0-4.8); Lymphocytes % (A) 10 %; MCH 32.8 pg (25.0-35.0); MCV 96.4 fL (80.0-100.0); Mean Platelet Volume 7.5; Monocytes # (A) 0.5 k/uL (0-1.0); Monocytes % (A) 8 %; Neutrophils # (A) 4.3 k/uL (1.3-7.7); Neutrophils % (A) 78 %; Platelet Count 257 k/uL (150-450); RBC 3.33 m/uL (4.30-5.90); RDW 13.5 % (11.5-15.5); WBC 5.5 k/uL (3.8-10.6)
[2022-07-27 18:38] LABS: ALT 83 U/L (4-49); AST 134 U/L (17-59); African American GFR (CKD) >90 (>60 ml/min/1.73 sqM); Albumin 3.6 g/dL (3.5-5.0); Alcohol <10 mg/dL; Alkaline Phosphatase 130 U/L (38-126); Anion Gap 6 mmol/L; Blood Urea Nitrogen 32 mg/dL (9-20); Calcium 8.6 mg/dL (8.4-10.2); Carbon Dioxide 26 mmol/L (22-30); Chloride 102 mmol/L (98-107); Glucose 96 mg/dL (74-99); Non-African American GFR(CKD) 87 (>60 ml/min/1.73 sqM); Potassium 3.6 mmol/L (3.5-5.1); Sodium 134 mmol/L (137-145); Total Bilirubin 2.1 mg/dL (0.2-1.3)
[2022-07-27 18:47] LABS: Partial Thromboplastin Time 26.5 sec (22.0-30.0); Prothrombin Time 10.7 sec (9.0-12.0)
--- NOTE | 2022-07-27 18:48 | ED ---
General Adult HPI - General Chief complaint: Altered Mental Status Stated complaint: AMS Time Seen by Provider: 07/27/22 17:51 Source: patient Mode of arrival: ambulatory Limitations: no limitations - History of Present Illness Initial comments: this patient is a 77-year-old man who is here to have evaluation related to multiple falls in the past few weeks. The patient believes that this is due to his legs being edematous and being heavier than he is used to. The patient has seen his physician and was sent over here from the clinic. -: week(s) Severity scale (1-10): 0 Consistency: constant Improves with: none Worsens with: none Treatments Prior to Arrival: none - Related Data Home Medications Medication Instructions Recorded Confirmed Rivaroxaban [Xarelto] 20 mg PO HS 03/20/19 09/11/21 Atorvastatin [Lipitor] 10 mg PO HS 12/05/19 09/11/21 Levothyroxine Sodium [Synthroid] 25 mcg PO DAILY 08/07/20 09/11/21 Metoprolol Tartrate [Lopressor] 25 mg PO DAILY 08/07/20 09/11/21 Calcium Acetate [PhosLo] 667 mg PO BID-W/MEALS 09/11/21 09/11/21 Cephalexin [Keflex] 500 mg PO Q6H 09/11/21 09/11/21 Mometasone Furoate [Elocon 0.1% 1 applic TOPICAL DAILY 09/11/21 09/11/21 Top Soln] Mupirocin 2% Oint [Bactroban 2% 1 applic TOPICAL DAILY 09/11/21 09/11/21 Oint] Sacubitril/Valsartan [Entresto 24 1 tab PO BID 09/11/21 09/11/21 mg-26 mg Tablet] Previous Rx's Medication Instructions Recorded Furosemide [Lasix] 20 mg PO DAILY #30 tab 08/17/21 Allergies Allergy/AdvReac Type Severity Reaction Status Date / Time No Known Allergies Allergy Verified 07/27/22 17:42 Review of Systems ROS Statement: Those systems with pertinent positive or pertinent negative responses have been documented in the HPI. ROS Other: All systems not noted in ROS Statement are negative. Constitutional: Reports: weakness. Denies: fever Respiratory: Denies: cough, dyspnea Cardiovascular: Reports: edema. Denies: chest pain, palpitations, syncope Gastrointestinal: Denies: abdominal pain, vomiting, diarrhea Genitourinary: Denies: dysuria Musculoskeletal: Denies: back pain, arthralgia Skin: Reports: lesions. Denies: rash Neurological: Denies: headache, weakness, numbness Past Medical History Past Medical History: Atrial Fibrillation, Cancer, GERD/Reflux, Hearing Disorder / Deafness, Hypertension, Mitral Valve Prolapse (MVP) Additional Past Medical History / Comment(s): PACEMAKER 2018., MVP WITH HEART MURMUR. , HX ORAL CA. 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 ,hx broken back and rt clavicle, "Thyroid condition". History of Any Multi-Drug Resistant Organisms: None Reported Past Surgical History: Appendectomy, Cholecystectomy, Heart Catheterization, Hernia Repair, Orthopedic Surgery, Pacemaker Additional Past Surgical History / Comment(s): ORAL SURG FOR CA. , EGD., RT SHOULDER SX., LITHOTRIPSY. asha fundoplication. HEART CATH 08/10/18,. PACEMAKER [employer]TR[employer]IC 2017 Past Anesthesia/Blood Transfusion Reactions: No Reported Reaction Additional Past Anesthesia/Blood Transfusion Reaction / Comment(s): Patient denies having had blood transfusions in the past. Type of Cardiac Device: Permanent Pacemaker Device Placement Date:: 2017 Past Psychological History: No Psychological Hx Reported Smoking Status: Never smoker Past Alcohol Use History: None Reported Past Drug Use History: None Reported - Past Family History Mother History Unknown: Yes Family Medical History: No Reported History Additional Family Medical History / Comment(s): Patient denies knowing medical h istory of family General Exam Limitations: no limitations General appearance: alert, in no apparent distress Head exam: Present: atraumatic, normocephalic Eye exam: Present: normal appearance. Absent: scleral icterus, conjunctival injection Neck exam: Present: normal inspection Respiratory exam: Present: normal lung sounds bilaterally. Absent: respiratory distress, wheezes, rales, rhonchi, stridor, accessory muscle use Cardiovascular Exam: Present: normal rhythm, irregular rhythm, normal heart sounds. Absent: systolic murmur, diastolic murmur, rubs, gallop GI/Abdominal exam: Present: soft. Absent: distended, tenderness, guarding, rebound, rigid, mass Extremities exam: Present: normal inspection, normal capillary refill, pedal edema. Absent: calf tenderness Back exam: Present: normal inspection. Absent: CVA tenderness (R), CVA tenderness (L) Neurological exam: Present: alert Skin exam: Present: warm, dry, intact, normal color, abrasion Course Vital Signs 07/27/22 07/27/22 07/27/22 17:38 20:04 21:19 Temperature 97.6 F Pulse Rate 65 63 77 Respiratory 18 18 18 Rate Blood Pressure 116/68 117/71 123/83 O2 Sat by Pulse 100 93 L 100 Oximetry 07/27/22 07/27/22 07/27/22 22:22 23:02 23:29 Temperature Pulse Rate 91 75 78 Respiratory 18 16 12 Rate Blood Pressure 111/68 105/62 97/56 O2 Sat by Pulse 100 100 100 Oximetry 07/28/22 07/28/22 02:05 04:09 Temperature Pulse Rate 63 80 Respiratory 12 16 Rate Blood Pressure 127/53 82/58 O2 Sat by Pulse 95 94 L Oximetry Medical Decision Making - Medical Decision Making This patient is 77-year-old man sent here for workup of multiple falls and a ltered mental status. Additional history from patient's primary physician revealed there was significant delirium versus dementia at the earlier visit. The patient had chest x-ray which I interpreted as not showing acute infiltrate, bony injury, or congestive heart failure. The patient had CT of the brain which I interpreted as not showing any acute cranial fracture or intracranial hemorrhage. Patient will be admitted to have additional workup including neurology consultation for the dementia versus delirium. Patient also will have antibiotic coverage for some mild cellulitis/wound infection of the lower extremity. Was pt. sent in by a medical professional or institution? @ -[Sent by physician Did you speak to anyone other than the patient for history? @ -[No Did you review nursing and triage notes? @ -[agree Were old charts reviewed? @ -[old chart Differential Diagnosis? @ -[Differential Weakness: Hypoglycemia, shock, sepsis, hyponatremia, anemia, infection, SC, ETOH, adverse medicine reaction, overdose, stroke, this is not meant to be an all-inclusive list. EKG interpreted by me (3pts min.)? @ -[See chart X-rays interpreted by me (1pt min.)? @ -[See chart CT interpreted by me (1pt min.)? @ -[See chart U/S interpreted by me (1pt. min.)? @ -[none] What testing was considered but not performed? (CT, X-rays, U/S, labs)? Why? @ [None What meds were considered but not given? Why? @ -[none] Did you discuss the management of the patient with other professionals? @ -[Admitting physician Did you reconcile home meds? @ -[Yes Was smoking cessation discussed for >3mins.? @ -[none] Was critical care preformed (if so, how long)? @ -[none] Were there social determinants of health that impacted care today? How? (Homelessness, low income, unemployed, alcoholism, drug addiction, trans portation, low edu. Level, literacy, decrease access to med. care, intermediate, rehab)? @ -[None Was there de-escalation of care discussed even if they declined? (Discuss DNR or withdrawal of care, Hospice)? @ -[No What co-morbidities impacted this encounter? (DM, HTN, Smoking, COPD, CAD, Cancer, CVA, Hep., AIDS, mental health diagnosis, sleep apnea, morbid obesity)? @ -[None Was patient admitted / discharged? @ -[Admitted Undiagnosed new problem with uncertain prognosis? @ -[none] Drug Therapy requiring intensive monitoring for toxicity (Heparin, Nitro, Insulin, Cardizem)? @ -[none] Were any procedures done? @ -[none] Diagnosis/symptom? @ -[1. Altered mental status 2. Wound infection lower extremity Acute, or Chronic, or Acute on Chronic? @ -[Acute Uncomplicated (without systemic symptoms) or Complicated (systemic symptoms)? @ -[Uncomplicated Side effects of treatment? @ -[none] Exacerbation, Progression, or Severe Exacerbation] @ -[no] Poses a threat to life or bodily function? @ -[no] - Lab Data Result diagrams: 07/27/22 18:04 07/27/22 18:04 Lab Results 07/27/22 07/27/22 07/27/22 Range/Units 18: 18:04 18:04 WBC 5.5 (3.8-10.6) k/uL RBC 3.33 L (4.30-5.90) m/uL Hgb 10.9 L (13.0-17.5) gm/dL Hct 32.1 L (39.0-53.0) % MCV 96.4 (80.0-100.0) fL MCH 32.8 (25.0-35.0) pg MCHC 34.0 (31.0-37.0) g/dL RDW 13.5 (11.5-15.5) % Plt Count 257 (150-450) k/uL MPV 7.5 Neutrophils % 78 % Lymphocytes % 10 % Monocytes % 8 % Eosinophils % 1 % Basophils % 0 % Neutrophils # 4.3 (1.3-7.7) k/uL Lymphocytes # 0.5 L (1.0-4.8) k/uL Monocytes # 0.5 (0-1.0) k/uL Eosinophils # 0.0 (0-0.7) k/uL Basophils # 0.0 (0-0.2) k/uL PT 10.7 (9.0-12.0) sec INR 1.0 (<1.2) APTT 26.5 (22.0-30.0) sec Sodium 134 L (137-145) mmol/L Potassium 3.6 (3.5-5.1) mmol/L Chloride 102 (98-107) mmol/L Carbon Dioxide 26 (22-30) mmol/L Anion Gap 6 mmol/L BUN 32 H (9-20) mg/dL Creatinine 0.81 (0.66-1.25) mg/dL Est GFR (CKD-EPI)AfAm >90 (>60 ml/min/1.73 sqM) Est GFR (CKD-EPI)NonAf 87 (>60 ml/min/1.73 sqM) Glucose 96 (74-99) mg/dL Calcium 8.6 (8.4-10.2) mg/dL Total Bilirubin 2.1 H (0.2-1.3) mg/dL AST 134 H (17-59) U/L ALT 83 H (4-49) U/L Alkaline Phosphatase 130 H (38-126) U/L Troponin I (0.000-0.034) ng/mL Total Protein 6.0 L (6.3-8.2) g/dL Albumin 3.6 (3.5-5.0) g/dL Serum Alcohol <10 mg/dL 07/27/22 Range/Units 18:04 WBC (3.8-10.6) k/uL RBC (4.30-5.90) m/uL Hgb (13.0-17.5) gm/dL Hct (39.0-53.0) % MCV (80.0-100.0) fL MCH (25.0-35.0) pg MCHC (31.0-37.0) g/dL RDW (11.5-15.5) % Plt Count (150-450) k/uL MPV Neutrophils % % Lymphocytes % % Monocytes % % Eosinophils % % Basophils % % Neutrophils # (1.3-7.7) k/uL Lymphocytes # (1.0-4.8) k/uL Monocytes # (0-1.0) k/uL Eosinophils # (0-0.7) k/uL Basophils # (0-0.2) k/uL PT (9.0-12.0) sec INR (<1.2) APTT (22.0-30.0) sec Sodium (137-145) mmol/L Potassium (3.5-5.1) mmol/L Chloride (98-107) mmol/L Carbon Dioxide (22-30) mmol/L Anion Gap mmol/L BUN (9-20) mg/dL Creatinine (0.66-1.25) mg/dL Est GFR (CKD-EPI)AfAm (>60 ml/min/1.73 sqM) Est GFR (CKD-EPI)NonAf (>60 ml/min/1.73 sqM) Glucose (74-99) mg/dL Calcium (8.4-10.2) mg/dL Total Bilirubin (0.2-1.3) mg/dL AST (17-59) U/L ALT (4-49) U/L Alkaline Phosphatase (38-126) U/L Troponin I 0.012 (0.000-0.034) ng/mL Total Protein (6.3-8.2) g/dL Albumin (3.5-5.0) g/dL Serum Alcohol mg/dL Disposition Clinical Impression: Altered mental status, Wound infection Disposition: ADMITTED IP TO THIS HOSP Condition: Poor Is patient prescribed a controlled substance at d/c from ED?: No
--- NOTE | 2022-07-27 19:28 | CT ---
EXAMINATION TYPE: CT brain wo con CT DLP: 1218.4 mGycm, Automated exposure control for dose reduction was used. DATE OF EXAM: 07/27/2022 6:54 PM COMPARISON: 09/11/2021 CLINICAL INDICATION:Male, 77 years old with history of Altered mental status, AMS and recent fall. TECHNIQUE: Brain: Axial CT images of the brain were obtained with coronal and sagittal reformats created and rev iewed. Contrast used: None. Oral contrast used: None. FINDINGS: Brain: Extra-axial spaces: No abnormal extra-axial fluid collections. Ventricular system: Within normal limits Cerebral parenchyma: No acute intraparenchymal hemorrhage or mass effect. The wade-white junction is well differentiated. Cerebellum: Unremarkable. Mass effect: No evidence of midline shift. Intracranial vasculature: unremarkable Soft tissues: Normal. Calvarium/osseous structures: No depressed skull fracture. Paranasal sinuses and mastoid air cells: Mild scattered paranasal sinus disease. Visualized orbits: Orbital contents are intact. IMPRESSION: No acute intracranial process.
--- NOTE | 2022-07-27 20:13 | XR ---
EXAMINATION TYPE: XR chest 2V DATE OF EXAM: 07/27/2022 7:55 PM COMPARISON: Chest radiographs from 08/14/2021 TECHNIQUE: XR chest 2V Frontal and lateral views of the chest. CLINICAL INDICATION:Male, 77 years old with history of altered mental status; FINDINGS: Lungs/Pleura: There is flattening of the diaphragm with increased lucency of the lungs. No evidence o f pneumothorax, pleural effusion or focal consolidation. Pulmonary vascularity: Unremarkable. Heart/mediastinum: Cardiomediastinal silhouette is unremarkable. Two lead cardiac conduction device o verlying the left hemithorax with lead tips projecting over the right ventricle and right atrium. Musculoskeletal: No acute osseous pathology. IMPRESSION: 1. No acute cardiopulmonary disease process. 2. COPD changes.
[2022-07-27] MEDS ORDERED: ACETAMINOPHEN TAB 325 MG TAB PO PRN (23:04)
[2022-07-27] MEDS ORDERED: NALOXONE 0.4 MG/ML 1 ML VIAL IV PRN (23:04)
[2022-07-27] MEDS: SODIUM CHLORIDE 0.9% 1,000 ML IV SCH (23:24)
[2022-07-28 04:47] LABS: Appearance,Urine Clear (Clear); Bilirubin,Urine Negative (Negative); Blood,Urine Large (Negative); Color,Urine Yellow; Glucose,Urine (UA) Negative (Negative); Ketones,Urine 2+ (Negative); Leukocyte Esterase,Urine Negative (Negative); Nitrite,Urine Negative (Negative); PH, Urine 5.5 (5.0-8.0); Protein,Urine Trace (Negative); RBC,Urine 154 /hpf (0-5); Specific Gravity,Urine 1.026 (1.001-1.035); Squamous Epithelial Cell,Urine <1 /hpf (0-4); Urobilinogen,Urine <2.0 mg/dL (<2.0); WBC,Urine 3 /hpf (0-5)
[2022-07-28 04:50] LABS: Amphetamine Screen,Urine Not Detected (NotDetected); Barbiturate Screen,Urine Not Detected (NotDetected); Benzodiazepines Screen,Urine Not Detected (NotDetected); Cocaine Screen,Urine Not Detected (NotDetected); Methadone Screen, Urine Not Detected (NotDetected); Opiate Screen,Urine Not Detected (NotDetected); Oxycodone Screen, Urine Not Detected (NotDetected); Phencyclidine Screen,Urine Not Detected (NotDetected); Tricyclic Antidepressant,Urine Not Detected (NotDetected); Urn Cannabinoid Scrn Not Detected (NotDetected)
[2022-07-28] MEDS: CEPHALEXIN 500 MG CAP PO SCH ×4 (08:52→21:05)
[2022-07-28] MEDS: SODIUM CHLORIDE 0.9% 1,000 ML IV SCH (13:19)
[2022-07-28] MEDS: CALCIUM ACETATE 667 MG TAB PO SCH (21:05)
[2022-07-28] MEDS: TAMSULOSIN 0.4 MG CAP.ER.24H PO SCH (21:05)
[2022-07-29] MEDS: SODIUM CHLORIDE 0.9% 1,000 ML IV SCH ×2 (04:41→17:46)
[2022-07-29 05:05] LABS: T4, Free (Free Thyroxine) 1.53 ng/dL (0.78-2.19)
[2022-07-29] MEDS: LEVOTHYROXINE 25 MCG TAB PO SCH (06:34)
[2022-07-29] MEDS: IOPAMIDOL CONTRAST (ORAL USE) VIAL PO PRN ×2 (09:05→09:42)
[2022-07-29] MEDS: CALCIUM ACETATE 667 MG TAB PO SCH ×2 (09:07→19:49)
[2022-07-29] MEDS: CEPHALEXIN 500 MG CAP PO SCH ×4 (09:07→19:48)
[2022-07-29] MEDS: RIVAROXABAN 20 MG TAB PO SCH (09:07)
[2022-07-29] MEDS: METOPROLOL TARTRATE 25 MG TAB PO SCH (09:07)
--- NOTE | 2022-07-29 09:17 | P.CNNES ---
History of Present Illness Consult date: 07/28/22 Requesting physician: Waldo Parra Reason for Consult: Altered mental status History of Present Illness: Patient is a 77-year-old right-handed male came to the hospital by ambulance yesterday at 5:26 PM. As per EMS flow sheet, they arrived at the doctor's office the patient was sitting on the office bed. They were advised that patient was not acting appropriately, possibly altered. Patient was alert and oriented 4, breathing adequately with equal chest rise and fall, skin was pink warm and dry. No chest pain. Patient had bruising to his left side of the face that looked to be a couple days old. Patient mentioned that he fell at home 3 days ago but he veers a bicycle helmet when he is home so he avoids further injury. Patient not on any blood thinners. Patient was talking nonsense. Patient's vitals at the scene was blood pressure 127/70, pulse rate 75 respiration 18 saturation 100%. Patient tells me that he has been having hallucinations for the last 1 year. Patient states that a year ago in July 2021, one night, he had hallucinations that one lady was sitting with her puppy on the couch. She looked like a "witch" with pointy nose. Patient states that he told her to get out of the house. He opened the back door and that lady to the puppy with her and left. Next night he saw 11 people sitting on the couch. He pulled his gun on those 11 people. He called the police stating that he was holding 11 people on the gun, and they dispatched the police. Two lady police came over, and asked him to drop the gun. He believes that he called the police, although he never did. He states that he has seen the psychiatrist as well. He knew it was not real. Patient later mentioned that he has been having his hallucinations for last 2 months. Patient is not a very good historian. It appears patient was seen by psychiatrist on 08/06/2021 diagnosed with delirium superimposed on psychosis. He felt it was late onset psychosis, which may be the prodrome of dementia. 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 Recommended melatonin low dose. Patient denies any stroke symptoms at this time. Patient's blood test shows normal WBC, hemoglobin 10.9, platelets 257. PT/PTT normal, sodium 134 potassium 3.6, normal renal functions. AST is 134, ALT 83. UA is significant for large amount of blood, 2+ ketones. Urine drug screen negative, blood alcohol level negative. CT head revealed no acute intracranial process. Chest x-ray revealed no acute cardiopulmonary disease process. COPD changes. EKG shows electronic atrial pacemaker. 2-D echo from 08/11/2021 revealed normal left ventricular size, mild concentric LVH. EF is between 55- 60%. Left atrium is moderately dilated. Mild aortic stenosis present. Patient states that he has been prone to fall backwards recently. He states that the left leg does not picker and packer as well as compared to the right so he falls, trips easily. Patient's home medication includes Xarelto 20 mg daily, metoprolol 25 mg, levothyroxine 25 mg, Lasix 20 mg, calcium, Flomax. Patient denies any history of tobacco or alcohol use. Denies diabetes. Patient has atrial fibrillation, on Xarelto. 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 Patient states that he is , has 2 daughters, grownup, lives by himself. Patient states he has history of skin cancer 5 years ago that was removed from top of the left cardenas. The cancer kept on coming back. 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 He is complaining of legs are getting swollen when active. Review of Systems Constitutional: Denies chills, Denies fever Eyes: denies blurred vision, denies pain Ears: deny: decreased hearing, ear discharge Ears, nose, mouth and throat: Denies headache, Denies sore throat Cardiovascular: Denies chest pain, Denies shortness of breath Respiratory: Denies cough Gastrointestinal: Denies abdominal pain, Denies diarrhea, Denies nausea, Denies vomiting Musculoskeletal: Reports frequent falls, Reports myalgias Integumentary: Reports color changes, Reports darkening of skin, Reports lesions, Reports wounds Neurological: Reports as per HPI Psychiatric: Denies anxiety, Denies depression Endocrine: Denies fatigue, Denies weight change Hematologic/Lymphatic: Reports easy bruising Past Medical History Past Medical History: Atrial Fibrillation, Cancer, GERD/Reflux, Hearing Disorder / Deafness, Hypertension, Mitral Valve Prolapse (MVP) Additional Past Medical History / Comment(s): PACEMAKER 2018., MVP WITH HEART MURMUR. , HX ORAL CA. 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 ,hx broken back and rt clavicle, "Thyroid condition". History of Any Multi-Drug Resistant Organisms: None Reported Past Surgical History: Appendectomy, Cholecystectomy, Heart Catheterization, Hernia Repair, Orthopedic Surgery, Pacemaker Additional Past Surgical History / Comment(s): ORAL SURG FOR CA. , EGD., RT SHOULDER SX., LITHOTRIPSY. asha fundoplication. HEART CATH 08/10/18,. PACEMAKER [employer]TR[employer]IC 2017 Past Anesthesia/Blood Transfusion Reactions: No Reported Reaction Additional Past Anesthesia/Blood Transfusion Reaction / Comment(s): Patient denies having had blood transfusions in the past. Type of Cardiac Device: Permanent Pacemaker Device Placement Date:: 2017 Past Psychological History: No Psychological Hx Reported Smoking Status: Never smoker Past Alcohol Use History: None Reported Past Drug Use History: None Reported - Past Family History Mother History Unknown: Yes Family Medical History: No Reported History Additional Family Medical History / Comment(s): Patient denies knowing medical history of family Medications and Allergies Home Medications Medication Instructions Recorded Confirmed Type Rivaroxaban [Xarelto] 20 mg PO DAILY 03/20/19 07/28/22 History Levothyroxine Sodium [Synthroid] 25 mcg PO DAILY 08/07/20 07/28/22 History Metoprolol Tartrate [Lopressor] 25 mg PO DAILY 08/07/20 07/28/22 History Furosemide [Lasix] 20 mg PO DAILY #30 tab 08/17/21 07/28/22 Rx Calcium Acetate [PhosLo] 667 mg PO BID 09/11/21 07/28/22 History Furosemide [Lasix] 40 mg PO DAILY 07/28/22 07/28/22 History Tamsulosin [Flomax] 0.4 mg PO HS 07/28/22 07/28/22 History Allergies Allergy/AdvReac Type Severity Reaction Status Date / Time No Known Allergies Allergy Verified 07/28/22 10:47 Physical Examination - Vital Signs Vital Signs: Vital Signs Pulse Resp BP Pulse Ox 07/28/22 16:10 88 15 105/56 95 07/28/22 14:20 92 16 92/57 93 L 07/28/22 11:00 84 94/44 97 07/28/22 08:30 82 18 90/47 95 07/28/22 07:42 65 20 93/52 95 07/28/22 04:09 80 16 82/58 94 L 07/28/22 02:05 63 12 127/53 95 07/27/22 23:29 78 12 97/56 100 07/27/22 23:02 75 16 105/62 100 07/27/22 22:22 91 18 111/68 100 07/27/22 21:19 77 18 123/83 100 07/27/22 20:04 63 18 117/71 93 L Intake and Output 07/28/22 07/28/22 07/28/22 06:59 14:59 22:59 Intake Total 118 Balance 118 Intake: Oral 118 Other: # Bowel Movements 1 Weight 68.039 kg Patient is an elderly male, very pleasant, in no acute distress. Patient is alert awake oriented to time place and person. Patient knows it is July and the year is , although he thinks it's either the eighth of the ninth. He knows he is in [facility] in [facility], name of the current president. Speech and language functions are normal. Patient can name and repeat very well. No aphasia or dysarthria. Attention, concentration and fund of knowledge is adequate. On cranial nerve examination, pupils are equal, round and reacting to light, visual clark are full on confrontation, with no neglect on double simultaneous stimulation. Extraocular muscles are intact with no nystagmus. Face is symmetric, tongue protrudes to the midline. Palatal elevation and sensation normal, hearing is decreased and shoulder shrug normal, facial sensation normal. On muscle strength testing, there is no pronator drift and the strength is normal in arms and legs distally and proximally. Deep tendon reflexes are symmetric 1 at the biceps, trace brachioradialis, 2 at the knees and plantars downgoing bilaterally. Sensory to touch is equal with no neglect on double simultaneous stimulation. Cerebellar function showed no ataxia for [id number] testing. No dysdiadochokinesia. No ataxia for [id number] testing on either side. Tone and bulk of muscles normal. Gait deferred.. On general examination, there is no carotid bruit or murmur, S1-S2 audible. Chest is clear on consultation. Abdomen is soft nontender. No organomegaly, bowel sounds present. Patient has multiple areas of bruising, scabs, cuts on his extremities. There is a big laceration over the right lateral forearm dorsally, which he believes was from injury while cutting the tree. Also has bruise on the left forehead region. Patient has evidence of skin cancer in the left dorsum cardenas region with some sloughing of skin there. Results - Laboratory Findings CBC and BMP: 07/27/22 18:04 07/27/22 18:04 Abnormal Lab Findings: Abnormal Labs 07/27/22 07/27/22 07/28/22 18:04 18:04 04:16 RBC 3.33 L Hgb 10.9 L Hct 32.1 L Lymphocytes # 0.5 L Sodium 134 L BUN 32 H Total Bilirubin 2.1 H AST 134 H ALT 83 H Alkaline Phosphatase 130 H Total Protein 6.0 L Urine Protein Trace H Urine Ketones 2+ H Urine Blood Large H Urine RBC 154 H Assessment and Plan Assessment: * Hallucinations, probably due to delirium. * Multiple bruises, scabs on the extremities, with laceration right forearm. * Skin cancer left anterior cardenas region. * History of atrial fibrillation, on Xarelto. * History of cancer of tongue * History of skin cancer * Pacemaker Plan: * Patient's mentation appears normal. He has long-standing history of hallucinations. Await psychiatric consultation. 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 * Patient may benefit from polysomnogram to rule out REM behavior disorder. * Continue Xarelto for stroke prevention related to A. fib. * Check B12, folate, MMA, hemoglobin A1c, RPR. * TSH is elevated 5.10 and normal free T4 1.53. Will defer to IM * We will obtain collateral history from patient's family as well. * Neurology will follow. Thank you for the consult.
--- NOTE | 2022-07-29 11:27 | CT ---
EXAMINATION TYPE: CT abdomen pelvis w con CT DLP: 834.1 mGycm, Automated exposure control for dose reduction was used. DATE OF EXAM: 07/29/2022 10:42 AM COMPARISON: CT abdomen pelvis most recent from 06/04/2022 CLINICAL INDICATION:Male, 77 years old with history of Elev. LFTs; Elevated LFT's. TECHNIQUE: Axial CT of the abdomen and pelvis. Sagittal and coronal reformats were created on a [employer] workstation. Contrast used:100 mL of Isovue 300 with IV Contrast, Oral contrast used: with Oral Contrast FINDINGS: LOWER CHEST: Cardiac conduction leads terminating in the right and atrium and right ventricle. Small bilateral pleural effusions. Left lower lobe 7 mm pulmonary nodule ABDOMEN LIVER: No abnormal enhancement of the liver. No ductal dilation. GALLBLADDER AND BILE DUCTS: Gallbladder is not visualized and may be surgically absent. No ductal dil ation. PANCREAS: Unremarkable. SPLEEN: Unremarkable. ADRENAL GLANDS: Unremarkable. KIDNEYS AND URETERS: No evidence of hydronephrosis or renal calculus. The ureters are unremarkable. PELVIS BLADDER: Unremarkable REPRODUCTIVE: Prostate is enlarged in size measuring 4.5 cm in transverse dimension. Vasectomy clips are present. ABDOMEN & PELVIS STOMACH AND BOWEL: No evidence of bowel obstruction. Moderate stool burden throughout the colon. PERITONEUM/RETROPERITONEUM: No evidence of pneumoperitoneum or free fluid. VASCULATURE: Mild atherosclerotic calcifications are present throughout the abdominal aorta and its b ranches. No evidence of aortic aneurysm. MUSCULOSKELETAL: No acute osseous abnormalities. Severe disc degeneration changes are present through out the thoracolumbar spine. LYMPH NODES: No gross evidence for lymphadenopathy. SOFT TISSUE/ABDOMINAL WALL: Unremarkable IMPRESSION: 1. Relatively homogenous appearing liver without evidence for ductal dilation or mass. 2. Stable left lower lobe 7 mm pulmonary nodule dating back to at least 2019 3. Cardiomegaly with trace bilateral pleural effusions. 4. Severe multilevel disc degeneration changes at the spine scoliosis and osteophyte formation.
--- NOTE | 2022-07-29 12:42 | P.CN ---
Psychiatric Consult - . Consult date: 07/29/22 Consult:: 07/29/22 12:42 IDENTIFYING DATA: This patient is a 77-year-old , retired, male with significant history of age of fibrillation, heart catheter with pacemaker, and skin cancer presents to the hospital on 07/27/2022 for evaluation of multiple falls. HISTORY OF PRESENT ILLNESS: The patient presented to the hospital on 07/27/2022 for evaluation for multiple falls and altered mental status. The patient was sent over from his care physician's clinic. Neurology was consulted who in turn consulted psychiatry for the patient's complaint of long-standing hallucinations. The patient did endorse a significant history of psychiatric symptoms including visual hallucinations to the neurologist. He reiterated the history to this provider. He states that approximately year ago, he experienced visual hallucinations of an old lady sitting with her puppy on the couch. She apparently looked like a witch. Furthermore, the patient reports that he also saw people sitting on his couch. A pulling a gun on them. He contacted police. He reports that there was handled and he was brought to the hospital for evaluation. He was seen by the psychiatrist last year and was diagnosed with delirium superimposed on psychosis. The final diagnosis was psychosis not otherwise specified with a rule out for parasomnia. The patient denies any current auditory or visual hallucinations. He states that he last experienced visual hallucinations approximately 4 months ago but he is able to tell that they are hallucinations. He does express concern about further hallucinations. He denies any paranoia or other delusions. He reports no suicidal or homicidal ideation, intention, and/or plan. He reports no prior attempts at suicide. The patient does state that he has ongoing stressors in regards to his r elationship with his neighbor. However, the patient denies any intention to do his neighbor any harm or to harm himself. The patient reports that his visual hallucinations occur primarily at bedtime when he is either waking up or sleeping. He denies any auditory hallucinations along with his visual hallucinations. He is not endorsing any significant paranoia or other delusions. He was presented with the option to start antipsychotic medication however expresses no desire to. He expresses that he is concerned about side effects of medications including sedation. With increased risk for falls as well as cardiac side effects from antipsychotics. PAST PSYCHIATRIC HISTORY: Patient has a history of psychosis. Patient denies being on any psychiatric medications. Patient denies any previous psychiatric hospitalizations. Patient denies any psychiatric outpatient follow-up. Patient denies any history of suicide attempts in the past. PAST MEDICAL HISTORY: Past Medical History: Atrial Fibrillation, Cancer, GERD/Reflux, Hearing Disorder / Deafness, Hypertension, Mitral Valve Prolapse (MVP) Additional Past Medical History / Comment(s): PACEMAKER 2018., MVP WITH HEART MURMUR. , HX ORAL CA. 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 ,hx broken back and rt clavicle, "Thyroid condition". History of Any Multi-Drug Resistant Organisms: None Reported Past Surgical History: Appendectomy, Cholecystectomy, Heart Catheterization, Hernia Repair, Orthopedic Surgery, Pacemaker Additional Past Surgical History / Comment(s): ORAL SURG FOR CA. , EGD., RT SHOULDER SX., LITHOTRIPSY. asha fundoplication. HEART CATH 08/10/18,. PACEMAKER [employer] 2017 Past Anesthesia/Blood Transfusion Reactions: No Reported Reaction Additional Past Anesthesia/Blood Transfusion Reaction / Comment(s): Patient denies having had blood transfusions in the past. Type of Cardiac Device: Permanent Pacemaker Device Placement Date:: 2017 Past Psychological History: No Psychological Hx Reported Smoking Status: Never smoker Past Alcohol Use History: None Reported Past Drug Use History: None Reported ALLERGIES: NO KNOWN DRUG ALLERGIES CHEMICAL DEPENDENCY HISTORY: The patient denies any tobacco, alcohol, marijuana, or illicit drug use. FAMILY PSYCHIATRIC/SUBSTANCE USE HISTORY: No reported family psychiatric history. 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 He is reported as . He has 2 daughters. He currently lives by himself. He reports that he is [employer] and attends [employer]. He denies any legal issues or concerns.. MENTAL STATUS EXAM: General Appearance: Patient appears to be stated age is alert, pleasant, and cooperative. Patient appears to have fair hygiene and grooming wearing hospital gown with fair eye contact. Multiple skin lesions and a noticeable laceration over his right forearm. Behavior: Patient is calmly lying in bed without any agitated behavior. Eye contact is appropriate. Speech: Patient's speech is fluent and nonpressured. Mood/Affect: Patient reports their mood is "doing all right", affect is congruent and euthymic Suicidality/Homicidality: Patient reports no suicidal or homicidal ideation, intention, and/or plan. Perceptions: Patient denies any visual hallucinations and denies any auditory hallucinations Though content/process: There is no evidence of any delusional thought content and thought process is linear and goal-directed. Memory and concentration: AOX2 (the patient was only incorrect in regards to month), grossly intact for the purposes of this session. Can spell "WORLD" backwards Judgment and insight: Fair Vital Signs Temp 98.3 F 07/29/22 08:30 Pulse 68 07/29/22 08:30 Resp 18 07/29/22 08:30 BP 94/51 07/29/22 08:30 Pulse Ox 92 L 07/29/22 08:30 FiO2 Intake & Output 07/28/22 07/29/22 07/29/22 18:59 06:59 18:59 Intake Total 118 240 Output Total 1615 Balance 118 -1615 240 Weight 68.039 kg Intake: Oral 118 240 Output: Urine 1615 Other: Voiding Method External Catheter # Voids 1 # Bowel Movements 1 Laboratory Results WBC 5.5 k/uL (3.8-10.6) 07/27/22 18:04 RBC 3.33 m/uL (4.30-5.90) L 07/27/22 18:04 Hgb 10.9 gm/dL (13.0-17.5) L 07/27/22 18:04 Hct 32.1 % (39.0-53.0) L 07/27/22 18:04 MCV 96.4 fL (80.0-100.0) 07/27/22 18:04 MCH 32.8 pg (25.0-35.0) 07/27/22 18:04 MCHC 34.0 g/dL (31.0-37.0) 07/27/22 18:04 RDW 13.5 % (11.5-15.5) 07/27/22 18:04 Plt Count 257 k/uL (150-450) 07/27/22 18:04 MPV 7.5 07/27/22 18:04 Neutrophils % 78 % 07/27/22 18:04 Lymphocytes % 10 % 07/27/22 18:04 Monocytes % 8 % 07/27/22 18:04 Eosinophils % 1 % 07/27/22 18:04 Basophils % 0 % 07/27/22 18:04 Neutrophils # 4.3 k/uL (1.3-7.7) 07/27/22 18:04 Lymphocytes # 0.5 k/uL (1.0-4.8) L 07/27/22 18:04 Monocytes # 0.5 k/uL (0-1.0) 07/27/22 18:04 Eosinophils # 0.0 k/uL (0-0.7) 07/27/22 18:04 Basophils # 0.0 k/uL (0-0.2) 07/27/22 18:04 PT 10.7 sec (9.0-12.0) 07/27/22 18:04 INR 1.0 (<1.2) 07/27/22 18:04 APTT 26.5 sec (22.0-30.0) 07/27/22 18:04 Sodium 134 mmol/L (137-145) L 07/27/22 18:04 Potassium 3.6 mmol/L (3.5-5.1) 07/27/22 18:04 Chloride 102 mmol/L (98-107) 07/27/22 18:04 Carbon Dioxide 26 mmol/L (22-30) 07/27/22 18:04 Anion Gap 6 mmol/L 07/27/22 18:04 BUN 32 mg/dL (9-20) H 07/27/22 18:04 Creatinine 0.81 mg/dL (0.66-1.25) 07/27/22 18:04 Est GFR (CKD-EPI)AfAm >90 (>60 ml/min/1.73 sqM) 07/27/22 18:04 Est GFR (CKD-EPI)NonAf 87 (>60 ml/min/1.73 sqM) 07/27/22 18:04 Glucose 96 mg/dL (74-99) 07/27/22 18:04 Calcium 8.6 mg/dL (8.4-10.2) 07/27/22 18:04 Total Bilirubin 2.1 mg/dL (0.2-1.3) H 07/27/22 18:04 AST 134 U/L (17-59) H 07/27/22 18:04 ALT 83 U/L (4-49) H 07/27/22 18:04 Alkaline Phosphatase 130 U/L (38-126) H 07/27/22 18:04 Troponin I 0.012 ng/mL (0.000-0.034) 07/27/22 18:04 Total Protein 6.0 g/dL (6.3-8.2) L 07/27/22 18:04 Albumin 3.6 g/dL (3.5-5.0) 07/27/22 18:04 TSH 5.100 mIU/L (0.465-4.680) H 07/27/22 18:04 Free T4 1.53 ng/dL (0.78-2.19) 07/27/22 18:04 Urine Color Yellow 07/28/22 04:16 Urine Appearance Clear (Clear) 07/28/22 04:16 Urine pH 5.5 (5.0-8.0) 07/28/22 04:16 Ur Specific [place] 1.026 (1.001-1.035) 07/28/22 04:16 Urine Protein Trace (Negative) H 07/28/22 04:16 Urine Glucose (UA) Negative (Negative) 07/28/22 04:16 Urine Ketones 2+ (Negative) H 07/28/22 04:16 Urine Blood Large (Negative) H 07/28/22 04:16 Urine Nitrite Negative (Negative) 07/28/22 04:16 Urine Bilirubin Negative (Negative) 07/28/22 04:16 Urine Urobilinogen <2.0 mg/dL (<2.0) 07/28/22 04:16 Ur Leukocyte Esterase Negative (Negative) 07/28/22 04:16 Urine RBC 154 /hpf (0-5) H 07/28/22 04:16 Urine WBC 3 /hpf (0-5) 07/28/22 04:16 Ur Squamous Epith Cells <1 /hpf (0-4) 07/28/22 04:16 Urine Opiates Screen Not Detected (NotDetected) 07/28/22 04:16 Ur Oxycodone Screen Not Detected (NotDetected) 07/28/22 04:16 Urine Methadone Screen Not Detected (NotDetected) 07/28/22 04:16 Ur Propoxyphene Screen Not Detected (NotDetected) 07/28/22 04:16 Ur Barbiturates Screen Not Detected (NotDetected) 07/28/22 04:16 U Tricyclic Antidepress Not Detected (NotDetected) 07/28/22 04:16 Ur Phencyclidine Scrn Not Detected (NotDetected) 07/28/22 04:16 Ur Amphetamines Screen Not Detected (NotDetected) 07/28/22 04:16 U Methamphetamines Scrn Not Detected (NotDetected) 07/28/22 04:16 U Benzodiazepines Scrn Not Detected (NotDetected) 07/28/22 04:16 Urine Cocaine Screen Not Detected (NotDetected) 07/28/22 04:16 U Marijuana (THC) Screen Not Detected (NotDetected) 07/28/22 04:16 Serum Alcohol <10 mg/dL 07/27/22 18:04 IMPRESSIONS: Visual hallucinations - appeared to be hypnopompic or hypnagogic in nature. Also primarily isolated to just visual hallucinations with no other perceptual a bnormalities. Can be related to delirium versus a parasomnia such as REM behavioral sleep disorder. Frequent falls History of skin cancer Pacemaker History of atrial fibrillation PLAN: -At this time patient DOES NOT meet criteria for inpatient psychiatric admission. The patient is currently not endorsing any suicidal or homicidal ideation, intention, and/or plan. He is not presenting with imminent risk of harm to self or others. He is currently not endorsing any psychotic symptoms. 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 However, the patient is not interested in starting of his psychotic medications due to the side effect profile including increased risk for falls, increased risk for cardiac events, and sedation. -Start melatonin 5 mg at bedtime for insomnia and concern for REM Behavioral sleep disorder. -Discussed safe usage of his firearm and safe storage. Recommended that the patient does not utilize his firearm when he is experiencing hallucinations. -Agree with B12, folate, methylmalonic acid, and syphilis testing. -Patient may benefit from a sleep study in the outpatient setting. -Psychiatry will sign off at this point, please contact with any questions. 07/29/22 12:42
[2022-07-29 16:13] LABS: Chol/HDL Ratio 1.64 Ratio; LDL Cholesterol,Calculated 24.5 mg/dL (0.0-131.0); VLDL Calculation 16.42 mg/dL (5.00-40.00)
[2022-07-29] MEDS: GABAPENTIN 100 MG CAP PO SCH (19:48)
[2022-07-29] MEDS: TAMSULOSIN 0.4 MG CAP.ER.24H PO SCH (19:49)
[2022-07-29] MEDS: MELATONIN 5 MG TABLET PO SCH (19:49)
--- NOTE | 2022-07-29 22:42 | PN ---
PROGRESS NOTE DATE OF SERVICE: 07/29/2022 CHIEF COMPLAINT: Delirium, dehydration, malnutrition, and acute mental status changes. HISTORY OF PRESENT ILLNESS: This gentleman is doing a little bit better. His numbers are improving. He is more awake and alert. PHYSICAL EXAMINATION: CHEST: Clear. CARDIAC: Normal. ABDOMEN: Soft and nontender. EXTREMITIES: Have almost completely gone back to normal with very little or no edema. Exam is otherwise normal. IMPRESSION: 1. Delirium. 2. Dehydration. 3. History of chronic abdominal pain. PLAN: Continue rehydration and increasing activity and probably discharge back home, although this has started to become an unsafe environment for this patient. MMODL / IJN: [id number] /
[2022-07-30] MEDS: SODIUM CHLORIDE 0.9% 1,000 ML IV SCH ×2 (05:31→15:43)
[2022-07-30] MEDS: LEVOTHYROXINE 25 MCG TAB PO SCH (06:32)
[2022-07-30] MEDS: CEPHALEXIN 500 MG CAP PO SCH ×4 (08:05→21:16)
[2022-07-30] MEDS: RIVAROXABAN 20 MG TAB PO SCH (08:05)
[2022-07-30] MEDS: GABAPENTIN 100 MG CAP PO SCH ×2 (08:05→21:16)
[2022-07-30] MEDS: CALCIUM ACETATE 667 MG TAB PO SCH ×2 (08:05→21:15)
[2022-07-30] MEDS: METOPROLOL TARTRATE 25 MG TAB PO SCH (08:05)
--- NOTE | 2022-07-30 11:42 | P.PN ---
Subjective Progress Note Date: 07/29/22 Patient was seen for a follow-up. Patient is laying comfortably in the bed. Patient tells me that he is not having any more hallucinations. The hallucinations mentioned in the consultation note, occurred almost a year ago. He has problems with the back. Patient states that his left leg does not work as well for the past 1 year. Denies any symptoms with upper extremities. Patient complains of pain underneath the rib cage like a belt. He does have history of compression fracture T12 vertebra. Objective - Vital Signs Vital signs: Vital Signs Temp 97.7 F 07/29/22 13:51 Pulse 67 07/29/22 13:51 Resp 17 07/29/22 13:51 BP 111/60 07/29/22 13:51 Pulse Ox 95 07/29/22 13:51 FiO2 Intake & Output 07/28/22 07/29/22 07/29/22 18:59 06:59 18:59 Intake Total 118 240 Output Total 1615 Balance 118 -1615 240 Weight 68.039 kg Intake: Oral 118 240 Output: Urine 1615 Other: Voiding Method External Catheter External Catheter # Voids 1 # Bowel Movements 1 - Exam Patient's mental status, speech and language functions are normal. Cranial nerves are normal. Muscle strength is normal, except left shoulder which is 4-, likely due to arthritic problem of the shoulder. Deep tendon reflexes are symmetric, 0 at the biceps, 0 brachioradialis, 1+ at the knees, 0 ankles and plantars are flat. Sensations are equal with no neglect. No ataxia in the upper limbs. - Labs CBC & Chem 7: 07/27/22 18:04 07/27/22 18:04 Labs: Abnormal Lab Results - Last 24 Hours (Table) 07/27/22 Range/Units 18:04 TSH 5.100 H (0.465-4.680) mIU/L Assessment and Plan Assessment: * Frequent falls, likely related to cervical, lumbar spondylosis. History of T12 compression fracture, stable. * Hallucinations, probably due to delirium, resolved. * Multiple bruises, scabs on the extremities, with laceration right forearm. * Skin cancer left anterior cardenas region. * History of atrial fibrillation, on Xarelto. * History of cancer of tongue * History of skin cancer * Pacemaker Plan: * Patient's mentation is normal. His hallucinations occurred while ago, but none lately. Psychiatry input appreciated. Patient declining medication. Agree with melatonin. * Patient may benefit from polysomnogram to rule out REM behavior disorder. * Patient also has gait imbalance, frequent falls. Blood tests pending. Patient has history of T12 compression fracture, which can affect his posture. He also has significant spondylosis of the cervical thoracic and lumbar spines, which probably are affecting his balance. Patient cannot have MRI because of pacemaker. CT of abdomen and pelvis reveal severe multilevel disc degeneration changes at the spine scoliosis and osteophyte formation. * May consider orthopedic spine consultation. * Continue Xarelto for stroke prevention related to A. fib. * B12 1527, folate 14.3, MMA pending, hemoglobin A1c 5.4, RPR nonreactive. * TSH is elevated 5.10 and normal free T4 1.53. Will defer to IM * PT OT, evaluate gait.
--- NOTE | 2022-07-30 15:56 | P.CNOR ---
History of Present Illness - [facility] Consult date: 07/30/22 Consult reason: low back pain, other (Frequent falls) History of present illness: Patient is a 77-year-old male who was transferred from his primary care office directly to the hospital for further evaluation due to altered mental status. Patient was admitted to the cardiac stepdown unit for further evaluation, he is being followed by both internal medicine, psychiatric and neurology. Our orthopedic team was consulted due to low back pain, frequent falls and history of an old T12 compression fracture. Patient was evaluated today at bedside, he is resting comfortably in his hospital chair, he is currently in the cardiac stepdown unit. Patient is AO 4 today at bedside, he does not demonstrate any acute confusion on exam. He answers on my questions adequately. Patient denies any previous surgery to the cervical, thoracic or lumbar spine. Patient states that he does live alone, he cuts were daily he does house. He states that he's noticed frequent falls over the last 2-3 months. Patient does take a blood thinner daily, he does have a history of A. fib. On reviewing patient's chart, patient was seen by Dr. Cardona from [facility] in 2019 while in the hospital. At that time patient was diagnosed with a right clavicle fracture and a age-indeterminate compression fracture at T12. A TLSO brace was prescribed, patient never underwent any surgical intervention. Conservative management was also done for the right clavicle. When asking about patient's falls, he describes them occurring when he turns his head in attempts to pivot quickly from either [id number]. He denies any noticeable weakness in the bilateral lower extremities or bilateral upper extremity is. He denies any numbness or tingling to bilateral upper or lower extremities at this time. He denies any loss of function with regards to bowel or bladder. He denies any perineal numbness or tingling or genital numbness or tingling at this time. Patient states that the left shoulder has given him problems for many years, he believes it's arthritically related. He said never had any evaluation or surger y by orthopedic surgeon. Review of Systems Constitutional: Reports as per HPI Past Medical History Past Medical History: Atrial Fibrillation, Cancer, GERD/Reflux, Hearing Disorder / Deafness, Hypertension, Mitral Valve Prolapse (MVP) Additional Past Medical History / Comment(s): PACEMAKER 2018., MVP WITH HEART MURMUR. , HX ORAL CA. 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 ,hx broken back and rt clavicle, "Thyroid condition". History of Any Multi-Drug Resistant Organisms: None Reported Past Surgical History: Appendectomy, Cholecystectomy, Heart Catheterization, Hernia Repair, Orthopedic Surgery, Pacemaker Additional Past Surgical History / Comment(s): ORAL SURG FOR CA. , EGD., RT SHOULDER SX., LITHOTRIPSY. asha fundoplication. HEART CATH 08/10/18,. PACEMAKER [employer] 2017 Past Anesthesia/Blood Transfusion Reactions: No Reported Reaction Additional Past Anesthesia/Blood Transfusion Reaction / Comm: Patient denies having had blood transfusions in the past. Type of Cardiac Device: Permanent Pacemaker Device Placement Date:: 2017 Past Psychological History: No Psychological Hx Reported Smoking Status: Never smoker Past Alcohol Use History: None Reported Past Drug Use History: None Reported - Past Family History Mother History Unknown: Yes Family Medical History: No Reported History Additional Family Medical History / Comment(s): Patient denies knowing medical history of family Medications and Allergies Home Medications Medication Instructions Recorded Confirmed Type Rivaroxaban [Xarelto] 20 mg PO DAILY 03/20/19 07/28/22 History Levothyroxine Sodium [Synthroid] 25 mcg PO DAILY 08/07/20 07/28/22 History Metoprolol Tartrate [Lopressor] 25 mg PO DAILY 08/07/20 07/28/22 History Furosemide [Lasix] 20 mg PO DAILY #30 tab 08/17/21 07/28/22 Rx Calcium Acetate [PhosLo] 667 mg PO BID 09/11/21 07/28/22 History Furosemide [Lasix] 40 mg PO DAILY 07/28/22 07/28/22 History Tamsulosin [Flomax] 0.4 mg PO HS 07/28/22 07/28/22 History Allergies Allergy/AdvReac Type Severity Reaction Status Date / Time No Known Allergies Allergy Verified 07/28/22 10:47 Physical Examination Gen: AOx3, NAD VSS stable at this time Integument: Multiple bruises, scabs and skin lesions to the bilateral upper and lower extremities. There is a rather deep wound to the dorsal aspect of the right upp er extremity. There is also a notable abrasion to the anterior left cardenas. Palpation: Patient demonstrates no significant tenderness with palpation to the paraspinal and midline of the cervical spine. He does have some generalized tenderness throughout the paraspinal and midline region of the thoracic and lumbar spine ROM: Full range of motion in all major muscle groups of the bilateral upper and lower extremities, no focal deficits appreciated. 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 4-5 strength appreciated in the left upper extremity with shoulder elevation, shoulder abduction 5-5 strength appreciated in the right upper extremity with shoulder elevation and shoulder abduction 4+/5 strength appreciated in the bilateral lower extremities with hip flexion, knee extension, knee flexion, plantar flexion, dorsiflexion, EHL, FHL Reflexes: 2/4 in all UE and LE Negative Reagan's bilaterally, negative Babinski bilaterally, negative clonus bilaterally Special Test: Logroll maneuver of the bilateral lower extremities reproduces no pain Results - Labs Labs: Abnormal Lab Results - Last 24 Hours (Table) 07/29/22 Range/Units 10:49 HDL Cholesterol 64.10 H (40.00-60.00) mg/dL Vitamin B12 1527.0 H (200.0-944.0) pg/mL H & H 07/27/22 Range/Units 18:04 Hgb 10.9 L (13.0-17.5) gm/dL Hct 32.1 L (39.0-53.0) % Coagulation 07/27/22 Range/Units 18:04 INR 1.0 (<1.2) Result Diagrams: 07/27/22 18:04 07/27/22 18:04 Assessment and Plan Assessment: Multiple wounds bilateral upper and lower extremities Low back pain History of frequent falls Chronic T12 compression fracture Chronic T8 compression fracture Chronic L2 compression fracture Multiple medical comorbidities Plan: I was able to discuss the case with my attending Dr. Alcala, this including physical exam findings and Gen. medical history. Patient is demonstrating no acute neuropathic signs at this time. No emergent orthopedic surgical intervention is recommended at this time When reviewing patient's imaging history, he's had computed tomography scan of the brain/cervical spine in August 2021, this did demonstrate multiple levels of cervical spondylosis. Computed tomography scan that was done in March 2020 demonstrated the old T12 compression fracture with new T8 compression fracture. Computed tomography scan of the lumbar spine that was done in March 2019 d emonstrated the chronic L2 compression fracture. Images also demonstrated multilevel lumbar spondylosis. With the patient's history of multiple compression fractures throughout the thoracic and lumbar spine, new CT scans of the thoracic and lumbar spine have been ordered. Will await results review with my attending physician. Weight-bear as tolerated, recommend use of a walker at this time Pain control, would recommend use of [id number] Tylenol Wound care has been consulted due to the multiple skin lesions/abrasions of the bilateral upper and lower extremities Further recommendations to follow Time with Patient: Less than 30
--- NOTE | 2022-07-30 16:59 | CDI ---
Documentation Clarification Form Date: 07/30/2022 4:40:57 PM From: Joyce Rucker RN CCDS Phone: [phone] Admit Date: 07/27/2022 11:08:00 PM Patient Name: Roland Martino Visit Number: [id number] Discharge Date: ATTENTION: The Clinical Documentation Specialists (CDI) and [facility] Coding Staff appreciate your assistance in clarifying documentation. Please respond to the clarification below the line at the bottom and electronically sign. The CDI & [facility] Coding staff will review the response and follow-up if needed. Please note: Queries are made part of the Legal Health Record. If you have any questions, please contact the author of this message via ITS. Dr. Ron Rizvi Your patient is receiving the following: Keflex, 07/28. Please clarify what condition/diagnosis is being treated. History/Risk Factors: 77-year-old male presents to the ED with legs being edematous and heavier than he is used to. Medical History: Atrial Fibrillation, Cancer, HTN and GERD. 07/27, ED, Note. Clinical indicators: ED Note, 07/27: Wound infection. Patient also will have antibiotic coverage for some mild cellulitis/ wound infection of the lower extremity. Integumentary comment in Nursing Physical Assessment, 07/28: Skin tears and abrasions many are scabbed over and healed, while there are others that are weeping and have clear drainage. Treatment: 07/28 Keflex 500mg PO QID. What diagnosis are you treating with Keflex? [ ] Wound infection of the lower extremity [ ] No additional diagnosis [ ] Other, please specify [ ] [place] to determine [place] [facility] [place] Rizvi Wound infection of the lower extremity (Template Last Reviewed: July 2020) MTDD
--- NOTE | 2022-07-30 17:12 | CDI ---
Documentation Clarification Form Date: 07/30/2022 4:59:51 PM From: Joyce Rucker RN CCDS Phone: [phone] Admit Date: 07/27/2022 11:08:00 PM Patient Name: Roland Martino Visit Number: [id number] Discharge Date: ATTENTION: The Clinical Documentation Specialists (CDI) and [facility] Coding Staff appreciate your assistance in clarifying documentation. Please respond to the clarification below the line at the bottom and electronically sign. The CDI & [facility] Coding staff will review the response and follow-up if needed. Please note: Queries are made part of the Legal Health Record. If you have any questions, please contact the author of this message via ITS. Dr. Ron Rizvi Your patient has the documented symptom of Altered Mental Status 07/29, Medicine note. Additional clarification regarding the etiology/cause of this symptom is requested. History/Risk Factors: 77-year-old male presents to the ED with legs being edematous and heavier than he is used to and Altered mental status. Medical History: Atrial Fibrillation, Cancer, HTN and GERD. 07/27, ED, Note. Clinical Indicators: Neurology consult, 07/28: He has long standing history of hallucinations. Await psychiatric consultation. 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 Psychology note, 07/28: Can be related to delirium versus a parasomnia such as REM behavioral sleep disorder. Labs:07/27 Lymphocytes 0.5; NA 134; BUN 32 Total bilirubin 2.1; AST 134; ALT 83; Alk Phosphatase 130; total Protein 6.0; TSH 5.100; Vitamin B12 1527 CT Brain, 07/27:No acute intracranial process. Treatment: 07/29 Neurontin PO; 07/28 Keflex PO; 07/28 Lopressor PO and 07/29 Melatonin PO Please clarify the etiology of the symptom of Altered Mental Status: [ ] Metabolic Encephalopathy due to please insert diagnosis [ ] Parasomnia such as REM behavioral sleep disorder. [ ] Other condition (please specify) [ ] Unable to determine [place] [facility] [place] Rizvi Parasomnia such as REM behavioral sleep disorder (Template Last Revised: July 2020) MTDD
--- NOTE | 2022-07-30 18:10 | CT ---
EXAMINATION TYPE: CT thor lumbar spine wo con CT DLP: 966.2 mGycm, Automated exposure control for dose reduction was used. DATE OF EXAM: 07/30/2022 5:25 PM CLINICAL INDICATION:Male, 77 years old with history of frequent falls, history of compression fractur es; frequent falls, history of compression fractures COMPARISON: CT 07/29/2022, MRI 12/27/2016, CT 03/20/2019. TECHNIQUE: Axial images of the thoracic and lumbar spine were obtained without contrast. Coronal and sagittal reformats were performed. CT Contrast: Contrast used: none. Oral contrast used: none. FINDINGS: There is diffuse osseous demineralization of the spine. Multilevel disc degeneration changes througho ut the thoracic spine with S-shaped scoliosis of the spine. Thought to be secondary to compression fr acture of at least 70% height loss of T8 and compression fracture T12 with at least 50% height loss a t additionally L2 also demonstrates at least 50% height loss predominantly in the right aspect. There is multilevel facet joint arthropathy throughout the visualized spine. The spinous processes in the lumbar spine closely approximating each other. No definitive evidence for acute compression fracture. Age-indeterminate left transverse process fracture of L1, L2, L3 and L4. Acute right rib 10 posterio rly fracture. Airspace opacities predominantly in the right upper lobe are present. Multiple remote left-sided rib fractures are present with callus formation. Trace bilateral pleural effusions. Nonobstructing left r enal calculus as seen on prior CT. IMPRESSION: 1. Severe multilevel disc degeneration changes with multilevel compression deformities which appear more chronic. MRI would provide higher sensitivity for bony edema. 2. Acute/subacute left transverse process fracture of L1, L2, L3 and L4. 3. Acute right rib 10 posteriorly fracture. 4. Right upper lobe airspace opacities correlate for pneumonia. 5. Trace bilateral pleural effusions.
--- NOTE | 2022-07-30 19:18 | P.PN ---
Subjective Progress Note Date: 07/30/22 Patient was seen for a follow-up. Patient states that he is feeling better. He is sitting comfortably in the recliner. Patient states that he loses balance when he is walking backwards. When he is forward walking, he can balance with a walker. Patient's ex- and patient's daughter both were present today. They are from [facility]. They mentioned that patient was transferred to the hospital because of mental confusion noted at the primary physician's office. Patient tells me that he is not having any more hallucinations. The hallucinations mentioned in the consultation note, occurred almost a year ago. He has problems with the back. Patient states that his left leg does not work as well for the past 1 year. Denies any symptoms with upper extremities. Patient complains of pain underneath the rib cage like a belt. He does have history of compression fracture T12 vertebra. Objective - Vital Signs Vital signs: Vital Signs Temp 98.5 F 07/30/22 16:01 Pulse 65 07/30/22 16:01 Resp 18 07/30/22 16:01 BP 151/72 07/30/22 16:01 Pulse Ox 94 L 07/30/22 16:01 FiO2 Intake & Output 07/30/22 07/30/22 07/31/22 06:59 18:59 06:59 Intake Total 600 Output Total 900 1950 Balance -900 -1350 Intake: Intake, IV Titration 600 Amount Sodium Chloride 0.9% 1, 600 000 ml @ 75 mls/hr IV . [id number] [facility] Rx#:[id number] Output: Urine 900 1950 Other: Voiding Method External Catheter - Exam Patient's mental status, speech and language functions are normal. Cranial nerves are normal. Muscle strength is normal, except left shoulder which is 4-, likely due to arthritic problem of the shoulder. Deep tendon reflexes are symmetric, 0 at the biceps, 0 brachioradialis, 1+ at the knees, 0 ankles and plantars are flat. Sensations are equal with no neglect. No ataxia in the upper limbs. - Labs CBC & Chem 7: 07/27/22 18:04 07/27/22 18:04 Assessment and Plan Assessment: * Frequent falls, likely related to cervical, lumbar spondylosis. History of T12 compression fracture, stable. * Previous history of hallucinations, likely due to delirium, resolved. * Multiple bruises, scabs on the extremities, with laceration right forearm. * Skin cancer left anterior cardenas region. * History of atrial fibrillation, on Xarelto. * History of cancer of tongue * History of skin cancer * Pacemaker Plan: * Patient's mentation is normal. His hallucinations occurred while ago, but none lately. Psychiatry input appreciated. Patient declining medication. Agree with melatonin. * Patient may benefit from polysomnogram to rule out REM behavior disorder. * Patient also has gait imbalance, frequent falls. All blood workup normal as below. Patient has history of T12 compression fracture, which can affect his posture. He also has significant spondylosis of the cervical thoracic and lumbar spines, which probably are affecting his balance. Patient cannot have MRI because of pacemaker. CT of abdomen and pelvis reveal severe multilevel disc degeneration changes at the spine scoliosis and osteophyte formation. * Orthopedic spine consultation. * Continue Xarelto for stroke prevention related to A. fib. * B12 1527, folate 14.3, MMA pending, hemoglobin A1c 5.4, RPR nonreactive. * TSH is elevated 5.10 and normal free T4 1.53. Will defer to IM * Telemetry monitoring showing sinus rhythm. * PT OT, evaluate gait.
--- NOTE | 2022-07-30 20:51 | HP ---
HISTORY AND PHYSICAL CHIEF COMPLAINT: Delirium, frequent falling, ataxia, dehydration. HISTORY OF PRESENT ILLNESS: This is another admission for this 77-year-old white male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 He has a long-standing history of multiple areas of laceration, contusion, and edema in the lower extremities. 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 He has been in the hospital here in the past when he became delirious after not sleeping for several days. He came to the office this time, confused, ataxic and having a fall numerous times at home. He states he always falls backwards. He had several lacerations, abrasions and contusions including lacerations on the right forearm and some on the lower legs. He also was very dehydrated. He denied any focal neurologic deficits, headaches, fever and chills, chest pain, abdominal pain, etc. Past medical history, family history, personal and social histories reveal he is not allergic to any medications. He takes calcium, levothyroxine 0.025, Lasix 40 mg, metoprolol tartrate 25 mg once a day, Flomax 0.4 at night, Xarelto 20 mg once a day. He does not smoke or drink. Past medical history, family history and personal and social histories are otherwise unremarkable and unchanged. PHYSICAL EXAMINATION: VITAL SIGNS: He had vital signs in the office with pulse rate of 79 and blood pressure 112/72, pulse ox 97. GENERAL: He appeared to be dehydrated. HEAD, EARS, EYES, NOSE, MOUTH AND THROAT: Otherwise normal. NECK: Neck veins not distended. CHEST: Clear. CARDIAC: Demonstrated what sounds like sinus rhythm with a grade 2/6 systolic murmur. ABDOMEN: Flat, soft. EXTREMITIES: Demonstrated 4+ edema of both lower legs. He had a total-body dry skin with numerous areas of abrasions, lacerations, and lower extremity ulcerations with 4+ edema. NEUROLOGICAL: He seemed to be intact other than his delirium. ASSESSMENT: He is admitted to the hospital with diagnoses of: 1. Mental status changes and delirium. 2. Frequent falling (backwards). 3. Dehydration. 4. Multiple abrasions and lacerations. 5. General debility and failure to care for oneself. PLAN: 1. Bedrest. 2. IV fluids. 3. Rehydrate. 4. Local care to abrasions and lacerations. 5. PT and OT. 6. Discharge planning. MMRICCO / SABINEN: [id number] /
[2022-07-30] MEDS: TAMSULOSIN 0.4 MG CAP.ER.24H PO SCH (21:16)
[2022-07-30] MEDS: MELATONIN 5 MG TABLET PO SCH (21:16)
--- NOTE | 2022-07-30 21:21 | PN ---
PROGRESS NOTE DATE OF SERVICE: 07/28/2022 CHIEF COMPLAINT: Delirium, frequent falling. HISTORY OF PRESENT ILLNESS: This gentleman is improved. IV hydration has made difference. He seems more lucid. The lower extremity edema has receded remarkably. PHYSICAL EXAMINATION: CHEST: Demonstrates scattered rales. CARDIAC: Unchanged. ABDOMEN: Soft. EXTREMITIES: Much less edematous. IMPRESSION: 1. Delirium. 2. Encephalopathy. 3. Frequent falling. 4. Dependent edema. 5. Xero dermatitis. PLAN: Continue with rehydration and then will start PT, OT, and then consider discharge plan. MMODL / IJN: [id number] /
[2022-07-31] MEDS: LEVOTHYROXINE 25 MCG TAB PO SCH (06:41)
[2022-07-31] MEDS: SODIUM CHLORIDE 0.9% 1,000 ML IV SCH ×2 (06:42→21:46)
[2022-07-31] MEDS: GABAPENTIN 100 MG CAP PO SCH ×2 (09:05→21:46)
[2022-07-31] MEDS: RIVAROXABAN 20 MG TAB PO SCH (09:05)
[2022-07-31] MEDS: CEPHALEXIN 500 MG CAP PO SCH ×4 (09:05→21:46)
[2022-07-31] MEDS: METOPROLOL TARTRATE 25 MG TAB PO SCH (09:05)
[2022-07-31] MEDS: CALCIUM ACETATE 667 MG TAB PO SCH ×2 (09:05→21:46)
--- NOTE | 2022-07-31 16:41 | P.PN ---
Subjective Progress Note Date: 07/31/22 07/31/2022: Patient was seen for a follow-up. Patient states that he is feeling better. He is sitting comfortably in the recliner. Still with pain, but not as bad. 07/30/2022: Patient states that he loses balance when he is walking backwards. When he is forward walking, he can balance with a walker. Patient's ex- and patient's daughter both were present today. They are from [facility]. They mentioned that patient was transferred to the hospital because of mental confusion noted at the primary physician's office. Patient tells me that he is not having any more hallucinations. The hallucinations mentioned in the consultation note, occurred almost a year ago. He has problems with the back. Patient states that his left leg does not work as well for the past 1 year. Denies any symptoms with upper extremities. Patient complains of pain underneath the rib cage like a belt. He does have history of compression fracture T12 vertebra. Objective - Vital Signs Vital signs: Vital Signs Temp 98 F 07/31/22 12:30 Pulse 66 07/31/22 12:30 Resp 18 07/31/22 12:30 BP 108/66 07/31/22 12:30 Pulse Ox 97 07/31/22 12:30 FiO2 Intake & Output 07/30/22 07/31/22 07/31/22 18:59 06:59 18:59 Intake Total 999 821 5860 Output Total 1950 900 600 Balance -1350 -675 596 Intake: IV 225 Sodium Chloride 0.9% 1, 225 000 ml @ 75 mls/hr IV . [id number] [facility] Rx#:[id number] Intake, IV Titration 600 Amount Sodium Chloride 0.9% 1, 600 000 ml @ 75 mls/hr IV . [id number] [facility] Rx#:[id number] Oral 1196 Output: Urine 1950 900 600 Other: Voiding Method External Catheter External Catheter # Voids 2 - Exam Patient's mental status, speech and language functions are normal. Cranial nerves are normal. Muscle strength is normal, except left shoulder which is 4-, likely due to arthritic problem of the shoulder. Deep tendon reflexes are symmetric, 0 at the biceps, 0 brachioradialis, 1+ at the knees, 0 ankles and plantars are flat. Sensations are equal with no neglect. No ataxia in the upper limbs. - Labs CBC & Chem 7: 07/27/22 18:04 07/27/22 18:04 Assessment and Plan Assessment: * Frequent falls, likely related to cervical, lumbar spondylosis. History of T12 compression fracture, stable. * Remote past history of hallucinations, likely due to delirium, resolved. * Multiple bruises, scabs on the extremities, with laceration right forearm. * Skin cancer left anterior cardenas region. * History of atrial fibrillation, on Xarelto. * History of cancer of tongue * History of skin cancer * Pacemaker Plan: * Patient has presented with gait imbalance and frequent falls. * CT of the thoracic lumbar spine revealed severe multilevel disc degenerative changes with multilevel compression deformities which appear more chronic. MRI would provide higher sensitivity for bony edema. Acute/subacute left transverse process fracture of L1, L2, L3 and L4. Acute right 10th rib fracture posteriorly. Right upper lobe airspace opacities, correlate for pneumonia. * Orthopedic spine following. * Patient's mentation is normal. His hallucinations occurred almost a year ago, but none lately. Psychiatry input appreciated. Patient declining medication. Agree with melatonin. * Patient may benefit from polysomnogram to rule out REM behavior disorder.. * Continue Xarelto for stroke prevention related to A. fib. * B12 1527, folate 14.3, MMA 0.12, hemoglobin A1c 5.4, RPR nonreactive. * TSH is elevated 5.10 and normal free T4 1.53. Will defer to IM * Telemetry monitoring showing sinus rhythm. * PT OT, evaluate gait. * Patient's further management as per orthopedic spine. As there is no active neurological issue, we will sign off. Please reconsult neurology if any concerns.
[2022-07-31 19:11] LABS: Basophils % (A) 0 %; Eosinophils # (A) 0.2 k/uL (0-0.7); Eosinophils % (A) 3 %; HCT 32.9 % (39.0-53.0); HGB 10.9 gm/dL (13.0-17.5); Lymphocytes # (A) 0.6 k/uL (1.0-4.8); Lymphocytes % (A) 10 %; MCH 32.4 pg (25.0-35.0); MCV 98.1 fL (80.0-100.0); Mean Platelet Volume 8.1; Monocytes # (A) 0.4 k/uL (0-1.0); Monocytes % (A) 7 %; Neutrophils # (A) 4.7 k/uL (1.3-7.7); Neutrophils % (A) 78 %; Platelet Count 210 k/uL (150-450); RBC 3.36 m/uL (4.30-5.90); RDW 13.8 % (11.5-15.5); WBC 6.1 k/uL (3.8-10.6)
[2022-07-31 19:54] LABS: Potassium 4.8 mmol/L (3.5-5.1)
[2022-07-31 19:55] LABS: ALT 45 U/L (4-49); AST 51 U/L (17-59); African American GFR (CKD) >90 (>60 ml/min/1.73 sqM); Albumin 2.9 g/dL (3.5-5.0); Alkaline Phosphatase 116 U/L (38-126); Anion Gap 8 mmol/L; Blood Urea Nitrogen 20 mg/dL (9-20); Calcium 7.8 mg/dL (8.4-10.2); Carbon Dioxide 23 mmol/L (22-30); Chloride 99 mmol/L (98-107); Glucose 160 mg/dL (74-99); Non-African American GFR(CKD) >90 (>60 ml/min/1.73 sqM); Sodium 130 mmol/L (137-145); Total Bilirubin 0.9 mg/dL (0.2-1.3); Total Protein 5.4 g/dL (6.3-8.2)
[2022-07-31] MEDS: MELATONIN 5 MG TABLET PO SCH (21:46)
[2022-07-31] MEDS: TAMSULOSIN 0.4 MG CAP.ER.24H PO SCH (21:46)
[2022-07-31 22:28] LABS: Appearance,Urine Clear (Clear); Bilirubin,Urine Negative (Negative); Blood,Urine Trace (Negative); Color,Urine Light Yellow; Glucose,Urine (UA) Negative (Negative); Ketones,Urine Negative (Negative); Leukocyte Esterase,Urine Negative (Negative); Nitrite,Urine Negative (Negative); Protein,Urine Negative (Negative); RBC,Urine 3 /hpf (0-5); Urobilinogen,Urine <2.0 mg/dL (<2.0); WBC,Urine <1 /hpf (0-5)
[2022-08-01] MEDS: LEVOTHYROXINE 25 MCG TAB PO SCH (06:30)
[2022-08-01] MEDS: CALCIUM ACETATE 667 MG TAB PO SCH ×2 (10:22→21:33)
[2022-08-01] MEDS: CEPHALEXIN 500 MG CAP PO SCH ×4 (10:22→21:34)
[2022-08-01] MEDS: METOPROLOL TARTRATE 25 MG TAB PO SCH (10:22)
[2022-08-01] MEDS: GABAPENTIN 100 MG CAP PO SCH ×2 (10:22→21:33)
[2022-08-01] MEDS: RIVAROXABAN 20 MG TAB PO SCH (10:22)
--- NOTE | 2022-08-01 12:07 | P.PN ---
Subjective Progress Note Date: 08/01/22 Principal diagnosis: Low-back pain, frequent falls, difficulty ambulating Patient was examined today at bedside, he is resting in his hospital bed. Patient states that the overall pain symptoms in the low back and ribs have seemed to improve. Computed tomography scan of the thoracic/lumbar region did notice 10th right rib fracture. Patient hasn't done much ambulating at this time. Currently denying any numbness or tingling of the bilateral upper or lower extremities. He denies any genital or peroneal numbness or tingling. He denies any loss of bowel or bladder function at this time. Objective - Vital Signs Vital signs: Vital Signs Temp 97.7 F 08/01/22 10:20 Pulse 85 08/01/22 10:20 Resp 18 08/01/22 10:20 BP 93/53 08/01/22 10:20 Pulse Ox 95 08/01/22 10:20 FiO2 Intake & Output 07/31/22 08/01/22 08/01/22 18:59 06:59 18:59 Intake Total 3234 300 598 Output Total 1450 1750 700 Balance 1784 -1450 -102 Intake: Intake, IV Titration 300 Amount Sodium Chloride 0.9% 1, 300 000 ml @ 75 mls/hr IV . [id number] [facility] Rx#:[id number] Oral 3234 598 Output: Urine 1450 1750 700 Other: Voiding Method External Catheter Urinal Urinal - Exam Gen: AOx3, NAD VSS stable at this time Integument: Multiple bruises, scabs and skin lesions to the bilateral upper and lower extremities. There is a rather deep wound to the dorsal aspect of the right upper extremity. There is also a notable abrasion to the anterior left cardenas. Palpation: Patient demonstrates no significant tenderness with palpation to the paraspinal and midline of the cervical spine. He does have some generalized tenderness throughout the paraspinal and midline region of the thoracic and lumbar spine ROM: Full range of motion in all major muscle groups of the bilateral upper and lower extremities, no focal deficits appreciated. He does lack full elevation and abduction of the left shoulder Sensory Exam: Senory exam to light touch is intact C5-T1 Senosry exam to light touch is intact L2-S1 Motor: 5/5 strength appreciated in the bilateral upper extremities with elbow extension, elbow flexion, wrist extension, wrist flexion, learning support aide 4-5 strength appreciated in the left upper extremity with shoulder elevation, shoulder abduction 5-5 strength appreciated in the right upper extremity with shoulder elevation and shoulder abduction 4+/5 strength appreciated in the bilateral lower extremities with hip flexion, knee extension, knee flexion, plantar flexion, dorsiflexion, EHL, FHL Reflexes: 2/4 in all UE and LE Negative Reagan's bilaterally, negative Babinski bilaterally, negative clonus bilaterally Special Test: Logroll maneuver of the bilateral lower extremities reproduces no pain - Labs CBC & Chem 7: 07/31/22 18:46 07/31/22 18:46 Labs: Abnormal Lab Results - Last 24 Hours (Table) 07/31/22 07/31/22 07/31/22 Range/Units 18:46 18:46 21:44 RBC 3.36 L (4.30-5.90) m/uL Hgb 10.9 L (13.0-17.5) gm/dL Hct 32.9 L (39.0-53.0) % Lymphocytes # 0.6 L (1.0-4.8) k/uL Sodium 130 L (137-145) mmol/L Glucose 160 H (74-99) mg/dL Calcium 7.8 L (8.4-10.2) mg/dL Total Protein 5.4 L (6.3-8.2) g/dL Albumin 2.9 L (3.5-5.0) g/dL Urine Blood Trace H (Negative) Assessment and Plan Assessment: Multiple wounds bilateral upper and lower extremities Low back pain History of frequent falls Chronic T12 compression fracture Chronic T8 compression fracture Chronic L2 compression fracture Right 10th rib fracture Multiple medical comorbidities Plan: After review of the most recent thoracic and lumbar CT scans by attending Dr. Alcala, recommending no emergent orthopedic surgical intervention. We would like to see how the patient does getting up with physical therapy to r eassess his overall symptoms. Pain symptoms continue to worsen while ambulating, we would consider MRI for further evaluation. Weight-bear as tolerated, recommend use of a walker at this time Pain control, would recommend use of [id number] Tylenol Wound care has been consulted due to the multiple skin lesions/abrasions of the bilateral upper and lower extremities We will continue to follow during inpatient stay Time with Patient: Less than 30
[2022-08-01] MEDS: TAMSULOSIN 0.4 MG CAP.ER.24H PO SCH (21:33)
[2022-08-01] MEDS: SODIUM CHLORIDE 0.9% 1,000 ML IV SCH (21:33)
[2022-08-01] MEDS: MELATONIN 5 MG TABLET PO SCH (21:33)
--- NOTE | 2022-08-02 03:13 | PN ---
PROGRESS NOTE CHIEF COMPLAINT: Delirium, dehydration, malnutrition, and sleep deprivation. HISTORY OF PRESENT ILLNESS: This patient is doing a lot better. Each day he is a little bit more alert. He is eating and drinking well. We are increasing his activity. PHYSICAL EXAMINATION: CHEST: Clear. CARDIAC: Normal. ABDOMEN: Soft and nontender. EXTREMITIES: Greatly improved. There is almost no swelling in the legs. IMPRESSION: 1. Delirium. 2. Malnutrition. 3. Dehydration. 4. Sleep deprivation. 5. Dependent edema. PLAN: Work on a discharge plan, but will probably be able to discharge him home in the next day or 2. MMODL / IJN: [id number] /
--- NOTE | 2022-08-02 04:43 | PN ---
PROGRESS NOTE DATE OF SERVICE: 07/31/2022 CHIEF COMPLAINT: Delirium, encephalopathy, dehydration, and anemia. HISTORY OF PRESENT ILLNESS: This gentleman is improving daily. His appetite is improving, his strength is improving. It is noted that he has hematuria on 1 urinalysis. Liver function studies are slightly elevated as well at 134 in AST. Hemoglobin is 10.9. PHYSICAL EXAMINATION: GENERAL: He is awake and alert. Hydration is improved. Skin is improving. CHEST: Clear. CARDIAC: Normal. ABDOMEN: Flat and soft. EXTREMITIES: Improving with less edema and superficial abrasions and excoriations are improving. IMPRESSION: 1. Delirium. 2. Dehydration. 3. Malnutrition. 4. Chronic kidney disease. 5. Anemia. 6. Hematuria. PLAN: Progress his diet and will repeat his urinalysis. He is close to discharge. It is assuming that he will go back home. RIVERA / AILYN: [id number] /
--- NOTE | 2022-08-02 05:28 | PN ---
PROGRESS NOTE CHIEF COMPLAINT: Delirium, dehydration, malnutrition, and lower extremity edema. HISTORY OF PRESENT ILLNESS: This gentleman is improving. He is starting to eat. Cognitively, he is cleared. PHYSICAL EXAMINATION: CHEST: Clear. CARDIAC: Same with his murmur being 0. ABDOMEN: Soft, nontender. EXTREMITIES: Improving. Edema has almost disappeared. He is having some pain in the left foot, circulation is adequate. IMPRESSION: 1. Delirium. 2. Cardiac murmur. 3. Malnutrition. 4. Dehydration. 5. General debility. PLAN: Continue with current program and his skin is responding to lubrication. We will continue to increase his activity and consider discharge once he is stable. MMODL / IJN: [id number] /
[2022-08-02] MEDS: LEVOTHYROXINE 25 MCG TAB PO SCH (05:35)
--- NOTE | 2022-08-02 08:21 | P.PN ---
Subjective Progress Note Date: 08/02/22 Principal diagnosis: Low-back pain Frequent falls Difficulty ambulating Patient seen and examined this morning. Patient was resting in bed. Patient does have complaint of low back pain in the lumbar region. This is managed on current medication regimen and with rest. He denies any numbness tingling to bilateral lower extremities. Patient states he has not been up and ambulatory over the past few days. Encouraged patient to work with physical therapy today. Depending on patient's pain tolerance with physical therapy and progression with activity we may order MRI for further evaluation. Patient has been afebrile, denies nausea/vomiting, or chest pain. Objective - Vital Signs Vital signs: Vital Signs Temp 98.3 F 08/02/22 04:30 Pulse 76 08/02/22 04:30 Resp 14 08/02/22 04:30 BP 92/53 08/02/22 04:30 Pulse Ox 94 L 08/02/22 04:30 FiO2 Intake & Output 08/01/22 08/02/22 08/02/22 18:59 06:59 18:59 Intake Total 2384 640 Output Total 1125 1775 Balance 1259 -1135 Intake: Oral 2384 640 Output: Urine 1125 1775 Other: Voiding Method Urinal Urinal # Voids 1 # Bowel Movements 1 - Exam Physical Examination General: The patient is awake and alert, in no acute distress Skin: Skin is warm and dry with no obvious rashes or lesions. Generalized bruising and laceration to right upper extremity. Eye: Pupils are equal, round and reactive to light, extra-ocular movements are intact; there is normal conjunctiva bilaterally. Neck: The neck is supple, there is no tenderness and ROM intact. Cardiovascular: There is a regular rate and rhythm. No murmur, rub or gallop is appreciated. Respiratory: Lungs are clear to auscultation, respirations are non-labored, breath sounds are equal. Gastrointestinal: Soft, non-distended, non-tender abdomen. Back: There is mild tenderness to palpation in the paralumbar and parathoracic region. There is no obvious deformity . Musculoskeletal: ROM limited secondary to pain and stiffness. Muscle strength in all major muscle groups of bilateral upper extremities 5/5, bilateral lower e xtremities 4+/5. Neurological: CN 2-12 intact. There are no obvious motor or sensory deficits. Movement and coordination equal and intact. Sensory exam to light touch intact C5-T1 and intact from L2-S1. Reflexes 2/4 in bilateral upper and lower extremities. Negative Hoffmans, babinski, and clonus signs. Psychiatric: Cooperative, appropriate mood & affect, normal judgment. - Labs CBC & Chem 7: 07/31/22 18:46 07/31/22 18:46 Assessment and Plan Assessment: Multiple wounds bilateral upper and lower extremities Low back pain History of frequent falls Chronic T12 compression fracture Chronic T8 compression fracture Chronic L2 compression fracture Right 10th rib fracture Multiple medical comorbidities Plan: Plan: -Appreciate weight loss sales consultant and team management. -Activity: Ambulate QID, OOB all meals, up and about, limit lifting bending twisting to less than 5 lbs. Use walker for stability. -Daily PT/OT, increase ambulation strength and balance. -Pending assessment with PT today and his pain tolerance, we may order a MRI for further evaluation -Pain control: Adequate at this time -Meds: reviewed -GI ppx: senna, Miralax -DVT PPX: Xarelto -Encourage IS 10x/hr -We will continue to follow patient through his inpatient stay *I reviewed and discussed this case with my attending Dr. Alcala, whom has reviewed this chart and films and is in agreement with assessment and plan of care as outlined above. I have personally seen and examined the patient, performed the documentation and the assessment and plan as written. Number of minutes spent on the visit: 15m.
[2022-08-02] MEDS: CEPHALEXIN 500 MG CAP PO SCH ×4 (09:00→19:50)
[2022-08-02] MEDS: GABAPENTIN 100 MG CAP PO SCH ×2 (09:00→19:50)
[2022-08-02] MEDS: CALCIUM ACETATE 667 MG TAB PO SCH ×2 (09:00→19:50)
[2022-08-02] MEDS: RIVAROXABAN 20 MG TAB PO SCH (09:00)
[2022-08-02] MEDS: METOPROLOL TARTRATE 25 MG TAB PO SCH (09:00)
--- NOTE | 2022-08-02 13:22 | P.CONS ---
History of Present Illness - Reason for Consult Consult date: 08/02/22 wound care - History of Present Illness This is a 77-year-old patient being seen by the wound care center for nonhealing ulcerations to bilateral arms and bilateral lower extremities. Patient states that he runs into things frequently causing open ulcerations. He utilizes salts to the site routinely. Patient has left forearm ulceration measuring approximately 1 x 5 x 0.1 cm with Slough and nonviable tissue present with minimal granulation, a left upper arm ulceration measuring apparently 0.4 x 0.4 x 0.1 cm with minimal slough and inhalation left calf ulceration measuring approximate 1.3 x 0.4 x 0.1 cm with Slough and nonviable tissue and minimal granulation, left calf cluster of 2 ulcerations measuring approximate 2.5 x 0.4 x 0.1 cm with significant amounts of Slough and minimal granulation. A right forearm ulceration measuring a pressure like 4 x 0.2 x 0.1 cm with Slough and nonviable tissue with minimal granulation and a right knee ulceration measuring approximately 1.3 x 1.5 x 0.1 cm with eschar present and no granulation. Review Of Systems: Constitutional: No fever, no chills, no night sweats. No weight change. No weakness, fatigue or lethargy. No daytime sleepiness. Integumentary:reports wounds, no lesions. No rash or pruritus. No unusual bruising. No change in hair or nails. Physical exam: General Appearance: Alert, cooperative, no distress, appears stated age. Skin: See HPI all other Skin color, texture, tugor normal, no rashes or lesions. Neurologic: Alert oriented x3 Assessment: 1. Nonhealing ulceration left forearm with fat layer exposure 2. Nonhealing ulceration right forearm with with fat layer exposure 3. Nonhealing ulceration left With fat layer exposure 4. Nonhealing ulceration right lower extremity with fat layer exposure Plan: 1. Apply honey gel, dry gauze, rolled gauze and secure with tape. Thank you for the consultation any questions please contact the wound care center DNP note has been reviewed and discussed with Dr. Fletcher and the impression and plan of care has been directed as dictated. Past Medical History Past Medical History: Atrial Fibrillation, Cancer, GERD/Reflux, Hearing Disorder / Deafness, Hypertension, Mitral Valve Prolapse (MVP) Additional Past Medical History / Comment(s): PACEMAKER 2018., MVP WITH HEART MURMUR. , HX ORAL CA. 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 ,hx broken back and rt clavicle, "Thyroid condition". History of Any Multi-Drug Resistant Organisms: None Reported Past Surgical History: Appendectomy, Cholecystectomy, Heart Catheterization, Hernia Repair, Orthopedic Surgery, Pacemaker Additional Past Surgical History / Comment(s): ORAL SURG FOR CA. , EGD., RT SHOULDER SX., LITHOTRIPSY. asha fundoplication. HEART CATH 08/10/18,. PACEMAKER [employer] 2017 Past Anesthesia/Blood Transfusion Reactions: No Reported Reaction Additional Past Anesthesia/Blood Transfusion Reaction / Comm: Patient denies having had blood transfusions in the past. Type of Cardiac Device: Permanent Pacemaker Device Placement Date:: 2017 Past Psychological History: No Psychological Hx Reported Smoking Status: Never smoker Past Alcohol Use History: None Reported Past Drug Use History: None Reported - Past Family History Mother History Unknown: Yes Family Medical History: No Reported History Additional Family Medical History / Comment(s): Patient denies knowing medical history of family Medications and Allergies Home Medications Medication Instructions Recorded Confirmed Type Rivaroxaban [Xarelto] 20 mg PO DAILY 03/20/19 07/28/22 History Levothyroxine Sodium [Synthroid] 25 mcg PO DAILY 08/07/20 07/28/22 History Metoprolol Tartrate [Lopressor] 25 mg PO DAILY 08/07/20 07/28/22 History Furosemide [Lasix] 20 mg PO DAILY #30 tab 08/17/21 07/28/22 Rx Calcium Acetate [PhosLo] 667 mg PO BID 09/11/21 07/28/22 History Furosemide [Lasix] 40 mg PO DAILY 07/28/22 07/28/22 History Tamsulosin [Flomax] 0.4 mg PO HS 07/28/22 07/28/22 History Allergies Allergy/AdvReac Type Severity Reaction Status Date / Time No Known Allergies Allergy Verified 07/28/22 10:47 Physical Exam Vitals: Vital Signs Temp Pulse Resp BP Pulse Ox 08/02/22 12:00 98.2 F 73 18 85/50 99 08/02/22 08:01 94 L 08/02/22 08:00 97.9 F 71 16 101/44 93 L 08/02/22 04:30 98.3 F 76 14 92/53 94 L 08/02/22 00:45 98.4 F 77 15 96/53 93 L 08/01/22 20:30 98.3 F 85 16 122/60 95 08/01/22 17:20 70 16 145/86 97 Intake and Output 08/01/22 08/02/22 08/02/22 22:59 06:59 14:59 Intake Total 952 640 540 Output Total 425 1775 300 Balance 527 -1135 240 Intake: Oral 952 640 540 Output: Urine 425 1775 300 Other: Voiding Method Urinal Urinal # Voids 1 Results CBC & Chem 7: 07/31/22 18:46 07/31/22 18:46 Assessment and Plan (1) Non-pressure chronic ulcer of left calf with fat layer exposed Current Visit: Yes Status: Acute Code(s): L97.222 - NON-PRESSURE CHRONIC ULCER OF LEFT CALF W FAT LAYER EXPOSED SNOMED Code(s): 82327801379766848 (2) Non-pressure chronic ulcer of right calf with fat layer exposed Current Visit: Yes Status: Acute Code(s): L97.212 - NON-PRESSURE CHRONIC ULCER OF RIGHT CALF W FAT LAYER EXPOSED SNOMED Code(s): 95292172909329558 (3) Non-pressure chronic ulcer of skin of other sites with muscle involvement without evidence of necrosis Current Visit: Yes Status: Acute Code(s): L98.495 - NON-PRS [facility]R [facility] SKIN/ OTH SITE WITH MSL INVL W/O EVD OF NECR SNOMED Code(s): 33770660
[2022-08-02] MEDS: TAMSULOSIN 0.4 MG CAP.ER.24H PO SCH (19:50)
[2022-08-02] MEDS: MELATONIN 5 MG TABLET PO SCH (19:50)
[2022-08-03] MEDS: LEVOTHYROXINE 25 MCG TAB PO SCH (06:07)
--- NOTE | 2022-08-03 08:29 | P.PN ---
Subjective Progress Note Date: 08/03/22 Principal diagnosis: Low-back pain Frequent falls Difficulty ambulating Patient seen and examined this morning. Patient was resting in bed. Patient does have mild low back pain. Patient expresses his biggest concern is his legs giving out on him at times and the swelling to his left side of his body. He denies any numbness tingling to bilateral lower extremities. Patient is tolerating activity well with PT. Encouraged patient to continue to work with PT/OT to regain some strength. Patient has been afebrile, denies nausea/vomiting, or chest pain. Objective - Vital Signs Vital signs: Vital Signs Temp 97.8 F 08/03/22 07:09 Pulse 60 08/03/22 07:09 Resp 18 08/03/22 07:09 BP 91/51 08/03/22 07:09 Pulse Ox 96 08/03/22 07:09 FiO2 Intake & Output 08/02/22 08/03/22 08/03/22 18:59 06:59 18:59 Intake Total 1560 320 Output Total 950 500 Balance 610 -180 Intake: Oral 1560 320 Output: Urine 950 500 Stool 0 Other: Voiding Method Urinal Urinal # Voids 2 6 - Exam Physical Examination General: The patient is awake and alert, in no acute distress Skin: Skin is warm and dry with no obvious rashes or lesions. Generalized bruising and laceration to right upper extremity. Eye: Pupils are equal, round and reactive to light, extra-ocular movements are intact; there is normal conjunctiva bilaterally. Neck: The neck is supple, there is no tenderness and ROM intact. Cardiovascular: There is a regular rate and rhythm. No murmur, rub or gallop is appreciated. Respiratory: Lungs are clear to auscultation, respirations are non-labored, breath sounds are equal. Gastrointestinal: Soft, non-distended, non-tender abdomen. Back: There is mild tenderness to palpation in the paralumbar and parathoracic region. There is no obvious deformity . Musculoskeletal: ROM limited secondary to pain and stiffness. Muscle strength in all major muscle groups of bilateral upper extremities 5/5, bilateral lower extremities 4+/5. Neurological: CN 2-12 intact. There are no obvious motor or sensory deficits. Movement and coordination equal and intact. Sensory exam to light touch intact C5-T1 and intact from L2-S1. Reflexes 2/4 in bilateral upper and lower extremities. Negative Hoffmans, babinski, and clonus signs. Psychiatric: Cooperative, appropriate mood & affect, normal judgment. - Labs CBC & Chem 7: 07/31/22 18:46 07/31/22 18:46 Assessment and Plan Assessment: Multiple wounds bilateral upper and lower extremities Low back pain History of frequent falls Chronic T12 compression fracture Chronic T8 compression fracture Chronic L2 compression fracture Right 10th rib fracture Multiple medical comorbidities Plan: Plan: -Appreciate admissions consultant and team management. -Activity: Ambulate QID, OOB all meals, up and about, limit lifting bending twisting to less than 5 lbs. Use walker for stability. -Daily PT/OT, increase ambulation strength and balance. -Pain control: Adequate at this time -Meds: reviewed -GI ppx: senna, Miralax -DVT PPX: Xarelto -Encourage IS 10x/hr -We will continue to follow during inpatient stay *I reviewed and discussed this case with my attending Dr. Alcala, whom has reviewed this chart and films and is in agreement with assessment and plan of care as outlined above. I have personally seen and examined the patient, performed the documentation and the assessment and plan as written. Number of minutes spent on the visit: 15m.
[2022-08-03] MEDS: CEPHALEXIN 500 MG CAP PO SCH ×4 (08:59→21:05)
[2022-08-03] MEDS: CALCIUM ACETATE 667 MG TAB PO SCH ×2 (08:59→21:05)
[2022-08-03] MEDS: GABAPENTIN 100 MG CAP PO SCH ×2 (08:59→21:05)
[2022-08-03] MEDS: METOPROLOL TARTRATE 25 MG TAB PO SCH (08:59)
[2022-08-03 09:48] VITALS: BMI 22.1
[2022-08-03] MEDS: RIVAROXABAN 20 MG TAB PO SCH (09:52)
[2022-08-03] MEDS: TAMSULOSIN 0.4 MG CAP.ER.24H PO SCH (21:05)
[2022-08-03] MEDS: MELATONIN 5 MG TABLET PO SCH (21:05)
[2022-08-04] MEDS: LEVOTHYROXINE 25 MCG TAB PO SCH (06:15)
[2022-08-04] MEDS: CALCIUM ACETATE 667 MG TAB PO SCH (10:20)
[2022-08-04] MEDS: GABAPENTIN 100 MG CAP PO SCH (10:21)
[2022-08-04] MEDS: RIVAROXABAN 20 MG TAB PO SCH (10:22)
[2022-08-04] MEDS: METOPROLOL TARTRATE 25 MG TAB PO SCH (10:23)
[2022-08-04] MEDS: CEPHALEXIN 500 MG CAP PO SCH (10:24)
[2022-08-04 14:56] VITALS: BP 110/58; PULSE 55; RESP 16; TEMP 98.1
--- NOTE | 2022-08-05 10:57 | DS ---
DISCHARGE SUMMARY CHIEF COMPLAINT: Delirium, dehydration. HISTORY OF PRESENT ILLNESS AND PHYSICAL EXAMINATION: Details of this man's history and physical can be found in the initial workup. LABORATORY STUDIES: While he was in the hospital, he had laboratory studies, details of which can be found in the laboratory section of his chart. COURSE IN THE HOSPITAL: After admission, he was placed on bedrest and rehydrated. Once he was rehydrated and started eating, his delirium cleared. His lower extremity edema disappeared almost immediately. Skin lesions which were ulcerations, abrasions, and contusions also cleared. He continued to do well and was stable and up and ambulatory that he could be discharged on the . He will go home on his usual activity, diet, and medication with being sure to get enough sleep. He had a similar episode of this in the past due to sleep deprivation. FINAL DIAGNOSES: 1. Delirium. 2. Sleep deprivation. 3. Congestive heart failure. 4. Atrial fibrillation. 5. Dependent edema. 6. Borderline personality. OPERATIONS: None. CONSULTATIONS: None. He is improved. MMRICCO / SABINEN: [id number] /
--- NOTE | 2022-08-05 11:12 | PN ---
PROGRESS NOTE DATE OF SERVICE: 08/03/2022 BED: 460. CHIEF COMPLAINT: Delirium, dehydration, malnutrition. HISTORY OF PRESENT ILLNESS: This gentleman is doing much better. He is starting to ambulate more and he is eating. Edema of the lower extremity is gone. He is probably close to being able to go home. PHYSICAL EXAMINATION: CHEST: Clear. CARDIAC: Unchanged. He has atrial fibrillation. ABDOMEN: Soft, nontender. SKIN: Lesions which are lacerations and abrasions as well as ulcerations are healing. He is doing well. IMPRESSION: 1. Delirium. 2. Dehydration. 3. Probable borderline personality. PLAN: Probably home in the next day or 2. MMODL / IJN: [id number] /
--- NOTE | 2022-08-05 16:21 | PN ---
PROGRESS NOTE DATE OF SERVICE: 08/02/2022 ROOM: 384. CHIEF COMPLAINT: Delirium, edema, frequent falling, general debility, failure to thrive. HISTORY OF PRESENT ILLNESS: This gentleman is awake and alert. He is eating. Nutrition and hydration are improving. PHYSICAL EXAMINATION: CHEST: Clear. CARDIAC: Unchanged. ABDOMEN: Soft and nontender. SKIN: Lacerations are healing. IMPRESSION: 1. Frequent falling. 2. General debility and weakness. 3. Malnutrition. 4. Dehydration. 5. Multiple abrasions and contusions. PLAN: Continue with current program and start to get figure out how and where he could be discharged. MMODL / IJN: [id number] /
--- NOTE | 2022-09-10 04:25 | MISC ---
MISCELLANOUS REPORT Wound infection of the lower extremity. Parasomnia, REM-behavioral sleep disorder. MMODL / IJN: [id number] /
== END 2022-08-04 17:03 | disposition home or self-care (01) | DRG 155 ==
LOC: EC 17:26 → 5NMEDONC 23:08 → 1SOBS 07-28 06:55 → 3SCARD 07-28 07:37 → 4SSUR 08-02 22:09
PROVIDERS: ADMIT Family Medicine; ATTEND Family Medicine
DX: G47.52 REM sleep behavior disorder (principal); E46 Unspecified protein-calorie malnutrition; G93.40 Encephalopathy, unspecified; I13.0 Hypertensive heart and chronic kidney disease with heart failure and stage 1 through stage 4 chronic kidney disease, or unspecified chronic kidney disease; L97.212 Non-pressure chronic ulcer of right calf with fat layer exposed; L97.222 Non-pressure chronic ulcer of left calf with fat layer exposed; L98.495 Non-pressure chronic ulcer of skin of other sites with muscle involvement without evidence of necrosis; M48.54XA Collapsed vertebra, not elsewhere classified, thoracic region, initial encounter for fracture; M48.56XA Collapsed vertebra, not elsewhere classified, lumbar region, initial encounter for fracture; E86.0 Dehydration; Z68.22 Body mass index [BMI] 22.0-22.9, adult; D64.9 Anemia, unspecified; N18.9 Chronic kidney disease, unspecified; D63.1 Anemia in chronic kidney disease; H91.90 Unspecified hearing loss, unspecified ear; I50.9 Heart failure, unspecified; I34.1 Nonrheumatic mitral (valve) prolapse; I48.91 Unspecified atrial fibrillation; M47.816 Spondylosis without myelopathy or radiculopathy, lumbar region; M47.812 Spondylosis without myelopathy or radiculopathy, cervical region; J44.9 Chronic obstructive pulmonary disease, unspecified; L30.9 Dermatitis, unspecified; R62.7 Adult failure to thrive; F29 Unspecified psychosis not due to a substance or known physiological condition; R53.81 Other malaise; F60.3 Borderline personality disorder; L98.492 Non-pressure chronic ulcer of skin of other sites with fat layer exposed; R29.6 Repeated falls; S51.811A Laceration without foreign body of right forearm, initial encounter; T14.8XXA Other injury of unspecified body region, initial encounter; W19.XXXA Unspecified fall, initial encounter; Z91.81 History of falling; Z72.820 Sleep deprivation; Z79.01 Long term (current) use of anticoagulants; Z79.890 Hormone replacement therapy; Z79.899 Other long term (current) drug therapy; Z85.810 Personal history of malignant neoplasm of tongue; Z85.828 Personal history of other malignant neoplasm of skin; Z87.442 Personal history of urinary calculi; Z95.0 Presence of cardiac pacemaker
CPT/HCPCS: 36415; 70450; 71046; 72128; 72131; 74177; 80053; 80061; 80306; 80320; 81001; 82607; 82746; 83036; 83921; 84439; 84443; 84484; 85025; 85610; 85730; 86780; 93005; 94760; 96360; 96361; 99285

== ENCOUNTER → 2023-09-19 | Outpatient (CLI) | payer MEDICARE, BC ==
--- NOTE | 2023-09-19 18:13 | CT ---
EXAMINATION TYPE: CT forearm LT wo con CT DLP: 325.50 mGycm, Automated exposure control for dose reduction was used. DATE OF EXAM: 09/19/2023 1:41 PM COMPARISON: None CLINICAL INDICATION:Male, 78 years old with history of D23.62 NEOPLASM OF SKIN D21.12; PHH, LT forear m, Neoplasm of skin, firm, nontender, mobile nodule at proximal ulna LT arm. Pt area of mass noted by BB on LT arm. TECHNIQUE: Axial images were obtained of the CT forearm LT wo con, Additional coronal and sagittal re formatted images and soft tissue and bone window were obtained for review. 3-D reconstruction was cre ated on a separate workstation. Contrast used: mL of , (None if empty) Oral contrast used: (None if empty) FINDINGS: Flat appearing subcutaneous lesion measuring at least 15 x 4 x 30 mm is on axial imaging se nicole 4 image 119. There is no evidence of fracture, subluxation, or dislocation. No focal muscular at rophy or edema is identified. No radiopaque foreign body identified. Mild degeneration changes of the joints of the elbow with joint space narrowing and osteophyte formation. Mild multifocal degeneratio n changes of the joints of the hand and wrist with joint space narrowing and osteophyte formation. IMPRESSION: 1. There may be a flat subcutaneous lesion in the area of palpable abnormality difficult to differen tiate between the adjacent muscle measuring 15 x 4 x 30 mm corresponding to palpable marker placement . Finding is nonspecific on CT imaging may represent hematoma versus edema versus other. Consider fur ther evaluation with ultrasound and/or MRI with IV contrast. 2. No evidence of fracture.
== END | disposition home or self-care (01) ==
LOC: RADCTMAIN 13:01
PROVIDERS: ATTEND Orthopaedic Surgery
DX: D23.62 Other benign neoplasm of skin of left upper limb, including shoulder (principal); D21.12 Benign neoplasm of connective and other soft tissue of left upper limb, including shoulder; M25.522 Pain in left elbow

== ENCOUNTER → 2024-06-22 | Outpatient (CLI) | payer MEDICARE, BC ==
--- NOTE | 2024-06-22 12:13 | XR ---
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 FINDINGS: There is a 2-lead cardiac pacemaker unchanged in position. The heart is normal and the pulmonary vasculature is not congested. There is moderate to marked dextroscoliosis of the thoracic spine otherwise the osseous structures ar e intact. The lungs are clear and no consolidative or interstitial opacity. IMPRESSION: No acute cardiopulmonary disease with no interval change. [facility], Workstation: LUIS FERNANDO, 06/22/2024 12:11 PM
== END | disposition home or self-care (01) ==
LOC: RADXRMAIN 11:36
PROVIDERS: ATTEND Internal Medicine
DX: R07.81 Pleurodynia (principal); M41.84 Other forms of scoliosis, thoracic region; Z95.0 Presence of cardiac pacemaker
CPT/HCPCS: 71045